=== PATIENT | female | born 1930 | race Caucasian/White ===

== ENCOUNTER 2016-12-05 05:06 | Inpatient (IN) | payer MEDICARE ==
[~2016-12-05] VITALS: Ht 142.2 cm; Wt 56.2 kg
[~2016-12-05 05:06] MED LIST: ALBU2.5V14 IH; ALPR0.254 PO; ALPR0.5T PO; AZIT250T PO; BUDE10.2 IH; CA C1TAB28 PO; CHOL100013 PO; CRAN400T PO; CYAN10005 PO; Cefpodoxime Proxetil PO; DIGO125T PO; DOCU100C5 PO; DOCU100C53 PO; DOXY100T PO; ESCI10TA PO; ESCI20TA10 PO; FEXO1TAB31 PO; FURO-68 PO; GARL10002 PO; HYDR-2666 PO; HYDR-2762 PO; IPRA4AER IH; LEVO250T25 PO; LEVO500T38 PO; LEVO88TA4 PO; LIDO700A4 TP; METH4TAB2 PO; NYST1000 SWSW; OMEP40CA2 PO; ONDA4TAB10 SL; OXYC-250 PO; POLY17PO5 PO; POTA20TA12 PO; PRED-220 PO; PRED20TA PO; SENN8.6T3 PO; TIOT18CA IH; TIZA4CAP PO; TRAZ100T12 PO; vit b12 PO
[2016-12-05] MEDS ORDERED: methylPREDNISolone SOD SUCC PF 125 MG/2 ML VIAL. IV ONE (05:15)
[2016-12-05] MEDS ORDERED: IPRATRPIUM/ALBUTEROL 0.5/2.5MG 3 ML NEBU. NEB ONE (05:15)
--- NOTE | 2016-12-05 05:24 | PHYS DOC ---
Past Medical History Past Medical History: A-Fib, Anxiety, Asthma, Bronchitis, Cancer, COPD, Depression, Hypothyroid, Other Additional Past Medical Histor: chronic back, lung ca; hernia, HEART DISEASE, EMPHESEMA, Osteoporosis Past Surgical History: Appendectomy, Cholecystectomy, , Hysterectomy, Tonsillectomy, Other Additional Past Surgical Histo: back X2, hernia x 3 Alcohol Use: None Drug Use: None Adult General Chief Complaint Chief Complaint: SHORTNESS OF BREATH HPI HPI An 86-year-old female who presents with acute shortness of breath. EMS found her satting in the low 80s on her usual 6 L. She states she developed difficulty breathing apartment [address] ours prior to EMS arrival. She denies any chest pain. She denies any cough or fever. She does have history of atrial fibrillation and COPD. Patient was refusing CPAP therapy and nonrebreather and so she was they placed on 8 liters with improvement of her saturations. Upon arrival, patient is tachypnea but able to speak in complete sentences in mild respiratory distress. Review of Systems Review of Systems Constitutional: Denies fever or chills [] Eyes: Denies change in visual acuity, redness, or eye pain [] HENT: Denies nasal congestion or sore throat [] Respiratory: Denies cough, has shortness of breath [] Cardiovascular: No additional information not addressed in HPI [] GI: Denies abdominal pain, nausea, vomiting, bloody stools or diarrhea [] : Denies dysuria or hematuria [] Musculoskeletal: Denies back pain or joint pain [] Integument: Denies rash or skin lesions [] Neurologic: Denies headache, focal weakness or sensory changes [] Endocrine: Denies polyuria or polydipsia [] Current Medications Current Medications Current Medications Medications (Trade) Dose Ordered Sig/Yaya Start Time Stop Time Status Last Admin Dose Admin Albuterol/ Ipratropium (Duoneb) 3 ml 1X ONCE 12/05/16 05:15 12/05/16 05:20 DC Albuterol/ Ipratropium 3 ml 3 ml RTQID 12/05/16 08:00 12/06/16 07:59 Levofloxacin/ Dextrose (LEVAQUIN 750mg PREMIX) 150 ml @ 100 mls/hr Q48H 12/07/16 05:00 Levofloxacin/ Dextrose (Levaquin Per Pharmacy) 1 each PRN DAILY PRN 3/1/17 06:00 Methylprednisolone Sodium Succinate (Solu-Medrol 125mg Vial) 125 mg 1X ONCE 12/05/16 05:15 12/05/16 05:20 DC 12/05/16 05:52 125 MG Ondansetron HCl (Zofran) 4 mg PRN Q8HRS PRN 12/05/16 06:00 12/06/16 05:59 Piperacillin Sod/ Tazobactam Sod (Zosyn Per Pharmacy) 1 each PRN DAILY PRN 12/05/16 06:00 UNV Piperacillin Sod/ Tazobactam Sod 2.25 gm/Sodium Chloride 50 ml @ 100 mls/hr ONCE ONCE 12/05/16 07:00 12/05/16 07:29 12/05/16 06:23 100 MLS/HR Vancomycin HCl (Vanco Per Pharmacy) 1 each PRN DAILY PRN 12/05/16 06:00 UNV Allergies Allergies Allergies Coded Allergies Type Severity Reaction Last Updated Verified morphine Allergy Intermediate PER DAUGHTER, DOES NOT AGREE WITH PT 03/13/14 Yes adhesive Adverse Reaction Intermediate blisters 01/26/15 Yes aspirin Adverse Reaction Intermediate Nausea and Vomiting, "makes me sick" Yes Physical Exam Physical Exam Constitutional: Well developed, well nourished, no acute distress, non-toxic appearance. [] HENT: Normocephalic, atraumatic, bilateral external ears normal, oropharynx moist, no oral exudates, nose normal. [] Eyes: PERRLA, EOMI, conjunctiva normal, no discharge. [] Neck: Normal range of motion, no tenderness, supple, no stridor. [] Cardiovascular:Heart rate regular rhythm, no murmur [] Lungs & Thorax: Bilateral breath sounds clear to auscultation [] Abdomen: Bowel sounds normal, soft, no tenderness, no masses, no pulsatile masses. [] Skin: Warm, dry, no erythema, no rash. [] Back: No tenderness, no CVA tenderness. [] Extremities: No tenderness, no cyanosis, no clubbing, ROM intact, no edema. [] Neurologic: Alert and oriented X 3, normal motor function, normal sensory function, no focal deficits noted. [] Psychologic: Affect normal, judgement normal, mood normal. [] Current Patient Data Vital Signs Vital Signs Date Time Temp Pulse Resp B/P Pulse Ox O2 Delivery O2 Flow Rate FiO2 12/05/16 05:31 94 Nasal Cannula 8.0 12/05/16 05:25 98.5 92 28 109/73 98.5 Lab Values Laboratory Tests Test 12/05/16 05:10 White Blood Count 6.7x10^3/uL (4.0-11.0) Red Blood Count 3.28x10^6/uL (3.50-5.40) L Hemoglobin 9.1g/dL (12.0-15.5) L Hematocrit 29.1% (36.0-47.0) L Mean Corpuscular Volume 89fL (79-100) Mean Corpuscular Hemoglobin 28pg (25-35) Mean Corpuscular Hemoglobin Concent 31g/dL (31-37) Red Cell Distribution Width 16.8% (11.5-14.5) H Platelet Count 102x10^3/uL (140-400) L Neutrophils (%) (Auto) 66% (31-73) Lymphocytes (%) (Auto) 20% (24-48) L Monocytes (%) (Auto) 12% (0-9) H Eosinophils (%) (Auto) 2% (0-3) Basophils (%) (Auto) 1% (0-3) Neutrophils # (Auto) 4.4x10^3uL (1.8-7.7) Lymphocytes # (Auto) 1.3x10^3/uL (1.0-4.8) Monocytes # (Auto) 0.8x10^3/uL (0.0-1.1) Eosinophils # (Auto) 0.1x10^3/uL (0.0-0.7) Basophils # (Auto) 0.0x10^3/uL (0.0-0.2) Sodium Level 141mmol/L (136-145) Potassium Level 4.0mmol/L (3.5-5.1) Chloride Level 97mmol/L (98-107) L Carbon Dioxide Level 43mmol/L (21-32) H Anion Gap 1 (6-14) L Blood Urea Nitrogen 14mg/dL (7-20) Creatinine 1.1mg/dL (0.6-1.0) H Estimated GFR (Cockcroft-Gault) 47.3 Glucose Level 159mg/dL (70-99) H Lactic Acid Level 1.1mmol/L (0.4-2.0) Calcium Level 9.0mg/dL (8.5-10.1) Troponin I Quantitative < 0.017ng/mL (0.000-0.055) DN-Iaq-B-Type Natriuretic Peptide 1257pg/mL (0-449) H Laboratory Tests 12/05/16 05:10 Laboratory Tests 12/05/16 05:10 EKG EKG EKG as interpreted by me shows an irregular rhythm with a rate of 102 bpm. There is some artifact seen throughout this EKG but there are no obvious ischemic findings. This EKG does not meet any STEMI criteria. The intervals are normal. There is a leftward axis. There are occasional PVCs Radiology/Procedures Radiology/Procedures One view of the chest as interpreted by me shows findings concerning for a possible left-sided pneumonia. Course & Med Decision Making Course & Med Decision Making Pertinent Labs and Imaging studies reviewed. (See chart for details) 86-year-old female who is had significant significant dyspnea and requiring higher oxygen requirement than her usual 6 L will be admitted to the hospital for likely COPD exacerbation and a healthcare acquired pneumonia. I discussed the need to admit the patient with the hospitalist, Dr. Heard, who agreed to begin antibiotic therapy and to consult pulmonology as well. Patient was given a breathing treatment and steroids as well. Antibiotic therapy was ordered and initiated. Cultures and lactate were obtained prior to antibiotic administration. Her laboratory workup was fairly unremarkable other than a slightly elevated proBNP. Dragon Disclaimer Dragon Disclaimer This electronic medical record was generated, in whole or in part, using a voice recognition dictation system. Departure Departure Impression: Primary Impression: COPD (chronic obstructive pulmonary disease) Additional Impression: Healthcare-associated pneumonia Disposition: ADMITTED INPATIENT Admitting Physician: Paul Maldonado Condition: STABLE Referrals: PAUL MALDONADO MD (PCP) Problem Qualifiers VIOLET GREER DO Dec 05, 2016 05:23
[2016-12-05 05:36] LABS: BASO % 1 % (0-3); EOS % 2 % (0-3); HEMATOCRIT 29.1 % (36.0-47.0); HEMOGLOBIN 9.1 g/dL (12.0-15.5); LYMPH # 1.3 x10^3/uL (1.0-4.8); LYMPH % 20 % (24-48); MEAN CORPUSCULAR HEMOGLOBIN 28 pg (25-35); MEAN CORPUSCULAR HGB CONC 31 g/dL (31-37); MEAN CORPUSCULAR VOLUME 89 fL (79-100); MONO % 12 % (0-9); NEUT % 66 % (31-73); PLATELET COUNT 102 x10^3/uL (140-400); RED BLOOD COUNT 3.28 x10^6/uL (3.50-5.40); RED CELL DISTRIBUTION WIDTH 16.8 % (11.5-14.5); WHITE BLOOD COUNT 6.7 x10^3/uL (4.0-11.0)
[2016-12-05 05:40] LABS: CREATININE 1.1 mg/dL (0.6-1.0); GFR 47.3
[2016-12-05] MEDS ORDERED: LEVOFLOXACIN PER PHARMACY MC PRN (06:00)
[2016-12-05] MEDS ORDERED: VANCOMYCIN PER PHARMACY MC PRN ×2 (06:00→07:15)
[2016-12-05] MEDS ORDERED: PIP/TAZO PER PHARMACY MC PRN (06:00)
[2016-12-05] MEDS ORDERED: ONDANSETRON PF 4 MG/2 ML VIAL. IV PRN (06:00)
--- NOTE | 2016-12-05 06:26 | EKG ---
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 VENTRICULAR PREMATURE COMPLEX(ES) LEFTWARD AXIS LOW LIMB LEAD VOLTAGE QRS(T) CONTOUR ABNORMALITY CONSIDER ANTEROSEPTAL INFARCT CONSISTENT WITH INFERIOR INFARCT PROBABLY OLD T ABNORMALITY IN HIGH LATERAL LEADS RI6.01 Unconfirmed report Electronically Signed On 12-10-2016 13:33:34 WATER CONTROL SUPERVISOR by Francois Gallardo
[2016-12-05] MEDS ORDERED: PIPERACILLIN/TAZOBACTAM 2.25 GM in IV NORMAL SALINE 50ML 50 ML IV ONE (07:00)
--- NOTE | 2016-12-05 07:11 | RAD ---
Indication shortness of air. A single view of the chest was obtained. Comparison is made to an examination October 24, 2016. There are suspect background changes of fibrosis. Heart size is unchanged. The pulmonary vasculature is similar. Acute parenchymal infiltrate is not seen. A significant change in the appearance of the chest compared to the previous exam is not seen. Kyphoplasty changes are noted at multiple levels similar to the prior study. Hiatus hernia is noted. IMPRESSION: No acute finding. No significant change
[2016-12-05 07:15] VITALS: BP 113/64
[2016-12-05] MEDS ORDERED: VANCOMYCIN 1.25 GM in IV NORMAL SALINE 250ML 250 ML IV ONE (07:30)
[2016-12-05] MEDS ORDERED: IPRATRPIUM/ALBUTEROL 0.5/2.5MG 3 ML NEBU. NEB SCH (08:00)
[2016-12-05] MEDS ORDERED: IPRA3AMP NEB (08:32)
[2016-12-05] MEDS ORDERED: ONDANSETRON ODT 4 MG TAB.RAPDIS PO PRN (10:00)
--- NOTE | 2016-12-05 10:03 | PDOC ---
Provider Note Provider Note Pt seen.H&P dictated. #[id number] PAUL MALDONADO MD Dec 05, 2016 10:03
--- NOTE | 2016-12-05 10:06 | ACF ---
Admission Forms Criteria COPD Clinical Indications for Admission to Inpatient Care (Place 'X' for any and all applicable criteria): Admission is indicated for ANY ONE of the following (1)(2)(3): [X]I. Acute exacerbation by high-risk comorbidity (e.g., pneumonia, dysrhythmia, heart failure, pleural effusion, pneumothorax) or severe underlying COPD (e.g., steroid dependent) [ ]II. Inpatient admission required rather than observation care (see Chronic Obstructive Pulmonary Disease: Observation Care) because of ANY ONE of the following: [ ]a) New or pre-existing signs or symptoms of COPD (eg, dyspnea or Tachypnea at rest or with minimal activity) that persist despite outpatient and observation care treatment [ ]b) New-onset hypoxemia (room air SaO2 less than 90%, PO2 less than 60 mm Hg (8.0 kPa)) that persists despite outpatient and observation care treatment [ ]c) Worsening of pre-existing hypoxemia (eg, new or increased requirement for supplemental oxygen to maintain oxygenation at baseline level) that persists despite outpatient and observation care treatment, with oxygen treatment needs performable only in acute inpatient setting [ ]d) Hypercarbia (PCO2 greater than 40 mm Hg (5.3 kPa))-induced respiratory acidosis (pH less than 7.35) that persists despite outpatient and observation care treatment [ ]e) Supplemental oxygen or respiratory treatments for over 24 hours that are performable only in acute inpatient setting [ ]f) Chest tube placement with active evacuation (e.g., suction, drainage) (5) [ ]g) Other condition, treatment or monitoring requiring inpatient admission [ ]III. Planned invasive surgical or diagnostic procedures requiring acute- care hospitalization [ ]IV. Acute respiratory failure (e.g., uncompensated hypercarbia, severe hypoxemia) [ ]V. Severe comorbid condition (e.g., severe steroid myopathy, acute vertebral fracture) that has acutely worsened pulmonary function [ ]. Confusion state, lethargy, obtundation, stupor or coma Extended stay beyond goal length of stay may be needed for (31)(32): [ ]a ) Respiratory Failure. [ ]b) Severe or persisting hypoxemia or hypercarbia [ ]c) Severe or persistent dyspnea [ ]d) Comorbidities (e.g. chronic heart failure, atrial fibrillation with rapid response, pneumonia) [ ]e) Malnutrition The original [facility] content created by [facility] has been revised. The portions of the content which have been revised are identified through the use of italic text or in bold, and [facility] has neither reviewed nor approved the modified material. All other unmodified content is copyright [facility]. Please see references footnoted in the original [facility] edition 2016 Admission Criteria Met?: Yes TONYA MCGHEE Dec 05, 2016 10:06
[2016-12-05] MEDS ORDERED: ALBUTEROL SULFATE 2.5 MG/3 ML NEBU. NEB PRN (10:15)
[2016-12-05] MEDS: IV NORMAL SALINE 1000ML BAG 1,000 ML IV SCH (10:28)
[2016-12-05] MEDS: DOCUSATE SODIUM 100 MG CAPSULE PO SCH (10:32)
[2016-12-05] MEDS: ALPRAZOLAM 0.25 MG TABLET PO PRN ×3 (10:33→21:16)
[2016-12-05] MEDS: SENNOSIDES 8.6 MG TABLET PO SCH (10:35)
[2016-12-05] MEDS: ESCITALOPRAM 10 MG TABLET. PO SCH (10:35)
[2016-12-05] MEDS: LEVOTHYROXINE 88 MCG TABLET PO SCH (10:36)
[2016-12-05] MEDS: CYANOCOBALAMIN (VITAMIN B-12) 1,000 MCG TABLET. PO SCH (10:37)
[2016-12-05] MEDS: ENOXAPARIN 40 MG/0.4 ML DISP.SYRIN. SQ SCH (10:38)
[2016-12-05] MEDS: DIGOXIN 125 MCG TABLET PO SCH (10:41)
[2016-12-05 11:15] VITALS: BP 120/61
[2016-12-05] MEDS: IPRATRPIUM/ALBUTEROL 0.5/2.5MG 3 ML NEBU. NEB SCH ×3 (11:17→19:57)
[2016-12-05] MEDS: PIPERACILLIN/TAZOBACTAM 2.25 GM in IV NORMAL SALINE 50ML 50 ML IV SCH ×3 (12:33→23:59)
[2016-12-05] MEDS: methylPREDNISolone SOD SUCC PF 125 MG/2 ML VIAL. IV SCH ×2 (13:01→21:15)
--- NOTE | 2016-12-05 13:02 | HP ---
ADMIT DATE: 12/05/2016 REASON FOR ADMISSION TO THE HOSPITAL: COPD with acute exacerbation, possible pneumonia. HISTORY OF PRESENT ILLNESS: The patient is an 86-year-old female patient known to me who has a history of severe COPD and lung cancer. She was having shortness of breath and cough and came to the Emergency Room. She was admitted to the hospital with COPD exacerbation and possible pneumonitis. PAST MEDICAL HISTORY: COPD and hypothyroidism. She is on 5 liters oxygen, diastolic heart failure, atrial fibrillation, lung cancer, radiation treatment 4 years ago, osteoporosis, and compression of the spine, had multiple vertebroplasties. PAST SURGICAL HISTORY: Appendectomy, gallbladder surgery, , hysterectomy, tonsillectomy, back surgeries x 2, hernia surgery, and vertebroplasties at least 2 or 3. ALLERGIES: MORPHINE, ASPIRIN, AND ADHESIVE TAPE. MEDICATIONS AT HOME: She is on 3 liters, can go up to 5 liters of oxygen daily, B12 1000 mcg daily, DuoNeb 4 times daily, Xanax 0.25 three times daily, Symbicort twice a day 160/4.5, vitamin D 1000 units daily, digoxin 125 mcg daily, Colace 100 mg daily, Lexapro 20 mg daily, Combivent 2 puffs 4 times daily, levothyroxine 88 mcg daily, oxycodone 5 mg q. 6 hours, trazodone 100 mg daily, and Zofran for nausea. PERSONAL HISTORY: She smoked for 30 years, quit 4 to 5 years ago. Denies alcohol or drug abuse. SOCIAL HISTORY: Lives at home. She uses a walker, and she has oxygen at home and a breathing machine at home. FAMILY HISTORY: Positive for hypertension and heart disease. REVIEW OF SYMPTOMS: Denies any coughing or spitting green phlegm at the present time. A couple of days ago, she had shortness of breath and wheezing. No chest pain. Rest of the 14-system was reviewed and negative. PHYSICAL EXAMINATION: VITAL SIGNS: At the time of admission shows a temperature 98, pulse 96, respirations 26, and blood pressure 109/73, 96% on 8 liters. HEENT: Head is atraumatic. Pupils are equal. Oral cavity: Dentures. Slight congestion of posterior pharynx. CHEST: COPD pattern. CARDIOVASCULAR: S1 and S2. LUNGS: Bilateral wheezing. ABDOMEN: Soft, no mass palpable. EXTERNAL GENITALIA: No Freeman. RECTAL: Deferred. EXTREMITIES: No calf tenderness or edema. 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 SKIN: Normal skin turgor. LYMPH NODES: No significant lymphadenopathy. Pulses 1+ dorsal and posterior tibial. LABORATORY DATA: White count 6, hemoglobin 9, and platelets 102. Electrolytes show sodium 141, potassium 4.1, chloride 97, bicarbonate 43, BUN 14, creatinine 1.1, glucose 159, lactic acid 1.9, troponin 0.127, and BNP 1257. Chest x-ray shows no acute findings, some fibrosis and scarring. FINAL IMPRESSION: 1. Chronic obstructive pulmonary disease with acute exacerbation, possibility of underlying pneumonitis. 2. Scarring in the lung, history of lung cancer, had radiation treatment 4 to 5 years ago. 3. Hypothyroidism. 4. Atrial fibrillation. 5. Chronic systolic heart failure. 6. Anxiety and depression. PLAN: At this time, admit to hospital, sputum cultures. Started on Solu-Medrol t.i.d., Zosyn, and vancomycin and see how the patient can improve. Some breathing treatments, hydration, and the patient wishes DNR. PAUL MALDONADO MD DR: EKTA/patience JOB#: [id number] / [id number]
[2016-12-05 15:03] VITALS: BP 145/67
--- NOTE | 2016-12-05 16:02 | PDOC ---
PULMONARY PROGRESS NOTES Vitals Vital Signs Date Time Temp Pulse Resp B/P Pulse Ox O2 Delivery O2 Flow Rate FiO2 12/05/16 15:12 Nasal Cannula 6.0 12/05/16 15:03 98.2 67 16 145/67 96 98.2 General: Alert, Oriented X4, No acute distress HEENT: Other Lungs: Other Cardiovascular: S1, S2 Abdomen: Soft, Non-tender Extremities: No Edema Labs Laboratory Tests Test 12/05/16 05:10 White Blood Count 6.7x10^3/uL (4.0-11.0) Red Blood Count 3.28x10^6/uL (3.50-5.40) Hemoglobin 9.1g/dL (12.0-15.5) Hematocrit 29.1% (36.0-47.0) Mean Corpuscular Volume 89fL (79-100) Mean Corpuscular Hemoglobin 28pg (25-35) Mean Corpuscular Hemoglobin Concent 31g/dL (31-37) Red Cell Distribution Width 16.8% (11.5-14.5) Platelet Count 102x10^3/uL (140-400) Neutrophils (%) (Auto) 66% (31-73) Lymphocytes (%) (Auto) 20% (24-48) Monocytes (%) (Auto) 12% (0-9) Eosinophils (%) (Auto) 2% (0-3) Basophils (%) (Auto) 1% (0-3) Neutrophils # (Auto) 4.4x10^3uL (1.8-7.7) Lymphocytes # (Auto) 1.3x10^3/uL (1.0-4.8) Monocytes # (Auto) 0.8x10^3/uL (0.0-1.1) Eosinophils # (Auto) 0.1x10^3/uL (0.0-0.7) Basophils # (Auto) 0.0x10^3/uL (0.0-0.2) Sodium Level 141mmol/L (136-145) Potassium Level 4.0mmol/L (3.5-5.1) Chloride Level 97mmol/L (98-107) Carbon Dioxide Level 43mmol/L (21-32) Anion Gap 1 (6-14) Blood Urea Nitrogen 14mg/dL (7-20) Creatinine 1.1mg/dL (0.6-1.0) Estimated GFR (Cockcroft-Gault) 47.3 Glucose Level 159mg/dL (70-99) Lactic Acid Level 1.1mmol/L (0.4-2.0) Calcium Level 9.0mg/dL (8.5-10.1) Troponin I Quantitative < 0.017ng/mL (0.000-0.055) SB-Fvm-Z-Type Natriuretic Peptide 1257pg/mL (0-449) Laboratory Tests Test 12/05/16 05:10 White Blood Count 6.7x10^3/uL (4.0-11.0) Red Blood Count 3.28x10^6/uL (3.50-5.40) Hemoglobin 9.1g/dL (12.0-15.5) Hematocrit 29.1% (36.0-47.0) Mean Corpuscular Volume 89fL (79-100) Mean Corpuscular Hemoglobin 28pg (25-35) Mean Corpuscular Hemoglobin Concent 31g/dL (31-37) Red Cell Distribution Width 16.8% (11.5-14.5) Platelet Count 102x10^3/uL (140-400) Neutrophils (%) (Auto) 66% (31-73) Lymphocytes (%) (Auto) 20% (24-48) Monocytes (%) (Auto) 12% (0-9) Eosinophils (%) (Auto) 2% (0-3) Basophils (%) (Auto) 1% (0-3) Neutrophils # (Auto) 4.4x10^3uL (1.8-7.7) Lymphocytes # (Auto) 1.3x10^3/uL (1.0-4.8) Monocytes # (Auto) 0.8x10^3/uL (0.0-1.1) Eosinophils # (Auto) 0.1x10^3/uL (0.0-0.7) Basophils # (Auto) 0.0x10^3/uL (0.0-0.2) Sodium Level 141mmol/L (136-145) Potassium Level 4.0mmol/L (3.5-5.1) Chloride Level 97mmol/L (98-107) Carbon Dioxide Level 43mmol/L (21-32) Anion Gap 1 (6-14) Blood Urea Nitrogen 14mg/dL (7-20) Creatinine 1.1mg/dL (0.6-1.0) Estimated GFR (Cockcroft-Gault) 47.3 Glucose Level 159mg/dL (70-99) Lactic Acid Level 1.1mmol/L (0.4-2.0) Calcium Level 9.0mg/dL (8.5-10.1) Troponin I Quantitative < 0.017ng/mL (0.000-0.055) TH-Cdg-A-Type Natriuretic Peptide 1257pg/mL (0-449) Medications Active Scripts Medications Dose Route/Sig Days Date Category Duoneb 0.5-3(2.5) Mg/3 Ml (Albuterol/Ipratropium) 3 Ml Ampul.neb 3 Ml NEB QID 12/05/16 Reported Vitamin B-12 (Cyanocobalamin (Vitamin B-12)) 1,000 Mcg Tablet 1 Tab PO DAILY 10/25/16 Rx Senna (Sennosides) 8.6 Mg Tablet 8.6 Mg PO DAILY 06/20/16 Rx Docusate Sodium 100 Mg Capsule 1 Cap PO DAILY 06/20/16 Rx Trazodone Hcl 100 Mg Tablet 1 Tab PO QHS 06/07/16 Reported Vitamin D (Cholecalciferol (Vitamin D3)) 1,000 Unit Capsule 1 Cap PO DAILY 06/07/16 Reported Percocet 10-325 Mg Tablet (Oxycodone/Acetaminophen) 1 Each Tablet 1 Tab PO TID PRN 03/14/16 Rx Cranberry (Cranberry Fruit) 400 Mg Tablet 4,200 Mg PO DAILY 03/07/16 Reported Levothyroxine Sodium 88 Mcg Tablet 1 Tab PO DAILY 03/06/16 Reported Alprazolam 0.25 Mg Tablet 1 Tab PO PRN TID PRN 03/06/16 Reported Digoxin 125 Mcg Tablet 1 Tab PO DAILY 03/07/15 Reported Zofran Odt (Ondansetron) 4 Mg Tab.rapdis 1 Tab SL Q8HRS PRN 03/07/15 Reported Escitalopram Oxalate 10 Mg Tablet 20 Mg PO DAILY 03/14/14 Reported Impression . full note dictated a/c resp failure aecopd clinical pneumonia agree with current rx thanks LAZ ANTUNEZ MD Dec 05, 2016 16:02
[2016-12-05 19:00] VITALS: BP 127/55
[2016-12-05] MEDS: OXYCODONE/APAP 10/325 TABLET. PO PRN (21:15)
[2016-12-05] MEDS: traZODone 100 MG TABLET. PO SCH (21:16)
[2016-12-05 23:00] VITALS: BP 111/62
[2016-12-06] MEDS: IV NORMAL SALINE 1000ML BAG 1,000 ML IV SCH (01:09)
[2016-12-06 03:00] VITALS: BP 118/72
[2016-12-06] MEDS: methylPREDNISolone SOD SUCC PF 125 MG/2 ML VIAL. IV SCH ×3 (05:17→20:44)
[2016-12-06] MEDS: LEVOTHYROXINE 88 MCG TABLET PO SCH (05:17)
[2016-12-06] MEDS: PIPERACILLIN/TAZOBACTAM 2.25 GM in IV NORMAL SALINE 50ML 50 ML IV SCH (05:17)
[2016-12-06 07:21] VITALS: BP 133/49
[2016-12-06] MEDS: IPRATRPIUM/ALBUTEROL 0.5/2.5MG 3 ML NEBU. NEB SCH ×4 (07:22→20:11)
[2016-12-06] MEDS: DOCUSATE SODIUM 100 MG CAPSULE PO SCH (08:52)
[2016-12-06] MEDS: CYANOCOBALAMIN (VITAMIN B-12) 1,000 MCG TABLET. PO SCH (08:52)
[2016-12-06] MEDS: SENNOSIDES 8.6 MG TABLET PO SCH (08:53)
[2016-12-06] MEDS: DIGOXIN 125 MCG TABLET PO SCH (08:54)
[2016-12-06] MEDS: ESCITALOPRAM 10 MG TABLET. PO SCH (08:55)
[2016-12-06] MEDS: OXYCODONE/APAP 10/325 TABLET. PO PRN ×2 (08:58→20:48)
--- NOTE | 2016-12-06 09:36 | PDOC ---
PROGRESS NOTES Subjective Subjective pt feels better ,anxious to go home Objective Objective Vital Signs Date Time Temp Pulse Resp B/P Pulse Ox O2 Delivery O2 Flow Rate FiO2 12/06/16 08:54 84 133/49 12/06/16 07:23 96 Nasal Cannula 5.0 12/06/16 07:21 97.5 18 97.5 Intake and Output 12/06/16 07:00 Intake Total 960 ml Output Total 651 ml Balance 309 ml Intake Oral 960 ml Output Urine Total 650 ml Stool Total 1 ml # Voids 4 # Bowel Movements 1 Physical Exam Abdomen: Normal bowel sounds, Soft Heart: Regular rate, Normal S1, Normal S2 Extremities: No clubbing General: Alert HEENT: Atraumatic Lungs: Normal air movement MUSCULOSKELETAL: No swelling Neck: Supple Neuro: Normal speech Psych/Mental Status: Mental status NL Skin: No breakdown Diagnosis Problem List Problems Medical Problems: (1) COPD (chronic obstructive pulmonary disease) Status: Acute (2) Healthcare-associated pneumonia Status: Acute Assessment Assessment Problems Medical Problems: (1) COPD (chronic obstructive pulmonary disease) Status: Acute (2) Healthcare-associated pneumonia Status: Acute FINAL IMPRESSION: 1. Chronic obstructive pulmonary disease with acute exacerbation, possibility of underlying pneumonitis. 2. Scarring in the lung, history of lung cancer, had radiation treatment 4 to 5 years ago. 3. Hypothyroidism. 4. Atrial fibrillation. 5. Chronic systolic heart failure. 6. Anxiety and depression. PLAN: d/c iv antibiotics,change to po. taper steroids home tomorrow. At this time, admit to hospital, sputum cultures. Started on Solu-Medrol t.i.d., Zosyn, and vancomycin and see how the patient can improve. Some breathing treatments, hydration, and the patient wishes DNR. Problems: Plan Plan of Care Problems Medical Problems: (1) COPD (chronic obstructive pulmonary disease) Status: Acute (2) Healthcare-associated pneumonia Status: Acute Comment Review of Relevant I have reviewed the following items carly (where applicable) has been applied. Labs Microbiology 12/05/16 Blood Culture - Preliminary, Resulted NO GROWTH AFTER 1 DAY Medications Current Medications Albuterol Sulfate (Ventolin Neb Soln) 2.5 mg PRN QID PRN NEB WHEEZING; Start at 10:15 Albuterol/ Ipratropium (Duoneb) 3 ml QID NEB Last administered on 12/06/16 07: 22; Start 12/05/16 at 13:00 Alprazolam (Xanax) 0.25 mg PRN TID PRN PO ANXIETY / AGITATION Last administered on 12/05/16 21:16; Start 12/05/16 at 10:00 Cyanocobalamin (Vitamin B-12) 1,000 mcg DAILY PO Last administered on 12/06/16 08:52; Start 12/05/16 at 11:00 Digoxin (Lanoxin) 125 mcg DAILY PO Last administered on 12/06/16 08:54; Start 12/05/16 at 11:00 Docusate Sodium (Colace) 100 mg DAILY PO Last administered on 12/06/16 08:52; Start 12/05/16 at 11:00 Enoxaparin Sodium 40 mg 40 mg Q24H SQ Last administered on 12/05/16 10:38; Start 12/05/16 at 11:00 Escitalopram Oxalate (Lexapro) 20 mg DAILY PO Last administered on 12/06/16 08: 55; Start 12/05/16 at 11:00 Levofloxacin/ Dextrose 150 ml @ 100 mls/hr Q48H IV ; Start 12/07/16 at 05:00 Levothyroxine Sodium (Synthroid) 88 mcg DAILY07 PO Last administered on 05:17; Start 12/05/16 at 11:00 Methylprednisolone Sodium Succinate (Solu-Medrol 125mg Vial) 60 mg Q8HRS IV Last administered on 12/06/16 05:17; Start 12/05/16 at 14:00 Ondansetron HCl (Zofran Odt) 4 mg PRN Q8HRS PRN PO NAUSEA; Start 12/05/16 at 10: 00 Oxycodone/ Acetaminophen (Percocet 10/325) 1 tab PRN TID PRN PO PAIN Last administered on 12/06/16 08:58; Start 12/05/16 at 10:00 Piperacillin Sod/ Tazobactam Sod/ Sodium Chloride (Zosyn/Iv Sodium Chloride 0.9 % 50ml) 50 ml @ 100 mls/hr Q6HRS IV Last administered on 12/06/16 05:17; Start 12/05/16 at 12:00 Sennosides (Senna) 8.6 mg DAILY PO Last administered on 12/06/16 08:53; Start 12/05/16 at 11:00 Sodium Chloride (Iv Sodium Chloride 0.9% 1000ml Bag) 1,000 ml @ 75 mls/hr [id number] IV Last administered on 12/06/16 01:09; Start 12/05/16 at 11:00 Trazodone HCl 100 mg 100 mg QHS PO Last administered on 12/05/16 21:16; Start 12/05/16 at 21:00 Vancomycin HCl 1 each 1X ONCE MC ; Start 12/07/16 at 09:30; Stop 12/07/16 at 09: 31 Vancomycin HCl/ Sodium Chloride (Iv Sodium Chloride 0.9% 250ml) 250 ml @ 250 mls/hr Q24H IV Last administered on 12/06/16 09:03; Start 12/06/16 at 10:00 Vitals/I & O Vital Sign - Last 24 Hours 12/05/16 12/05/16 12/05/16 12/05/16 10:41 11:15 11:18 15:03 Temp 97.9 98.2 97.9 98.2 Pulse 88 80 67 Resp 18 16 B/P 113/64 120/61 145/67 Pulse Ox 96 96 O2 Delivery Nasal Cannula Nasal Cannula Nasal Cannula O2 Flow Rate 8.0 6.0 6.0 12/05/16 12/05/16 12/05/16 12/05/16 15:12 19:00 19:57 20:06 Temp 97.7 97.7 Pulse 81 Resp 18 B/P 127/55 Pulse Ox 97 96 O2 Delivery Nasal Cannula Nasal Cannula Nasal Cannula Nasal Cannula O2 Flow Rate 6.0 6.0 6.0 6.0 12/05/16 12/05/16 12/05/16 12/06/16 21:15 22:15 23:00 03:00 Temp 97.9 97.9 97.9 97.9 Pulse 87 88 Resp 18 18 18 18 B/P 111/62 118/72 Pulse Ox 96 96 98 97 O2 Delivery Nasal Cannula Nasal Cannula Nasal Cannula Room Air O2 Flow Rate 6.0 6.0 6.0 12/06/16 12/06/16 12/06/16 07:21 07:23 08:54 Temp 97.5 97.5 Pulse 84 84 Resp 18 B/P 133/49 133/49 Pulse Ox 96 96 O2 Delivery Nasal Cannula Nasal Cannula O2 Flow Rate 5.0 5.0 Intake and Output 12/05/16 12/05/16 12/06/16 15:00 23:00 07:00 Intake Total 600 ml 360 ml Output Total 200 ml 451 ml Balance 400 ml -91 ml PAUL MALDONADO MD Dec 06, 2016 09:36
[2016-12-06] MEDS ORDERED: VANCOMYCIN 1 GM in IV NORMAL SALINE 250ML 250 ML IV SCH (10:00)
[2016-12-06 10:15] VITALS: BP 122/49
[2016-12-06] MEDS: ENOXAPARIN 40 MG/0.4 ML DISP.SYRIN. SQ SCH (11:19)
[2016-12-06] MEDS: LEVOFLOXACIN 250 MG TABLET. PO SCH (11:19)
--- NOTE | 2016-12-06 13:52 | RAD ---
Chest, 2 views, 12/06/2016: History: COPD Comparison is made to yesterday's study. The heart is enlarged. There is tortuosity and calcific plaquing of the thoracic aorta. The pulmonary vascularity is at the upper limits of normal. There are scattered parenchymal scars. No acute infiltrate is seen. There is no evidence of pleural fluid. There is severe bony demineralization with vertebroplasty changes at multiple levels in the thoracic and lumbar spine. There is a moderate associated thoracolumbar scoliosis. IMPRESSION: 1. Chronic findings as described above. 2. No acute cardiopulmonary abnormality is detected.
[2016-12-06 14:20] VITALS: BP 145/73
--- NOTE | 2016-12-06 15:34 | PDOC ---
PULMONARY PROGRESS NOTES Subjective pt with no increase soa Vitals Vital Signs Date Time Temp Pulse Resp B/P Pulse Ox O2 Delivery O2 Flow Rate FiO2 12/06/16 15:02 96 Nasal Cannula 5.0 12/06/16 14:20 97.5 79 18 145/73 97.5 ROS: No Nausea, No Chest Pain, No Abdominal Pain General: Alert, No acute distress HEENT: Other Lungs: Wheezing Cardiovascular: S1, S2 Abdomen: Soft, Non-tender Neuro Exam: Alert Extremities: No Edema Skin: Warm Labs Laboratory Tests Test 12/05/16 05:10 White Blood Count 6.7x10^3/uL (4.0-11.0) Red Blood Count 3.28x10^6/uL (3.50-5.40) Hemoglobin 9.1g/dL (12.0-15.5) Hematocrit 29.1% (36.0-47.0) Mean Corpuscular Volume 89fL (79-100) Mean Corpuscular Hemoglobin 28pg (25-35) Mean Corpuscular Hemoglobin Concent 31g/dL (31-37) Red Cell Distribution Width 16.8% (11.5-14.5) Platelet Count 102x10^3/uL (140-400) Neutrophils (%) (Auto) 66% (31-73) Lymphocytes (%) (Auto) 20% (24-48) Monocytes (%) (Auto) 12% (0-9) Eosinophils (%) (Auto) 2% (0-3) Basophils (%) (Auto) 1% (0-3) Neutrophils # (Auto) 4.4x10^3uL (1.8-7.7) Lymphocytes # (Auto) 1.3x10^3/uL (1.0-4.8) Monocytes # (Auto) 0.8x10^3/uL (0.0-1.1) Eosinophils # (Auto) 0.1x10^3/uL (0.0-0.7) Basophils # (Auto) 0.0x10^3/uL (0.0-0.2) Sodium Level 141mmol/L (136-145) Potassium Level 4.0mmol/L (3.5-5.1) Chloride Level 97mmol/L (98-107) Carbon Dioxide Level 43mmol/L (21-32) Anion Gap 1 (6-14) Blood Urea Nitrogen 14mg/dL (7-20) Creatinine 1.1mg/dL (0.6-1.0) Estimated GFR (Cockcroft-Gault) 47.3 Glucose Level 159mg/dL (70-99) Lactic Acid Level 1.1mmol/L (0.4-2.0) Calcium Level 9.0mg/dL (8.5-10.1) Troponin I Quantitative < 0.017ng/mL (0.000-0.055) QO-Itx-M-Type Natriuretic Peptide 1257pg/mL (0-449) Medications Active Scripts Medications Dose Route/Sig Days Date Category Duoneb 0.5-3(2.5) Mg/3 Ml (Albuterol/Ipratropium) 3 Ml Ampul.neb 3 Ml NEB QID 12/05/16 Reported Vitamin B-12 (Cyanocobalamin (Vitamin B-12)) 1,000 Mcg Tablet 1 Tab PO DAILY 10/25/16 Rx Senna (Sennosides) 8.6 Mg Tablet 8.6 Mg PO DAILY 06/20/16 Rx Docusate Sodium 100 Mg Capsule 1 Cap PO DAILY 06/20/16 Rx Trazodone Hcl 100 Mg Tablet 1 Tab PO QHS 06/07/16 Reported Vitamin D (Cholecalciferol (Vitamin D3)) 1,000 Unit Capsule 1 Cap PO DAILY 06/07/16 Reported Percocet 10-325 Mg Tablet (Oxycodone/Acetaminophen) 1 Each Tablet 1 Tab PO TID PRN 03/14/16 Rx Cranberry (Cranberry Fruit) 400 Mg Tablet 4,200 Mg PO DAILY 03/07/16 Reported Levothyroxine Sodium 88 Mcg Tablet 1 Tab PO DAILY 03/06/16 Reported Alprazolam 0.25 Mg Tablet 1 Tab PO PRN TID PRN 03/06/16 Reported Digoxin 125 Mcg Tablet 1 Tab PO DAILY 03/07/15 Reported Zofran Odt (Ondansetron) 4 Mg Tab.rapdis 1 Tab SL Q8HRS PRN 03/07/15 Reported Escitalopram Oxalate 10 Mg Tablet 20 Mg PO DAILY 03/14/14 Reported Impression . 1. Acute on chronic respiratory failure secondary to acute exacerbation of chronic obstructive pulmonary disease. 2. Clinical pneumonia. 3. History of lung cancer status post radiation 4-5 years ago. 4. Hypothyroidism. 5. Chronic atrial fibrillation. 6. Chronic systolic failure. Plan . improving continue the same she may be silently aspirating will check video swallow LAZ ANTUNEZ MD Dec 06, 2016 15:34
--- NOTE | 2016-12-06 16:14 | CONS ---
DATE OF CONSULTATION: 12/05/2016 ATTENDING PHYSICIAN: Dr. Amaya. REASON FOR CONSULTATION: The patient is seen in pulmonary consultation at the request of Dr. Amaya for acute on chronic respiratory failure. HISTORY OF PRESENT ILLNESS: The patient is an 86-year-old who presented with increasing shortness of breath to the Emergency Room. She usually wears 6 liters of oxygen supplementation; saturations were in the 80s. She is developing increasing shortness of breath over the last 24 hours. No fever, chills, cough, mostly nonproductive. She improved with increasing oxygen supplementation. Chest x-ray was obtained. I did not appreciate a new infiltrate. PAST MEDICAL HISTORY: Chronic respiratory failure, COPD, AFib, lung cancer treated with radiation 4 years ago, osteoporosis, and compression of the spine. PAST SURGICAL HISTORY: Status post appendectomy, cholecystectomy, , hysterectomy, tonsillectomy, back surgery, hernia surgery, and vertebroplasty. ALLERGIES: MORPHINE, ASPIRIN, AND ADHESIVE TAPE. MEDICATIONS: List from home was reviewed. Please see the MRAD. CURRENT MEDICATION: List was likewise reviewed. SOCIAL HISTORY: She quit tobacco 4-5 years ago. Denies any alcohol intake. REVIEW OF SYSTEMS: As indicated above, otherwise, a 10-point system was reviewed and negative. PHYSICAL EXAMINATION: VITAL SIGNS: Stable. O2 saturation was greater than 92%, currently on 8 liters of oxygen. HEENT: Eyes, the sclerae were nonicteric. NECK: Jugular venous distention was not elevated. No lymphadenopathy. CHEST: Full expansion. LUNGS: Poor airway flow with expiratory wheeze. CARDIOVASCULAR: Regular rate and rhythm with S1, S2, no S3. ABDOMEN: Soft, nontender, nondistended. EXTREMITIES: No clubbing, cyanosis or edema. NEUROLOGIC: The patient was awake, alert, following commands. A detailed neuro exam was not performed. LABORATORY DATA: Reviewed. White count was normal. Hemoglobin and hematocrit were noted. Electrolytes were noted. DIAGNOSTIC DATA: Chest x-ray as indicated above. No acute infiltrates. IMPRESSION: 1. Acute on chronic respiratory failure secondary to acute exacerbation of chronic obstructive pulmonary disease. 2. Clinical pneumonia. 3. History of lung cancer status post radiation 4-5 years ago. 4. Hypothyroidism. 5. Chronic atrial fibrillation. 6. Chronic systolic failure. PLAN: 1. I agree with current medical management, continue oxygen supplementation. 2. Steroids. 3. Broad spectrum antibiotics. 4. Nebulized treatments. I do appreciate the privilege in sharing in the patient's care. LAZ ANTUNEZ MD DR: MARNIE/patience JOB#: [id number] / [id number]
--- NOTE | 2016-12-06 18:21 | EKG ---
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
[2016-12-06 19:00] VITALS: BP 130/44
[2016-12-06] MEDS: ALPRAZOLAM 0.25 MG TABLET PO PRN (20:44)
[2016-12-06] MEDS: traZODone 100 MG TABLET. PO SCH (20:44)
[2016-12-06 23:00] VITALS: BP 112/60
[2016-12-07 03:00] VITALS: BP 114/69
[2016-12-07] MEDS: LEVOFLOXACIN 250 MG TABLET. PO SCH (05:12)
[2016-12-07] MEDS: LEVOTHYROXINE 88 MCG TABLET PO SCH (05:12)
[2016-12-07 07:10] VITALS: BP 123/66
[2016-12-07] MEDS: IPRATRPIUM/ALBUTEROL 0.5/2.5MG 3 ML NEBU. NEB SCH ×2 (07:13→11:51)
[2016-12-07] MEDS: ESCITALOPRAM 10 MG TABLET. PO SCH (08:35)
[2016-12-07] MEDS: SENNOSIDES 8.6 MG TABLET PO SCH (08:36)
[2016-12-07] MEDS: DIGOXIN 125 MCG TABLET PO SCH (08:36)
[2016-12-07] MEDS: CYANOCOBALAMIN (VITAMIN B-12) 1,000 MCG TABLET. PO SCH (08:36)
[2016-12-07] MEDS: methylPREDNISolone SOD SUCC PF 125 MG/2 ML VIAL. IV SCH (08:37)
[2016-12-07] MEDS: DOCUSATE SODIUM 100 MG CAPSULE PO SCH (08:37)
--- NOTE | 2016-12-07 09:42 | PDOC ---
PROGRESS NOTES Subjective Subjective want to go home today ,feels better Objective Objective Vital Signs Date Time Temp Pulse Resp B/P Pulse Ox O2 Delivery O2 Flow Rate FiO2 12/07/16 08:36 77 123/66 12/07/16 08:00 Nasal Cannula 5.0 12/07/16 07:13 96 12/07/16 07:10 97.7 18 97.7 Intake and Output 12/07/16 07:00 Intake Total 840 ml Output Total 900 ml Balance -60 ml Intake Oral 840 ml Output Urine Total 900 ml # Voids 5 Physical Exam Abdomen: Normal bowel sounds, Soft Heart: Regular rate, Normal S1, Normal S2 Extremities: No clubbing General: Alert HEENT: Atraumatic Lungs: Normal air movement MUSCULOSKELETAL: No swelling Neck: Supple Neuro: Normal speech Psych/Mental Status: Mental status NL Skin: No breakdown Diagnosis Problem List Problems Medical Problems: (1) COPD (chronic obstructive pulmonary disease) Status: Acute (2) Healthcare-associated pneumonia Status: Acute Assessment Assessment Problems Medical Problems: (1) COPD (chronic obstructive pulmonary disease) Status: Acute (2) Healthcare-associated pneumonia Status: Acute FINAL IMPRESSION: 1. Chronic obstructive pulmonary disease with acute exacerbation, possibility of underlying pneumonitis. 2. Scarring in the lung, history of lung cancer, had radiation treatment 4 to 5 years ago. 3. Hypothyroidism. 4. Atrial fibrillation. 5. Chronic systolic heart failure. 6. Anxiety and depression. PLAN: antibiotics,change to po. taper steroids ,po prednisone home today. swallow study today At this time, admit to hospital, sputum cultures. Started on Solu-Medrol t.i.d., Zosyn, and vancomycin and see how the patient can improve. Some breathing treatments, hydration, and the patient wishes DNR. Problems: Plan Plan of Care Problems Medical Problems: (1) COPD (chronic obstructive pulmonary disease) Status: Acute (2) Healthcare-associated pneumonia Status: Acute Comment Review of Relevant I have reviewed the following items carly (where applicable) has been applied. Labs Microbiology 12/05/16 Blood Culture - Preliminary, Resulted NO GROWTH AFTER 2 DAYS Medications Current Medications Levofloxacin (Levaquin) 250 mg DAILY06 PO Last administered on 12/07/16t 05:12; Start 12/06/16 at 10:30 Levofloxacin/ Dextrose 150 ml @ 100 mls/hr Q48H IV ; Start 12/07/16 at 05:00; Stop 12/07/16 at 05:00; Status DC Methylprednisolone Sodium Succinate (Solu-Medrol 125mg Vial) 60 mg BID IV Last administered on 12/07/16 08:37; Start 12/06/16 at 10:30 Vancomycin HCl 1 each 1X ONCE MC ; Start 12/07/16 at 09:30; Stop 12/07/16 at 09: 30; Status DC Vancomycin HCl/ Sodium Chloride (Iv Sodium Chloride 0.9% 250ml) 250 ml @ 250 mls/hr Q24H IV Last administered on 12/06/16 09:03; Start 12/06/16 at 10:00; Stop 12/06/16 at 10:00; Status DC Vitals/I & O Vital Sign - Last 24 Hours 12/06/16 12/06/16 12/06/16 12/06/16 10:15 11:03 14:20 15:02 Temp 96.8 97.5 96.8 97.5 Pulse 72 79 Resp 18 18 B/P 122/49 145/73 Pulse Ox 95 96 96 96 O2 Delivery Nasal Cannula Nasal Cannula Nasal Cannula Nasal Cannula O2 Flow Rate 5.0 5.0 5.0 5.0 12/06/16 12/06/16 12/06/16 12/06/16 19:00 20:11 20:13 20:48 Temp 98.1 98.1 Pulse 83 Resp 20 18 B/P 130/44 Pulse Ox 97 96 96 O2 Delivery Nasal Cannula Nasal Cannula Nasal Cannula Nasal Cannula O2 Flow Rate 5.0 5.0 5.0 5.0 12/06/16 12/06/16 12/07/16 12/07/16 21:50 23:00 03:00 07:10 Temp 97.7 96.1 97.7 97.7 96.1 97.7 Pulse 73 76 77 Resp 18 20 20 18 B/P 112/60 114/69 123/66 Pulse Ox 96 93 92 98 O2 Delivery Nasal Cannula Nasal Cannula Nasal Cannula Nasal Cannula O2 Flow Rate 5.0 5.0 5.0 5.0 12/07/16 12/07/16 12/07/16 07:13 08:00 08:36 Pulse 77 B/P 123/66 Pulse Ox 96 O2 Delivery Nasal Cannula Nasal Cannula O2 Flow Rate 5.0 5.0 Intake and Output 12/06/16 12/06/16 12/07/16 15:00 23:00 07:00 Intake Total 540 ml 300 ml Output Total 850 ml 50 ml Balance -310 ml 250 ml PAUL MALDONADO MD Dec 07, 2016 09:41
[2016-12-07] MEDS ORDERED: LEVO250T25 PO (09:45)
[2016-12-07] MEDS ORDERED: PRED50TA PO (09:45)
[2016-12-07] MEDS ORDERED: BARIUM SULFATE 40% 148 GM PWD PO ONE (10:00)
[2016-12-07 10:25] VITALS: BP 133/72
[2016-12-07] MEDS: ENOXAPARIN 40 MG/0.4 ML DISP.SYRIN. SQ SCH (11:09)
--- NOTE | 2016-12-07 11:45 | RAD ---
Exam performed: Video dysphasia exam. Clinical Indication: Difficulty swallowing Date of Exam: 12/07/2016 10:00 AM .Comparison: None available Discussion: The study was performed in conjunction with the speech pathologist. Barium of varying consistencies including thin, pudding and solid consistency barium were administered to the patient and swallowing was recorded on video and reviewed. There is somewhat delayed anteroposterior transfer of the bolus. The barium fills oral pouch probably adjacent to the dentures before swallowing Normal pharyngeal contractions and epiglottic inversion is noted. Several episodes of flash laryngeal penetration seen with thin consistency barium. No aspiration The total fluoroscopy time of 2.3 minutes was utilized. A single fluoroscopic image was saved to the PACS system Impression: 1. Several episodes of laryngeal penetration without aspiration seen with thin consistency barium. For a complete evaluation, please refer to the speech pathologists report
--- NOTE | 2016-12-10 10:12 | PDOC ---
Provider Note Provider Note Discharge summary dictated. #[id number] PAUL MALDONADO MD Dec 10, 2016 10:12
--- NOTE | 2016-12-10 19:45 | DS ---
DATE OF DISCHARGE: 12/07/2016 REASON FOR ADMISSION TO THE HOSPITAL: COPD with exacerbation. CONSULTATION: Pollo Poole MD. PROCEDURE DONE: Video swallow study. HOSPITAL COURSE: The patient is an 86-year-old female with history of COPD, on oxygen. She also has lung cancer, had a radiation treatment. She was having shortness of breath, came to the Emergency Room, x-ray shows infiltrates, was treated with IV antibiotics, IV Solu-Medrol, oxygen and breathing treatments. The patient was seen by Dr. Poole, Pulmonology, and it was felt that she could have a silent aspiration component, had a video swallow study, which shows several episodes of laryngeal penetration without aspiration and she was seen by speech, recommended modified thickened liquids. On the whole, patient's condition improved and she was anxious to go home and she was discharged. She is a DNR. FINAL DIAGNOSES: 1. Chronic obstructive pulmonary disease with acute exacerbation. 2. Possible silent aspiration. 3. History of lung cancer, had radiation treatment, had some scarring. 4. Osteoporosis with compression fracture of the spine, had vertebroplasties. 5. Hypothyroidism. 6. Anxiety. DISPOSITION: Home. MEDICATIONS See MRAD for discharge medications. PAUL MALDONADO MD DR: EKTA/patience JOB#: [id number] / [id number]
== END 2016-12-07 14:29 | disposition home or self-care (01) | DRG 177 ==
LOC: ER 05:06 → 5 NORTH 05:52 → ER 07:14
PROVIDERS: ADMIT Internal Medicine; ATTEND Internal Medicine
DX: J69.0 Pneumonitis due to inhalation of food and vomit (principal); J96.20 Acute and chronic respiratory failure, unspecified whether with hypoxia or hypercapnia; J44.1 Chronic obstructive pulmonary disease with (acute) exacerbation; J44.0 Chronic obstructive pulmonary disease with (acute) lower respiratory infection; I50.42 Chronic combined systolic (congestive) and diastolic (congestive) heart failure; E03.9 Hypothyroidism, unspecified; F32.9 Major depressive disorder, single episode, unspecified; F41.9 Anxiety disorder, unspecified; I48.2 Chronic atrial fibrillation; J45.909 Unspecified asthma, uncomplicated; M81.0 Age-related osteoporosis without current pathological fracture; Z82.49 Family history of ischemic heart disease and other diseases of the circulatory system; Z85.118 Personal history of other malignant neoplasm of bronchus and lung; Z87.891 Personal history of nicotine dependence; Z90.49 Acquired absence of other specified parts of digestive tract; Z92.3 Personal history of irradiation; Z88.6 Allergy status to analgesic agent; Z99.81 Dependence on supplemental oxygen; Z90.710 Acquired absence of both cervix and uterus
CPT/HCPCS: 36415; 71010; 71020; 74230; 80048; 83605; 83880; 84484; 85027; 87040; 93005; 94250; 94640; 94760; 96365; 96375; J1650; J1956; J2543; J2930; J3370; J7030; J7050; J7620; Q0162; 92611; 99285-25

== ENCOUNTER 2016-12-09 13:38 | Emergency (ER) | payer MEDICARE ==
[~2016-12-09] VITALS: Ht 142.2 cm; Wt 54.4 kg
[~2016-12-09 13:38] MED LIST changes: +IPRA3AMP NEB; +PRED50TA PO
[2016-12-09] MEDS ORDERED: IPRATRPIUM/ALBUTEROL 0.5/2.5MG 3 ML NEBU. NEB ONE (14:00)
[2016-12-09 14:11] LABS: BASO % 1 % (0-3); EOS % 0 % (0-3); HEMATOCRIT 30.8 % (36.0-47.0); HEMOGLOBIN 9.6 g/dL (12.0-15.5); LYMPH # 0.6 x10^3/uL (1.0-4.8); LYMPH % 7 % (24-48); MEAN CORPUSCULAR HEMOGLOBIN 28 pg (25-35); MEAN CORPUSCULAR HGB CONC 31 g/dL (31-37); MEAN CORPUSCULAR VOLUME 89 fL (79-100); MONO % 3 % (0-9); NEUT % 90 % (31-73); PLATELET COUNT 102 x10^3/uL (140-400); RED BLOOD COUNT 3.46 x10^6/uL (3.50-5.40); RED CELL DISTRIBUTION WIDTH 17.2 % (11.5-14.5); WHITE BLOOD COUNT 8.7 x10^3/uL (4.0-11.0)
[2016-12-09 14:18] LABS: CALCIUM 9.1 mg/dL (8.5-10.1); CREATININE 1.2 mg/dL (0.6-1.0); GFR 42.8; POTASSIUM 4.4 mmol/L (3.5-5.1)
[2016-12-09 14:33] LABS: ANISOCYTOSIS SLIGHT; PLT ESTIMATE DECREASED (ADEQUATE)
[2016-12-09] MEDS ORDERED: ONDA4TAB10 SL (14:49)
--- NOTE | 2016-12-09 14:50 | PHYS DOC ---
Past Medical History Past Medical History: A-Fib, Anxiety, Asthma, Bronchitis, Cancer, COPD, Depression, Hypothyroid, Pneumonia, Other Additional Past Medical Histor: chronic back, lung ca; hernia, HEART DISEASE, EMPHESEMA, Osteoporosis Past Surgical History: Appendectomy, Cholecystectomy, , Hysterectomy, Tonsillectomy, Other Additional Past Surgical Histo: back X2, hernia x 3 Alcohol Use: None Drug Use: None Adult General Chief Complaint Chief Complaint: NAUSEA/VOMITING/DIARRHA HPI HPI Patient is a 86 year old female with recent hospitalization for COPD exacerbation who presents by EMS for nausea starting this morning associated with few episodes of nonbloody nonbilious emesis that started around 12:00 today. States she also has some difficulty breathing this afternoon associated with recent COPD exacerbation; this is managed by home meds otherwise. She has not used breathing treatment at home since this morning. She denies abdominal pain, fever or chills, diarrhea, dysuria, chest pain, cough, lightheadedness, dizziness. Review of Systems Review of Systems Constitutional: Denies fever or chills [] Eyes: Denies change in visual acuity, redness, or eye pain [] HENT: Denies nasal congestion or sore throat [] Respiratory: Denies cough [] Cardiovascular: No additional information not addressed in HPI [] GI: Denies abdominal pain, bloody stools or diarrhea [] : Denies dysuria or hematuria [] Musculoskeletal: Denies back pain or joint pain [] Integument: Denies rash or skin lesions [] Neurologic: Denies headache, focal weakness or sensory changes [] Endocrine: Denies polyuria or polydipsia [] Current Medications Current Medications Current Medications Medications (Trade) Dose Ordered Sig/Yaya Start Time Stop Time Status Last Admin Dose Admin Albuterol/ Ipratropium (Duoneb) 3 ml 1X ONCE 12/09/16 14:00 12/09/16 14:01 DC 12/09/16 14:09 3 ML Allergies Allergies Allergies Coded Allergies Type Severity Reaction Last Updated Verified morphine Allergy Intermediate PER DAUGHTER, DOES NOT AGREE WITH PT 03/13/14 Yes adhesive Adverse Reaction Intermediate blisters 01/26/15 Yes aspirin Adverse Reaction Intermediate Nausea and Vomiting, "makes me sick" Yes Physical Exam Physical Exam Constitutional: Well developed, well nourished, no acute distress, non-toxic appearance. [] HENT: Normocephalic, atraumatic, bilateral external ears normal, oropharynx moist, no oral exudates, nose normal. [] Eyes: PERRLA, EOMI. [] Neck: Normal range of motion, supple. [] Cardiovascular:Heart rate regular rhythm [] Lungs & Thorax: Bilateral breath sounds clear to auscultation [] Abdomen: Bowel sounds normal, soft, no tenderness. [] Skin: Warm, dry, no erythema, no rash. [] Back: Normal ROM. [] Extremities: No tenderness, ROM intact, no edema. [] Neurologic: Alert and oriented X 3, normal motor function, normal sensory function, no focal deficits noted. [] Psychologic: Affect normal, judgement normal, mood normal. [] Current Patient Data Vital Signs Vital Signs Date Time Temp Pulse Resp B/P Pulse Ox O2 Delivery O2 Flow Rate FiO2 12/09/16 14:30 92 26 108/60 91 Nasal Cannula 5 12/09/16 13:50 98.1 98.1 Lab Values Laboratory Tests Test 12/09/16 13:55 White Blood Count 8.7x10^3/uL (4.0-11.0) Red Blood Count 3.46x10^6/uL (3.50-5.40) L Hemoglobin 9.6g/dL (12.0-15.5) L Hematocrit 30.8% (36.0-47.0) L Mean Corpuscular Volume 89fL (79-100) Mean Corpuscular Hemoglobin 28pg (25-35) Mean Corpuscular Hemoglobin Concent 31g/dL (31-37) Red Cell Distribution Width 17.2% (11.5-14.5) H Platelet Count 102x10^3/uL (140-400) L Neutrophils (%) (Auto) 90% (31-73) H Lymphocytes (%) (Auto) 7% (24-48) L Monocytes (%) (Auto) 3% (0-9) Eosinophils (%) (Auto) 0% (0-3) Basophils (%) (Auto) 1% (0-3) Neutrophils # (Auto) 7.8x10^3uL (1.8-7.7) H Lymphocytes # (Auto) 0.6x10^3/uL (1.0-4.8) L Monocytes # (Auto) 0.2x10^3/uL (0.0-1.1) Eosinophils # (Auto) 0.0x10^3/uL (0.0-0.7) Basophils # (Auto) 0.0x10^3/uL (0.0-0.2) Segmented Neutrophils % 91% (35-66) H Band Neutrophils % 1% (0-9) Lymphocytes % 7% (24-48) L Monocytes % 1% (0-10) Platelet Estimate Decreased (ADEQUATE) Platelet Clumps, EDTA Present Anisocytosis Slight Sodium Level 140mmol/L (136-145) Potassium Level 4.4mmol/L (3.5-5.1) Chloride Level 93mmol/L (98-107) L Carbon Dioxide Level 45mmol/L (21-32) H Anion Gap 2 (6-14) L Blood Urea Nitrogen 22mg/dL (7-20) H Creatinine 1.2mg/dL (0.6-1.0) H Estimated GFR (Cockcroft-Gault) 42.8 Glucose Level 112mg/dL (70-99) H Calcium Level 9.1mg/dL (8.5-10.1) Laboratory Tests 12/09/16 13:55 Laboratory Tests 12/09/16 13:55 EKG EKG EKG as interpreted by me as sinus rhythm, rate 94, no ST-T changes, normal intervals, PACs and PVCs Course & Med Decision Making Course & Med Decision Making Pertinent Labs and Imaging studies reviewed. (See chart for details) Symptoms are improved after medications. Labs are unchanged from prior. She ambulated with a walker at 5L NC and felt well and would like to go home. Return precautions given. She understood and agrees with plan. Dragon Disclaimer Dragon Disclaimer This electronic medical record was generated, in whole or in part, using a voice recognition dictation system. Departure Departure Impression: Primary Impression: Nausea and vomiting Additional Impression: COPD (chronic obstructive pulmonary disease) Disposition: 01 HOME, SELF-CARE Condition: STABLE Referrals: PAUL MALDONADO MD (PCP) Patient Instructions: Nausea and Vomiting, [id number] Additional Instructions: Take Zofran as needed for nausea. Continue your other home medications. Follow- up with your primary care doctor. Return for any concerns. Scripts Ondansetron (Zofran Odt)4 Mg Tab.rapdis1 Tab SL Q8HRS #10 TAB Prov:Alfreda COLMENARES MD 12/09/16 Problem Qualifiers Primary Impression: Nausea and vomiting Vomiting type: unspecified Vomiting Intractability: non-intractable Qualified Code: R11.2 - Nausea with vomiting, unspecified Additional Impression: COPD (chronic obstructive pulmonary disease) COPD type: unspecified COPD Qualified Code: J44.9 - Chronic obstructive pulmonary disease, unspecified Alfreda COLMENARES MD Dec 09, 2016 14:50
[2016-12-09 15:15] VITALS: BP 116/81
--- NOTE | 2016-12-09 15:26 | EKG ---
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
== END 2016-12-09 15:38 | disposition home or self-care (01) ==
LOC: ER 13:38
DX: R11.2 Nausea with vomiting, unspecified (principal); J44.9 Chronic obstructive pulmonary disease, unspecified; I48.91 Unspecified atrial fibrillation; F41.9 Anxiety disorder, unspecified; J45.909 Unspecified asthma, uncomplicated; F32.9 Major depressive disorder, single episode, unspecified; E03.9 Hypothyroidism, unspecified; M81.0 Age-related osteoporosis without current pathological fracture; J43.9 Emphysema, unspecified; G89.29 Other chronic pain; Z87.01 Personal history of pneumonia (recurrent); Z90.49 Acquired absence of other specified parts of digestive tract; Z90.710 Acquired absence of both cervix and uterus; Z88.6 Allergy status to analgesic agent; Z88.5 Allergy status to narcotic agent; Z91.048 Other nonmedicinal substance allergy status
CPT/HCPCS: 36415; 80048; 85007; 85027; 93005; 94640; 99285; J7620

== ENCOUNTER 2016-12-10 08:31 | Inpatient (IN) | payer MEDICARE ==
[~2016-12-10] VITALS: Ht 142.2 cm; Wt 54.4 kg
[2016-12-10] MEDS ORDERED: ONDANSETRON PF 4 MG/2 ML VIAL. IV ONE (09:00)
[2016-12-10 09:13] LABS: BASO % 0 % (0-3); EOS % 1 % (0-3); HEMATOCRIT 28.4 % (36.0-47.0); HEMOGLOBIN 9.2 g/dL (12.0-15.5); LYMPH # 1.7 x10^3/uL (1.0-4.8); LYMPH % 17 % (24-48); MEAN CORPUSCULAR HEMOGLOBIN 28 pg (25-35); MEAN CORPUSCULAR HGB CONC 33 g/dL (31-37); MEAN CORPUSCULAR VOLUME 86 fL (79-100); MONO % 10 % (0-9); NEUT % 72 % (31-73); PLATELET COUNT 108 x10^3/uL (140-400); RED BLOOD COUNT 3.32 x10^6/uL (3.50-5.40); RED CELL DISTRIBUTION WIDTH 16.9 % (11.5-14.5); WHITE BLOOD COUNT 10.1 x10^3/uL (4.0-11.0)
--- NOTE | 2016-12-10 09:21 | PHYS DOC ---
Past Medical History Past Medical History: A-Fib, Anxiety, Asthma, Bronchitis, Cancer, COPD, Depression, Hypothyroid, Pneumonia, Other Additional Past Medical Histor: chronic back, lung ca; hernia, HEART DISEASE, EMPHESEMA, Osteoporosis Past Surgical History: Appendectomy, Cholecystectomy, , Hysterectomy, Tonsillectomy, Other Additional Past Surgical Histo: back X2, hernia x 3 Additional Information: quit smoking 1970 Alcohol Use: None Drug Use: None Adult General Chief Complaint Chief Complaint: OTHER COMPLAINTS HPI HPI Patient is a 86 year old female who presents by EMS for dyspnea and lightheadedness since her oxygen concentrator was malfunctioning. She notes feeling better since being placed on oxygen by EMS and here. She states she continued to have intermittent emesis through the night, but none yesterday afternoon. She currently has mild nausea. She denies chest pain, headache, vision changes, numbness, tingling, weakness. Review of Systems Review of Systems Constitutional: Denies fever or chills [] Eyes: Denies change in visual acuity, redness, or eye pain [] HENT: Denies nasal congestion or sore throat [] Respiratory: Denies cough [] Cardiovascular: No additional information not addressed in HPI [] GI: Denies abdominal pain, bloody stools or diarrhea [] : Denies dysuria or hematuria [] Musculoskeletal: Denies back pain or joint pain [] Integument: Denies rash or skin lesions [] Neurologic: Denies headache, focal weakness or sensory changes [] Endocrine: Denies polyuria or polydipsia [] Current Medications Current Medications Current Medications Medications (Trade) Dose Ordered Sig/[facility] Start Time Stop Time Status Last Admin Dose Admin Ondansetron HCl 4 mg 4 mg 1X ONCE 12/10/16 09:00 12/10/16 09:01 DC 12/10/16 09:26 4 MG Sodium Chloride (Iv Sodium Chloride 0.9% 500ml Bag) 500 ml @ 500 mls/hr 1X ONCE 12/10/16 09:30 12/10/16 10:29 DC 12/10/16 09:25 500 MLS/HR Allergies Allergies Allergies Coded Allergies Type Severity Reaction Last Updated Verified morphine Allergy Intermediate PER DAUGHTER, DOES NOT AGREE WITH PT 03/13/14 Yes adhesive Adverse Reaction Intermediate blisters 01/26/15 Yes aspirin Adverse Reaction Intermediate Nausea and Vomiting, "makes me sick" Yes Physical Exam Physical Exam Constitutional: Well developed, well nourished, no acute distress, non-toxic appearance. [] HENT: Normocephalic, atraumatic, bilateral external ears normal, oropharynx moist, no oral exudates, nose normal. [] Eyes: PERRLA, EOMI. [] Neck: Normal range of motion, supple, no stridor. [] Cardiovascular:Heart rate regular rhythm [] Lungs & Thorax: Bilateral breath sounds clear to auscultation [] Abdomen: Bowel sounds normal, soft, no tenderness. [] Skin: Warm, dry, no erythema, no rash. [] Back: No tenderness, no CVA tenderness. [] Extremities: No tenderness, ROM intact, no edema. [] Neurologic: Alert and oriented X 3, normal motor function, normal sensory function, no focal deficits noted. [] Psychologic: Affect normal, judgement normal, mood normal. [] Current Patient Data Vital Signs Vital Signs Date Time Temp Pulse Resp B/P Pulse Ox O2 Delivery O2 Flow Rate FiO2 12/10/16 10:00 90 16 110/66 99 Nasal Cannula 5 12/10/16 08:36 98.9 98.9 Lab Values Laboratory Tests Test 12/10/16 08:50 White Blood Count 10.1x10^3/uL (4.0-11.0) Red Blood Count 3.32x10^6/uL (3.50-5.40) L Hemoglobin 9.2g/dL (12.0-15.5) L Hematocrit 28.4% (36.0-47.0) L Mean Corpuscular Volume 86fL (79-100) Mean Corpuscular Hemoglobin 28pg (25-35) Mean Corpuscular Hemoglobin Concent 33g/dL (31-37) Red Cell Distribution Width 16.9% (11.5-14.5) H Platelet Count 108x10^3/uL (140-400) L Neutrophils (%) (Auto) 72% (31-73) Lymphocytes (%) (Auto) 17% (24-48) L Monocytes (%) (Auto) 10% (0-9) H Eosinophils (%) (Auto) 1% (0-3) Basophils (%) (Auto) 0% (0-3) Neutrophils # (Auto) 7.3x10^3uL (1.8-7.7) Lymphocytes # (Auto) 1.7x10^3/uL (1.0-4.8) Monocytes # (Auto) 1.0x10^3/uL (0.0-1.1) Eosinophils # (Auto) 0.1x10^3/uL (0.0-0.7) Basophils # (Auto) 0.0x10^3/uL (0.0-0.2) Sodium Level 142mmol/L (136-145) Potassium Level 3.5mmol/L (3.5-5.1) Chloride Level 95mmol/L (98-107) L Carbon Dioxide Level > 45mmol/L (21-32) H Anion Gap (6-14) Blood Urea Nitrogen 25mg/dL (7-20) H Creatinine 1.5mg/dL (0.6-1.0) H Estimated GFR (Cockcroft-Gault) 33.1 Glucose Level 106mg/dL (70-99) H Calcium Level 8.8mg/dL (8.5-10.1) Laboratory Tests 12/10/16 08:50 Laboratory Tests 12/10/16 08:50 Course & Med Decision Making Course & Med Decision Making Pertinent Labs and Imaging studies reviewed. (See chart for details) Laboratory evaluation shows worsening metabolic alkalosis. Given her repeat presentation for dyspnea and emesis and concern for inability to care for self at home, she will be admitted. Her oxygen compressor was not brought with her to be evaluated at this time. Discussed case with Dr. Amaya, who agrees to admit. Dragon Disclaimer Dragon Disclaimer This electronic medical record was generated, in whole or in part, using a voice recognition dictation system. Departure Departure Impression: Primary Impression: Nausea and vomiting Additional Impressions: COPD (chronic obstructive pulmonary disease) Metabolic alkalosis Disposition: ADMITTED INPATIENT Condition: STABLE Referrals: PAUL AMAYA MD (PCP) Problem Qualifiers Primary Impression: Nausea and vomiting Vomiting type: unspecified Vomiting Intractability: non-intractable Qualified Code: R11.2 - Nausea with vomiting, unspecified Additional Impressions: COPD (chronic obstructive pulmonary disease) COPD type: unspecified COPD Qualified Code: J44.9 - Chronic obstructive pulmonary disease, unspecified Alfreda COLMENARES MD Dec 10, 2016 09:21
[2016-12-10 09:25] LABS: BLOOD UREA NITROGEN 25 mg/dL (7-20); CALCIUM 8.8 mg/dL (8.5-10.1); CHLORIDE 95 mmol/L (98-107); CREATININE 1.5 mg/dL (0.6-1.0); GFR 33.1; GLUCOSE 106 mg/dL (70-99); POTASSIUM 3.5 mmol/L (3.5-5.1); SODIUM 142 mmol/L (136-145)
[2016-12-10] MEDS ORDERED: IV NORMAL SALINE 500ML BAG 500 ML IV ONE (09:30)
[2016-12-10 09:31] LABS: CARBON DIOXIDE > 45 mmol/L (21-32)
--- NOTE | 2016-12-10 10:03 | ACF ---
Admit Criteria Forms Admit Criteria Forms Admit Criteria Forms VOMITING Clinical Indications for Admission to Inpatient Care ( Place 'X' for any and all applicable criteria): Admission is indicated for ANY ONE of the following(1)(2)(3): [X]I. Inpatient admission required rather than observation care because of ANY ONE of the following: [ ]i) Hemodynamic instability that is severe or persistent [ ]ii) Vomiting that is severe or persistent [ ]iii) Severe electrolyte abnormalities requiring inpatient care [ ]iv) Severe pain requiring acute inpatient management [ ]v) High fever or infection requiring inpatient admission as indicated by ANY ONE of the following(7)(8): [ ]1) Appropriate outpatient or observation care antimicrobial treatment unavailable, not effective, or not feasible [ ]2) Documented bacteremia [ ]3) Temp >104.9 degrees F (40.5 degrees C) (oral) [ ]4) Temp >103.1 degrees F (39.5 C) (oral) or <96.8 degrees F (36 C) (rectal) that does not respond to all emergency treatment measures [ ]vi) Acute renal failure [ ]vii) IV fluid to replace significant ongoing losses (greater than 3 L/m2 per day) [ ]viii) Parenteral nutrition regimen that must be implemented on inpatient basis [X]ix) Other condition, treatment or monitoring requiring inpatient admission [ ]II. Complete or partial gastrointestinal obstruction [ ]III. Other cause of vomiting requiring hospitalization (eg, poisoning, increased intracranial pressure) [ ]IV. Vomiting due to significant metabolic derangement (eg, severe hypercalcemia, diabetic ketoacidosis) Extended stay beyond goal length of stay may be needed for(1)(4): [ ]a) Severe vomiting [ ]b) Persistent vomiting, vital sign changes, severe electrolyte imbalance , or diagnosed cause of vomiting that requires continued hospitalization (eg, gastrointestinal obstruction , increased intracranial pressure) [ ]c) Surgery to treat identified causes of vomiting (eg, bowel obstruction , intracranial process) [ ]d) Comorbid illness that requires inpatient care (eg, acute heart failure , renal failure) [ ]e) Need for inpatient endoscopy The original [facility] content created by Elisa Erwin has been revised. The portions of the content which have been revised are identified through the use of italic text or in bold, and Elisa Erwin has neither reviewed nor approved the modified material. All other unmodified content is copyright [facility]. Please see references footnoted in the original [facility] edition 2016 TONYA MCGHEE Dec 10, 2016 10:03
[2016-12-10 13:00] VITALS: BP 117/61
[2016-12-10 15:03] VITALS: BP 116/70
[2016-12-10] MEDS: IV NORMAL SALINE 1000ML BAG 1,000 ML IV SCH (18:16)
[2016-12-10] MEDS: DIGOXIN 125 MCG TABLET PO SCH (18:18)
[2016-12-10] MEDS: CYANOCOBALAMIN (VITAMIN B-12) 1,000 MCG TABLET. PO SCH (18:18)
[2016-12-10] MEDS: LEVOFLOXACIN 250 MG TABLET. PO SCH (18:18)
[2016-12-10] MEDS: ESCITALOPRAM 10 MG TABLET. PO SCH (18:18)
[2016-12-10] MEDS: SENNOSIDES 8.6 MG TABLET PO SCH (18:18)
[2016-12-10] MEDS: CHOLECALCIFEROL (VITAMIN D3) 1,000 UNIT TABLET PO SCH (18:18)
[2016-12-10] MEDS: DOCUSATE SODIUM 100 MG CAPSULE PO SCH (18:18)
[2016-12-10] MEDS: PREDNISONE 10 MG TABLET PO SCH (18:18)
[2016-12-10] MEDS: LEVOTHYROXINE 88 MCG TABLET PO SCH (18:18)
[2016-12-10 19:00] VITALS: BP 127/71
[2016-12-10] MEDS: IPRATRPIUM/ALBUTEROL 0.5/2.5MG 3 ML NEBU. NEB SCH (20:29)
[2016-12-10] MEDS: ENOXAPARIN 30 MG/0.3 ML DISP.SYRIN. SQ SCH (20:51)
[2016-12-10] MEDS: traZODone 100 MG TABLET. PO SCH (20:51)
[2016-12-10] MEDS: ONDANSETRON ODT 4 MG TAB.RAPDIS PO SCH (21:00)
[2016-12-10 23:00] VITALS: BP 90/52
[2016-12-11 03:00] VITALS: BP 90/50
[2016-12-11 04:45] LABS: ALBUMIN 2.6 g/dL (3.4-5.0); ALBUMIN/GLOBULIN RATIO 0.7 (1.0-1.7); CALCIUM 8.6 mg/dL (8.5-10.1); CREATININE 1.1 mg/dL (0.6-1.0); GFR 47.3; POTASSIUM 4.7 mmol/L (3.5-5.1); TOTAL BILIRUBIN 0.4 mg/dL (0.2-1.0); TOTAL PROTEIN 6.4 g/dL (6.4-8.2)
[2016-12-11 04:46] LABS: AMYLASE 58 U/L (25-115)
[2016-12-11] MEDS: LEVOFLOXACIN 250 MG TABLET. PO SCH (05:55)
[2016-12-11] MEDS: ONDANSETRON ODT 4 MG TAB.RAPDIS PO SCH ×3 (05:55→20:50)
[2016-12-11] MEDS: LEVOTHYROXINE 88 MCG TABLET PO SCH (05:55)
[2016-12-11 07:15] VITALS: BP 109/58
[2016-12-11] MEDS: IV NORMAL SALINE 1000ML BAG 1,000 ML IV SCH ×2 (07:50→20:54)
[2016-12-11] MEDS: DOCUSATE SODIUM 100 MG CAPSULE PO SCH (07:53)
[2016-12-11] MEDS: DIGOXIN 125 MCG TABLET PO SCH (07:55)
[2016-12-11] MEDS: ESCITALOPRAM 10 MG TABLET. PO SCH (07:56)
[2016-12-11] MEDS: CYANOCOBALAMIN (VITAMIN B-12) 1,000 MCG TABLET. PO SCH (07:56)
[2016-12-11] MEDS: CHOLECALCIFEROL (VITAMIN D3) 1,000 UNIT TABLET PO SCH (07:56)
[2016-12-11] MEDS: SENNOSIDES 8.6 MG TABLET PO SCH (07:57)
[2016-12-11] MEDS: PREDNISONE 10 MG TABLET PO SCH (07:57)
[2016-12-11] MEDS: IPRATRPIUM/ALBUTEROL 0.5/2.5MG 3 ML NEBU. NEB SCH ×4 (08:45→20:43)
[2016-12-11] MEDS ORDERED: CRANBERRY FRUIT 4200 MG PO SCH (09:00)
[2016-12-11] MEDS ORDERED: ONDANSETRON PF 4 MG/2 ML VIAL. IV PRN (10:00)
--- NOTE | 2016-12-11 10:07 | PDOC ---
Provider Note Provider Note Pt seen.H&P dictated. #[id number] PAUL MALDONADO MD Dec 11, 2016 10:07
[2016-12-11] MEDS ORDERED: IOHEXOL 240 MG/ML 50ML VIAL. PO ONE (10:15)
[2016-12-11] MEDS ORDERED: IOHEXOL 300 MG/ML 75 ML VIAL IV ONE (10:15)
[2016-12-11] MEDS ORDERED: CONTRAST GIVEN MC PRN (10:30)
[2016-12-11 10:50] VITALS: BP 119/61
--- NOTE | 2016-12-11 11:01 | HP ---
ADMIT DATE: 12/10/2016 PATIENT LOCATION: [id number] REASON FOR ADMISSION TO THE HOSPITAL: Nausea and vomiting, persistent. HISTORY OF PRESENT ILLNESS: The patient is an 86-year-old female who complains of nausea and vomiting. She says that her oxygen concentration was malfunctioning at home, and she has a history of large hiatal hernia, not able to keep anything down, and she was in the Emergency Room the day prior to that. She was treated and sent home, and this is her second visit to the ER for nausea and vomiting. PAST MEDICAL HISTORY: She has a history of a large hiatal hernia, atrial fibrillation, anxiety; COPD, on home oxygen, and hypothyroidism. She has lung cancer, osteoporosis, and compression fracture of the spine. PAST SURGICAL HISTORY: Appendectomy, gallbladder surgery, x 2, hysterectomy, tonsillectomy, back surgery, and hernia surgery. ALLERGIES: ASPIRIN, MORPHINE, AND ADHESIVE TAPE. MEDICATIONS AT HOME: She is on Xanax 0.25 daily, vitamin D 1000 units daily, B12 1000 mcg, digoxin 125 mcg daily, Colace 100 mg daily, citalopram 10 mg daily, DuoNeb 4 times daily, Levaquin 250 mg daily, levothyroxine 88 mcg daily, Zofran 4 mg p.r.n., oxycodone 5/325 q. 6, she is on tapering dose of prednisone for COPD exacerbation, last week 5 mg daily; senna 1 daily, and trazodone 100 mg daily. PERSONAL HISTORY: Used to smoke in the past, 1 pack for at least 40 years. She quit 5 years ago. She is on home oxygen. She denies alcohol or street drugs. FAMILY HISTORY: Positive for hypertension and heart disease. SOCIAL HISTORY: Lives at home. She has oxygen concentrator and walker, ambulates with a walker. REVIEW OF SYMPTOMS: Denies any chest pain, has some shortness of breath, but mostly nausea, vomiting, not able to keep anything down. PHYSICAL EXAMINATION: VITAL SIGNS: Examination at the time of admission shows a temperature 98, pulse 93, respirations 20, blood pressure 82/52, and 96% on 5 liters. HEENT: Head is atraumatic. Pupils equal. She has dentures. NECK: Supple. Thyroid not enlarged. JVD not elevated. CHEST: COPD pattern. CARDIOVASCULAR: S1 and S2. LUNGS: Diminished breath sounds. ABDOMEN: Scars of multiple abdominal surgeries. Soft, has slight tenderness to epigastric palpation. No rebound. Bowel sounds are present. EXTERNAL GENITALIA: No Freeman. RECTAL: Deferred. EXTREMITIES: No calf tenderness, no edema. Pulses 1+. NEUROLOGIC: Cranial nerves intact. Power 5 out of 5 in the extremities. Kyphosis secondary to osteoporosis and compression fracture of the spine. LABORATORY DATA: Shows a white count of 10, hemoglobin 9.2, and platelets 108. Electrolytes show sodium 142, potassium 3.5, chloride 95, bicarbonate more than 45, BUN 25, creatinine 1.5, glucose 106, amylase 58, and lipase 157. LFTs were normal, and the patient recently had a video swallow which showed some silent aspiration. FINAL IMPRESSION: 1. Persistent nausea and vomiting. 2. History of large hiatal hernia. 3. Mild silent aspiration. 4. Chronic obstructive pulmonary disease, on home oxygen. 5. History of lung cancer, had radiation treatment 5 years ago. 6. 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 7. Multiple abdominal surgeries as mentioned above. PLAN: At this time, admit to hospital and hydrate with IV fluids, Zofran for nausea, Gastroenterology consult. Clear liquid diet and CT scan of the abdomen and pelvis, IV hydration and see how the patient's condition improves. PAUL MALDONADO MD DR: EKTA/patience JOB#: [id number] / [id number]
--- NOTE | 2016-12-11 11:49 | PDOC2 ---
GI CONSULT Reason For Consult: N/v HPI: HPI: 86 y/o female admitted w/ n/v. History is a little difficult, a lot obtained from chart/staff. Three visits to ER this month for SOA, weakness/dizziness, and vomiting. She indicates this is a recurrent issue for her, although she cannot tell me how often or for how long this has been bothering her. She "spits up" everything she eats or drinks. Regarding timing, she says sometimes vomiting occurs immediately after swallowing, but sometimes it occurs awhile after eating. She has occasional heartburn treated w/ an OTC medication PRN ( doesn't know name/type). She has occasional constipation treated the same way. Per aide, just h ad a hard stool. Denies weight loss. Currently has some RLQ pain but isn't sure what makes it better or worse. Recalls having previous EGD and colonoscopy, although not sure where or when. Remote h/o "ulcer," w/ additional h/o hiatal hernia. Denies bleeding. PMH: PMH: per chart - A Fib, COPD/chronic resp failure on home O2, pneumonia, CHF, TIA, GERD, ?PUD, ?pancreatitis, hiatal hernia, SBO/ileus, anemia, hypothyroidism, lung cancer s/p radiation, osteoporosis, compression fracture, appendectomy, cholecystectomy, , hysterectomy, tonsillectomy, back surgery, (?ventral ) hernia repair, cataract extraction, kyphoplasty FH: Family History: No pertinent hx Social History: Smoke: Quit ALCOHOL: none Drugs: None ROS: GEN: Denies fevers, chills, sweats HEENT: Denies blurred vision, sore throat CV: Denies chest pain RESP: +SOA GI: Per HPI : Denies hematuria, dysuria ENDO: Denies weight changes NEURO: Denies confusion, dizziness MSK: +weakness SKIN: Denies jaundice, pruritus VItals: Vitals: Vital Signs Date Time Temp Pulse Resp B/P Pulse Ox O2 Delivery O2 Flow Rate FiO2 12/11/16 10:50 98.1 87 17 119/61 92 Nasal Cannula 5.0 98.1 Labs: Labs: Laboratory Tests Test 12/11/16 03:30 Sodium Level 140mmol/L (136-145) Potassium Level 4.7mmol/L (3.5-5.1) Chloride Level 99mmol/L (98-107) Carbon Dioxide Level 42mmol/L (21-32) Anion Gap -1 (6-14) Blood Urea Nitrogen 20mg/dL (7-20) Creatinine 1.1mg/dL (0.6-1.0) Estimated GFR (Cockcroft-Gault) 47.3 BUN/Creatinine Ratio 18 (6-20) Glucose Level 112mg/dL (70-99) Calcium Level 8.6mg/dL (8.5-10.1) Total Bilirubin 0.4mg/dL (0.2-1.0) Aspartate Amino Transf (AST/SGOT) 29U/L (15-37) Alanine Aminotransferase (ALT/SGPT) 15U/L (14-59) Alkaline Phosphatase 53U/L (46-116) Total Protein 6.4g/dL (6.4-8.2) Albumin 2.6g/dL (3.4-5.0) Albumin/Globulin Ratio 0.7 (1.0-1.7) Amylase Level 58U/L (25-115) Lipase 157U/L (73-393) Allergies: Coded Allergies: morphine (Verified Allergy, Intermediate, PER DAUGHTER, DOES NOT AGREE WITH PT, 03/13/14) adhesive (Verified Adverse Reaction, Intermediate, blisters, 01/26/15) aspirin (Verified Adverse Reaction, Intermediate, Nausea and Vomiting, "makes me sick", 01/26/15) Medications: Current Medications Medications (Trade) Dose Ordered Sig/Yaya Route PRN Reason Start Time Stop Time Status Last Admin Dose Admin Cyanocobalamin (Vitamin B-12) 1,000 mcg DAILY PO 12/10/16 18:00 12/11/16 07:56 Digoxin (Lanoxin) 125 mcg DAILY PO 12/10/16 18:00 12/11/16 07:55 Docusate Sodium (Colace) 100 mg DAILY PO 12/10/16 18:00 12/11/16 07:53 Escitalopram Oxalate (Lexapro) 20 mg DAILY PO 12/10/16 18:00 12/11/16 07:56 Albuterol/ Ipratropium (Duoneb) 3 ml RTQID NEB 12/10/16 20:00 12/11/16 08:45 Levofloxacin (Levaquin) 250 mg DAILY06 PO 12/10/16 18:00 12/11/16 05:55 Levothyroxine Sodium (Synthroid) 88 mcg DAILY07 PO 12/10/16 18:00 12/11/16 05:55 Ondansetron HCl (Zofran Odt) 4 mg Q8HRS PO 12/10/16 22:00 12/11/16 05:55 Sennosides (Senna) 8.6 mg DAILY PO 12/10/16 18:00 12/11/16 07:57 Trazodone HCl (Desyrel) 100 mg QHS PO 12/10/16 21:00 12/10/16 20:51 Vitamin D (Vitamin D3) 1,000 unit DAILY PO 12/10/16 18:00 12/11/16 07:56 Prednisone 50 mg 50 mg DAILY PO 12/10/16 18:00 12/11/16 07:57 Sodium Chloride (Iv Sodium Chloride 0.9% 1000ml Bag) 1,000 ml @ 75 mls/hr [id number] IV 12/10/16 19:00 12/11/16 07:50 Imaging: Imaging: C-spine X-ray PENDING CT A/P w/ contrast [facility] Impression: 1. Several episodes of laryngeal penetration without aspiration seen with thin consistency barium. Chest CT 06/2016 IMPRESSION: 1. Emphysema with bilateral parenchymal scarring. 2. Streaky bibasilar atelectasis/infiltrate evident on 03/02/2015 has largely cleared. 3. Moderate-sized hiatal hernia. 4. Numerous old thoracic vertebral compression fractures with vertebroplasty changes at multiple levels. 5. New L1 vertebral compression fracture with features raising the possibility of a pathologic fracture. PE: GEN: NAD HEENT: Atraumatic, PERRL LUNGS: tachypneic, nasal cannula, decreased anteriorly HEART: S1S2 ABD: NABS, S/ND, RLQ tenderness EXTREMITY: No edema SKIN: No rashes, no jaundice NEURO/PSYCH: A & O 3 A/P: A/P: N/v -multiple ER visits this month for various reasons -seems recurrent, difficult history GERD -occasionally treated w/ OTC meds -remote h/o PUD, also hiatal hernia (noted on chest CT as above) w/ previous EGD RLQ pain Constipation -pt says occasional, staff reports passing hard stool CRC screen -recalls previous colonoscopy Chronic resp failure Anemia -Hgb seems at baseline, on B12 -- Will start PPI and Miralax. Await CT. Will review w/ Dr. Lara. HUANG GARCIA Dec 11, 2016 11:49
[2016-12-11] MEDS: OXYCODONE/APAP 10/325 TABLET. PO PRN ×2 (11:52→20:51)
[2016-12-11] MEDS: POLYETHYLENE GLYCOL 3350 17 GM PACKET. PO SCH (12:43)
[2016-12-11] MEDS: PANTOPRAZOLE 40 MG TABLET. PO SCH (12:43)
--- NOTE | 2016-12-11 14:29 | RAD ---
EXAM: Cervical spine 3 views. HISTORY: Neck pain. Multiple falls. COMPARISON: None. FINDINGS: There is a mild levocurvature at the cervicothoracic junction, possibly positional or compensatory for thoracic dextrocurvature. The normal lordosis is straightened. Osteopenia is moderate to severe. No clear fractures are identified. There is no prevertebral soft tissue swelling. Degenerative disc disease is moderate to severe from C4 through T1. There are atherosclerotic calcifications of the aorta. There are diffuse vertebroplasty changes within the visualized portions of the mid thoracic spine. IMPRESSION: 1. Degenerative disc disease is moderate to severe from C4 through T1. 2. Moderate to severe osteopenia. No fractures are identified. CT is more sensitive if there is persistent concern.
[2016-12-11 15:01] VITALS: BP 121/50
[2016-12-11 19:00] VITALS: BP 115/56
[2016-12-11] MEDS: traZODone 100 MG TABLET. PO SCH (20:50)
[2016-12-11] MEDS: ENOXAPARIN 30 MG/0.3 ML DISP.SYRIN. SQ SCH (20:50)
[2016-12-11] MEDS: ALPRAZOLAM 0.25 MG TABLET PO PRN (20:51)
[2016-12-11 23:00] VITALS: BP 94/42
[2016-12-12 03:00] VITALS: BP 106/55
[2016-12-12] MEDS: LEVOFLOXACIN 250 MG TABLET. PO SCH (05:33)
[2016-12-12] MEDS: LEVOTHYROXINE 88 MCG TABLET PO SCH (05:33)
[2016-12-12] MEDS: ONDANSETRON ODT 4 MG TAB.RAPDIS PO SCH ×3 (05:33→21:16)
[2016-12-12 06:55] VITALS: BP 104/54
[2016-12-12] MEDS: PANTOPRAZOLE 40 MG TABLET. PO SCH (07:59)
[2016-12-12] MEDS: DOCUSATE SODIUM 100 MG CAPSULE PO SCH (07:59)
[2016-12-12] MEDS: SENNOSIDES 8.6 MG TABLET PO SCH (08:00)
[2016-12-12] MEDS: DIGOXIN 125 MCG TABLET PO SCH (08:00)
[2016-12-12] MEDS: ESCITALOPRAM 10 MG TABLET. PO SCH (08:00)
[2016-12-12] MEDS: CYANOCOBALAMIN (VITAMIN B-12) 1,000 MCG TABLET. PO SCH (08:00)
[2016-12-12] MEDS: CHOLECALCIFEROL (VITAMIN D3) 1,000 UNIT TABLET PO SCH (08:00)
[2016-12-12] MEDS: PREDNISONE 10 MG TABLET PO SCH (08:01)
[2016-12-12] MEDS: POLYETHYLENE GLYCOL 3350 17 GM PACKET. PO SCH (08:01)
[2016-12-12] MEDS: IPRATRPIUM/ALBUTEROL 0.5/2.5MG 3 ML NEBU. NEB SCH ×4 (09:08→20:04)
--- NOTE | 2016-12-12 09:33 | PDOC ---
Subjective: Subjective: Ongoing nausea, a little emesis this morning. Abd discomfort. Objective: Vital Signs: Vital Signs Date Time Temp Pulse Resp B/P Pulse Ox O2 Delivery O2 Flow Rate FiO2 12/12/16 09:09 Nasal Cannula 5.0 12/12/16 08:00 84 104/54 12/12/16 06:55 97.9 17 89 97.9 Labs: Laboratory Tests Test 12/12/16 03:40 Digoxin Level 0.8ng/mL Digoxin Last Dose Date [id number] Digoxin Last Dose Time 0800 PE: GEN: NAD LUNGS: breathing treatment HEART: S1S2 ABD:vague tenderness throughout NEURO/PSYCH: A & O 3 A/P: N/v, GERD -now on PPI, also Zofran -remote h/o PUD, also hiatal hernia (noted on chest CT as above) w/ previous EGD Abd pain Constipation -BM 12/11, now on Miralax, recalls previous colonoscopy -- Continue same per GI. HUANG GARCIA Dec 12, 2016 09:32
--- NOTE | 2016-12-12 10:15 | PDOC ---
PROGRESS NOTES Subjective Subjective less nausea Objective Objective Vital Signs Date Time Temp Pulse Resp B/P Pulse Ox O2 Delivery O2 Flow Rate FiO2 12/12/16 09:09 Nasal Cannula 5.0 12/12/16 08:00 84 104/54 12/12/16 06:55 97.9 17 89 97.9 Intake and Output 12/12/16 07:00 Intake Total 1300 ml Output Total 700 ml Balance 600 ml Intake Oral 1300 ml Output Urine Total 700 ml # Voids 2 # Bowel Movements 1 Physical Exam Abdomen: Normal bowel sounds, Soft Heart: Regular rate, Normal S1, Normal S2 Extremities: No clubbing General: Alert HEENT: Atraumatic Lungs: Clear to auscultation MUSCULOSKELETAL: No swelling Neuro: Normal speech Psych/Mental Status: Mental status NL Skin: No breakdown Diagnosis Problem List Problems Medical Problems: (1) COPD (chronic obstructive pulmonary disease) Status: Acute (2) Metabolic alkalosis Status: Acute (3) Nausea and vomiting Status: Acute Assessment Assessment Problems Medical Problems: (1) COPD (chronic obstructive pulmonary disease) Status: Acute (2) Metabolic alkalosis Status: Acute (3) Nausea and vomiting Status: Acute FINAL IMPRESSION: 1. Persistent nausea and vomiting. 2. History of large hiatal hernia. 3. Mild silent aspiration. 4. Chronic obstructive pulmonary disease, on home oxygen. 5. History of lung cancer, had radiation treatment 5 years ago. 6. 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 7. Multiple abdominal surgeries as mentioned above. PLAN: Ct abd and pelvis could not be done due to recent barium swallow study done last week . appreciate GI consult. iv fluids. ct in 1-2 days. labs improving . advance diet. At this time, admit to hospital and hydrate with IV fluids, Zofran for nausea, Gastroenterology consult. Clear liquid diet and CT scan of the abdomen and pelvis, IV hydration and see how the patient's condition improves. Problems: Plan Plan of Care Problems Medical Problems: (1) COPD (chronic obstructive pulmonary disease) Status: Acute (2) Metabolic alkalosis Status: Acute (3) Nausea and vomiting Status: Acute Comment Review of Relevant I have reviewed the following items carly (where applicable) has been applied. Labs Laboratory Tests Test 12/12/16 03:40 Digoxin Level 0.8ng/mL (0.9-2.0) Digoxin Last Dose Date Digoxin Last Dose Time 0800 Medications Current Medications Info (Do NOT chart on this entry -- for MONITORING) 1 each PRN DAILY PRN MC SEE COMMENTS; Start 12/11/16 at 10:30; Stop 12/13/16 at 10:29 Pantoprazole Sodium (Protonix) 40 mg DAILYAC PO Last administered on 12/12/16 07:59; Start 12/11/16 at 12:00 Polyethylene Glycol (miraLAX PACKET) 17 gm DAILY PO Last administered on 08:01; Start 12/11/16 at 12:00 Vitals/I & O Vital Sign - Last 24 Hours 12/11/16 12/11/16 12/11/16 12/11/16 10:50 11:52 15:01 16:54 Temp 98.1 97.5 98.1 97.5 Pulse 87 89 Resp 18 B/P 119/61 121/50 Pulse Ox 92 92 O2 Delivery Nasal Cannula Nasal Cannula Nasal Cannula Nasal Cannula O2 Flow Rate 5.0 5.0 5.0 5.0 12/11/16 12/11/16 12/11/16 12/11/16 19:00 20:21 20:44 20:51 Temp 99.1 99.1 Pulse 93 Resp B/P 115/56 Pulse Ox 94 96 96 O2 Delivery Nasal Cannula Nasal Cannula Nasal Cannula Nasal Cannula O2 Flow Rate 5.0 5.0 5.0 5.0 12/11/16 12/11/16 12/12/16 12/12/16 21:51 23:00 03:00 06:55 Temp 98.9 97.7 97.9 98.9 97.7 97.9 Pulse 78 89 84 Resp B/P 94/42 106/55 104/54 Pulse Ox 96 94 91 89 O2 Delivery Nasal Cannula Nasal Cannula Nasal Cannula Nasal Cannula O2 Flow Rate 5.0 5.0 5.0 5.0 12/12/16 12/12/16 08:00 09:09 Pulse 84 B/P 104/54 O2 Delivery Nasal Cannula O2 Flow Rate 5.0 Intake and Output 12/11/16 12/11/16 12/12/16 15:00 23:00 07:00 Intake Total 200 ml 400 ml 700 ml Output Total 700 ml Balance -500 ml 400 ml 700 ml PAUL MALDONADO MD Dec 12, 2016 10:15
[2016-12-12 10:48] VITALS: BP 108/48
[2016-12-12] MEDS: IV NORMAL SALINE 1000ML BAG 1,000 ML IV SCH (11:00)
--- NOTE | 2016-12-12 11:51 | RAD ---
The patient was scheduled for a CT scan of the abdomen. 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 The patient has a large amount of residual barium throughout the colon related to a recent video swallow study. This residual barium contrast causes significant beam hardening artifact which would significantly compromise the image quality. The examination was canceled and rescheduled for the following day.
[2016-12-12 14:58] VITALS: BP 105/63
[2016-12-12] MEDS ORDERED: MECLIZINE HCL 12.5 MG TABLET. PO PRN (15:00)
[2016-12-12 19:08] VITALS: BP 112/58
[2016-12-12] MEDS: ENOXAPARIN 30 MG/0.3 ML DISP.SYRIN. SQ SCH (21:00)
[2016-12-12] MEDS: traZODone 100 MG TABLET. PO SCH (21:15)
[2016-12-12] MEDS: OXYCODONE/APAP 10/325 TABLET. PO PRN (21:16)
[2016-12-12] MEDS: ALPRAZOLAM 0.25 MG TABLET PO PRN (21:16)
[2016-12-12] MEDS ORDERED: IPRATRPIUM/ALBUTEROL 0.5/2.5MG 3 ML NEBU. NEB ONE (22:55)
[2016-12-12 23:00] VITALS: BP 105/51
[2016-12-13] MEDS: IV NORMAL SALINE 1000ML BAG 1,000 ML IV SCH ×2 (00:20→13:40)
[2016-12-13 02:44] VITALS: BP 104/50
[2016-12-13] MEDS: ONDANSETRON ODT 4 MG TAB.RAPDIS PO SCH ×3 (05:39→21:38)
[2016-12-13] MEDS: LEVOTHYROXINE 88 MCG TABLET PO SCH (05:39)
[2016-12-13 07:53] VITALS: BP 123/65
[2016-12-13] MEDS: IPRATRPIUM/ALBUTEROL 0.5/2.5MG 3 ML NEBU. NEB SCH ×4 (08:30→20:03)
[2016-12-13] MEDS: POLYETHYLENE GLYCOL 3350 17 GM PACKET. PO SCH (09:00)
[2016-12-13] MEDS: SENNOSIDES 8.6 MG TABLET PO SCH (09:19)
[2016-12-13] MEDS: DIGOXIN 125 MCG TABLET PO SCH (09:19)
[2016-12-13] MEDS: DOCUSATE SODIUM 100 MG CAPSULE PO SCH (09:19)
[2016-12-13] MEDS: CHOLECALCIFEROL (VITAMIN D3) 1,000 UNIT TABLET PO SCH (09:19)
[2016-12-13] MEDS: PREDNISONE 10 MG TABLET PO SCH (09:19)
[2016-12-13] MEDS: CYANOCOBALAMIN (VITAMIN B-12) 1,000 MCG TABLET. PO SCH (09:19)
[2016-12-13] MEDS: ESCITALOPRAM 10 MG TABLET. PO SCH (09:19)
[2016-12-13] MEDS: PANTOPRAZOLE 40 MG TABLET. PO SCH (09:20)
[2016-12-13] MEDS ORDERED: IOHEXOL 240 MG/ML 50ML VIAL. IV ONE (11:00)
[2016-12-13 11:12] VITALS: BP 91/45
[2016-12-13] MEDS ORDERED: CONTRAST GIVEN MC PRN ×2 (11:15→11:30)
[2016-12-13] MEDS ORDERED: IOHEXOL 240 MG/ML 50ML VIAL. PO ONE (11:30)
--- NOTE | 2016-12-13 12:25 | PDOC ---
Subjective: Subjective: A little better today. Drinking contrast. Less nausea. No BM. Abd pain about the same. Objective: Objective: Emesis basin w/ small amount clear saliva in one corner. Vital Signs: Vital Signs Date Time Temp Pulse Resp B/P Pulse Ox O2 Delivery O2 Flow Rate FiO2 12/13/16 12:19 Nasal Cannula 6.0 12/13/16 11:12 96.8 84 18 91/45 93 96.8 PE: GEN: NAD LUNGS: nasal cannula HEART: RRR ABD: RUQ tenderness NEURO/PSYCH: A & O 3 A/P: N/v, GERD - improving -on PPI, Zofran -remote h/o PUD, also hiatal hernia (noted on chest CT as above) w/ previous EGD Abd pain -seems having CT today Constipation -BM 12/11, now on Miralax QD - note refused today -recalls previous colonoscopy -- Continue PPI. ?something different for constipation Await CT. HUANG GARCIA Dec 13, 2016 12:25
--- NOTE | 2016-12-13 14:23 | PDOC ---
PROGRESS NOTES Subjective Subjective able to keep breakfast down Objective Objective Vital Signs Date Time Temp Pulse Resp B/P Pulse Ox O2 Delivery O2 Flow Rate FiO2 12/13/16 12:19 Nasal Cannula 6.0 12/13/16 11:12 96.8 84 18 91/45 93 96.8 Intake and Output 12/13/16 07:00 Intake Total 1440 ml Output Total 925 ml Balance 515 ml Intake Oral 1440 ml Output Urine Total 725 ml Emesis 200 ml # Voids 7 Physical Exam Abdomen: Normal bowel sounds, Soft Heart: Regular rate, Normal S1, Normal S2 Extremities: No clubbing General: Alert HEENT: Atraumatic Lungs: Clear to auscultation MUSCULOSKELETAL: No swelling Neuro: Normal speech Psych/Mental Status: Mental status NL Skin: No breakdown Diagnosis Problem List Problems Medical Problems: (1) COPD (chronic obstructive pulmonary disease) Status: Acute (2) Metabolic alkalosis Status: Acute (3) Nausea and vomiting Status: Acute Assessment Assessment Problems Medical Problems: (1) COPD (chronic obstructive pulmonary disease) Status: Acute (2) Metabolic alkalosis Status: Acute (3) Nausea and vomiting Status: Acute FINAL IMPRESSION: 1. Persistent nausea and vomiting. 2. History of large hiatal hernia. 3. Mild silent aspiration. 4. Chronic obstructive pulmonary disease, on home oxygen. 5. History of lung cancer, had radiation treatment 5 years ago. 6. 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 7. Multiple abdominal surgeries as mentioned above. PLAN: Ct scan today Ct abd and pelvis could not be done due to recent barium swallow study done last week . appreciate GI consult. iv fluids. labs improving . advance diet. At this time, admit to hospital and hydrate with IV fluids, Zofran for nausea, Gastroenterology consult. Clear liquid diet and CT scan of the abdomen and pelvis, IV hydration and see how the patient's condition improves. Problems: Plan Plan of Care Problems Medical Problems: (1) COPD (chronic obstructive pulmonary disease) Status: Acute (2) Metabolic alkalosis Status: Acute (3) Nausea and vomiting Status: Acute Comment Review of Relevant I have reviewed the following items carly (where applicable) has been applied. Medications Current Medications Albuterol/ Ipratropium (Duoneb) 3 ml 1X ONCE NEB Last administered on t 22:59; Start 12/12/16 at 22:55; Stop 12/12/16 at 22:56; Status DC Info (Do NOT chart on this entry -- for MONITORING) 1 each PRN DAILY PRN MC SEE COMMENTS; Start 12/13/16 at 11:15; Stop 12/15/16 at 11:14 Info (Do NOT chart on this entry -- for MONITORING) 1 each PRN DAILY PRN MC SEE COMMENTS; Start 12/13/16 at 11:30; Stop 12/15/16 at 11:29 Iohexol (Omnipaque 240 Mg/ml) 30 ml 1X ONCE IV ; Start 12/13/16 at 11:00; Stop 12/13/16 at 11:06; Status DC Iohexol (Omnipaque 240 Mg/ml) 30 ml 1X ONCE PO ; Start 12/13/16 at 11:30; Stop 12/13/16 at 11:31; Status DC Meclizine HCl (Antivert) 12.5 mg TID PRN PRN PO DIZZINESS Last administered on 12/12/16t 15:00; Start 12/12/16 at 15:00 Vitals/I & O Vital Sign - Last 24 Hours 12/12/16 12/12/16 12/12/16 12/12/16 14:58 16:43 19:08 19:56 Temp 97.7 97.9 97.7 97.9 Pulse 93 89 Resp 18 18 B/P 105/63 112/58 Pulse Ox 93 92 O2 Delivery Nasal Cannula Nasal Cannula Nasal Cannula Nasal Cannula O2 Flow Rate 6.0 5.0 6.0 6.0 12/12/16 12/12/16 12/12/16 12/12/16 20:06 21:16 22:16 22:59 Pulse Ox 92 92 97 O2 Delivery Nasal Cannula Nasal Cannula Nasal Cannula NonRebreather Mask O2 Flow Rate 5.0 6.0 6.0 12.0 12/12/16 12/13/16 12/13/16 12/13/16 23:00 01:09 02:44 03:07 Temp 98.1 97.5 98.1 97.5 Pulse 95 79 Resp 18 18 B/P 105/51 104/50 Pulse Ox 95 96 92 90 O2 Delivery NonRebreather Mask Venturi Mask Venturi Mask Venturi Mask O2 Flow Rate 15.0 15.0 15.0 15.0 12/13/16 12/13/16 12/13/16 12/13/16 07:53 08:00 08:32 09:19 Temp 97.9 97.9 Pulse 77 77 Resp 18 B/P 123/65 123/65 Pulse Ox 92 94 O2 Delivery Venturi Mask Nasal Cannula Nasal Cannula O2 Flow Rate 15.0 6.0 6.0 12/13/16 12/13/16 11:12 12:19 Temp 96.8 96.8 Pulse 84 Resp 18 B/P 91/45 Pulse Ox 93 O2 Delivery Venturi Mask Nasal Cannula O2 Flow Rate 15.0 6.0 Intake and Output 12/12/16 12/12/16 12/13/16 15:00 23:00 07:00 Intake Total 240 ml 900 ml 300 ml Output Total 925 ml Balance 240 ml 900 ml -625 ml PAUL MALDONADO MD Dec 13, 2016 14:23
[2016-12-13 15:23] VITALS: BP 107/58
--- NOTE | 2016-12-13 15:30 | RAD ---
EXAM: CT abdomen without contrast. HISTORY: Abdominal pain, nausea and vomiting. TECHNIQUE: CT of the abdomen was performed without intravenous contrast. COMPARISON: None. FINDINGS: Images of the lung bases are well enlargement of the main pulmonary artery at 3.6 cm. The heart is moderately enlarged. There are atherosclerotic calcifications of the coronary arteries. There is a small pericardial effusion. There are small bilateral pleural effusions with associated atelectasis. A component of centrilobular emphysema is suspected. Calcified mediastinal lymph nodes are likely secondary to old granulomatous disease. There is a large hiatal hernia. Bone windows reveal diffuse vertebroplasty changes throughout the lower thoracic spine and at L1. There are additional mild to moderate compression deformities at other levels. None are clearly acute. Changes of bone graft harvesting are noted along the right posterior iliac bone. There are calcified granulomas in the liver and spleen. The gallbladder is surgically absent. The common duct is mildly dilated at 9 mm. There is no clear distal obstructing lesion. There are multiple cysts in the right kidney that measure up to 3.9 cm at the upper pole. Multiple right renal calculi measure up to 4 mm. There is no hydronephrosis. 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 There is no aneurysm. There is diastases of the rectus muscles without a discrete hernia. There is no evidence of obstruction. The pelvis is not included. IMPRESSION: 1. No cause for acute abdominal pain is identified. The pelvis is not included. 2. Mild extrahepatic biliary dilatation status post cholecystectomy. Correlate for cholestasis to assess significance. 3. Right renal calculi measure up to 4 mm. No hydronephrosis. 4. Moderate cardiomegaly. Changes of pulmonary arterial hypertension. 5. Large hiatal hernia. 6. Small pericardial and bilateral pleural effusions. One or more of the following individualized dose reduction techniques were utilized for this examination: 1. Automated exposure control. 2. Adjustment of the mA and/or kV according to patient size. 3. Use of iterative reconstruction technique.
[2016-12-13 19:00] VITALS: BP 111/55
[2016-12-13] MEDS: ALPRAZOLAM 0.25 MG TABLET PO PRN (19:18)
[2016-12-13] MEDS: ENOXAPARIN 30 MG/0.3 ML DISP.SYRIN. SQ SCH (21:38)
[2016-12-13] MEDS: traZODone 100 MG TABLET. PO SCH (21:38)
[2016-12-13 23:00] VITALS: BP 117/61
[2016-12-14] MEDS: IV NORMAL SALINE 1000ML BAG 1,000 ML IV SCH (01:29)
[2016-12-14 02:52] VITALS: BP 100/55
[2016-12-14] MEDS: LEVOTHYROXINE 88 MCG TABLET PO SCH (05:52)
[2016-12-14] MEDS: ONDANSETRON ODT 4 MG TAB.RAPDIS PO SCH ×2 (05:52→14:00)
[2016-12-14 07:00] VITALS: BP 130/58
[2016-12-14] MEDS: IPRATRPIUM/ALBUTEROL 0.5/2.5MG 3 ML NEBU. NEB SCH ×2 (07:00→11:27)
[2016-12-14] MEDS: POLYETHYLENE GLYCOL 3350 17 GM PACKET. PO SCH (08:29)
[2016-12-14] MEDS: PANTOPRAZOLE 40 MG TABLET. PO SCH (08:29)
[2016-12-14] MEDS: PREDNISONE 10 MG TABLET PO SCH (08:29)
[2016-12-14] MEDS: SENNOSIDES 8.6 MG TABLET PO SCH (08:29)
[2016-12-14] MEDS: DIGOXIN 125 MCG TABLET PO SCH (08:30)
[2016-12-14] MEDS: DOCUSATE SODIUM 100 MG CAPSULE PO SCH (08:30)
[2016-12-14] MEDS: OXYCODONE/APAP 10/325 TABLET. PO PRN (08:30)
[2016-12-14] MEDS: CHOLECALCIFEROL (VITAMIN D3) 1,000 UNIT TABLET PO SCH (08:30)
[2016-12-14] MEDS: ESCITALOPRAM 10 MG TABLET. PO SCH (08:30)
[2016-12-14] MEDS: CYANOCOBALAMIN (VITAMIN B-12) 1,000 MCG TABLET. PO SCH (08:30)
--- NOTE | 2016-12-14 10:29 | PDOC ---
PROGRESS NOTES Subjective Subjective feels better ,no n/v, keeping food down Objective Objective Vital Signs Date Time Temp Pulse Resp B/P Pulse Ox O2 Delivery O2 Flow Rate FiO2 12/14/16 10:00 Nasal Cannula 5.0 12/14/16 08:30 74 130/58 12/14/16 07:02 98 12/14/16 07:00 97.5 18 97.5 Intake and Output 12/14/16 07:00 Intake Total 450 ml Output Total 1300 ml Balance -850 ml Intake Oral 450 ml Output Urine Total 1300 ml Physical Exam Abdomen: Normal bowel sounds, Soft Heart: Regular rate, Normal S1, Normal S2 Extremities: No clubbing General: Alert HEENT: Atraumatic Lungs: Clear to auscultation MUSCULOSKELETAL: No swelling Neuro: Normal speech Psych/Mental Status: Mental status NL Skin: No breakdown Diagnosis Problem List Problems Medical Problems: (1) COPD (chronic obstructive pulmonary disease) Status: Acute (2) Metabolic alkalosis Status: Acute (3) Nausea and vomiting Status: Acute Assessment Assessment Problems Medical Problems: (1) COPD (chronic obstructive pulmonary disease) Status: Acute (2) Metabolic alkalosis Status: Acute (3) Nausea and vomiting Status: Acute FINAL IMPRESSION: 1. Persistent nausea and vomiting. 2. History of large hiatal hernia. 3. Mild silent aspiration. 4. Chronic obstructive pulmonary disease, on home oxygen. 5. History of lung cancer, had radiation treatment 5 years ago. 6. Osteoporosis with compression of the spine, had vertebroplasty . 7. Multiple abdominal surgeries as mentioned above. PLAN: Ct scan neg for blockage, large hiatal hernia d/c home today.tolerating diet well. home with home health appreciate GI consult. labs improving . advance diet. Problems: Plan Plan of Care Problems Medical Problems: (1) COPD (chronic obstructive pulmonary disease) Status: Acute (2) Metabolic alkalosis Status: Acute (3) Nausea and vomiting Status: Acute Comment Review of Relevant I have reviewed the following items carly (where applicable) has been applied. Medications Current Medications Info (Do NOT chart on this entry -- for MONITORING) 1 each PRN DAILY PRN MC SEE COMMENTS; Start 12/13/16 at 11:15; Stop 12/15/16 at 11:14 Info (Do NOT chart on this entry -- for MONITORING) 1 each PRN DAILY PRN MC SEE COMMENTS; Start 12/13/16 at 11:30; Stop 12/15/16 at 11:29 Iohexol (Omnipaque 240 Mg/ml) 30 ml 1X ONCE IV ; Start 12/13/16 at 11:00; Stop 12/13/16 at 11:06; Status DC Iohexol (Omnipaque 240 Mg/ml) 30 ml 1X ONCE PO ; Start 12/13/16 at 11:30; Stop 12/13/16 at 11:31; Status DC Vitals/I & O Vital Sign - Last 24 Hours 12/13/16 12/13/16 12/13/16 12/13/16 11:12 12:19 15:23 17:04 Temp 96.8 98.0 96.8 98.0 Pulse 84 88 Resp 18 18 B/P 91/45 107/58 Pulse Ox 93 93 O2 Delivery Venturi Mask Nasal Cannula Nasal Cannula Nasal Cannula O2 Flow Rate 15.0 6.0 6.0 12/13/16 12/13/16 12/13/16 12/13/16 19:00 20:00 20:06 23:00 Temp 97.9 97.9 97.9 97.9 Pulse 86 82 Resp 20 20 B/P 111/55 117/61 Pulse Ox 93 95 97 O2 Delivery Nasal Cannula Nasal Cannula Nasal Cannula Nasal Cannula O2 Flow Rate 6.0 5.0 5.0 6.0 12/14/16 12/14/16 12/14/16 12/14/16 02:52 07:00 07:02 08:00 Temp 97.5 97.5 97.5 97.5 Pulse 78 74 Resp 20 18 B/P 100/55 130/58 Pulse Ox 94 94 98 O2 Delivery Nasal Cannula Venturi Mask Nasal Cannula Nasal Cannula O2 Flow Rate 6.0 6.0 6.0 5.0 12/14/16 12/14/16 12/14/16 08:30 08:30 10:00 Pulse 74 B/P 130/58 O2 Delivery Nasal Cannula Nasal Cannula O2 Flow Rate 5.0 5.0 Intake and Output 12/13/16 12/13/16 12/14/16 15:00 23:00 07:00 Intake Total 450 ml 0 ml Output Total 200 ml 1100 ml Balance 250 ml -1100 ml PAUL MALDONADO MD Dec 14, 2016 10:29
[2016-12-14] MEDS ORDERED: PROM25SU33 RC (10:33)
[2016-12-14 10:46] VITALS: BP 100/48
--- NOTE | 2016-12-14 12:59 | PDOC ---
Subjective: Subjective: Doing better. Eating a little. Less abd pain. Less nausea. Wants to leave. Objective: Objective: Per RN - eating a little better, sometimes coughs/spits phlegm but no vomiting. Vital Signs: Vital Signs Date Time Temp Pulse Resp B/P Pulse Ox O2 Delivery O2 Flow Rate FiO2 12/14/16 11:28 Nasal Cannula 5.0 12/14/16 10:46 97.8 86 16 100/48 90 97.8 Imaging: CT abd IMPRESSION: 1. No cause for acute abdominal pain is identified. The pelvis is not included. 2. Mild extrahepatic biliary dilatation status post cholecystectomy. Correlate for cholestasis to assess significance. 3. Right renal calculi measure up to 4 mm. No hydronephrosis. 4. Moderate cardiomegaly. Changes of pulmonary arterial hypertension. 5. Large hiatal hernia. 6. Small pericardial and bilateral pleural effusions. PE: GEN: NAD LUNGS: nasal cannula HEART: S1S2 ABD:less tender NEURO/PSYCH: A & O 3 A/P: N/v, GERD - improved -on PPI Hiatal hernia Abd pain - better -- Note plans to DC today. Would continue PPI. HUANG GARICA Dec 14, 2016 12:59
--- NOTE | 2016-12-15 14:34 | PDOC ---
Provider Note Provider Note Discharge summary dictated. #[id number] PAUL MALDONADO MD Dec 15, 2016 14:34
--- NOTE | 2016-12-15 18:49 | DS ---
DATE OF DISCHARGE: 12/14/2016 REASON FOR ADMISSION TO THE HOSPITAL: Nausea, vomiting, metabolic alkalosis. CONSULTATION: Dr. Lara. PROCEDURE DONE: CT of the abdomen. COMPLICATIONS NOTED: None. HOSPITAL COURSE: The patient is an 86-year-old female with history of COPD, has a large hiatal hernia, came in with nausea and vomiting, metabolic alkalosis, was given IV fluids and the patient had a barium for swallowing study last week. CT scan could not be done immediately, was done a couple of days later, shows a large hiatal hernia, no obstruction. The patient's condition improved with time, fluids, conservative treatment and advancing the diet and she was feeling better and she was discharged. At home, she was on COPD with home oxygen. Her concentrator was not working, which was replaced by home health agency. FINAL DIAGNOSES: 1. Nausea and vomiting secondary to large hiatal hernia. 2. Large hiatal hernia. 3. Metabolic alkalosis secondary to nausea and vomiting. 4. Chronic COPD, on home oxygen. 5. History of lung cancer, had radiation treatment 5 years ago. DISPOSITION: Home. DISCHARGE MEDICATIONS: See MRAD for discharge medications. PAUL MALDONADO MD DR: EKTA/patience JOB#: [id number] / [id number]
== END 2016-12-14 13:50 | disposition home health service (06) | DRG 683 ==
LOC: ER 08:31 → 5 NORTH 10:00
PROVIDERS: ADMIT Internal Medicine; ATTEND Internal Medicine
DX: N17.9 Acute kidney failure, unspecified (principal); E87.3 Alkalosis; J96.10 Chronic respiratory failure, unspecified whether with hypoxia or hypercapnia; M48.56XA Collapsed vertebra, not elsewhere classified, lumbar region, initial encounter for fracture; J90 Pleural effusion, not elsewhere classified; E44.0 Moderate protein-calorie malnutrition; K44.9 Diaphragmatic hernia without obstruction or gangrene; K21.9 Gastro-esophageal reflux disease without esophagitis; E03.9 Hypothyroidism, unspecified; I27.2 Other secondary pulmonary hypertension; D64.9 Anemia, unspecified; F32.9 Major depressive disorder, single episode, unspecified; K59.00 Constipation, unspecified; N20.0 Calculus of kidney; I48.91 Unspecified atrial fibrillation; J44.9 Chronic obstructive pulmonary disease, unspecified; J45.909 Unspecified asthma, uncomplicated; F41.9 Anxiety disorder, unspecified; M81.0 Age-related osteoporosis without current pathological fracture; Z99.81 Dependence on supplemental oxygen; Z90.49 Acquired absence of other specified parts of digestive tract; Z87.11 Personal history of peptic ulcer disease; Z82.49 Family history of ischemic heart disease and other diseases of the circulatory system; Z85.118 Personal history of other malignant neoplasm of bronchus and lung; Z92.3 Personal history of irradiation; Z87.01 Personal history of pneumonia (recurrent); Z88.6 Allergy status to analgesic agent; Z88.8 Allergy status to other drugs, medicaments and biological substances; Z88.5 Allergy status to narcotic agent; Z90.710 Acquired absence of both cervix and uterus; Z79.899 Other long term (current) drug therapy; Z98.49 Cataract extraction status, unspecified eye; Z87.891 Personal history of nicotine dependence; Z68.26 Body mass index [BMI] 26.0-26.9, adult
CPT/HCPCS: 36415; 72040; 74150; 80048; 80053; 80162; 82150; 83690; 85007; 85027; 87641; 93005; 94250; 94640; 94760; 96374; J1650; J2405; J7030; J7040; J7512; J7620; J8597; Q0162; Q9966; Q9967; 99285-25

== ENCOUNTER → 2017-01-28 | Outpatient (CLI) | payer MEDICARE ==
[~2017-01-28] MED LIST changes: +IOHEXOL 180 MG/ML 10 ML VIAL. ONE; +PROM25SU33 RC; +methylPREDNISolone ACETATE 40 MG/ML VIAL. ONE; +methylPREDNISolone ACETATE 80 MG/ML VIAL. ONE
--- NOTE | 2017-01-29 05:32 | PN ---
DATE: 01/28/2017 PROGRESS NOTE FOR PAIN CLINIC DIAGNOSES: Lumbar radiculopathy with lumbar degenerative disk disease and lumbar post-laminectomy syndrome. HISTORY OF PRESENT ILLNESS: This patient is an 86-year-old female who returns for followup. Last seen 05/04/2016 underwent 2 caudal approach epidural steroid injections at that time with good results. The patient reports about 80% improvement, but the pain is returning now over the past month or two in her low back and to her right lower extremity more than the left. She has had 2-3 falls in the last few months when she has been getting more unstable on her foot and her leg, especially on the right side. She ____ and is causing increased pain in the low back and the right leg with significant radiation into the right hip lower extremity, mostly in the posterior aspect of the gluteus and thigh as well as into the posterior calf on the right side when walking. The patient reports she has been using a wheelchair when she came and she is somewhat debilitated from her pulmonary condition, she is on oxygen 5 liters continuously and she has not very active as it is, but this is limited to her ability to have comfort with activity significantly. The patient reports no new motor or sensory deficits or other complaints. PHYSICAL EXAMINATION: VITAL SIGNS: The patient's blood pressure is 119/67, pulse is 59, respirations are 18, temperature is 97.7 degrees Fahrenheit. Height is 4 feet, weight is 132 pounds. GENERAL: The patient is awake, alert, oriented, appropriate, very pleasant demeanor. HEENT: Shows the patient wears eyeglasses, normocephalic, atraumatic. Extraocular movements are intact and symmetrical. Oral cavity, mucous membranes are moist and pink. Dentition is intact. NECK: Shows anterior throat supple without palpable lymphadenopathy noted. Swallow reflex is symmetrical. CHEST: Shows normal on inspection. Breath sounds are coarse, but clear. No rales, rhonchi or wheezes are auscultated and/or present in all 4 upper and lower lung null, both anterior and posteriorly. HEART: Shows S1 and S2 clear. No murmurs auscultated. ABDOMEN: Soft, nontender, nondistended. No palpable organomegaly . There is no rebound or guarding demonstrated. BACK: Shows spine grossly midline. Slight exaggeration of thoracic kyphosis and mild flattening of lumbar lordotic curvature. Well healed surgical scars noted in the lumbar distribution once again. Lumbar paraspinous musculature shows no asymmetry on inspection with palpation shows moderate tenderness with palpation bilaterally in the lumbar paraspinous muscles without radiation, no tenderness over the sacrum or sacroiliac regions. EXTREMITIES: Lower extremities showed deep tendon reflexes at 1+ in the patellar and tendo calcaneus tendons are equal. Motor exam is approximately 4 on a scale of 5 dorsiflexion, extension, but symmetrical also quadriceps and hamstring flexion about 4/5 on the right and 4/5 on the left. Options were discussed with the patient and the patient's old chart was reviewed and the patient's medications were updated as well as review of systems updated today. The patient would like to proceed with a caudal approach epidural steroid injection. She did very well with these in the past. We discussed the procedure using description as well as anatomical models to describe the procedure. Risks were then discussed including, but not limited to bleeding, infection, possibility of epidural hematoma, subsequent neurologic compromise, dural puncture, headaches, spinal cord and/or nerve damage, side effects of steroid medication and poor results regarding pain control. The patient understands and wishes to proceed. The patient will return to clinic in approximately 2 weeks for followup, was counseled on return appointment, activity level and side effects to be aware of. DIAGNOSIS: Lumbar radiculopathy with lumbar degenerative disk disease and post-lumbar laminectomy syndrome. PROCEDURE: Caudal approach epidural steroid injection using fluoroscopic guidance under sterile prep and drape using local anesthetic. Medications injected is 120 mg Depo-Medrol plus 10 mL of preservative-free normal saline and 2 mL of Isovue for contrast. CONDITION AT DISCHARGE: Stable. The patient tolerated the procedure well, had no complications. CRISTAL PRUETT MD DR: SUSANA/patience JOB#: [id number] / [id number]
== END | disposition home or self-care (01) ==
LOC: PNCL 11:34
PROVIDERS: ATTEND Anesthesiology
DX: M51.16 Intervertebral disc disorders with radiculopathy, lumbar region (principal); M96.1 Postlaminectomy syndrome, not elsewhere classified; J44.9 Chronic obstructive pulmonary disease, unspecified; K21.9 Gastro-esophageal reflux disease without esophagitis; M19.90 Unspecified osteoarthritis, unspecified site; F41.9 Anxiety disorder, unspecified; F32.9 Major depressive disorder, single episode, unspecified; E03.9 Hypothyroidism, unspecified; Z90.710 Acquired absence of both cervix and uterus; Z90.49 Acquired absence of other specified parts of digestive tract
CPT/HCPCS: 62323; J1030; J1040

== ENCOUNTER 2017-02-18 17:23 | Inpatient (IN) | payer MEDICARE ==
[~2017-02-18] VITALS: Ht 142.2 cm; Wt 56.9 kg
[~2017-02-18 17:23] MED LIST changes: -IOHEXOL 180 MG/ML 10 ML VIAL. ONE; -NYST1000 SWSW; +NYST100054 SWSW; +POLY17PO29 PO; -POLY17PO5 PO; -methylPREDNISolone ACETATE 40 MG/ML VIAL. ONE; -methylPREDNISolone ACETATE 80 MG/ML VIAL. ONE
--- NOTE | 2017-02-18 17:55 | PHYS DOC ---
Past Medical History Past Medical History: A-Fib, Anxiety, Asthma, Bronchitis, Cancer, COPD, Depression, Hypothyroid, Pneumonia, Other Additional Past Medical Histor: chronic back, lung ca; hernia, HEART DISEASE, EMPHESEMA, Osteoporosis Past Surgical History: Appendectomy, Cholecystectomy, , Hysterectomy, Tonsillectomy, Other Additional Past Surgical Histo: back X2, hernia x 3 Alcohol Use: None Drug Use: None Adult General Chief Complaint Chief Complaint: SHORTNESS OF BREATH HPI HPI Patient is a 86 year old female who presents with complaint of difficulty breathing. The patient states her symptoms started this morning. Patient has history of COPD and is on 5 L/m of supplemental oxygen at home. Patient states that she tried breathing treatments at home with no relief in symptoms. She follows with Dr. Maldonado for primary care. Patient denies any associated fever or chills. Due to worsening symptoms patient called EMS. The patient's oxygen saturation saturations were noted to be 83% on her normal O2 sat aches. Patient was started on increased supplemental oxygen prior to arrival by EMS. Patient denies any abdominal pain or vomiting. Review of Systems Review of Systems Constitutional: Denies fever or chills [] Eyes: Denies change in visual acuity, redness, or eye pain [] HENT: Denies nasal congestion or sore throat [] Respiratory: Cough, shortness of breath [] Cardiovascular: Denies chest pain or edema [] GI: Denies abdominal pain, nausea, vomiting, bloody stools or diarrhea [] : Denies dysuria or hematuria [] Musculoskeletal: Denies back pain or joint pain [] Integument: Denies rash or skin lesions [] Neurologic: Denies headache, focal weakness or sensory changes [] Current Medications Current Medications Current Medications Medications (Trade) Dose Ordered Sig/Yaya Start Time Stop Time Status Last Admin Dose Admin Albuterol/ Ipratropium (Duoneb) 6 ml 1X ONCE 02/18/17 18:30 02/18/17 18:31 DC 02/18/17 18:08 6 ML Methylprednisolone Sodium Succinate (SOLU-Medrol 125MG VIAL) 125 mg 1X ONCE 02/18/17 18:30 02/18/17 18:31 DC 02/18/17 19:54 125 MG Sodium Chloride 1,000 ml @ 100 mls/hr Q10H 02/18/17 18:30 02/19/17 04:29 02/18/17 20:20 100 MLS/HR Allergies Allergies Allergies Coded Allergies Type Severity Reaction Last Updated Verified morphine Allergy Intermediate PER DAUGHTER, DOES NOT AGREE WITH PT 03/13/14 Yes adhesive Adverse Reaction Intermediate blisters 01/26/15 Yes aspirin Adverse Reaction Intermediate Nausea and Vomiting, "makes me sick" Yes Physical Exam Physical Exam Constitutional: Alert, afebrile, appears in severe respiratory distress. [] HENT: Normocephalic, atraumatic, bilateral external ears normal, oropharynx moist, no oral exudates, nose normal. [] Eyes: PERRLA, EOMI, conjunctiva normal, no discharge. [] Neck: Normal range of motion, no tenderness, supple, no stridor. [] Cardiovascular:Heart rate regular rhythm, no murmur [] Lungs & Thorax: Severe restriction of air movement bilaterally, expiratory wheezes bilaterally, no rales [] Abdomen: Bowel sounds normal, soft, no tenderness, no masses, no pulsatile masses. [] Skin: Warm, dry, no erythema, no rash. [] Back: No tenderness, no CVA tenderness. [] Extremities: No tenderness, no cyanosis, no clubbing, ROM intact, no edema. [] Neurologic: Alert and oriented X 3, normal motor function, normal sensory function, no focal deficits noted. [] Current Patient Data Vital Signs Vital Signs Date Time Temp Pulse Resp B/P (MAP) Pulse Ox O2 Delivery O2 Flow Rate FiO2 02/18/17 19:53 93 BiPAP/CPAP 02/18/17 17:35 99.1 74 30 117/56 (76) 5.0 99.1 Lab Values Laboratory Tests Test 02/18/17 18:30 White Blood Count 6.3 x10^3/uL (4.0-11.0) Red Blood Count 2.94 x10^6/uL (3.50-5.40) L Hemoglobin 8.3 g/dL (12.0-15.5) L Hematocrit 26.1 % (36.0-47.0) L Mean Corpuscular Volume 89 fL (79-100) Mean Corpuscular Hemoglobin 28 pg (25-35) Mean Corpuscular Hemoglobin Concent 32 g/dL (31-37) Red Cell Distribution Width 16.0 % (11.5-14.5) H Platelet Count 73 x10^3/uL (140-400) L Neutrophils (%) (Auto) 66 % (31-73) Lymphocytes (%) (Auto) 18 % (24-48) L Monocytes (%) (Auto) 15 % (0-9) H Eosinophils (%) (Auto) 1 % (0-3) Basophils (%) (Auto) 1 % (0-3) Neutrophils # (Auto) 4.1 x10^3uL (1.8-7.7) Lymphocytes # (Auto) 1.1 x10^3/uL (1.0-4.8) Monocytes # (Auto) 0.9 x10^3/uL (0.0-1.1) Eosinophils # (Auto) 0.1 x10^3/uL (0.0-0.7) Basophils # (Auto) 0.0 x10^3/uL (0.0-0.2) Sodium Level 137 mmol/L (136-145) Potassium Level 4.3 mmol/L (3.5-5.1) Chloride Level 99 mmol/L (98-107) Carbon Dioxide Level 39 mmol/L (21-32) H Anion Gap -1 (6-14) L Blood Urea Nitrogen 17 mg/dL (7-20) Creatinine 1.1 mg/dL (0.6-1.0) H Estimated GFR (Cockcroft-Gault) 47.3 BUN/Creatinine Ratio 15 (6-20) Glucose Level 104 mg/dL (70-99) H Lactic Acid Level 1.2 mmol/L (0.4-2.0) Calcium Level 8.6 mg/dL (8.5-10.1) Total Bilirubin 0.2 mg/dL (0.2-1.0) Aspartate Amino Transferase (AST) 45 U/L (15-37) H Alanine Aminotransferase (ALT) 31 U/L (14-59) Alkaline Phosphatase 69 U/L (46-116) Creatine Kinase 84 U/L (26-192) Creatine Kinase MB (Mass) 1.5 ng/mL (0.0-3.6) Creatine Kinase MB Relative Index 1.8 % (0-4) Troponin I Quantitative < 0.017 ng/mL (0.000-0.055) RB-Zta-[id number]-Type Natriuretic Peptide 1994 pg/mL (0-449) H Total Protein 6.5 g/dL (6.4-8.2) Albumin 2.8 g/dL (3.4-5.0) L Albumin/Globulin Ratio 0.8 (1.0-1.7) L Laboratory Tests 02/18/17 18:30 Laboratory Tests 02/18/17 18:30 EKG EKG Interpreted by me: Heart rate 92, sinus rhythm, multiple PACs, leftward axis, no acute ST/T-wave abnormalities present [] Radiology/Procedures Radiology/Procedures One view AP chest x-ray interpreted by me: No acute infiltrates or effusions, normal cardiac silhouette [] Course & Med Decision Making Course & Med Decision Making Pertinent Labs and Imaging studies reviewed. (See chart for details) The patient was started on IV Therapy in the emergency department with improvement in work of breathing and oxygenation. Patient's workup does not reveal evidence of acute pneumonia. The patient was started on IV Solu-Medrol and given 2 DuoNeb treatments. The patient will be admitted the hospital for further care. I spoke with Dr. Heard who is on-call for Dr. Maldonado and he accepted care patient in hospital. Critical care time excluding procedures: 45 minutes. Dragon Disclaimer Dragon Disclaimer This electronic medical record was generated, in whole or in part, using a voice recognition dictation system. Departure Departure Impression: Primary Impression: Acute on chronic respiratory failure Additional Impressions: Normocytic anemia Severe protein-calorie malnutrition Disposition: ADMITTED INPATIENT Admitting Physician: Marco Antonio Heard Condition: GUARDED Referrals: PAUL MALDONADO MD (PCP) Problem Qualifiers Primary Impression: Acute on chronic respiratory failure Respiratory failure complication: hypoxia Qualified Codes: J96.21 - Acute and chronic respiratory failure with hypoxia CRISTY ROMERO MD February 18, 2017 17:55
[2017-02-18] MEDS ORDERED: methylPREDNISolone SOD SUCC PF 125 MG/2 ML VIAL. IV ONE (18:30)
[2017-02-18] MEDS ORDERED: IPRATRPIUM/ALBUTEROL 0.5/2.5MG 3 ML NEBU. NEB ONE (18:30)
[2017-02-18] MEDS ORDERED: IV NORMAL SALINE 1000ML BAG 1,000 ML IV SCH ×2 (18:30→20:55)
[2017-02-18 18:52] LABS: BASO % 1 % (0-3); EOS % 1 % (0-3); HEMATOCRIT 26.1 % (36.0-47.0); HEMOGLOBIN 8.3 g/dL (12.0-15.5); LYMPH # 1.1 x10^3/uL (1.0-4.8); LYMPH % 18 % (24-48); MEAN CORPUSCULAR HEMOGLOBIN 28 pg (25-35); MEAN CORPUSCULAR HGB CONC 32 g/dL (31-37); MEAN CORPUSCULAR VOLUME 89 fL (79-100); MONO % 15 % (0-9); NEUT % 66 % (31-73); PLATELET COUNT 73 x10^3/uL (140-400); RED BLOOD COUNT 2.94 x10^6/uL (3.50-5.40); WHITE BLOOD COUNT 6.3 x10^3/uL (4.0-11.0)
[2017-02-18 19:03] LABS: CALCIUM 8.6 mg/dL (8.5-10.1); CREATININE 1.1 mg/dL (0.6-1.0); GFR 47.3; POTASSIUM 4.3 mmol/L (3.5-5.1)
[2017-02-18 19:09] LABS: ALBUMIN 2.8 g/dL (3.4-5.0); ALBUMIN/GLOBULIN RATIO 0.8 (1.0-1.7); TOTAL BILIRUBIN 0.2 mg/dL (0.2-1.0); TOTAL PROTEIN 6.5 g/dL (6.4-8.2)
[2017-02-18 19:16] LABS: CKMB MASS 1.5 ng/mL (0.0-3.6)
[2017-02-18 19:49] LABS: HCO3 ABG 41 mmol/L (21-28); PH ABG 7.42 (7.35-7.45); PO2 ABG 79 mmHg (65-108); SAT O2 ABG 96 % (92-99)
[2017-02-18 20:27] LABS: BILIRUBIN,URINE NEGATIVE (NEG); GLUCOSE,URINE NEGATIVE (NEG); NITRITE,URINE NEGATIVE (NEG); PROTEIN,URINE 30 mg/dL (NEG-TRACE)
[2017-02-18 20:56] LABS: BACTERIA,URINE FEW /HPF (0-FEW); RBC,URINE 0 /HPF (0-2); SQUAMOUS EPITHELIAL CELL,UR OCC /LPF; WBC,URINE OCC /HPF (0-4)
[2017-02-18] MEDS ORDERED: ACETAMINOPHEN 325 MG TABLET. PO PRN (21:00)
[2017-02-18] MEDS ORDERED: ONDANSETRON PF 4 MG/2 ML VIAL. IV PRN (21:00)
[2017-02-18 21:45] VITALS: BP 115/69
[2017-02-18 22:00] VITALS: BP 112/65
[2017-02-18 22:15] VITALS: BP 116/61
[2017-02-18 22:30] VITALS: BP 110/60
[2017-02-18 22:33] LABS: PCO2 ABG 64 mmHg (35-46)
[2017-02-18 22:45] VITALS: BP 114/63
[2017-02-18 23:00] VITALS: BP 104/62
[2017-02-19] VITALS (13 sets, daily range): BP systolic 96–150; BP diastolic 54–80
--- NOTE | 2017-02-19 00:36 | ACF ---
Admission Forms Criteria RESPIRATORY FAILURE [facility] Clinical Indications for Admission to Inpatient Care (Place 'X' for any and all applicable criteria): Hospital admission is needed for appropriate care of the patient because of acute respiratory failure or insufficiency as indicated by ANY ONE of the following(1)(2)(3)(4)(5)(6)(7)(8): [X ]I. Mechanical ventilation needed (acute invasive or noninvasive) [ ]II. Severe ventilation deficit as indicated by ANY ONE of the following (9) [ ]a) Respiratory acidosis (pH less than 7.32 and partial pressure of carbon dioxide greater than 40 mm Hg (5.3 kPa)) [ ]b) Partial pressure of carbon dioxide greater than 44 mm Hg (5.9 kPa ) (new) [ ]c) Airflow measurements less than 25% of predicted (eg, peak expiratory flow rate less than 100 L/minute) [ ]d) Forced vital capacity less than 15 mL/kg of ideal body weight, or 50% decrease in vital capacity from baseline [ ]III. Noncardiac pulmonary edema not resolving with rapid emergency treatment (8) [ ]IV. Severe respiratory distress as indicated by ANY ONE of the following: [ ]a) Severe tachypnea (respiratory rate greater than 30, greater than 45 for 6-month-old, greater than 60 for ) [ ]b) Severe hypoxemia (partial pressure of oxygen less than 50 mm Hg ( 6.7 kPa) on greater than 50% oxygen or partial pressure of oxygen to FIO2 ratio less than 200) [ ]c) Mental status deterioration from respiratory disease [ ]V. Airway obstruction or inadequate protection [A](10)(11) The original [employer] content created by [employer] has been revised. The portions of the content which have been revised are identified through the use of italic text or in bold, and [employer] has neither reviewed nor approved the modified material. All other unmodified content is copyright [employer]. Please see references footnoted in the original [employer] edition 2016 Admission Criteria Met?: Yes FIOR SIERRA February 19, 2017 00:36
[2017-02-19] MEDS: methylPREDNISolone SOD SUCC PF 125 MG/2 ML VIAL. IV SCH ×5 (03:30→23:21)
--- NOTE | 2017-02-19 06:46 | EKG ---
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
[2017-02-19] MEDS ORDERED: IPRATRPIUM/ALBUTEROL 0.5/2.5MG 3 ML NEBU. NEB SCH ×2 (08:00→09:00)
[2017-02-19 08:12] LABS: BASO % 0 % (0-3); EOS % 0 % (0-3); HEMATOCRIT 25.7 % (36.0-47.0); HEMOGLOBIN 8.4 g/dL (12.0-15.5); LYMPH # 0.5 x10^3/uL (1.0-4.8); LYMPH % 11 % (24-48); MEAN CORPUSCULAR HEMOGLOBIN 29 pg (25-35); MEAN CORPUSCULAR HGB CONC 33 g/dL (31-37); MEAN CORPUSCULAR VOLUME 88 fL (79-100); MONO % 3 % (0-9); NEUT % 85 % (31-73); RED BLOOD COUNT 2.93 x10^6/uL (3.50-5.40); RED CELL DISTRIBUTION WIDTH 16.3 % (11.5-14.5); WHITE BLOOD COUNT 4.2 x10^3/uL (4.0-11.0)
--- NOTE | 2017-02-19 08:12 | RAD ---
Portable chest, 02/18/2017: History: Shortness of breath Comparison is made to a study from 12/06/2016. The heart is at the upper limits of normal in size. There is calcific plaquing of the aorta. There is mild interstitial prominence in the lower chest with Peewee B lines evident. The findings suggest low-grade interstitial edema, although there is likely a component of basilar scarring. No definite pleural fluid is seen. A hiatal hernia is present. The bony structures are demineralized. Vertebroplasty changes are present at multiple levels in the thoracic and lumbar spine. IMPRESSION: Mild congestive heart failure with mild interstitial pulmonary edema superimposed upon basilar scarring.
[2017-02-19 08:15] LABS: CALCIUM 8.6 mg/dL (8.5-10.1); CREATININE 1.1 mg/dL (0.6-1.0); GFR 47.3; POTASSIUM 4.2 mmol/L (3.5-5.1)
[2017-02-19] MEDS ORDERED: PROMETHAZINE 25 MG SUPP.RECT. RC PRN (08:45)
[2017-02-19] MEDS ORDERED: oxyCODONE/APAP 10/325 1 TAB TABLET PO PRN (08:45)
[2017-02-19] MEDS ORDERED: LEVOTHYROXINE 88 MCG TABLET PO SCH (09:00)
[2017-02-19] MEDS: SENNOSIDES 8.6 MG TABLET PO SCH (09:00)
[2017-02-19] MEDS: DOCUSATE SODIUM 100 MG CAPSULE. PO SCH (09:00)
[2017-02-19] MEDS: ESCITALOPRAM 10 MG TABLET. PO SCH (09:33)
[2017-02-19] MEDS: ALPRAZolam 0.25 MG TABLET PO PRN ×3 (09:33→23:12)
[2017-02-19] MEDS: CYANOCOBALAMIN (VITAMIN B-12) 1,000 MCG TABLET. PO SCH (09:33)
[2017-02-19] MEDS: DIGOXIN 125 MCG TABLET. PO SCH (09:34)
--- NOTE | 2017-02-19 10:01 | PDOC ---
Provider Note Provider Note Pt seen.H&P dictated. #[id number]. PAUL MALDONADO MD February 19, 2017 10:01
--- NOTE | 2017-02-19 10:40 | PDOC ---
Provider Note Provider Note dictated KESHIA CHAO MD February 19, 2017 10:40
--- NOTE | 2017-02-19 11:18 | CONS ---
DATE OF CONSULTATION: ATTENDING PHYSICIAN: Dr. Amaya. REASON FOR CONSULTATION: Dyspnea and respiratory failure. HISTORY OF PRESENT ILLNESS: The patient is an 86-year-old female, who has a history of chronic obstructive airway disease on home oxygen. She also has history of lung cancer ____ in the right lower lobe, status post treatment with remission. She presented to the hospital with 2-day history of shortness of breath. She had no cough, no chest pains. Normally, she is on 5 liters of oxygen at home. The patient had no fever, no chills, no leg edema. The patient was seen in the Emergency Room with saturation of 83% on normal oxygen levels. She had increase in her supplemental oxygen. In the ER, arterial blood gases were performed and showed a pH of 7.42, pCO2 of 64 and pO2 of 79 on 40% FiO2. She was placed on BiPAP to improve her work of breathing. I have reviewed the patient's chest x-ray, which shows slightly prominent interstitial markings. No definite masses were seen. Consultation requested for further evaluation and management. She is currently off the BiPAP. PAST MEDICAL HISTORY: Significant for history of AFib, history of anxiety, history of asthma, history of COPD, chronic respiratory failure, history of lung cancer status post radiation with good remission and osteoporosis. PAST SURGICAL HISTORY: Appendectomy, cholecystectomy, , hysterectomy, tonsillectomy, back surgery and hernia surgery. ALLERGIES: ADHESIVE, ASPIRIN AND MORPHINE. SOCIAL HISTORY: Long history of tobacco use, but no longer smokes cigarettes. MEDICATIONS: All reviewed as listed in the MRAD. REVIEW OF SYSTEMS: Twelve-point system obtained. Pertinent positives discussed in history of present illness, otherwise noncontributory. All systems that were negative were reviewed as well. FAMILY HISTORY: Noncontributory to lungs. PHYSICAL EXAMINATION: VITAL SIGNS: Blood pressure 97/67, afebrile, pulse ox 91% on 5 liters. HEENT: Sclerae nonicteric. NECK: Supple. LUNGS: Diminished breath sounds. CARDIOVASCULAR: Regular rate and rhythm. ABDOMEN: Soft, nontender. EXTREMITIES: With trace pitting edema. LABORATORY DATA: Reviewed. ABGs as discussed in my history of present illness. BUN is 16, creatinine 1.1. IMPRESSION: 1. Dyspnea secondary to acute exacerbation of chronic obstructive pulmonary disease and possible mild diastolic heart failure. 2. History of lung cancer status post radiation to the right lower lobe with the remission. 3. Underlying severe chronic obstructive pulmonary disease with acute on chronic respiratory failure due to AECOPD, requiring BIPAP on admission RECOMMENDATIONS: 1. Discussed with RN. We will monitor off the BiPAP and continue nasal cannula, would use BiPAP p.r.n. 2. Continue IV fluids and use p.r.n. Lasix. 3. Continue nebulizer treatments. 4. Continue IV steroids with taper. 5. Antibiotics can be deescalated soon. 6. Transfer out of the ICU. KESHIA CHAO MD DR: SHEA/patience JOB#: [id number] / [id number] PAUL Sherwood MD MTDD
--- NOTE | 2017-02-19 11:53 | HP ---
ADMIT DATE: 02/18/2017 REASON FOR ADMISSION TO THE HOSPITAL: COPD with acute exacerbation. HISTORY OF PRESENT ILLNESS: The patient is an 86-year-old female with history of chronic COPD, chronic AFib, not a candidate for anticoagulation secondary to falls, osteoporosis, had lung cancer, had radiation treatment, COPD, home oxygen, hypothyroidism and the patient was having shortness of breath, came to the Emergency Room. She has acute CO2 retention and was placed on BiPAP, was admitted to the ICU. The patient was given IV Solu-Medrol, oxygen and breathing treatment. PAST MEDICAL HISTORY: History of lung cancer, had radiation treatment 5 years ago, COPD, hypertension, hyperlipidemia, anxiety, hypothyroidism, compression fractures of the spine and multiple vertebroplasties. PAST SURGICAL HISTORY: Appendectomy, cholecystectomy, , hysterectomy, tonsillectomy, vertebroplasties, back surgeries x 2 and hernia surgeries. PERSONAL HISTORY: The patient stopped smoking, used to smoke in the past at least 30-40 years. Denies alcohol or street drugs. The patient is on home oxygen and nebulizer at home. The patient wishes DNR. ALLERGIES: TAPE, ASPIRIN AND MORPHINE. MEDICATIONS AT HOME: She is on prednisone, was given last week, 50 mg daily, Xanax 0.25 three times a day, vitamin B12 1000 mcg daily, digoxin 125 mcg daily, Colace 100 mg daily, Lexapro 10 mg daily, DuoNeb 4 times daily, levothyroxine 88 mcg daily, Zofran for nausea, oxycodone 10/325 q. 6 p.r.n. for pain, Phenergan, senna and trazodone 100 mg daily. FAMILY HISTORY: Unremarkable. SOCIAL HISTORY: Lives at home. She has a neighbor who helps her. REVIEW OF SYSTEMS: CARDIAC: No chest pain. LUNGS: Short of breath with wheezing, pursed breathing. GASTROINTESTINAL: No nausea or vomiting. The patient has some clear white phlegm. Rest of the 14-system was reviewed and negative. PHYSICAL EXAMINATION: GENERAL: The patient looks chronically sick, COPD, has pursed breathing and flushed face from chronic steroid use. VITAL SIGNS: Temperature 98, pulse 106, respirations 35, blood pressure 136/67, ____ the patient was on BiPAP initially. HEENT: Head is atraumatic. Pupils equal. Oral cavity, dentures, has a bender face. NECK: Supple. Thyroid not enlarged. JVD not elevated. CHEST: Symmetrical, COPD pattern, decreased breath sounds. CARDIOVASCULAR: S1, S2. LUNGS: Diminished breath sounds. ABDOMEN: Soft, bowel sounds present, no mass palpable. EXTERNAL GENITALIA: No Freeman. RECTAL: Deferred. EXTREMITIES: No calf tenderness. The patient has a scar in the back, has some kyphosis from osteoporosis. NEUROLOGIC: Cranial nerves intact. Power 5/5 in all extremities. The patient is on oxygen, has pursed breathing now, able to make conversation slowly. LABORATORY DATA: Shows a white count of 6, hemoglobin 8.3, platelets 73. Electrolytes show sodium 137, potassium 4.3, chloride 99, bicarbonate 40, BUN 17, creatinine 1.1, glucose 104. Lactic acid 1.2. LFTs were normal. BNP 1994. Troponin 0.017. Blood gas shows pH of 7.42, pCO2 of 64, pO2 79, bicarbonate of 41. Chest x-ray, interstitial pulmonary infiltrates, some scarring. EKG done, report is pending. FINAL IMPRESSION: 1. Chronic obstructive pulmonary disease with acute exacerbation. 2. Chronic chronic obstructive pulmonary disease. 3. History of lung cancer, status post radiation treatment 5 years ago. 4. Anxiety. 5. Depression. 6. Hypothyroidism. 7. Osteoporosis, compression fractures of the spine, secondary to half-way steroid use. The patient is on calcium and vitamin D and Boniva, but she does not take Boniva. 8. Thrombocytopenia. 9. Anemia of chronic disease. PLAN: At this time was admit to the hospital, IV Solu-Medrol, oxygen and breathing treatment, BiPAP p.r.n. The patient was consulted by Pulmonology. Hold off on the Lovenox secondary to low platelets. If continues to go low, I will get Hematology and the patient wishes DNR, does not want to be intubated. PAUL MALDONADO MD DR: EKTA/patience JOB#: [id number] / [id number]
[2017-02-19] MEDS: IPRATRPIUM/ALBUTEROL 0.5/2.5MG 3 ML NEBU. NEB SCH ×3 (12:00→20:33)
[2017-02-19 12:38] LABS: PLATELET COUNT 125 x10^3/uL (140-400)
[2017-02-19 12:44] LABS: PLT ESTIMATE DECREASED (ADEQUATE)
[2017-02-19] MEDS ORDERED: ONDANSETRON ODT 4 MG TAB.RAPDIS. PO PRN (14:00)
[2017-02-19] MEDS: LEVOTHYROXINE 88 MCG TABLET PO SCH (16:57)
[2017-02-19] MEDS: traZODone 100 MG TABLET. PO SCH (20:34)
[2017-02-20 03:00] VITALS: BP 129/77
[2017-02-20 05:57] LABS: BASO % 0 % (0-3); BLOOD UREA NITROGEN 19 mg/dL (7-20); CALCIUM 8.8 mg/dL (8.5-10.1); CARBON DIOXIDE 38 mmol/L (21-32); CHLORIDE 100 mmol/L (98-107); EOS % 0 % (0-3); GFR 52.8; GLUCOSE 117 mg/dL (70-99); HEMATOCRIT 25.1 % (36.0-47.0); HEMOGLOBIN 8.1 g/dL (12.0-15.5); LYMPH # 0.5 x10^3/uL (1.0-4.8); LYMPH % 5 % (24-48); MEAN CORPUSCULAR HEMOGLOBIN 28 pg (25-35); MEAN CORPUSCULAR HGB CONC 32 g/dL (31-37); MEAN CORPUSCULAR VOLUME 88 fL (79-100); MONO % 3 % (0-9); NEUT % 91 % (31-73); RED BLOOD COUNT 2.87 x10^6/uL (3.50-5.40); SODIUM 137 mmol/L (136-145); WHITE BLOOD COUNT 8.7 x10^3/uL (4.0-11.0)
[2017-02-20 06:03] LABS: PLATELET COUNT 122 x10^3/uL (140-400)
[2017-02-20] MEDS: LEVOTHYROXINE 88 MCG TABLET PO SCH (06:12)
[2017-02-20] MEDS: methylPREDNISolone SOD SUCC PF 125 MG/2 ML VIAL. IV SCH ×4 (06:12→23:15)
[2017-02-20 07:00] VITALS: BP 143/77
[2017-02-20] MEDS: IPRATRPIUM/ALBUTEROL 0.5/2.5MG 3 ML NEBU. NEB SCH ×4 (07:29→19:51)
[2017-02-20] MEDS: ESCITALOPRAM 10 MG TABLET. PO SCH (08:24)
[2017-02-20] MEDS: DIGOXIN 125 MCG TABLET. PO SCH (08:24)
[2017-02-20] MEDS: CYANOCOBALAMIN (VITAMIN B-12) 1,000 MCG TABLET. PO SCH (08:25)
[2017-02-20] MEDS: SENNOSIDES 8.6 MG TABLET PO SCH (08:26)
[2017-02-20] MEDS: DOCUSATE SODIUM 100 MG CAPSULE. PO SCH (08:26)
--- NOTE | 2017-02-20 10:22 | PDOC ---
PROGRESS NOTES Subjective Subjective moved out of ICU, feeling better Objective Objective Vital Signs Date Time Temp Pulse Resp B/P (MAP) Pulse Ox O2 Delivery O2 Flow Rate FiO2 02/20/17 08:24 92 143/77 02/20/17 08:00 Nasal Cannula 5.0 02/20/17 07:31 94 02/20/17 07:00 98.0 24 98.0 Intake and Output 02/20/17 07:00 Intake Total 1495 ml Output Total 225 ml Balance 1270 ml Intake Oral 1370 ml IV Total 125 ml Output Urine Total 225 ml # Voids 9 # Bowel Movements 1 Physical Exam Abdomen: Normal bowel sounds, Soft Heart: Regular rate, Normal S1 Extremities: No cyanosis General: Alert HEENT: Atraumatic Lungs: Other (dec breath sounds) MUSCULOSKELETAL: No swelling Neck: Supple Neuro: Normal speech Psych/Mental Status: Mood NL Skin: No breakdown Diagnosis Problem List Problems Medical Problems: (1) Acute on chronic respiratory failure Status: Acute (2) Normocytic anemia Status: Acute (3) Severe protein-calorie malnutrition Status: Acute Assessment Assessment Problems Medical Problems: (1) Acute on chronic respiratory failure Status: Acute (2) Normocytic anemia Status: Acute (3) Severe protein-calorie malnutrition Status: Acute FINAL IMPRESSION: 1. Chronic obstructive pulmonary disease with acute exacerbation. 2. Chronic chronic obstructive pulmonary disease. 3. History of lung cancer, status post radiation treatment 5 years ago. 4. Anxiety. 5. Depression. 6. Hypothyroidism. 7. Osteoporosis, compression fractures of the spine, secondary to half-way steroid use. The patient is on calcium and vitamin D and Boniva, but she does not take Boniva. 8. Thrombocytopenia. 9. Anemia of chronic disease. PLAN: Moved out of icu. on oxygen , standby BIPAP. platelets improving to 125,000. iv solumedrol. pt/ot. At this time was admit to the hospital, IV Solu-Medrol, oxygen and breathing treatment, BiPAP p.r.n. The patient was consulted by Pulmonology. Hold off on the Lovenox secondary to low platelets. If continues to go low, I will get Hematology and the patient wishes DNR, does not want to be intubated. Problems: Plan Plan of Care Problems Medical Problems: (1) Acute on chronic respiratory failure Status: Acute (2) Normocytic anemia Status: Acute (3) Severe protein-calorie malnutrition Status: Acute Comment Review of Relevant I have reviewed the following items carly (where applicable) has been applied. Labs Laboratory Tests Test 02/20/17 05:15 White Blood Count 8.7 x10^3/uL (4.0-11.0) Red Blood Count 2.87 x10^6/uL (3.50-5.40) Hemoglobin 8.1 g/dL (12.0-15.5) Hematocrit 25.1 % (36.0-47.0) Mean Corpuscular Volume 88 fL (79-100) Mean Corpuscular Hemoglobin 28 pg (25-35) Mean Corpuscular Hemoglobin Concent 32 g/dL (31-37) Red Cell Distribution Width 16.0 % (11.5-14.5) Platelet Count 122 x10^3/uL (140-400) Neutrophils (%) (Auto) 91 % (31-73) Lymphocytes (%) (Auto) 5 % (24-48) Monocytes (%) (Auto) 3 % (0-9) Eosinophils (%) (Auto) 0 % (0-3) Basophils (%) (Auto) 0 % (0-3) Neutrophils # (Auto) 7.9 x10^3uL (1.8-7.7) Lymphocytes # (Auto) 0.5 x10^3/uL (1.0-4.8) Monocytes # (Auto) 0.3 x10^3/uL (0.0-1.1) Eosinophils # (Auto) 0.0 x10^3/uL (0.0-0.7) Basophils # (Auto) 0.0 x10^3/uL (0.0-0.2) Sodium Level 137 mmol/L (136-145) Potassium Level 5.0 mmol/L (3.5-5.1) Chloride Level 100 mmol/L (98-107) Carbon Dioxide Level 38 mmol/L (21-32) Anion Gap (6-14) Blood Urea Nitrogen 19 mg/dL (7-20) Creatinine 1.0 mg/dL (0.6-1.0) Estimated GFR (Cockcroft-Gault) 52.8 Glucose Level 117 mg/dL (70-99) Calcium Level 8.8 mg/dL (8.5-10.1) Microbiology 02/18/17 Blood Culture - Preliminary, Resulted NO GROWTH AFTER 1 DAY 02/18/17 Urine Culture - Preliminary, Resulted 02/18/17 Urine Culture Result 1 (MARIBELL) - Preliminary, Resulted Medications Current Medications Albuterol/ Ipratropium (Duoneb) 3 ml RTQID NEB Last administered on 02/20/17 07:29; Start 02/19/17 at 12:00 Levothyroxine Sodium (Synthroid) 88 mcg DAILY06 PO Last administered on 06:12; Start 02/19/17 at 15:15 Ondansetron HCl (Zofran Odt) 4 mg PRN Q8HRS PRN PO N/V 1ST CHOICE; Start at 14:00 Trazodone HCl (Desyrel) 100 mg QHS PO Last administered on 02/19/17 20:34; Start 02/19/17 at 21:00 Vitals/I & O Vital Sign - Last 24 Hours 02/19/17 02/19/17 02/19/17 02/19/17 11:51 15:00 15:15 16:57 Temp 97.4 97.4 Pulse 80 Resp 30 B/P (MAP) 141/73 (95) Pulse Ox 94 94 97 97 O2 Delivery Nasal Cannula BiPAP/CPAP BiPAP/CPAP BiPAP/CPAP O2 Flow Rate 5.0 02/19/17 02/19/17 02/19/17 02/19/17 20:00 20:00 20:35 23:32 Temp 97.9 97.9 Pulse 97 Resp 18 B/P (MAP) 140/71 (94) Pulse Ox 97 96 O2 Delivery Bi-pap Nasal Cannula BiPAP/CPAP BiPAP/CPAP O2 Flow Rate 5.0 02/19/17 02/20/17 02/20/17 02/20/17 23:36 03:00 07:00 07:31 Temp 98.0 98.3 98.0 98.0 98.3 98.0 Pulse 99 91 92 Resp 20 18 24 B/P (MAP) 150/80 (103) 129/77 (94) 143/77 (99) Pulse Ox 98 91 92 94 O2 Delivery Nasal Cannula Nasal Cannula Nasal Cannula Nasal Cannula O2 Flow Rate 5.0 5.0 5.0 5.0 02/20/17 02/20/17 08:00 08:24 Pulse 92 B/P (MAP) 143/77 O2 Delivery Nasal Cannula O2 Flow Rate 5.0 Intake and Output 02/19/17 02/19/17 02/20/17 15:00 23:00 07:00 Intake Total 550 ml 495 ml 450 ml Output Total 225 ml Balance 325 ml 495 ml 450 ml PAUL MALDONADO MD February 20, 2017 10:22
[2017-02-20 11:00] VITALS: BP 133/70
--- NOTE | 2017-02-20 12:09 | PDOC ---
PULMONARY PROGRESS NOTES Subjective feels better Vitals Vital Signs Date Time Temp Pulse Resp B/P (MAP) Pulse Ox O2 Delivery O2 Flow Rate FiO2 02/20/17 11:37 Nasal Cannula 5.0 02/20/17 11:00 98.1 81 24 133/70 (91) 92 98.1 General: Alert, No acute distress HEENT: Other Lungs: Other (decrease bs) Cardiovascular: S1, S2 Abdomen: Soft, Non-tender Extremities: No Edema Labs Laboratory Tests Test 02/18/17 18:30 02/18/17 19:38 02/18/17 20:20 02/18/17 21:50 White Blood Count 6.3 x10^3/uL (4.0-11.0) Red Blood Count 2.94 x10^6/uL (3.50-5.40) Hemoglobin 8.3 g/dL (12.0-15.5) Hematocrit 26.1 % (36.0-47.0) Mean Corpuscular Volume 89 fL (79-100) Mean Corpuscular Hemoglobin 28 pg (25-35) Mean Corpuscular Hemoglobin Concent 32 g/dL (31-37) Red Cell Distribution Width 16.0 % (11.5-14.5) Platelet Count 73 x10^3/uL (140-400) Neutrophils (%) (Auto) 66 % (31-73) Lymphocytes (%) (Auto) 18 % (24-48) Monocytes (%) (Auto) 15 % (0-9) Eosinophils (%) (Auto) 1 % (0-3) Basophils (%) (Auto) 1 % (0-3) Neutrophils # (Auto) 4.1 x10^3uL (1.8-7.7) Lymphocytes # (Auto) 1.1 x10^3/uL (1.0-4.8) Monocytes # (Auto) 0.9 x10^3/uL (0.0-1.1) Eosinophils # (Auto) 0.1 x10^3/uL (0.0-0.7) Basophils # (Auto) 0.0 x10^3/uL (0.0-0.2) Sodium Level 137 mmol/L (136-145) Potassium Level 4.3 mmol/L (3.5-5.1) Chloride Level 99 mmol/L (98-107) Carbon Dioxide Level 39 mmol/L (21-32) Anion Gap -1 (6-14) Blood Urea Nitrogen 17 mg/dL (7-20) Creatinine 1.1 mg/dL (0.6-1.0) Estimated GFR (Cockcroft-Gault) 47.3 BUN/Creatinine Ratio 15 (6-20) Glucose Level 104 mg/dL (70-99) Lactic Acid Level 1.2 mmol/L (0.4-2.0) Calcium Level 8.6 mg/dL (8.5-10.1) Total Bilirubin 0.2 mg/dL (0.2-1.0) Aspartate Amino Transf (AST/SGOT) 45 U/L (15-37) Alanine Aminotransferase (ALT/SGPT) 31 U/L (14-59) Alkaline Phosphatase 69 U/L (46-116) Creatine Kinase 84 U/L (26-192) Creatine Kinase MB (Mass) 1.5 ng/mL (0.0-3.6) Creatine Kinase MB Relative Index 1.8 % (0-4) Troponin I Quantitative < 0.017 ng/mL (0.000-0.055) FH-Zaz-S-Type Natriuretic Peptide 1994 pg/mL (0-449) Total Protein 6.5 g/dL (6.4-8.2) Albumin 2.8 g/dL (3.4-5.0) Albumin/Globulin Ratio 0.8 (1.0-1.7) O2 Saturation 96 % (92-99) Arterial Blood pH 7.42 (7.35-7.45) Arterial Blood pCO2 at Patient Temp 64 mmHg (35-46) Arterial Blood pO2 at Patient Temp 79 mmHg (65-108) Arterial Blood HCO3 41 mmol/L (21-28) Arterial Blood Base Excess 14 mmol/L (-3-3) FiO2 40.0 Urine Color Yellow Urine Clarity Clear Urine pH 6.0 Urine Specific [place] 1.020 Urine Protein 30 mg/dL (NEG-TRACE) Urine Glucose (UA) Negative mg/dL (NEG) Urine Ketones (Stick) Negative mg/dL (NEG) Urine Blood Negative (NEG) Urine Nitrite Negative (NEG) Urine Bilirubin Negative (NEG) Urine Urobilinogen Dipstick 1.0 mg/dL (0.2 mg/dL) Urine Leukocyte Esterase Trace (NEG) Urine RBC 0 /HPF (0-2) Urine WBC Occ /HPF (0-4) Urine Squamous Epithelial Cells Occ /LPF Urine Amorphous Sediment Present /HPF Urine Bacteria Few /HPF (0-FEW) Urine Hyaline Casts Occasional /HPF Urine Mucus Mod /LPF Nasal Screen MRSA (PCR) Negative (Negative) Test 02/19/17 07:15 02/20/17 05:15 White Blood Count 4.2 x10^3/uL (4.0-11.0) 8.7 x10^3/uL (4.0-11.0) Red Blood Count 2.93 x10^6/uL (3.50-5.40) 2.87 x10^6/uL (3.50-5.40) Hemoglobin 8.4 g/dL (12.0-15.5) 8.1 g/dL (12.0-15.5) Hematocrit 25.7 % (36.0-47.0) 25.1 % (36.0-47.0) Mean Corpuscular Volume 88 fL (79-100) 88 fL (79-100) Mean Corpuscular Hemoglobin 29 pg (25-35) 28 pg (25-35) Mean Corpuscular Hemoglobin Concent 33 g/dL (31-37) 32 g/dL (31-37) Red Cell Distribution Width 16.3 % (11.5-14.5) 16.0 % (11.5-14.5) Platelet Count 125 x10^3/uL (140-400) 122 x10^3/uL (140-400) Neutrophils (%) (Auto) 85 % (31-73) 91 % (31-73) Lymphocytes (%) (Auto) 11 % (24-48) 5 % (24-48) Monocytes (%) (Auto) 3 % (0-9) 3 % (0-9) Eosinophils (%) (Auto) 0 % (0-3) 0 % (0-3) Basophils (%) (Auto) 0 % (0-3) 0 % (0-3) Neutrophils # (Auto) 3.6 x10^3uL (1.8-7.7) 7.9 x10^3uL (1.8-7.7) Lymphocytes # (Auto) 0.5 x10^3/uL (1.0-4.8) 0.5 x10^3/uL (1.0-4.8) Monocytes # (Auto) 0.1 x10^3/uL (0.0-1.1) 0.3 x10^3/uL (0.0-1.1) Eosinophils # (Auto) 0.0 x10^3/uL (0.0-0.7) 0.0 x10^3/uL (0.0-0.7) Basophils # (Auto) 0.0 x10^3/uL (0.0-0.2) 0.0 x10^3/uL (0.0-0.2) Segmented Neutrophils % 88 % (35-66) Band Neutrophils % 4 % (0-9) Lymphocytes % 7 % (24-48) Monocytes % 1 % (0-10) Platelet Estimate Decreased (ADEQUATE) Sodium Level 137 mmol/L (136-145) 137 mmol/L (136-145) Potassium Level 4.2 mmol/L (3.5-5.1) 5.0 mmol/L (3.5-5.1) Chloride Level 99 mmol/L (98-107) 100 mmol/L (98-107) Carbon Dioxide Level 32 mmol/L (21-32) 38 mmol/L (21-32) Anion Gap 6 (6-14) (6-14) Blood Urea Nitrogen 16 mg/dL (7-20) 19 mg/dL (7-20) Creatinine 1.1 mg/dL (0.6-1.0) 1.0 mg/dL (0.6-1.0) Estimated GFR (Cockcroft-Gault) 47.3 52.8 Glucose Level 185 mg/dL (70-99) 117 mg/dL (70-99) Calcium Level 8.6 mg/dL (8.5-10.1) 8.8 mg/dL (8.5-10.1) Laboratory Tests Test 02/20/17 05:15 White Blood Count 8.7 x10^3/uL (4.0-11.0) Red Blood Count 2.87 x10^6/uL (3.50-5.40) Hemoglobin 8.1 g/dL (12.0-15.5) Hematocrit 25.1 % (36.0-47.0) Mean Corpuscular Volume 88 fL (79-100) Mean Corpuscular Hemoglobin 28 pg (25-35) Mean Corpuscular Hemoglobin Concent 32 g/dL (31-37) Red Cell Distribution Width 16.0 % (11.5-14.5) Platelet Count 122 x10^3/uL (140-400) Neutrophils (%) (Auto) 91 % (31-73) Lymphocytes (%) (Auto) 5 % (24-48) Monocytes (%) (Auto) 3 % (0-9) Eosinophils (%) (Auto) 0 % (0-3) Basophils (%) (Auto) 0 % (0-3) Neutrophils # (Auto) 7.9 x10^3uL (1.8-7.7) Lymphocytes # (Auto) 0.5 x10^3/uL (1.0-4.8) Monocytes # (Auto) 0.3 x10^3/uL (0.0-1.1) Eosinophils # (Auto) 0.0 x10^3/uL (0.0-0.7) Basophils # (Auto) 0.0 x10^3/uL (0.0-0.2) Sodium Level 137 mmol/L (136-145) Potassium Level 5.0 mmol/L (3.5-5.1) Chloride Level 100 mmol/L (98-107) Carbon Dioxide Level 38 mmol/L (21-32) Anion Gap (6-14) Blood Urea Nitrogen 19 mg/dL (7-20) Creatinine 1.0 mg/dL (0.6-1.0) Estimated GFR (Cockcroft-Gault) 52.8 Glucose Level 117 mg/dL (70-99) Calcium Level 8.8 mg/dL (8.5-10.1) Medications Active Scripts Medications Dose Route/Sig Max Daily Dose Days Date Category Promethazine Hcl 25 Mg Supp.rect 25 Mg RC Q6H PRN 12/14/16 Rx Zofran Odt (Ondansetron) 4 Mg Tab.rapdis 1 Tab SL Q8HRS 12/09/16 Rx Prednisone 50 Mg Tablet 50 Mg PO DAILY 12/07/16 Rx Duoneb 0.5-3(2.5) Mg/3 Ml (Albuterol/Ipratropium) 3 Ml Ampul.neb 3 Ml NEB QID 12/05/16 Reported Vitamin B-12 (Cyanocobalamin (Vitamin B-12)) 1,000 Mcg Tablet 1 Tab PO DAILY 10/25/16 Rx Senna (Sennosides) 8.6 Mg Tablet 8.6 Mg PO DAILY 06/20/16 Rx Docusate Sodium 100 Mg Capsule 1 Cap PO DAILY 06/20/16 Rx Trazodone Hcl 100 Mg Tablet 1 Tab PO QHS 06/07/16 Reported Vitamin D (Cholecalciferol (Vitamin D3)) 1,000 Unit Capsule 1 Cap PO DAILY 06/07/16 Reported Percocet 10-325 Mg Tablet (Oxycodone/Acetaminophen) 1 Each Tablet 1 Tab PO TID PRN 03/14/16 Rx Cranberry (Cranberry Fruit) 400 Mg Tablet 4,200 Mg PO DAILY 03/07/16 Reported Levothyroxine Sodium 88 Mcg Tablet 1 Tab PO DAILY 03/06/16 Reported Alprazolam 0.25 Mg Tablet 1 Tab PO PRN TID PRN 03/06/16 Reported Digoxin 125 Mcg Tablet 1 Tab PO DAILY 03/07/15 Reported Zofran Odt (Ondansetron) 4 Mg Tab.rapdis 1 Tab SL Q8HRS PRN 03/07/15 Reported Escitalopram Oxalate 10 Mg Tablet 20 Mg PO DAILY 03/14/14 Reported Impression . 1. Dyspnea secondary to acute exacerbation of chronic obstructive pulmonary disease and possible mild diastolic heart failure. 2. History of lung cancer status post radiation to the right lower lobe with the remission. 3. Underlying severe chronic obstructive pulmonary disease with acute on chronic respiratory failure due to AECOPD, requiring BIPAP on admission Plan . 1. continue nasal cannula, would use BiPAP p.r.n. 2. use p.r.n. Lasix. 3. Continue nebulizer treatments. 4. Continue IV steroids with taper. 5. Antibiotics can be deescalated soon. 6. home in 2 4hr KESHIA CHAO MD February 20, 2017 12:09
[2017-02-20] MEDS: ALPRAZolam 0.25 MG TABLET PO PRN (12:55)
[2017-02-20 15:25] VITALS: BP 110/65
[2017-02-20 19:58] VITALS: BP 126/66
[2017-02-20] MEDS: traZODone 100 MG TABLET. PO SCH (21:55)
[2017-02-20] MEDS ORDERED: CALCIUM CARBONATE 500 MG TAB.CHEW PO PRN (23:00)
[2017-02-21 04:36] VITALS: BP 136/66
[2017-02-21] MEDS: methylPREDNISolone SOD SUCC PF 125 MG/2 ML VIAL. IV SCH ×3 (05:43→21:50)
[2017-02-21] MEDS: LEVOTHYROXINE 88 MCG TABLET PO SCH (05:43)
[2017-02-21] MEDS: IPRATRPIUM/ALBUTEROL 0.5/2.5MG 3 ML NEBU. NEB SCH ×4 (06:59→20:03)
[2017-02-21 07:53] VITALS: BP 154/78
[2017-02-21] MEDS: CYANOCOBALAMIN (VITAMIN B-12) 1,000 MCG TABLET. PO SCH (08:11)
[2017-02-21] MEDS: ESCITALOPRAM 10 MG TABLET. PO SCH (08:11)
[2017-02-21] MEDS: SENNOSIDES 8.6 MG TABLET PO SCH (08:11)
[2017-02-21] MEDS: DOCUSATE SODIUM 100 MG CAPSULE. PO SCH (08:12)
[2017-02-21] MEDS: DIGOXIN 125 MCG TABLET. PO SCH (08:12)
--- NOTE | 2017-02-21 10:04 | PDOC ---
PULMONARY PROGRESS NOTES Subjective feels better Vitals Vital Signs Date Time Temp Pulse Resp B/P (MAP) Pulse Ox O2 Delivery O2 Flow Rate FiO2 02/21/17 08:12 82 154/78 02/21/17 08:00 Nasal Cannula 5.0 02/21/17 07:53 97.9 24 90 97.9 General: Alert, No acute distress HEENT: Other Lungs: Other (decrease bs) Cardiovascular: S1, S2 Abdomen: Soft, Non-tender Extremities: No Edema Labs Laboratory Tests Test 02/20/17 05:15 White Blood Count 8.7 x10^3/uL (4.0-11.0) Red Blood Count 2.87 x10^6/uL (3.50-5.40) Hemoglobin 8.1 g/dL (12.0-15.5) Hematocrit 25.1 % (36.0-47.0) Mean Corpuscular Volume 88 fL (79-100) Mean Corpuscular Hemoglobin 28 pg (25-35) Mean Corpuscular Hemoglobin Concent 32 g/dL (31-37) Red Cell Distribution Width 16.0 % (11.5-14.5) Platelet Count 122 x10^3/uL (140-400) Neutrophils (%) (Auto) 91 % (31-73) Lymphocytes (%) (Auto) 5 % (24-48) Monocytes (%) (Auto) 3 % (0-9) Eosinophils (%) (Auto) 0 % (0-3) Basophils (%) (Auto) 0 % (0-3) Neutrophils # (Auto) 7.9 x10^3uL (1.8-7.7) Lymphocytes # (Auto) 0.5 x10^3/uL (1.0-4.8) Monocytes # (Auto) 0.3 x10^3/uL (0.0-1.1) Eosinophils # (Auto) 0.0 x10^3/uL (0.0-0.7) Basophils # (Auto) 0.0 x10^3/uL (0.0-0.2) Sodium Level 137 mmol/L (136-145) Potassium Level 5.0 mmol/L (3.5-5.1) Chloride Level 100 mmol/L (98-107) Carbon Dioxide Level 38 mmol/L (21-32) Anion Gap (6-14) Blood Urea Nitrogen 19 mg/dL (7-20) Creatinine 1.0 mg/dL (0.6-1.0) Estimated GFR (Cockcroft-Gault) 52.8 Glucose Level 117 mg/dL (70-99) Calcium Level 8.8 mg/dL (8.5-10.1) Medications Active Scripts Medications Dose Route/Sig Max Daily Dose Days Date Category Promethazine Hcl 25 Mg Supp.rect 25 Mg RC Q6H PRN 12/14/16 Rx Zofran Odt (Ondansetron) 4 Mg Tab.rapdis 1 Tab SL Q8HRS 12/09/16 Rx Prednisone 50 Mg Tablet 50 Mg PO DAILY 12/07/16 Rx Duoneb 0.5-3(2.5) Mg/3 Ml (Albuterol/Ipratropium) 3 Ml Ampul.neb 3 Ml NEB QID 12/05/16 Reported Vitamin B-12 (Cyanocobalamin (Vitamin B-12)) 1,000 Mcg Tablet 1 Tab PO DAILY 10/25/16 Rx Senna (Sennosides) 8.6 Mg Tablet 8.6 Mg PO DAILY 06/20/16 Rx Docusate Sodium 100 Mg Capsule 1 Cap PO DAILY 06/20/16 Rx Trazodone Hcl 100 Mg Tablet 1 Tab PO QHS 06/07/16 Reported Vitamin D (Cholecalciferol (Vitamin D3)) 1,000 Unit Capsule 1 Cap PO DAILY 06/07/16 Reported Percocet 10-325 Mg Tablet (Oxycodone/Acetaminophen) 1 Each Tablet 1 Tab PO TID PRN 03/14/16 Rx Cranberry (Cranberry Fruit) 400 Mg Tablet 4,200 Mg PO DAILY 03/07/16 Reported Levothyroxine Sodium 88 Mcg Tablet 1 Tab PO DAILY 03/06/16 Reported Alprazolam 0.25 Mg Tablet 1 Tab PO PRN TID PRN 03/06/16 Reported Digoxin 125 Mcg Tablet 1 Tab PO DAILY 03/07/15 Reported Zofran Odt (Ondansetron) 4 Mg Tab.rapdis 1 Tab SL Q8HRS PRN 03/07/15 Reported Escitalopram Oxalate 10 Mg Tablet 20 Mg PO DAILY 03/14/14 Reported Impression . 1. Dyspnea secondary to acute exacerbation of chronic obstructive pulmonary disease and possible mild diastolic heart failure. 2. History of lung cancer status post radiation to the right lower lobe with the remission. 3. Underlying severe chronic obstructive pulmonary disease with acute on chronic respiratory failure due to AECOPD, requiring BIPAP on admission Plan . 1. continue nasal cannula, would use BiPAP p.r.n. 2. use p.r.n. Lasix. 3. Continue nebulizer treatments. 4. Continue IV steroids with taper. 5. Antibiotics can be deescalated soon. 6. home in 24hr KESHIA CHAO MD February 21, 2017 10:04
--- NOTE | 2017-02-21 10:25 | PDOC ---
PROGRESS NOTES Subjective Subjective feeling sob, on BIPAP now Objective Objective Vital Signs Date Time Temp Pulse Resp B/P (MAP) Pulse Ox O2 Delivery O2 Flow Rate FiO2 02/21/17 08:12 82 154/78 02/21/17 08:00 Nasal Cannula 5.0 02/21/17 07:53 97.9 24 90 97.9 Intake and Output 02/21/17 07:00 Intake Total 460 ml Balance 460 ml Intake Oral 460 ml # Voids 2 Physical Exam Abdomen: Normal bowel sounds, Soft Heart: Regular rate, Normal S1 Extremities: No cyanosis General: Alert HEENT: Atraumatic Lungs: Other (dec breath sounds) MUSCULOSKELETAL: No swelling Neck: Supple Neuro: Normal speech Psych/Mental Status: Mood NL Skin: No breakdown Diagnosis Problem List Problems Medical Problems: (1) Acute on chronic respiratory failure Status: Acute (2) Normocytic anemia Status: Acute (3) Severe protein-calorie malnutrition Status: Acute Assessment Assessment Problems Medical Problems: (1) Acute on chronic respiratory failure Status: Acute (2) Normocytic anemia Status: Acute (3) Severe protein-calorie malnutrition Status: Acute FINAL IMPRESSION: 1. Chronic obstructive pulmonary disease with acute exacerbation. 2. Chronic chronic obstructive pulmonary disease. 3. History of lung cancer, status post radiation treatment 5 years ago. 4. Anxiety. 5. Depression. 6. Hypothyroidism. 7. 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 The patient is on calcium and vitamin D and Boniva, but she does not take Boniva. 8. Thrombocytopenia. 9. Anemia of chronic disease. PLAN: BIPAP today. cxr today. want to go home tomorrow,(graduation in family ) Moved out of icu.2 days ago on oxygen , standby BIPAP. platelets improving to 125,000. iv solumedrol change to po. pt/ot. At this time was admit to the hospital, IV Solu-Medrol, oxygen and breathing treatment, BiPAP p.r.n. The patient was consulted by Pulmonology. Hold off on the Lovenox secondary to low platelets. If continues to go low, I will get Hematology and the patient wishes DNR, does not want to be intubated. Problems: Plan Plan of Care Problems Medical Problems: (1) Acute on chronic respiratory failure Status: Acute (2) Normocytic anemia Status: Acute (3) Severe protein-calorie malnutrition Status: Acute Comment Review of Relevant I have reviewed the following items carly (where applicable) has been applied. Labs Microbiology 02/18/17 Blood Culture - Preliminary, Resulted NO GROWTH AFTER 2 DAYS 02/18/17 Urine Culture - Final, Complete 02/18/17 Urine Culture Result 1 (MARIBELL) - Final, Complete Medications Current Medications Calcium Carbonate/ Glycine (Tums) 500 mg PRN AFTMEALHC PRN PO INDIGESTION Last administered on 02/20/17t 23:16; Start 02/20/17 at 23:00 Vitals/I & O Vital Sign - Last 24 Hours 02/20/17 02/20/17 02/20/17 02/20/17 11:00 11:37 15:25 16:05 Temp 98.1 98.4 98.1 98.4 Pulse 81 84 Resp 24 20 B/P (MAP) 133/70 (91) 110/65 (80) Pulse Ox 92 O2 Delivery Nasal Cannula Nasal Cannula Nasal Cannula Nasal Cannula O2 Flow Rate 5.0 5.0 5.0 5.0 02/20/17 02/20/17 02/20/17 02/20/17 19:40 19:58 20:00 23:21 Temp 97.9 97.9 Pulse 96 Resp 30 24 B/P (MAP) 126/66 (86) Pulse Ox 93 90 92 O2 Delivery Nasal Cannula Nasal Cannula Nasal Cannula Nasal Cannula O2 Flow Rate 5.0 5.0 5.0 5.0 02/21/17 02/21/17 02/21/17 02/21/17 04:36 06:59 07:53 08:00 Temp 98.1 97.9 98.1 97.9 Pulse 92 82 Resp 24 24 B/P (MAP) 136/66 (89) 154/78 (103) Pulse Ox 90 96 90 O2 Delivery Nasal Cannula Nasal Cannula Nasal Cannula Nasal Cannula O2 Flow Rate 5.0 5.0 5.0 5.0 02/21/17 08:12 Pulse 82 B/P (MAP) 154/78 Intake and Output 02/20/17 02/20/17 02/21/17 15:00 23:00 07:00 Intake Total 120 ml 340 ml Balance 120 ml 340 ml PAUL MALDONADO MD February 21, 2017 10:25
[2017-02-21 10:52] VITALS: BP 135/70
[2017-02-21] MEDS: CEFPODOXIME PROXETIL 100 MG TABLET. PO SCH ×2 (12:30→21:49)
[2017-02-21] MEDS: ALPRAZolam 0.25 MG TABLET PO PRN (13:07)
[2017-02-21 15:36] VITALS: BP 147/75
[2017-02-21 19:15] VITALS: BP 140/66
[2017-02-21] MEDS ORDERED: CEFP100T PO (21:34)
[2017-02-21] MEDS ORDERED: PRED20TA PO (21:35)
[2017-02-21] MEDS: traZODone 100 MG TABLET. PO SCH (21:50)
[2017-02-21 23:15] VITALS: BP 125/67
[2017-02-22 03:20] VITALS: BP 132/71
[2017-02-22] MEDS: LEVOTHYROXINE 88 MCG TABLET PO SCH (06:32)
[2017-02-22 07:00] VITALS: BP 126/72
[2017-02-22] MEDS: IPRATRPIUM/ALBUTEROL 0.5/2.5MG 3 ML NEBU. NEB SCH ×2 (08:52→12:06)
[2017-02-22] MEDS ORDERED: predniSONE 20 MG TABLET PO SCH (09:00)
--- NOTE | 2017-02-22 09:49 | PDOC ---
PROGRESS NOTES Subjective Subjective feels better ,want to go home, not using BIPAP Objective Objective Vital Signs Date Time Temp Pulse Resp B/P (MAP) Pulse Ox O2 Delivery O2 Flow Rate FiO2 02/22/17 08:54 90 Nasal Cannula 6.0 02/22/17 07:00 97.7 71 20 126/72 (90) 97.7 Intake and Output 02/22/17 07:00 Intake Total 930 ml Output Total 500 ml Balance 430 ml Intake Oral 880 ml IV Total 50 ml Output Urine Total 500 ml # Voids 4 Physical Exam Abdomen: Normal bowel sounds, Soft Heart: Regular rate, Normal S1 Extremities: No cyanosis General: Alert HEENT: Atraumatic Lungs: Other (dec breath sounds) MUSCULOSKELETAL: No swelling Neck: Supple Neuro: Normal speech Psych/Mental Status: Mood NL Skin: No breakdown Diagnosis Problem List Problems Medical Problems: (1) Acute on chronic respiratory failure Status: Acute (2) Normocytic anemia Status: Acute (3) Severe protein-calorie malnutrition Status: Acute Assessment Assessment Problems Medical Problems: (1) Acute on chronic respiratory failure Status: Acute (2) Normocytic anemia Status: Acute (3) Severe protein-calorie malnutrition Status: Acute FINAL IMPRESSION: 1. Chronic obstructive pulmonary disease with acute exacerbation. 2. Chronic chronic obstructive pulmonary disease. 3. History of lung cancer, status post radiation treatment 5 years ago. 4. Anxiety. 5. Depression. 6. Hypothyroidism. 7. 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 The patient is on calcium and vitamin D and Boniva, but she does not take Boniva. 8. Thrombocytopenia. 9. Anemia of chronic disease. PLAN: d/c home today. po prednisone 50 mg+vantin. off BIPAP. cxr today. want to go home today,(graduation in family tomorrow) Moved out of icu.3 days ago on oxygen , standby BIPAP. platelets improving to 125,000. iv solumedrol change to po. pt/ot. At this time was admit to the hospital, IV Solu-Medrol, oxygen and breathing treatment, BiPAP p.r.n. The patient was consulted by Pulmonology. Hold off on the Lovenox secondary to low platelets. If continues to go low, I will get Hematology and the patient wishes DNR, does not want to be intubated. Problems: Plan Plan of Care Problems Medical Problems: (1) Acute on chronic respiratory failure Status: Acute (2) Normocytic anemia Status: Acute (3) Severe protein-calorie malnutrition Status: Acute Comment Review of Relevant I have reviewed the following items carly (where applicable) has been applied. Labs Microbiology 02/18/17 Blood Culture - Preliminary, Resulted NO GROWTH AFTER 3 DAYS 02/18/17 Urine Culture - Final, Complete 02/18/17 Urine Culture Result 1 (MARIBELL) - Final, Complete Medications Current Medications Cefpodoxime Proxetil (Vantin) 100 mg BID PO Last administered on 02/21/17 21: 49; Start 02/21/17 at 10:30 Methylprednisolone Sodium Succinate (SOLU-Medrol 125MG VIAL) 60 mg Q8HRS IV Last administered on 02/21/17 21:50; Start 02/21/17 at 14:00; Stop 02/21/17 at 22:01; Status DC Prednisone (Prednisone) 50 mg DAILY PO ; Start 02/22/17 at 09:00 Vitals/I & O Vital Sign - Last 24 Hours 02/21/17 02/21/17 02/21/17 02/21/17 10:52 11:22 14:55 15:36 Temp 98.1 97.1 98.1 97.1 Pulse 69 86 Resp 24 24 B/P (MAP) 135/70 (91) 147/75 (99) Pulse Ox 90 95 O2 Delivery Nasal Cannula Nasal Cannula Nasal Cannula Nasal Cannula O2 Flow Rate 5.0 5.0 5.0 5.0 02/21/17 02/21/17 02/21/17 02/21/17 19:15 20:00 20:05 23:15 Temp 97.9 97.9 97.9 97.9 Pulse 88 89 Resp 20 20 B/P (MAP) 140/66 (90) 125/67 (86) Pulse Ox 94 96 97 O2 Delivery Nasal Cannula Nasal Cannula Nasal Cannula Nasal Cannula O2 Flow Rate 5.0 5.0 5.0 5.0 02/22/17 02/22/17 02/22/17 03:20 07:00 08:54 Temp 97.5 97.7 97.5 97.7 Pulse 82 71 Resp 20 20 B/P (MAP) 132/71 (91) 126/72 (90) Pulse Ox 97 95 90 O2 Delivery Nasal Cannula Nasal Cannula Nasal Cannula O2 Flow Rate 5.0 5.0 6.0 Intake and Output 02/21/17 02/21/17 02/22/17 15:00 23:00 07:00 Intake Total 190 ml 440 ml 300 ml Output Total 500 ml Balance 190 ml 440 ml -200 ml PAUL MALDONADO MD February 22, 2017 09:49
--- NOTE | 2017-02-22 10:00 | PDOC ---
PULMONARY PROGRESS NOTES Subjective feels better Vitals Vital Signs Date Time Temp Pulse Resp B/P (MAP) Pulse Ox O2 Delivery O2 Flow Rate FiO2 02/22/17 08:54 90 Nasal Cannula 6.0 02/22/17 07:00 97.7 71 20 126/72 (90) 97.7 General: Alert, No acute distress HEENT: Other Lungs: Other (decrease bs) Cardiovascular: S1, S2 Abdomen: Soft, Non-tender Extremities: No Edema Medications Active Scripts Medications Dose Route/Sig Max Daily Dose Days Date Category Promethazine Hcl 25 Mg Supp.rect 25 Mg RC Q6H PRN 12/14/16 Rx Zofran Odt (Ondansetron) 4 Mg Tab.rapdis 1 Tab SL Q8HRS 12/09/16 Rx Prednisone 50 Mg Tablet 50 Mg PO DAILY 12/07/16 Rx Duoneb 0.5-3(2.5) Mg/3 Ml (Albuterol/Ipratropium) 3 Ml Ampul.neb 3 Ml NEB QID 12/05/16 Reported Vitamin B-12 (Cyanocobalamin (Vitamin B-12)) 1,000 Mcg Tablet 1 Tab PO DAILY 10/25/16 Rx Senna (Sennosides) 8.6 Mg Tablet 8.6 Mg PO DAILY 06/20/16 Rx Docusate Sodium 100 Mg Capsule 1 Cap PO DAILY 06/20/16 Rx Trazodone Hcl 100 Mg Tablet 1 Tab PO QHS 06/07/16 Reported Vitamin D (Cholecalciferol (Vitamin D3)) 1,000 Unit Capsule 1 Cap PO DAILY 06/07/16 Reported Percocet 10-325 Mg Tablet (Oxycodone/Acetaminophen) 1 Each Tablet 1 Tab PO TID PRN 03/14/16 Rx Cranberry (Cranberry Fruit) 400 Mg Tablet 4,200 Mg PO DAILY 03/07/16 Reported Levothyroxine Sodium 88 Mcg Tablet 1 Tab PO DAILY 03/06/16 Reported Alprazolam 0.25 Mg Tablet 1 Tab PO PRN TID PRN 03/06/16 Reported Digoxin 125 Mcg Tablet 1 Tab PO DAILY 03/07/15 Reported Zofran Odt (Ondansetron) 4 Mg Tab.rapdis 1 Tab SL Q8HRS PRN 03/07/15 Reported Escitalopram Oxalate 10 Mg Tablet 20 Mg PO DAILY 03/14/14 Reported Impression . 1. Dyspnea secondary to acute exacerbation of chronic obstructive pulmonary disease and possible mild diastolic heart failure. 2. History of lung cancer status post radiation to the right lower lobe with the remission. 3. Underlying severe chronic obstructive pulmonary disease with acute on chronic respiratory failure due to AECOPD, requiring BIPAP on admission Plan . 1. continue nasal cannula, would use BiPAP p.r.n. 2. use p.r.n. Lasix. 3. Continue nebulizer treatments. 4. Continue IV steroids with taper. 5. Antibiotics , change to PO 6. home today KESHIA CHAO MD February 22, 2017 10:00
[2017-02-22] MEDS: CYANOCOBALAMIN (VITAMIN B-12) 1,000 MCG TABLET. PO SCH (10:21)
[2017-02-22] MEDS: SENNOSIDES 8.6 MG TABLET PO SCH (10:22)
[2017-02-22] MEDS: DOCUSATE SODIUM 100 MG CAPSULE. PO SCH (10:22)
[2017-02-22] MEDS: ESCITALOPRAM 10 MG TABLET. PO SCH (10:22)
[2017-02-22] MEDS: CEFPODOXIME PROXETIL 100 MG TABLET. PO SCH (10:22)
[2017-02-22] MEDS: DIGOXIN 125 MCG TABLET. PO SCH (10:22)
[2017-02-22 11:00] VITALS: BP 127/60
--- NOTE | 2017-02-22 15:37 | PDOC ---
Provider Note Provider Note Discharge summary Dictated. #[id number] PAUL MALDONADO MD February 22, 2017 15:37
--- NOTE | 2017-02-22 22:10 | DS ---
DATE OF DISCHARGE: 02/22/2017 REASON FOR ADMISSION TO THE HOSPITAL: COPD with acute exacerbation, acute respiratory failure, respiratory alkalosis. HOSPITAL COURSE: This is an 86-year-old female. The patient has a history of chronic COPD and hypertension, lung cancer. She was having shortness of breath. She was on prednisone outpatient without much improvement. She was admitted to the ICU, was placed on BiPAP and seen by Pulmonology. The patient was given IV Solu-Medrol, IV antibiotics, BiPAP and also breathing treatments. She did improve next day, was moved out of the ICU and she was tapered off the prednisone, antibiotics. She was discharged. FINAL DIAGNOSES: 1. Acute on chronic, chronic obstructive pulmonary disease exacerbation. 2. Respiratory alkalosis. 3. History of lung cancer, radiation treatment 5 years ago. 4. Hypothyroidism. 5. Chronic hypoxia, on home oxygen. DISPOSITION: Home. She wishes DNR. Also, the hospital DNR was signed, was discharged home. Follow as outpatient. PAUL MALDONADO MD DR: EKTA/patience JOB#: [id number] / [id number]
== END 2017-02-22 13:52 | disposition home or self-care (01) | DRG 189 ==
LOC: ER 17:23 → 1 WEST ICU 19:03 → 6 SOUTH 02-19 13:37
PROVIDERS: ADMIT Internal Medicine; ATTEND Internal Medicine
PROC: 5A09357 Assistance with Respiratory Ventilation, Less than 24 Consecutive Hours, Continuous Positive Airway Pressure (ICD-10-PCS; principal; 2017-02-18)
DX: J96.21 Acute and chronic respiratory failure with hypoxia (principal); E43 Unspecified severe protein-calorie malnutrition; J44.1 Chronic obstructive pulmonary disease with (acute) exacerbation; E87.4 Mixed disorder of acid-base balance; M48.50XA Collapsed vertebra, not elsewhere classified, site unspecified, initial encounter for fracture; I27.81 Cor pulmonale (chronic); D63.8 Anemia in other chronic diseases classified elsewhere; D69.6 Thrombocytopenia, unspecified; E03.9 Hypothyroidism, unspecified; E78.5 Hyperlipidemia, unspecified; F32.9 Major depressive disorder, single episode, unspecified; F41.9 Anxiety disorder, unspecified; I10 Essential (primary) hypertension; I48.2 Chronic atrial fibrillation; M81.0 Age-related osteoporosis without current pathological fracture; Z66 Do not resuscitate; Z79.52 Long term (current) use of systemic steroids; Z85.118 Personal history of other malignant neoplasm of bronchus and lung; Z87.891 Personal history of nicotine dependence; Z90.49 Acquired absence of other specified parts of digestive tract; Z92.3 Personal history of irradiation; Z99.81 Dependence on supplemental oxygen; Z68.28 Body mass index [BMI] 28.0-28.9, adult; Z88.6 Allergy status to analgesic agent; Z88.5 Allergy status to narcotic agent; Z91.048 Other nonmedicinal substance allergy status
CPT/HCPCS: 36415; 36600; 71010; 80048; 80053; 81001; 82553; 82805; 83605; 83880; 84484; 85007; 85027; 87040; 87086; 87641; 93005; 94640; 94660; 94760; 96374; J0696; J2930; J7030; J7512; J7620; 97116; 97530; 99291-25

== ENCOUNTER 2017-03-18 07:31 | Inpatient (IN) | payer MEDICARE ==
[~2017-03-18] VITALS: Ht 147.3 cm; Wt 61.9 kg
[~2017-03-18 07:31] MED LIST changes: +CEFP100T PO; -CRAN400T PO; +CRAN400T5 PO; +DOCU100C28 PO; -DOCU100C5 PO; -ESCI10TA PO; -ESCI20TA10 PO; +ESCITALOPRAM OX10 MG PO; -HYDR-2666 PO; +HYDR-2758 PO; -LEVO500T38 PO; +LEVO500T59 PO; +LEXAPRO20 MG PO; -OXYC-250 PO; +OXYC-328 PO; +SENN-79 PO; -SENN8.6T3 PO
--- NOTE | 2017-03-18 07:58 | PHYS DOC ---
Past Medical History Past Medical History: A-Fib, Anxiety, Asthma, Bronchitis, Cancer, COPD, Depression, Hypothyroid, Pneumonia, Other Additional Past Medical Histor: chronic back, lung ca; hernia, heart dis, emphysema, Osteopor, home o2=5L Past Surgical History: Appendectomy, Cholecystectomy, , Hysterectomy, Tonsillectomy, Other Additional Past Surgical Histo: back X2, hernia x 3 Alcohol Use: None Drug Use: None Adult General Chief Complaint Chief Complaint: MECHANICAL FALL HPI HPI Patient is a 86 year old female who presents to the emergency department via EMS. According to EMS family had found patient on the floor that appears to have fallen out of bed. Unknown time of fall as patient lives alone. Patient is alert, able to answer yes and no questions. Unable to provide name or . Patient is able to follow simple commands as squeeze hands but unable to hold arms up. Patient was noted to have small bruise on the right cheek, and bruise size of grapefruit to the distal left humerus. According PMH patient has a hx of A-fib, COPD and cancer. Review of Systems Review of Systems Constitutional: Denies fever or chills [] Eyes: Denies change in visual acuity, redness, or eye pain [] HENT: Denies nasal congestion or sore throat [] Respiratory: Denies cough or shortness of breath [] Cardiovascular: No additional information not addressed in HPI [] GI: Denies abdominal pain, nausea, vomiting, bloody stools or diarrhea [] : Denies dysuria or hematuria [] Musculoskeletal: Denies back pain or joint pain [] Integument: Denies rash or skin lesions [] Neurologic: Denies headache, focal weakness or sensory changes Endocrine: Denies polyuria or polydipsia [] Current Medications Current Medications Current Medications Medications (Trade) Dose Ordered Sig/Yaya Start Time Stop Time Status Last Admin Dose Admin Ceftriaxone Sodium 50 ml @ 100 mls/hr 1X ONCE 03/18/17 08:30 03/18/17 08:59 DC Sodium Chloride 1,000 ml @ 75 mls/hr [id number] 03/18/17 09:10 03/19/17 09:09 Allergies Allergies Allergies Coded Allergies Type Severity Reaction Last Updated Verified morphine Allergy Intermediate PER DAUGHTER, DOES NOT AGREE WITH PT 03/13/14 Yes adhesive Adverse Reaction Intermediate blisters 01/26/15 Yes aspirin Adverse Reaction Intermediate Nausea and Vomiting, "makes me sick" Yes Physical Exam Physical Exam Constitutional: Well developed, well nourished, no acute distress, non-toxic appearance. [] HENT: Normocephalic, atraumatic, bilateral external ears normal, oropharynx moist, no oral exudates, nose normal. Bilateral TM normal Eyes: PERRLA, EOMI, conjunctiva normal, no discharge. [] Neck: Normal range of motion, no tenderness, supple, no stridor. [] Cardiovascular:Heart rate regular rhythm, no murmur [] Lungs & Thorax: Bilateral breath sounds clear to auscultation. Patient on O2, 5L for HX lung CA Abdomen: Bowel sounds hypoactive, soft, no tenderness, no masses, no pulsatile masses. [] Skin: Warm, dry, no erythema, no rash. Small dime size bruise noted to the right cheek, grapefruits size bruise noted to the left distal humerus Back: No cervical spine, thoracic spine, lumbar spine tenderness, no crepitus, no deformity, no step-offs noted Extremities: No tenderness, no cyanosis, no clubbing, ROM intact, no edema. [] Neurologic: Alert, patient unable to answer open ended questions she is able to answer yes and no questions, patient with equal nurse discharge noted bilaterally, unable to hold bilateral arms up. Patient was able to assist in turning to the right side. Psychologic: Affect normal, judgement normal, mood normal. [] Current Patient Data Vital Signs Vital Signs Date Time Temp Pulse Resp B/P (MAP) Pulse Ox O2 Delivery O2 Flow Rate FiO2 03/18/17 07:34 98.6 67 16 122/62 (82) 100 Nasal Cannula 5.0 98.6 Lab Values Laboratory Tests Test 03/18/17 07:45 03/18/17 08:10 03/18/17 08:59 Urine Collection Type U cath Urine Color Straw Urine Clarity Cloudy Urine pH 7.0 Urine Specific [place] 1.015 Urine Protein Negative mg/dL (NEG-TRACE) Urine Glucose (UA) Negative mg/dL (NEG) Urine Ketones (Stick) Negative mg/dL (NEG) Urine Blood Small (NEG) Urine Nitrite Negative (NEG) Urine Bilirubin Negative (NEG) Urine Urobilinogen Dipstick 0.2 mg/dL (0.2 mg/dL) Urine Leukocyte Esterase Large (NEG) Urine RBC 1-2 /HPF (0-2) Urine WBC >40 /HPF (0-4) Urine Squamous Epithelial Cells Occ /LPF Urine Bacteria Few /HPF (0-FEW) White Blood Count 5.3 x10^3/uL (4.0-11.0) Red Blood Count 3.03 x10^6/uL (3.50-5.40) L Hemoglobin 8.5 g/dL (12.0-15.5) L Hematocrit 27.8 % (36.0-47.0) L Mean Corpuscular Volume 92 fL (79-100) Mean Corpuscular Hemoglobin 28 pg (25-35) Mean Corpuscular Hemoglobin Concent 31 g/dL (31-37) Red Cell Distribution Width 16.9 % (11.5-14.5) H Platelet Count 176 x10^3/uL (140-400) Neutrophils (%) (Auto) 52 % (31-73) Lymphocytes (%) (Auto) 31 % (24-48) Monocytes (%) (Auto) 15 % (0-9) H Eosinophils (%) (Auto) 2 % (0-3) Basophils (%) (Auto) 0 % (0-3) Neutrophils # (Auto) 2.8 x10^3uL (1.8-7.7) Lymphocytes # (Auto) 1.6 x10^3/uL (1.0-4.8) Monocytes # (Auto) 0.8 x10^3/uL (0.0-1.1) Eosinophils # (Auto) 0.1 x10^3/uL (0.0-0.7) Basophils # (Auto) 0.0 x10^3/uL (0.0-0.2) Prothrombin Time 11.7 SEC (11.7-14.0) Prothrombin Time INR 0.9 (0.8-1.1) Sodium Level 143 mmol/L (136-145) Potassium Level 4.1 mmol/L (3.5-5.1) Chloride Level 100 mmol/L (98-107) Carbon Dioxide Level > 45 mmol/L (21-32) H Anion Gap (6-14) Blood Urea Nitrogen 17 mg/dL (7-20) Creatinine 1.0 mg/dL (0.6-1.0) Estimated GFR (Cockcroft-Gault) 52.8 BUN/Creatinine Ratio 17 (6-20) Glucose Level 90 mg/dL (70-99) Calcium Level 8.3 mg/dL (8.5-10.1) L Total Bilirubin 0.6 mg/dL (0.2-1.0) Aspartate Amino Transferase (AST) 15 U/L (15-37) Alanine Aminotransferase (ALT) 13 U/L (14-59) L Alkaline Phosphatase 50 U/L (46-116) Creatine Kinase 16 U/L (26-192) L Troponin I Quantitative 0.018 ng/mL (0.000-0.055) Total Protein 5.6 g/dL (6.4-8.2) L Albumin 2.6 g/dL (3.4-5.0) L Albumin/Globulin Ratio 0.9 (1.0-1.7) L Thyroid Stimulating Hormone (TSH) 0.256 uIU/mL (0.358-3.74) L Digoxin Level 0.8 ng/mL (0.9-2.0) L Digoxin Last Dose Date Unknown Digoxin Last Dose Time Unknown O2 Saturation 98 % (92-99) Arterial Blood pH 7.33 (7.35-7.45) L Arterial Blood pCO2 at Patient Temp 74 mmHg (35-46) *H Arterial Blood pO2 at Patient Temp 123 mmHg (65-108) H Arterial Blood HCO3 38 mmol/L (21-28) H Arterial Blood Base Excess 10 mmol/L (-3-3) H Oxyhemoglobin 97.2 % Methemoglobin 0.4 % (0.0-1.9) Carbon Monoxide, Quantitative 0.1 % (0.0-1.9) FiO2 38 Laboratory Tests 03/18/17 08:10 Laboratory Tests 03/18/17 08:10 EKG EKG EKG completed at 0814 with HR 75 SR with PVC noted no STEMI per Dr Norton[] Radiology/Procedures Radiology/Procedures [facility] [address] [place] [address] IMAGING REPORT Signed PATIENT: RICHY REDMOND ACCOUNT: [id number] : 1930 LOCATION: ER AGE: 86 SEX: F EXAM STATUS: REG ER ORD. PHYSICIAN: FAVIO DELEON APRN REASON: fall, unable to answer some questions and follow commands PROCEDURE: CT HEAD AND CERVICAL SPINE WO CT scan of the head without contrast 03/18/2017 Clinical History: Fall. Inability to answer questions and follow commands. Technique: Unenhanced, contiguous, 5 mm axial sections were obtained through the head. One or more of the following individualized dose reduction techniques were utilized for this study: 1. Automated exposure control. 2. Adjustment of the mA and/or kV according to patient size. 3. Use of iterative reconstruction technique. Findings: Comparison is made to a MRI of the brain dated 06/22/2011. There is generalized parenchymal atrophy. Small scattered areas of decreased attenuation are seen within the periventricular and subcortical white matter of both cerebral hemispheres consistent with areas of small vessel ischemic disease. Areas of encephalomalacia are seen involving the posterior temporal/parietal lobes, left greater than right, the right frontal lobe and the right cerebellar hemisphere. No acute parenchymal abnormality is seen. No extra-axial fluid collection is noted. No skull fracture is seen. Impression: No acute intracranial abnormality is seen. CT scan of the cervical spine without contrast 03/18/2017 Clinical history: Neck pain post fall. Technique: Unenhanced, contiguous, 0.625 mm axial sections were obtained through the cervical spine. 3 mm reconstructed sagittal, axial, and and coronal images were obtained. One or more of the following individualized dose reduction techniques were utilized for this study: 1. Automated exposure control. 2. Adjustment of the mA and/or kV according to patient size. 3. Use of iterative reconstruction technique. Findings: Sagittal and coronal reconstructed images demonstrate diffuse osteopenia of the visualized bony structures. Mild lateral curvature of the cervical spine is seen convex to the left. Degenerative changes consisting of disc space narrowing, vertebral endplate sclerosis and mild to moderate anterior vertebral body osteophyte formation are seen involving the C4-5, C5-6 and C6-7 disc spaces. No fracture or subluxation cervical vertebrae is seen. Degenerative changes are seen along the uncovertebral and facet joints throughout the cervical disc spaces. Atherosclerotic calcification is seen in the region of the carotid bifurcations. Impression: No fracture or subluxation of the cervical vertebrae is seen. DICTATED and SIGNED BY: ARLIN MATAMOROS MD DATE: 03/18/17 0856 CC: FAVIO DELEON APRN; VASU MALDONADO MD ~ [] [facility] [address] [place] [address] IMAGING REPORT Signed PATIENT: RICHY REDMOND ACCOUNT: [id number] : 1930 LOCATION: ER AGE: 86 SEX: F EXAM STATUS: REG ER ORD. PHYSICIAN: FAVIO DELEON APRN REASON: fall from bed, altered mental status PROCEDURE: PORTABLE CHEST 1V AP portable chest radiograph 03/18/2017 Clinical History: Fall with chest pain. An AP portable erect digital radiograph of the chest was obtained. Comparison study is dated 02/18/2017.. The patient is status post multilevel thoracic and lumbar kyphoplasty procedures, unchanged. The cardiac silhouette is mildly enlarged. Atherosclerotic calcification of the thoracic aorta is seen. Areas of scarring and/or subsegmental atelectasis are seen involving both lower lobes. No pneumothorax or large pleural effusion is seen. Prominence of the interstitial markings in both lungs is seen which could reflect mild CHF. There is diffuse osteopenia the visualized bony structures. Degenerative changes are seen involving the thoracic spine and both shoulders. Impression: Question mild CHF. DICTATED and SIGNED BY: ARLIN MATAMOROS MD DATE: 03/18/17 0908 CC: FAVIO DELEON APRN; VASU MALDONADO MD ~ Course & Med Decision Making Course & Med Decision Making Pertinent Labs and Imaging studies reviewed. (See chart for details) 0805 According to the daughter patient was last known to be normal last night. She states that the patient lives with another daughter. The daughter at bedside states she is not normal at this times as the patient does not speak to the patient. Nursing staff states after my assessment patient was able to hold her left up, right arm had some drift noted. Patient was able to provider her first name but had difficulty with her last name, She was however able to provider her . 0823 Urine positive for UTI. Rocephin [address] Maldonado in regards to admission for this patient. Dr Maldonado is aware ABG' s and results of CT, CXR and humerus are still pending. Dr Maldonado agrees with admission, patient is DNR. Orders completed. 920 Patient re-evaluated with patient able to provide her name, , and the year as well as to where she is. 924 Dr Norton spoke with RT in regards to placing patient being placed on Bipap and repeat ABG's [address] Goncalves in regards to the patient being admitted with altered mental status. [] Dragon Disclaimer Dragon Disclaimer This electronic medical record was generated, in whole or in part, using a voice recognition dictation system. Departure Departure Impression: Primary Impression: Altered mental status Additional Impressions: UTI (urinary tract infection) Fall Disposition: 09 ADMITTED INPATIENT Admitting Physician: Vasu Maldonado Referrals: VASU MALDONADO MD (PCP) Problem Qualifiers FAVIO DELEON APRN Mar 18, 2017 07:58
[2017-03-18 08:14] LABS: BILIRUBIN,URINE NEGATIVE (NEG); GLUCOSE,URINE NEGATIVE (NEG); NITRITE,URINE NEGATIVE (NEG); PROTEIN,URINE NEGATIVE (NEG-TRACE); UROBILINOGEN,URINE 0.2 mg/dL (0.2 mg/dL)
[2017-03-18 08:15] LABS: BACTERIA,URINE FEW /HPF (0-FEW); SQUAMOUS EPITHELIAL CELL,UR OCC /LPF; WBC,URINE >40 /HPF (0-4)
[2017-03-18 08:22] LABS: BASO % 0 % (0-3); EOS % 2 % (0-3); HEMATOCRIT 27.8 % (36.0-47.0); HEMOGLOBIN 8.5 g/dL (12.0-15.5); LYMPH # 1.6 x10^3/uL (1.0-4.8); LYMPH % 31 % (24-48); MEAN CORPUSCULAR HEMOGLOBIN 28 pg (25-35); MEAN CORPUSCULAR HGB CONC 31 g/dL (31-37); MEAN CORPUSCULAR VOLUME 92 fL (79-100); MONO % 15 % (0-9); NEUT % 52 % (31-73); PLATELET COUNT 176 x10^3/uL (140-400); RED BLOOD COUNT 3.03 x10^6/uL (3.50-5.40); RED CELL DISTRIBUTION WIDTH 16.9 % (11.5-14.5); WHITE BLOOD COUNT 5.3 x10^3/uL (4.0-11.0)
[2017-03-18 08:31] LABS: BLOOD UREA NITROGEN 17 mg/dL (7-20); BUN/CREATININE RATIO 17 (6-20); CALCIUM 8.3 mg/dL (8.5-10.1); CHLORIDE 100 mmol/L (98-107); GFR 52.8; GLUCOSE 90 mg/dL (70-99); POTASSIUM 4.1 mmol/L (3.5-5.1); SODIUM 143 mmol/L (136-145)
[2017-03-18 08:32] LABS: CARBON DIOXIDE > 45 mmol/L (21-32); INR 0.9 (0.8-1.1); PROTHROMBIN TIME PATIENT 11.7 SEC (11.7-14.0)
[2017-03-18 08:37] LABS: ALBUMIN 2.6 g/dL (3.4-5.0); ALBUMIN/GLOBULIN RATIO 0.9 (1.0-1.7); ALK PHOS 50 U/L (46-116); ALT (SGPT) 13 U/L (14-59); AST (SGOT) 15 U/L (15-37); CREATINE KINASE 16 U/L (26-192); TOTAL BILIRUBIN 0.6 mg/dL (0.2-1.0); TOTAL PROTEIN 5.6 g/dL (6.4-8.2)
[2017-03-18] MEDS: IV NORMAL SALINE 1000ML BAG 1,000 ML IV SCH ×2 (09:10→22:30)
--- NOTE | 2017-03-18 09:10 | RAD ---
CT scan of the head without contrast 03/18/2017 Clinical History: Fall. Inability to answer questions and follow commands. Technique: Unenhanced, contiguous, 5 mm axial sections were obtained through the head. One or more of the following individualized dose reduction techniques were utilized for this study: 1. Automated exposure control. 2. Adjustment of the mA and/or kV according to patient size. 3. Use of iterative reconstruction technique. Findings: Comparison is made to a MRI of the brain dated 06/22/2011. There is generalized parenchymal atrophy. Small scattered areas of decreased attenuation are seen within the periventricular and subcortical white matter of both cerebral hemispheres consistent with areas of small vessel ischemic disease. Areas of encephalomalacia are seen involving the posterior temporal/parietal lobes, left greater than right, the right frontal lobe and the right cerebellar hemisphere. No acute parenchymal abnormality is seen. No extra-axial fluid collection is noted. No skull fracture is seen. Impression: No acute intracranial abnormality is seen. CT scan of the cervical spine without contrast 03/18/2017 Clinical history: Neck pain post fall. Technique: Unenhanced, contiguous, 0.625 mm axial sections were obtained through the cervical spine. 3 mm reconstructed sagittal, axial, and and coronal images were obtained. One or more of the following individualized dose reduction techniques were utilized for this study: 1. Automated exposure control. 2. Adjustment of the mA and/or kV according to patient size. 3. Use of iterative reconstruction technique. Findings: Sagittal and coronal reconstructed images demonstrate diffuse osteopenia of the visualized bony structures. Mild lateral curvature of the cervical spine is seen convex to the left. Degenerative changes consisting of disc space narrowing, vertebral endplate sclerosis and mild to moderate anterior vertebral body osteophyte formation are seen involving the C4-5, C5-6 and C6-7 disc spaces. No fracture or subluxation cervical vertebrae is seen. Degenerative changes are seen along the uncovertebral and facet joints throughout the cervical disc spaces. Atherosclerotic calcification is seen in the region of the carotid bifurcations. Impression: No fracture or subluxation of the cervical vertebrae is seen.
--- NOTE | 2017-03-18 09:21 | RAD ---
AP portable chest radiograph 03/18/2017 Clinical History: Fall with chest pain. An AP portable erect digital radiograph of the chest was obtained. Comparison study is dated 02/18/2017.. The patient is status post multilevel thoracic and lumbar kyphoplasty procedures, unchanged. The cardiac silhouette is mildly enlarged. Atherosclerotic calcification of the thoracic aorta is seen. Areas of scarring and/or subsegmental atelectasis are seen involving both lower lobes. No pneumothorax or large pleural effusion is seen. Prominence of the interstitial markings in both lungs is seen which could reflect mild CHF. There is diffuse osteopenia the visualized bony structures. Degenerative changes are seen involving the thoracic spine and both shoulders. Impression: Question mild CHF.
[2017-03-18 09:23] LABS: BASE EXCESS COOX 10 mmol/L (-3-3); CARBON MONOXIDE 0.1 % (0.0-1.9); HCO3 COOX 38 mmol/L (21-28); METHEMOGLOBIN 0.4 % (0.0-1.9); OXYHEMOGLOBIN 97.2 %; PH COOX 7.33 (7.35-7.45); PO2 COOX 123 mmHg (65-108); SAT O2 COOX 98 % (92-99); TOTAL HEMOGLOBIN 9.3 g/dL
--- NOTE | 2017-03-18 09:24 | RAD ---
AP and lateral left humerus radiographs 03/18/2017 Clinical history: Fall earlier today with bruising to the distal left arm. AP and lateral digital radiographs of the left humerus were obtained. There is diffuse osteopenia of the visualized bony structures. No fracture or dislocation of the left humerus is seen. Moderate degenerative changes are seen involving the left glenohumeral joint and left AC joint. Mild to moderate degenerative changes are seen involving the left elbow. Impression: No fracture or dislocation of the left humerus is seen.
[2017-03-18 09:25] LABS: PCO2 COOX 74 mmHg (35-46)
[2017-03-18 09:26] LABS: FIO2 COOX 38
[2017-03-18] MEDS: IV DEXTROSE 5% - 0.9 % NACL 1,000 ML IV SCH (10:45)
--- NOTE | 2017-03-18 10:50 | PDOC ---
Provider Note Provider Note Pt seen in ER.H&P dictated. #[id number] PAUL MALDONADO MD Mar 18, 2017 10:50
[2017-03-18 11:00] VITALS: BP 121/61
--- NOTE | 2017-03-18 11:20 | ACF ---
Admit Criteria Forms Admit Criteria Forms Admit Criteria Forms MENTAL STATUS CHANGE Clinical Indications for Inpatient Care (Place 'X' for any and all applicable criteria): Ongoing inpatient care may be needed for 1 or more of the following(1)(2)(3)(5)( 6): [X]I. Suspected serious etiology (eg, medical disorder, STATION SUPERINTENDENT event) of altered mental status [ ]II. Danger to self or others not manageable at lower level of care [ ]III. Grave disability (eg, inability to perform self care necessary at lower level of care) [ ]IV. Agitation or inappropriate behavior interfering with care for primary condition (eg, attempting to discontinue lines or drains prematurely, unable to cooperate with respiratory care) [ ]V. Delirium [A] [D][E] as described by 1 or more of the following(26): [ ]a) Delirium due to alcohol or sedative [F] withdrawal [ ]b) Delirium of uncertain etiology that has not responded to appropriate empiric treatment [ ]c) Delirium that prevents performance of a life-sustaining function (eg, feeding or hydrating oneself) [ ]. General contraindications and/or Inappropriate clinical situations for Observational Care in patients with Mental Status Change, when ANY ONE of the following is required: [ ]a) Prediction of prolongation of LOS based on ANY ONE of the following may be considered as a contraindication for observational care 2, 3, 4, 5, 6, 7, 8, 9, 10, 11 [ ]i) Age > 65 yrs. [ ]ii) Patient arriving by ambulance [ ]iii) Patient with high acuity [ ]iv) Patient requiring vital sign monitoring [ ]v) Patient on IV medication [ ]b) Systolic blood pressures greater than or equal to 180mmHg 3, 12 [ ]c) Patient with altered mental status including delirium and other alteration of consciousness, (3) [ ]d) Patient whose discharge disposition will be to a [facility] home or rehabilitation home should not be managed in Emergency Department Observation Unit. CMS rule requires 3 days hospital stay before such placement.3,13 [ ]e) Patient with failure to thrive due to broad array of etiologies 3,16,17 [ ]f) Inability to ambulate 3,14 Extended stay beyond goal length of stay for the primary condition may be needed until ALL of the following are present(3)(5): [ ]a) Underlying medical etiology of mental status change is absent, or has been established and adequately treated [ ]b) Danger to self or others is absent or manageable at lower level of care. [ ]c) Behavior crisis management, including physical or chemical restraints, is not required or available at lower level of car [ ]d) Substance or alcohol withdrawal is absent or manageable at lower level of care. [ ]e) Behavioral symptoms (eg, agitation, somnolence, inappropriate behavior) are absent, or are manageable at lower level of care. The original [facility] [employer] content created by [facility] has been revised. The portions of the content which have been revised are identified through the use of italic text or in bold, and [facility] has neither reviewed nor approved the modified material. All other unmodified content is copyright [facility] [employer] [facility]. Please see references footnoted in the original [facility] edition 2016 KATHRINE GREGORY Mar 18, 2017 11:20
[2017-03-18 11:56] LABS: FREE T4 1.43 ng/dL (0.76-1.46)
[2017-03-18 12:28] LABS: BASE EXCESS COOX 15 mmol/L (-3-3); CARBON MONOXIDE 0.2 % (0.0-1.9); HCO3 COOX 41 mmol/L (21-28); METHEMOGLOBIN 0.4 % (0.0-1.9); OXYHEMOGLOBIN 93.4 %; PH COOX 7.44 (7.35-7.45); PO2 COOX 72 mmHg (65-108); SAT O2 COOX 94 % (92-99); TOTAL HEMOGLOBIN 9.6 g/dL
[2017-03-18 12:30] LABS: PCO2 COOX 62 mmHg (35-46)
[2017-03-18 12:31] LABS: FIO2 COOX 30
--- NOTE | 2017-03-18 13:53 | HP ---
ADMIT DATE: 03/18/2017 REASON FOR ADMISSION TO THE HOSPITAL: Change in mental status, right-sided weakness, and possible CVA. HISTORY OF PRESENT ILLNESS: The patient is an 86-year-old female patient known to me. She has a history of paroxysmal atrial fibrillation, has COPD, lung cancer, hypothyroidism, and emphysema. The patient actually was at home, and she was noticed to be on the floor out of the bed, not known what time. The last time she was seen was last night. She stays with her daughter, and the patient was weak on the right side, was admitted for possible CVA. CT head was negative for bleed. CT of the neck was negative for any fracture. The patient has history of multiple falls, osteoporosis, not a good candidate for anticoagulation for atrial fibrillation. PAST SURGICAL HISTORY: She has history of lung cancer, had radiation treatment, appendectomy, gallbladder surgery, , hysterectomy, tonsillectomy with tympanoplasty, multiple compression fractures, back surgery x2, and hernia repair x3. ALLERGIES: ADHESIVES, ASPIRIN, AND MORPHINE. MEDICATIONS: She is on home oxygen 5 liters. She is on Xanax 0.25 three times daily. Vantin 100 mg twice a day, B12 1000 mcg daily, digoxin 125 mcg daily, Colace 100 mg daily, Lexapro 20 mg daily, DuoNeb 4 times daily, levothyroxine 88 mcg daily, Questran p.r.n., oxycodone 10/325 q. 6h., prednisone 10 mg daily, senna one daily, and trazodone 100 mg daily. PERSONAL HISTORY: She smoked for many years. She quit recently, one pack at least. Denies alcohol or street drugs. The patient is on oxygen. She has a daughter who is her caregiver. She also has a neighbor who is a nurse, who helps her. REVIEW OF SYSTEMS: The patient is on BiPAP now able to say a few words. PHYSICAL EXAMINATION: VITAL SIGNS: At the time of admission, temperature 98, pulse 67, respirations 16, blood pressure 132/62, and 100% on 5 liters. HEENT: Head is atraumatic. Pupils equal. Oral cavity: Dentures. NECK: Supple. Thyroid not enlarged, JVD not elevated. CHEST: COPD pattern. CARDIOVASCULAR: S1, S2. LUNGS: Diminished breath sounds in the lungs. Occasional wheezing. ABDOMEN: Soft, no mass palpable. EXTERNAL GENITALIA: No [place]. RECTAL: Deferred. EXTREMITIES: No calf tenderness, no edema. NEUROLOGIC: The patient is able to make a few conversation, few words, recognizes my name. The patient is weak on the right upper extremity 4/5; 5/5 on the left side. The right side is weaker. The patient is able to lift the left leg off the bed, but the right leg she is not able to move and significant weakness. LABORATORY DATA: Shows a white count of 5, hemoglobin 8.5, and platelets 176. Electrolytes show sodium 143, potassium 4.1, chloride 100, bicarbonate 45, BUN 17, creatinine 1.0, and glucose 90. LFTs are normal. TSH is 0.2. INR is 0.9. Urine shows large leukocyte esterase, more than 40 wbc. Digoxin level was 0.8. She had a chest x-ray: COPD. CT head was negative for acute bleed. CT cervical spine, no fracture. X-ray of the humerus negative for fracture. FINAL IMPRESSION: 1. Possible cerebrovascular accident, right-sided weakness. 2. Fall at home from bed. 3. Chronic obstructive pulmonary disease, end-stage, on 5 liters oxygen. 4. Paroxysmal atrial fibrillation. 5. Osteoporosis. 6. Anemia. 7. History of lung cancer, had a radiation treatment 5 years ago. 8. Urinary tract infection. We will send UA and culture. Start on Rocephin. PLAN: At this time, admit to hospital. CT head was done. Neurology was consulted. Speech, PT, OT, and Rehab. The patient is a DNR. PAUL MALDONADO MD DR: EKTA/patience JOB#: [id number] / [id number] JENN
[2017-03-18 15:00] VITALS: BP 129/70
--- NOTE | 2017-03-18 17:41 | PDOC2 ---
NEUROLOGY CONSULT Date of Admission Date of Admission DATE: 03/18/17 TIME: 17:29 Reason for Consult Reason for Consult: IMPRESSION: Metabolic encephalopathy. Fall UTI AFib COPD Hypothyroidism Lung cancer. SOB RECOMMENDATIONS/PLAN: Treat medical diseases. Lab: see orders. HCT no acute findings. HISTORY OF THE PRESENT ILLNESS: 86-y-old female patient had a fall likely due to found on the floor from bed. She had mental status changes and was unable to recall the events. She was brought to the ER of [facility] for furtehr evaluation. She did not have focalized sensory or motor deficits noted. PAST SURGICAL HISTORY: Lung cancer received radiation therapy. PAST SURGERY HISTORY: Appendectomy, gallbladder surgery, , hysterectomy, tonsillectomy with tympanoplasty, multiple compression fractures, back surgery x2, and hernia repair x3. ALLERGIES: ADHESIVES, ASPIRIN, AND MORPHINE. PERSONAL HISTORY: She smoked for many years and quit recently, one pack at least. Denies alcohol or street drugs. MEDICATIONS: Refer to [facility] FAMILY HISTORY: Non contributory. REVIEW OF SYSTEMS: Constitutional: No malnutrition, weight loss, cachexia. Head: No traumatic brain or head injury. Skin: No edema, or rash. Ear: No infection. Eyes: No vision loss or color blindness. Nose: No bleeding or purulent discharges. Hearing: Hearing decrease. Neck: No injury. Breast: No history of cancer, masses,or discharges. Cardiac: No SC, arrhythmia. Pulmonary: COPD, lung cancer. GI: No GI ulcer, GI bleeding. Urinary/genital: UTI. Endocrinologic: No cousin face, craniofacial dysmorphism, polydactyly. Skeletomuscular: No muscular atrophy, deformity. Neurological: see HP. Psychiatric: Denies drug use/abuse. Otherwise, not [id number] review of systems. PHYSICAL EXAMINATION: General appearance is in no acute distress. HEENT: Normocephalic and nontraumatic. Eyes, nose, ears, and throat are unremarkable. Neck is supple. No lymphadenopathy. No crepitus. Cardiovascular: S1, S2, regular rate and rhythm. Pulmonary: Breathing sounds decreased to auscultation bilaterally. Abdomen: Bowel sounds are positive. Extremities: No rash, lesions, or edema. No restriction of range of motion NEUROLOGICAL EXAMINATION: Awake. Oriented to place and person. PERRL. EOMI. CN: no focal findings. Muscle tone: within normal. Muscle strength: 4 DTR: 2- Plantar reflex: Neutral response bilaterally Gait: not examined in bed. Sensory exam: no abnormal findings. No acute cerebellar signs elicited. F-T-N test fine. Current Medications Current Medications Current Medications Ceftriaxone Sodium 50 ml @ 100 mls/hr 1X ONCE IV Last administered on 08:30; Start 03/18/17 at 08:30; Stop 03/18/17 at 08:59; Status DC Sodium Chloride 1,000 ml @ 75 mls/hr [id number] IV Last administered on 09:10; Start 03/18/17 at 09:10; Stop 03/19/17 at 09:09 Ceftriaxone Sodium 1 gm/ Sodium Chloride 50 ml @ 100 mls/hr Q24H IV ; Start at 11:00 Dextrose/Sodium Chloride 1,000 ml @ 75 mls/hr [id number] IV Last administered on 03/18/17 10:45; Start 03/18/17 at 10:45 Active Scripts Active Cefpodoxime Proxetil 100 Mg Tablet 100 Mg PO BID 3 Days Promethazine Hcl 25 Mg Supp.rect 25 Mg RC Q6H PRN Zofran Odt (Ondansetron) 4 Mg Tab.rapdis 1 Tab SL Q8HRS Vitamin B-12 (Cyanocobalamin (Vitamin B-12)) 1,000 Mcg Tablet 1 Tab PO DAILY Senna (Sennosides) 8.6 Mg Tablet 8.6 Mg PO DAILY Docusate Sodium 100 Mg Capsule 1 Cap PO DAILY Percocet 10-325 Mg Tablet (Oxycodone/Acetaminophen) 1 Each Tablet 1 Tab PO TID PRN Reported Duoneb 0.5-3(2.5) Mg/3 Ml (Albuterol/Ipratropium) 3 Ml Ampul.neb 3 Ml NEB QID Trazodone Hcl 100 Mg Tablet 1 Tab PO QHS Vitamin D (Cholecalciferol (Vitamin D3)) 1,000 Unit Capsule 1 Cap PO DAILY Cranberry (Cranberry Fruit) 400 Mg Tablet 4,200 Mg PO DAILY Levothyroxine Sodium 88 Mcg Tablet 1 Tab PO DAILY Alprazolam 0.25 Mg Tablet 1 Tab PO PRN TID PRN Digoxin 125 Mcg Tablet 1 Tab PO DAILY Zofran Odt (Ondansetron) 4 Mg Tab.rapdis 1 Tab SL Q8HRS PRN Escitalopram Oxalate 10 Mg Tablet 20 Mg PO DAILY Allergies Allergies: Coded Allergies: morphine (Verified Allergy, Intermediate, PER DAUGHTER, DOES NOT AGREE WITH PT, 03/13/14) adhesive (Verified Adverse Reaction, Intermediate, blisters, 01/26/15) aspirin (Verified Adverse Reaction, Intermediate, Nausea and Vomiting, "makes me sick", 01/26/15) Vitals VITALS Vital Signs Date Time Temp Pulse Resp B/P (MAP) Pulse Ox O2 Delivery O2 Flow Rate FiO2 03/18/17 15:52 92 Nasal Cannula 2.0 03/18/17 15:00 98.2 53 22 129/70 (89) 98.2 Labs Labs Laboratory Tests Test 03/18/17 07:45 03/18/17 08:10 03/18/17 08:59 03/18/17 09:34 Urine Collection Type U cath Urine Color Straw Urine Clarity Cloudy Urine pH 7.0 Urine Specific [place] 1.015 Urine Protein Negative mg/dL (NEG-TRACE) Urine Glucose (UA) Negative mg/dL (NEG) Urine Ketones (Stick) Negative mg/dL (NEG) Urine Blood Small (NEG) Urine Nitrite Negative (NEG) Urine Bilirubin Negative (NEG) Urine Urobilinogen Dipstick 0.2 mg/dL (0.2 mg/dL) Urine Leukocyte Esterase Large (NEG) Urine RBC 1-2 /HPF (0-2) Urine WBC >40 /HPF (0-4) Urine Squamous Epithelial Cells Occ /LPF Urine Bacteria Few /HPF (0-FEW) White Blood Count 5.3 x10^3/uL (4.0-11.0) Red Blood Count 3.03 x10^6/uL (3.50-5.40) Hemoglobin 8.5 g/dL (12.0-15.5) Hematocrit 27.8 % (36.0-47.0) Mean Corpuscular Volume 92 fL (79-100) Mean Corpuscular Hemoglobin 28 pg (25-35) Mean Corpuscular Hemoglobin Concent 31 g/dL (31-37) Red Cell Distribution Width 16.9 % (11.5-14.5) Platelet Count 176 x10^3/uL (140-400) Neutrophils (%) (Auto) 52 % (31-73) Lymphocytes (%) (Auto) 31 % (24-48) Monocytes (%) (Auto) 15 % (0-9) Eosinophils (%) (Auto) 2 % (0-3) Basophils (%) (Auto) 0 % (0-3) Neutrophils # (Auto) 2.8 x10^3uL (1.8-7.7) Lymphocytes # (Auto) 1.6 x10^3/uL (1.0-4.8) Monocytes # (Auto) 0.8 x10^3/uL (0.0-1.1) Eosinophils # (Auto) 0.1 x10^3/uL (0.0-0.7) Basophils # (Auto) 0.0 x10^3/uL (0.0-0.2) Prothrombin Time 11.7 SEC (11.7-14.0) Prothromb Time International Ratio 0.9 (0.8-1.1) Sodium Level 143 mmol/L (136-145) Potassium Level 4.1 mmol/L (3.5-5.1) Chloride Level 100 mmol/L (98-107) Carbon Dioxide Level > 45 mmol/L (21-32) Anion Gap (6-14) Blood Urea Nitrogen 17 mg/dL (7-20) Creatinine 1.0 mg/dL (0.6-1.0) Estimated GFR (Cockcroft-Gault) 52.8 BUN/Creatinine Ratio 17 (6-20) Glucose Level 90 mg/dL (70-99) Calcium Level 8.3 mg/dL (8.5-10.1) Total Bilirubin 0.6 mg/dL (0.2-1.0) Aspartate Amino Transf (AST/SGOT) 15 U/L (15-37) Alanine Aminotransferase (ALT/SGPT) 13 U/L (14-59) Alkaline Phosphatase 50 U/L (46-116) Creatine Kinase 16 U/L (26-192) Troponin I Quantitative 0.018 ng/mL (0.000-0.055) IM-Tie-C-Type Natriuretic Peptide 1090 pg/mL (0-449) Total Protein 5.6 g/dL (6.4-8.2) Albumin 2.6 g/dL (3.4-5.0) Albumin/Globulin Ratio 0.9 (1.0-1.7) Vitamin B12 Level 778 pg/mL (247-911) Thyroid Stimulating Hormone (TSH) 0.256 uIU/mL (0.358-3.74) Free Thyroxine 1.43 ng/dL (0.76-1.46) Free Triiodothyronine (T3) pg/mL 1.95 pg/mL (2.18-3.98) Digoxin Level 0.8 ng/mL (0.9-2.0) Digoxin Last Dose Date Unknown Digoxin Last Dose Time Unknown O2 Saturation 98 % (92-99) 94 % (92-99) Arterial Blood pH 7.33 (7.35-7.45) 7.44 (7.35-7.45) Arterial Blood pCO2 at Patient Temp 74 mmHg (35-46) 62 mmHg (35-46) Arterial Blood pO2 at Patient Temp 123 mmHg (65-108) 72 mmHg (65-108) Arterial Blood HCO3 38 mmol/L (21-28) 41 mmol/L (21-28) Arterial Blood Base Excess 10 mmol/L (-3-3) 15 mmol/L (-3-3) Oxyhemoglobin 97.2 % 93.4 % Methemoglobin 0.4 % (0.0-1.9) 0.4 % (0.0-1.9) Carbon Monoxide, Quantitative 0.1 % (0.0-1.9) 0.2 % (0.0-1.9) FiO2 38 30 Laboratory Tests Test 03/18/17 07:45 03/18/17 08:10 03/18/17 08:59 03/18/17 09:34 Urine Collection Type U cath Urine Color Straw Urine Clarity Cloudy Urine pH 7.0 Urine Specific [place] 1.015 Urine Protein Negative mg/dL (NEG-TRACE) Urine Glucose (UA) Negative mg/dL (NEG) Urine Ketones (Stick) Negative mg/dL (NEG) Urine Blood Small (NEG) Urine Nitrite Negative (NEG) Urine Bilirubin Negative (NEG) Urine Urobilinogen Dipstick 0.2 mg/dL (0.2 mg/dL) Urine Leukocyte Esterase Large (NEG) Urine RBC 1-2 /HPF (0-2) Urine WBC >40 /HPF (0-4) Urine Squamous Epithelial Cells Occ /LPF Urine Bacteria Few /HPF (0-FEW) White Blood Count 5.3 x10^3/uL (4.0-11.0) Red Blood Count 3.03 x10^6/uL (3.50-5.40) Hemoglobin 8.5 g/dL (12.0-15.5) Hematocrit 27.8 % (36.0-47.0) Mean Corpuscular Volume 92 fL (79-100) Mean Corpuscular Hemoglobin 28 pg (25-35) Mean Corpuscular Hemoglobin Concent 31 g/dL (31-37) Red Cell Distribution Width 16.9 % (11.5-14.5) Platelet Count 176 x10^3/uL (140-400) Neutrophils (%) (Auto) 52 % (31-73) Lymphocytes (%) (Auto) 31 % (24-48) Monocytes (%) (Auto) 15 % (0-9) Eosinophils (%) (Auto) 2 % (0-3) Basophils (%) (Auto) 0 % (0-3) Neutrophils # (Auto) 2.8 x10^3uL (1.8-7.7) Lymphocytes # (Auto) 1.6 x10^3/uL (1.0-4.8) Monocytes # (Auto) 0.8 x10^3/uL (0.0-1.1) Eosinophils # (Auto) 0.1 x10^3/uL (0.0-0.7) Basophils # (Auto) 0.0 x10^3/uL (0.0-0.2) Prothrombin Time 11.7 SEC (11.7-14.0) Prothromb Time International Ratio 0.9 (0.8-1.1) Sodium Level 143 mmol/L (136-145) Potassium Level 4.1 mmol/L (3.5-5.1) Chloride Level 100 mmol/L (98-107) Carbon Dioxide Level > 45 mmol/L (21-32) Anion Gap (6-14) Blood Urea Nitrogen 17 mg/dL (7-20) Creatinine 1.0 mg/dL (0.6-1.0) Estimated GFR (Cockcroft-Gault) 52.8 BUN/Creatinine Ratio 17 (6-20) Glucose Level 90 mg/dL (70-99) Calcium Level 8.3 mg/dL (8.5-10.1) Total Bilirubin 0.6 mg/dL (0.2-1.0) Aspartate Amino Transf (AST/SGOT) 15 U/L (15-37) Alanine Aminotransferase (ALT/SGPT) 13 U/L (14-59) Alkaline Phosphatase 50 U/L (46-116) Creatine Kinase 16 U/L (26-192) Troponin I Quantitative 0.018 ng/mL (0.000-0.055) CY-Ryr-U-Type Natriuretic Peptide 1090 pg/mL (0-449) Total Protein 5.6 g/dL (6.4-8.2) Albumin 2.6 g/dL (3.4-5.0) Albumin/Globulin Ratio 0.9 (1.0-1.7) Vitamin B12 Level 778 pg/mL (247-911) Thyroid Stimulating Hormone (TSH) 0.256 uIU/mL (0.358-3.74) Free Thyroxine 1.43 ng/dL (0.76-1.46) Free Triiodothyronine (T3) pg/mL 1.95 pg/mL (2.18-3.98) Digoxin Level 0.8 ng/mL (0.9-2.0) Digoxin Last Dose Date Unknown Digoxin Last Dose Time Unknown O2 Saturation 98 % (92-99) 94 % (92-99) Arterial Blood pH 7.33 (7.35-7.45) 7.44 (7.35-7.45) Arterial Blood pCO2 at Patient Temp 74 mmHg (35-46) 62 mmHg (35-46) Arterial Blood pO2 at Patient Temp 123 mmHg (65-108) 72 mmHg (65-108) Arterial Blood HCO3 38 mmol/L (21-28) 41 mmol/L (21-28) Arterial Blood Base Excess 10 mmol/L (-3-3) 15 mmol/L (-3-3) Oxyhemoglobin 97.2 % 93.4 % Methemoglobin 0.4 % (0.0-1.9) 0.4 % (0.0-1.9) Carbon Monoxide, Quantitative 0.1 % (0.0-1.9) 0.2 % (0.0-1.9) FiO2 38 30 AUSTIN ROSA MD Mar 18, 2017 17:40
--- NOTE | 2017-03-18 17:43 | PDOC ---
PULMONARY PROGRESS NOTES Vitals Vital Signs Date Time Temp Pulse Resp B/P (MAP) Pulse Ox O2 Delivery O2 Flow Rate FiO2 03/18/17 15:52 92 Nasal Cannula 2.0 03/18/17 15:00 98.2 53 22 129/70 (89) 98.2 General: Alert, No acute distress HEENT: Other Lungs: Other Cardiovascular: S1, S2 Abdomen: Soft, Non-tender Extremities: No Edema Labs Laboratory Tests Test 03/18/17 07:45 03/18/17 08:10 03/18/17 08:59 03/18/17 09:34 Urine Collection Type U cath Urine Color Straw Urine Clarity Cloudy Urine pH 7.0 Urine Specific [place] 1.015 Urine Protein Negative mg/dL (NEG-TRACE) Urine Glucose (UA) Negative mg/dL (NEG) Urine Ketones (Stick) Negative mg/dL (NEG) Urine Blood Small (NEG) Urine Nitrite Negative (NEG) Urine Bilirubin Negative (NEG) Urine Urobilinogen Dipstick 0.2 mg/dL (0.2 mg/dL) Urine Leukocyte Esterase Large (NEG) Urine RBC 1-2 /HPF (0-2) Urine WBC >40 /HPF (0-4) Urine Squamous Epithelial Cells Occ /LPF Urine Bacteria Few /HPF (0-FEW) White Blood Count 5.3 x10^3/uL (4.0-11.0) Red Blood Count 3.03 x10^6/uL (3.50-5.40) Hemoglobin 8.5 g/dL (12.0-15.5) Hematocrit 27.8 % (36.0-47.0) Mean Corpuscular Volume 92 fL (79-100) Mean Corpuscular Hemoglobin 28 pg (25-35) Mean Corpuscular Hemoglobin Concent 31 g/dL (31-37) Red Cell Distribution Width 16.9 % (11.5-14.5) Platelet Count 176 x10^3/uL (140-400) Neutrophils (%) (Auto) 52 % (31-73) Lymphocytes (%) (Auto) 31 % (24-48) Monocytes (%) (Auto) 15 % (0-9) Eosinophils (%) (Auto) 2 % (0-3) Basophils (%) (Auto) 0 % (0-3) Neutrophils # (Auto) 2.8 x10^3uL (1.8-7.7) Lymphocytes # (Auto) 1.6 x10^3/uL (1.0-4.8) Monocytes # (Auto) 0.8 x10^3/uL (0.0-1.1) Eosinophils # (Auto) 0.1 x10^3/uL (0.0-0.7) Basophils # (Auto) 0.0 x10^3/uL (0.0-0.2) Prothrombin Time 11.7 SEC (11.7-14.0) Prothromb Time International Ratio 0.9 (0.8-1.1) Sodium Level 143 mmol/L (136-145) Potassium Level 4.1 mmol/L (3.5-5.1) Chloride Level 100 mmol/L (98-107) Carbon Dioxide Level > 45 mmol/L (21-32) Anion Gap (6-14) Blood Urea Nitrogen 17 mg/dL (7-20) Creatinine 1.0 mg/dL (0.6-1.0) Estimated GFR (Cockcroft-Gault) 52.8 BUN/Creatinine Ratio 17 (6-20) Glucose Level 90 mg/dL (70-99) Calcium Level 8.3 mg/dL (8.5-10.1) Total Bilirubin 0.6 mg/dL (0.2-1.0) Aspartate Amino Transf (AST/SGOT) 15 U/L (15-37) Alanine Aminotransferase (ALT/SGPT) 13 U/L (14-59) Alkaline Phosphatase 50 U/L (46-116) Creatine Kinase 16 U/L (26-192) Troponin I Quantitative 0.018 ng/mL (0.000-0.055) EH-Nee-U-Type Natriuretic Peptide 1090 pg/mL (0-449) Total Protein 5.6 g/dL (6.4-8.2) Albumin 2.6 g/dL (3.4-5.0) Albumin/Globulin Ratio 0.9 (1.0-1.7) Vitamin B12 Level 778 pg/mL (247-911) Thyroid Stimulating Hormone (TSH) 0.256 uIU/mL (0.358-3.74) Free Thyroxine 1.43 ng/dL (0.76-1.46) Free Triiodothyronine (T3) pg/mL 1.95 pg/mL (2.18-3.98) Digoxin Level 0.8 ng/mL (0.9-2.0) Digoxin Last Dose Date Unknown Digoxin Last Dose Time Unknown O2 Saturation 98 % (92-99) 94 % (92-99) Arterial Blood pH 7.33 (7.35-7.45) 7.44 (7.35-7.45) Arterial Blood pCO2 at Patient Temp 74 mmHg (35-46) 62 mmHg (35-46) Arterial Blood pO2 at Patient Temp 123 mmHg (65-108) 72 mmHg (65-108) Arterial Blood HCO3 38 mmol/L (21-28) 41 mmol/L (21-28) Arterial Blood Base Excess 10 mmol/L (-3-3) 15 mmol/L (-3-3) Oxyhemoglobin 97.2 % 93.4 % Methemoglobin 0.4 % (0.0-1.9) 0.4 % (0.0-1.9) Carbon Monoxide, Quantitative 0.1 % (0.0-1.9) 0.2 % (0.0-1.9) FiO2 38 30 Laboratory Tests Test 03/18/17 07:45 03/18/17 08:10 03/18/17 08:59 03/18/17 09:34 Urine Collection Type U cath Urine Color Straw Urine Clarity Cloudy Urine pH 7.0 Urine Specific [place] 1.015 Urine Protein Negative mg/dL (NEG-TRACE) Urine Glucose (UA) Negative mg/dL (NEG) Urine Ketones (Stick) Negative mg/dL (NEG) Urine Blood Small (NEG) Urine Nitrite Negative (NEG) Urine Bilirubin Negative (NEG) Urine Urobilinogen Dipstick 0.2 mg/dL (0.2 mg/dL) Urine Leukocyte Esterase Large (NEG) Urine RBC 1-2 /HPF (0-2) Urine WBC >40 /HPF (0-4) Urine Squamous Epithelial Cells Occ /LPF Urine Bacteria Few /HPF (0-FEW) White Blood Count 5.3 x10^3/uL (4.0-11.0) Red Blood Count 3.03 x10^6/uL (3.50-5.40) Hemoglobin 8.5 g/dL (12.0-15.5) Hematocrit 27.8 % (36.0-47.0) Mean Corpuscular Volume 92 fL (79-100) Mean Corpuscular Hemoglobin 28 pg (25-35) Mean Corpuscular Hemoglobin Concent 31 g/dL (31-37) Red Cell Distribution Width 16.9 % (11.5-14.5) Platelet Count 176 x10^3/uL (140-400) Neutrophils (%) (Auto) 52 % (31-73) Lymphocytes (%) (Auto) 31 % (24-48) Monocytes (%) (Auto) 15 % (0-9) Eosinophils (%) (Auto) 2 % (0-3) Basophils (%) (Auto) 0 % (0-3) Neutrophils # (Auto) 2.8 x10^3uL (1.8-7.7) Lymphocytes # (Auto) 1.6 x10^3/uL (1.0-4.8) Monocytes # (Auto) 0.8 x10^3/uL (0.0-1.1) Eosinophils # (Auto) 0.1 x10^3/uL (0.0-0.7) Basophils # (Auto) 0.0 x10^3/uL (0.0-0.2) Prothrombin Time 11.7 SEC (11.7-14.0) Prothromb Time International Ratio 0.9 (0.8-1.1) Sodium Level 143 mmol/L (136-145) Potassium Level 4.1 mmol/L (3.5-5.1) Chloride Level 100 mmol/L (98-107) Carbon Dioxide Level > 45 mmol/L (21-32) Anion Gap (6-14) Blood Urea Nitrogen 17 mg/dL (7-20) Creatinine 1.0 mg/dL (0.6-1.0) Estimated GFR (Cockcroft-Gault) 52.8 BUN/Creatinine Ratio 17 (6-20) Glucose Level 90 mg/dL (70-99) Calcium Level 8.3 mg/dL (8.5-10.1) Total Bilirubin 0.6 mg/dL (0.2-1.0) Aspartate Amino Transf (AST/SGOT) 15 U/L (15-37) Alanine Aminotransferase (ALT/SGPT) 13 U/L (14-59) Alkaline Phosphatase 50 U/L (46-116) Creatine Kinase 16 U/L (26-192) Troponin I Quantitative 0.018 ng/mL (0.000-0.055) MM-Gyb-N-Type Natriuretic Peptide 1090 pg/mL (0-449) Total Protein 5.6 g/dL (6.4-8.2) Albumin 2.6 g/dL (3.4-5.0) Albumin/Globulin Ratio 0.9 (1.0-1.7) Vitamin B12 Level 778 pg/mL (247-911) Thyroid Stimulating Hormone (TSH) 0.256 uIU/mL (0.358-3.74) Free Thyroxine 1.43 ng/dL (0.76-1.46) Free Triiodothyronine (T3) pg/mL 1.95 pg/mL (2.18-3.98) Digoxin Level 0.8 ng/mL (0.9-2.0) Digoxin Last Dose Date Unknown Digoxin Last Dose Time Unknown O2 Saturation 98 % (92-99) 94 % (92-99) Arterial Blood pH 7.33 (7.35-7.45) 7.44 (7.35-7.45) Arterial Blood pCO2 at Patient Temp 74 mmHg (35-46) 62 mmHg (35-46) Arterial Blood pO2 at Patient Temp 123 mmHg (65-108) 72 mmHg (65-108) Arterial Blood HCO3 38 mmol/L (21-28) 41 mmol/L (21-28) Arterial Blood Base Excess 10 mmol/L (-3-3) 15 mmol/L (-3-3) Oxyhemoglobin 97.2 % 93.4 % Methemoglobin 0.4 % (0.0-1.9) 0.4 % (0.0-1.9) Carbon Monoxide, Quantitative 0.1 % (0.0-1.9) 0.2 % (0.0-1.9) FiO2 38 30 Medications Active Scripts Medications Dose Route/Sig Max Daily Dose Days Date Category Cefpodoxime Proxetil 100 Mg Tablet 100 Mg PO BID 3 02/21/17 Rx Promethazine Hcl 25 Mg Supp.rect 25 Mg RC Q6H PRN 12/14/16 Rx Zofran Odt (Ondansetron) 4 Mg Tab.rapdis 1 Tab SL Q8HRS 12/09/16 Rx Duoneb 0.5-3(2.5) Mg/3 Ml (Albuterol/Ipratropium) 3 Ml Ampul.neb 3 Ml NEB QID 12/05/16 Reported Vitamin B-12 (Cyanocobalamin (Vitamin B-12)) 1,000 Mcg Tablet 1 Tab PO DAILY 10/25/16 Rx Senna (Sennosides) 8.6 Mg Tablet 8.6 Mg PO DAILY 06/20/16 Rx Docusate Sodium 100 Mg Capsule 1 Cap PO DAILY 06/20/16 Rx Trazodone Hcl 100 Mg Tablet 1 Tab PO QHS 06/07/16 Reported Vitamin D (Cholecalciferol (Vitamin D3)) 1,000 Unit Capsule 1 Cap PO DAILY 06/07/16 Reported Percocet 10-325 Mg Tablet (Oxycodone/Acetaminophen) 1 Each Tablet 1 Tab PO TID PRN 03/14/16 Rx Cranberry (Cranberry Fruit) 400 Mg Tablet 4,200 Mg PO DAILY 03/07/16 Reported Levothyroxine Sodium 88 Mcg Tablet 1 Tab PO DAILY 03/06/16 Reported Alprazolam 0.25 Mg Tablet 1 Tab PO PRN TID PRN 03/06/16 Reported Digoxin 125 Mcg Tablet 1 Tab PO DAILY 03/07/15 Reported Zofran Odt (Ondansetron) 4 Mg Tab.rapdis 1 Tab SL Q8HRS PRN 03/07/15 Reported Escitalopram Oxalate 10 Mg Tablet 20 Mg PO DAILY 03/14/14 Reported Impression . FULL NOTE DICTATED A/C HYPERCAPNIA IMPROVED WITH BIPAP DO NOT INCREASE 02 GREATER THAN 2 LITERS PRN BIPAP LAZ ANTUNEZ MD Mar 18, 2017 17:43
[2017-03-18] MEDS ORDERED: ALBUTEROL SULFATE 2.5 MG/3 ML NEBU. NEB PRN (17:45)
[2017-03-18] MEDS ORDERED: ALPRAZolam 0.25 MG TABLET PO PRN (18:45)
[2017-03-18] MEDS: oxyCODONE/APAP 10/325 1 TAB TABLET PO PRN (18:58)
[2017-03-18 19:53] VITALS: BP 131/67
[2017-03-18] MEDS ORDERED: IPRATRPIUM/ALBUTEROL 0.5/2.5MG 3 ML NEBU. NEB PRN (21:00)
[2017-03-18] MEDS ORDERED: IPRATRPIUM/ALBUTEROL 0.5/2.5MG 3 ML NEBU. NEB SCH (21:00)
[2017-03-18] MEDS: IPRATRPIUM/ALBUTEROL 0.5/2.5MG 3 ML NEBU. NEB SCH ×2 (21:25→23:33)
[2017-03-18] MEDS: ONDANSETRON ODT 4 MG TAB.RAPDIS. PO SCH (22:10)
[2017-03-18] MEDS: traZODone 100 MG TABLET. PO SCH (22:10)
[2017-03-18 23:35] VITALS: BP 114/53
[2017-03-19] MEDS: IV DEXTROSE 5% - 0.9 % NACL 1,000 ML IV SCH ×2 (00:29→13:25)
[2017-03-19] MEDS: IPRATRPIUM/ALBUTEROL 0.5/2.5MG 3 ML NEBU. NEB SCH ×6 (04:00→23:48)
[2017-03-19 04:48] LABS: BASO % 0 % (0-3); EOS % 2 % (0-3); HEMOGLOBIN 8.6 g/dL (12.0-15.5); LYMPH # 1.8 x10^3/uL (1.0-4.8); LYMPH % 31 % (24-48); MEAN CORPUSCULAR HEMOGLOBIN 28 pg (25-35); MEAN CORPUSCULAR HGB CONC 31 g/dL (31-37); MEAN CORPUSCULAR VOLUME 91 fL (79-100); MONO % 15 % (0-9); NEUT % 53 % (31-73); PLATELET COUNT 121 x10^3/uL (140-400); RED BLOOD COUNT 3.07 x10^6/uL (3.50-5.40); RED CELL DISTRIBUTION WIDTH 17.1 % (11.5-14.5); WHITE BLOOD COUNT 5.8 x10^3/uL (4.0-11.0)
[2017-03-19 05:25] LABS: BLOOD UREA NITROGEN 16 mg/dL (7-20); CALCIUM 8.5 mg/dL (8.5-10.1); CARBON DIOXIDE 43 mmol/L (21-32); CHLORIDE 101 mmol/L (98-107); CHOLESTEROL 207 mg/dL (0-200); CREATININE 0.9 mg/dL (0.6-1.0); GFR 59.7; GLUCOSE 89 mg/dL (70-99); HDLC 89 mg/dL (40-60); NON-HDL CHOLESTEROL 118 mg/dL (0-129); POTASSIUM 4.4 mmol/L (3.5-5.1); SODIUM 143 mmol/L (136-145); TRIGLYCERIDES 92 mg/dL (0-150)
[2017-03-19 05:27] LABS: CHOLESTEROL/HDL RATIO 2.3
--- NOTE | 2017-03-19 05:37 | CONS ---
DATE OF CONSULTATION: 03/18/2017 ATTENDING PHYSICIAN: Dr. Amaya. REASON FOR CONSULTATION: The patient seen in pulmonary consultation at the request of Dr. Amaya for acute on chronic hypercapnic hypoxemic respiratory failure. HISTORY OF PRESENT ILLNESS: The patient is an 86-year-old that apparently fell at home. She was evaluated and found to have elevated pCO2 at 74. She was placed on BiPAP. She is now off of BiPAP. She is doing well. She normally wears 5 liters of oxygen at home, she is currently on 2 and is doing well. She denies any increasing shortness of breath. She does not know why she fell. PAST MEDICAL HISTORY: Remarkable for chronic respiratory failure on 5 liters of oxygen supplementation, COPD with an asthma component, depression, hypothyroidism, previous pneumonia. She also had history of lung cancer, status post radiation, she is currently in remission. Osteoporosis. PAST SURGICAL HISTORY: Status post appendectomy, cholecystectomy, , hysterectomy, tonsillectomy, back surgery. ALLERGIES: ASPIRIN AND MORPHINE. SOCIAL HISTORY: She is no longer smoking. REVIEW OF SYSTEMS: As indicated above, otherwise, a 10-point system was reviewed and negative. FAMILY HISTORY: Noncontributory. CURRENT MEDICATION: List was reviewed. Please see the MRAD. PHYSICAL EXAMINATION: GENERAL: The patient was in no respiratory distress, currently on 2 liters of oxygen supplementation. HEENT: Eyes, the sclerae were nonicteric. NECK: Jugular venous distention was not elevated. No lymphadenopathy. CHEST: Full expansion. LUNGS: Adequate airway flow with no wheezes. CARDIOVASCULAR: Regular rate and rhythm with S1, S2, no S3. ABDOMEN: Soft, nontender, nondistended. EXTREMITIES: No clubbing, cyanosis or edema. NEUROLOGIC: The patient was awake, alert, following commands. A detailed neuro exam was not performed. LABORATORY DATA: Reviewed. White count was 5.3, hemoglobin and hematocrit were noted. Electrolytes were noted. Carbon dioxide level was greater than 45. Toxicology screen was noted. UA was noted. IMPRESSION: 1. 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 2. Encephalopathy, suspect secondary to CO2 narcosis. 3. Fall, possibly related to CO2 narcosis. 4. Possible cerebrovascular accident. 5. Chronic obstructive pulmonary disease, on chronic oxygen supplementation at 5 liters. 6. History of lung cancer status post radiation treatment 5 years ago. PLAN: 1. Recommend not increasing FiO2 greater than 2 liters. The arterial blood gas revealed a pH of 7.44, PaCO2 of 62, PaO2 of 72. 2. P.r.n. BiPAP. 3. Consult Neurology, already performed. 4. Continue current bronchodilators. Dr. Amaya, I do appreciate the privilege in sharing in the patient's care. LAZ ANTUNEZ MD DR: MARNIE/patience JOB#: [id number] / [id number]
[2017-03-19] MEDS: LEVOTHYROXINE 88 MCG TABLET PO SCH (06:03)
[2017-03-19] MEDS: ONDANSETRON ODT 4 MG TAB.RAPDIS. PO SCH (06:04)
[2017-03-19 07:00] VITALS: BP 125/60
--- NOTE | 2017-03-19 08:13 | PDOC ---
PULMONARY PROGRESS NOTES Subjective feels better this am Vitals Vital Signs Date Time Temp Pulse Resp B/P (MAP) Pulse Ox O2 Delivery O2 Flow Rate FiO2 03/19/17 07:23 90 Nasal Cannula 2.0 03/19/17 07:00 98.5 79 20 125/60 (81) 98.5 General: Alert, No acute distress HEENT: Other Lungs: Other (decrease bs) Cardiovascular: S1, S2 Abdomen: Soft, Non-tender Neuro Exam: Alert Extremities: No Edema Skin: Warm Labs Laboratory Tests Test 03/18/17 07:45 03/18/17 08:10 03/18/17 08:59 03/18/17 09:34 Urine Collection Type U cath Urine Color Straw Urine Clarity Cloudy Urine pH 7.0 Urine Specific [place] 1.015 Urine Protein Negative mg/dL (NEG-TRACE) Urine Glucose (UA) Negative mg/dL (NEG) Urine Ketones (Stick) Negative mg/dL (NEG) Urine Blood Small (NEG) Urine Nitrite Negative (NEG) Urine Bilirubin Negative (NEG) Urine Urobilinogen Dipstick 0.2 mg/dL (0.2 mg/dL) Urine Leukocyte Esterase Large (NEG) Urine RBC 1-2 /HPF (0-2) Urine WBC >40 /HPF (0-4) Urine Squamous Epithelial Cells Occ /LPF Urine Bacteria Few /HPF (0-FEW) White Blood Count 5.3 x10^3/uL (4.0-11.0) Red Blood Count 3.03 x10^6/uL (3.50-5.40) Hemoglobin 8.5 g/dL (12.0-15.5) Hematocrit 27.8 % (36.0-47.0) Mean Corpuscular Volume 92 fL (79-100) Mean Corpuscular Hemoglobin 28 pg (25-35) Mean Corpuscular Hemoglobin Concent 31 g/dL (31-37) Red Cell Distribution Width 16.9 % (11.5-14.5) Platelet Count 176 x10^3/uL (140-400) Neutrophils (%) (Auto) 52 % (31-73) Lymphocytes (%) (Auto) 31 % (24-48) Monocytes (%) (Auto) 15 % (0-9) Eosinophils (%) (Auto) 2 % (0-3) Basophils (%) (Auto) 0 % (0-3) Neutrophils # (Auto) 2.8 x10^3uL (1.8-7.7) Lymphocytes # (Auto) 1.6 x10^3/uL (1.0-4.8) Monocytes # (Auto) 0.8 x10^3/uL (0.0-1.1) Eosinophils # (Auto) 0.1 x10^3/uL (0.0-0.7) Basophils # (Auto) 0.0 x10^3/uL (0.0-0.2) Prothrombin Time 11.7 SEC (11.7-14.0) Prothromb Time International Ratio 0.9 (0.8-1.1) Sodium Level 143 mmol/L (136-145) Potassium Level 4.1 mmol/L (3.5-5.1) Chloride Level 100 mmol/L (98-107) Carbon Dioxide Level > 45 mmol/L (21-32) Anion Gap (6-14) Blood Urea Nitrogen 17 mg/dL (7-20) Creatinine 1.0 mg/dL (0.6-1.0) Estimated GFR (Cockcroft-Gault) 52.8 BUN/Creatinine Ratio 17 (6-20) Glucose Level 90 mg/dL (70-99) Calcium Level 8.3 mg/dL (8.5-10.1) Total Bilirubin 0.6 mg/dL (0.2-1.0) Aspartate Amino Transf (AST/SGOT) 15 U/L (15-37) Alanine Aminotransferase (ALT/SGPT) 13 U/L (14-59) Alkaline Phosphatase 50 U/L (46-116) Creatine Kinase 16 U/L (26-192) Troponin I Quantitative 0.018 ng/mL (0.000-0.055) IG-Gex-K-Type Natriuretic Peptide 1090 pg/mL (0-449) Total Protein 5.6 g/dL (6.4-8.2) Albumin 2.6 g/dL (3.4-5.0) Albumin/Globulin Ratio 0.9 (1.0-1.7) Vitamin B12 Level 778 pg/mL (247-911) Thyroid Stimulating Hormone (TSH) 0.256 uIU/mL (0.358-3.74) Free Thyroxine 1.43 ng/dL (0.76-1.46) Free Triiodothyronine (T3) pg/mL 1.95 pg/mL (2.18-3.98) Digoxin Level 0.8 ng/mL (0.9-2.0) Digoxin Last Dose Date Unknown Digoxin Last Dose Time Unknown O2 Saturation 98 % (92-99) 94 % (92-99) Arterial Blood pH 7.33 (7.35-7.45) 7.44 (7.35-7.45) Arterial Blood pCO2 at Patient Temp 74 mmHg (35-46) 62 mmHg (35-46) Arterial Blood pO2 at Patient Temp 123 mmHg (65-108) 72 mmHg (65-108) Arterial Blood HCO3 38 mmol/L (21-28) 41 mmol/L (21-28) Arterial Blood Base Excess 10 mmol/L (-3-3) 15 mmol/L (-3-3) Oxyhemoglobin 97.2 % 93.4 % Methemoglobin 0.4 % (0.0-1.9) 0.4 % (0.0-1.9) Carbon Monoxide, Quantitative 0.1 % (0.0-1.9) 0.2 % (0.0-1.9) FiO2 38 30 Test 03/19/17 03:25 White Blood Count 5.8 x10^3/uL (4.0-11.0) Red Blood Count 3.07 x10^6/uL (3.50-5.40) Hemoglobin 8.6 g/dL (12.0-15.5) Hematocrit 28.0 % (36.0-47.0) Mean Corpuscular Volume 91 fL (79-100) Mean Corpuscular Hemoglobin 28 pg (25-35) Mean Corpuscular Hemoglobin Concent 31 g/dL (31-37) Red Cell Distribution Width 17.1 % (11.5-14.5) Platelet Count 121 x10^3/uL (140-400) Neutrophils (%) (Auto) 53 % (31-73) Lymphocytes (%) (Auto) 31 % (24-48) Monocytes (%) (Auto) 15 % (0-9) Eosinophils (%) (Auto) 2 % (0-3) Basophils (%) (Auto) 0 % (0-3) Neutrophils # (Auto) 3.0 x10^3uL (1.8-7.7) Lymphocytes # (Auto) 1.8 x10^3/uL (1.0-4.8) Monocytes # (Auto) 0.9 x10^3/uL (0.0-1.1) Eosinophils # (Auto) 0.1 x10^3/uL (0.0-0.7) Basophils # (Auto) 0.0 x10^3/uL (0.0-0.2) Sodium Level 143 mmol/L (136-145) Potassium Level 4.4 mmol/L (3.5-5.1) Chloride Level 101 mmol/L (98-107) Carbon Dioxide Level 43 mmol/L (21-32) Anion Gap (6-14) Blood Urea Nitrogen 16 mg/dL (7-20) Creatinine 0.9 mg/dL (0.6-1.0) Estimated GFR (Cockcroft-Gault) 59.7 Glucose Level 89 mg/dL (70-99) Calcium Level 8.5 mg/dL (8.5-10.1) Triglycerides Level 92 mg/dL (0-150) Cholesterol Level 207 mg/dL (0-200) LDL Cholesterol, Calculated 100 mg/dL (0-100) VLDL Cholesterol, Calculated 18 mg/dL (0-40) Non-HDL Cholesterol Calculated 118 mg/dL (0-129) HDL Cholesterol 89 mg/dL (40-60) Cholesterol/HDL Ratio 2.3 Laboratory Tests Test 03/18/17 08:59 03/18/17 09:34 03/19/17 03:25 O2 Saturation 98 % (92-99) 94 % (92-99) Arterial Blood pH 7.33 (7.35-7.45) 7.44 (7.35-7.45) Arterial Blood pCO2 at Patient Temp 74 mmHg (35-46) 62 mmHg (35-46) Arterial Blood pO2 at Patient Temp 123 mmHg (65-108) 72 mmHg (65-108) Arterial Blood HCO3 38 mmol/L (21-28) 41 mmol/L (21-28) Arterial Blood Base Excess 10 mmol/L (-3-3) 15 mmol/L (-3-3) Oxyhemoglobin 97.2 % 93.4 % Methemoglobin 0.4 % (0.0-1.9) 0.4 % (0.0-1.9) Carbon Monoxide, Quantitative 0.1 % (0.0-1.9) 0.2 % (0.0-1.9) FiO2 38 30 White Blood Count 5.8 x10^3/uL (4.0-11.0) Red Blood Count 3.07 x10^6/uL (3.50-5.40) Hemoglobin 8.6 g/dL (12.0-15.5) Hematocrit 28.0 % (36.0-47.0) Mean Corpuscular Volume 91 fL (79-100) Mean Corpuscular Hemoglobin 28 pg (25-35) Mean Corpuscular Hemoglobin Concent 31 g/dL (31-37) Red Cell Distribution Width 17.1 % (11.5-14.5) Platelet Count 121 x10^3/uL (140-400) Neutrophils (%) (Auto) 53 % (31-73) Lymphocytes (%) (Auto) 31 % (24-48) Monocytes (%) (Auto) 15 % (0-9) Eosinophils (%) (Auto) 2 % (0-3) Basophils (%) (Auto) 0 % (0-3) Neutrophils # (Auto) 3.0 x10^3uL (1.8-7.7) Lymphocytes # (Auto) 1.8 x10^3/uL (1.0-4.8) Monocytes # (Auto) 0.9 x10^3/uL (0.0-1.1) Eosinophils # (Auto) 0.1 x10^3/uL (0.0-0.7) Basophils # (Auto) 0.0 x10^3/uL (0.0-0.2) Sodium Level 143 mmol/L (136-145) Potassium Level 4.4 mmol/L (3.5-5.1) Chloride Level 101 mmol/L (98-107) Carbon Dioxide Level 43 mmol/L (21-32) Anion Gap (6-14) Blood Urea Nitrogen 16 mg/dL (7-20) Creatinine 0.9 mg/dL (0.6-1.0) Estimated GFR (Cockcroft-Gault) 59.7 Glucose Level 89 mg/dL (70-99) Calcium Level 8.5 mg/dL (8.5-10.1) Triglycerides Level 92 mg/dL (0-150) Cholesterol Level 207 mg/dL (0-200) LDL Cholesterol, Calculated 100 mg/dL (0-100) VLDL Cholesterol, Calculated 18 mg/dL (0-40) Non-HDL Cholesterol Calculated 118 mg/dL (0-129) HDL Cholesterol 89 mg/dL (40-60) Cholesterol/HDL Ratio 2.3 Medications Active Scripts Medications Dose Route/Sig Max Daily Dose Days Date Category Cefpodoxime Proxetil 100 Mg Tablet 100 Mg PO BID 3 02/21/17 Rx Promethazine Hcl 25 Mg Supp.rect 25 Mg RC Q6H PRN 12/14/16 Rx Zofran Odt (Ondansetron) 4 Mg Tab.rapdis 1 Tab SL Q8HRS 12/09/16 Rx Duoneb 0.5-3(2.5) Mg/3 Ml (Albuterol/Ipratropium) 3 Ml Ampul.neb 3 Ml NEB QID 12/05/16 Reported Vitamin B-12 (Cyanocobalamin (Vitamin B-12)) 1,000 Mcg Tablet 1 Tab PO DAILY 10/25/16 Rx Senna (Sennosides) 8.6 Mg Tablet 8.6 Mg PO DAILY 06/20/16 Rx Docusate Sodium 100 Mg Capsule 1 Cap PO DAILY 06/20/16 Rx Trazodone Hcl 100 Mg Tablet 1 Tab PO QHS 06/07/16 Reported Vitamin D (Cholecalciferol (Vitamin D3)) 1,000 Unit Capsule 1 Cap PO DAILY 06/07/16 Reported Percocet 10-325 Mg Tablet (Oxycodone/Acetaminophen) 1 Each Tablet 1 Tab PO TID PRN 03/14/16 Rx Cranberry (Cranberry Fruit) 400 Mg Tablet 4,200 Mg PO DAILY 03/07/16 Reported Levothyroxine Sodium 88 Mcg Tablet 1 Tab PO DAILY 03/06/16 Reported Alprazolam 0.25 Mg Tablet 1 Tab PO PRN TID PRN 03/06/16 Reported Digoxin 125 Mcg Tablet 1 Tab PO DAILY 03/07/15 Reported Zofran Odt (Ondansetron) 4 Mg Tab.rapdis 1 Tab SL Q8HRS PRN 03/07/15 Reported Escitalopram Oxalate 10 Mg Tablet 20 Mg PO DAILY 03/14/14 Reported Impression . 1. 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 2. Encephalopathy, suspect secondary to CO2 narcosis. improved. 3. Fall, possibly related to CO2 narcosis. 4. Possible cerebrovascular accident. 5. Chronic obstructive pulmonary disease, on chronic oxygen supplementation at 5 liters. 6. History of lung cancer status post radiation treatment 5 years ago. Plan . 1. Recommend not increasing FiO2 greater than 2 liters at rest. The arterial blood gas revealed a pH of 7.44, PaCO2 of 62, PaO2 of 72. 2. P.r.n. BiPAP. 3. Consult Neurology, already performed. 4. Continue current bronchodilators. 5. increase ambulation KESHIA CHAO MD Mar 19, 2017 08:13
[2017-03-19] MEDS ORDERED: CRANBERRY FRUIT 4200 MG PO SCH (09:00)
--- NOTE | 2017-03-19 09:37 | EKG ---
[facility] [address] [place] [address] Test Date: 2017-03-18 Test Time: 08:14:20 Pat Name: RICHY REDMOND Department: Room: Gender: F Procedures Rn: : [id number] Requested By: FAVIO DELEON Order Number: [id number] Reading MD: Jaguar Beard Measurements Intervals Starr Rate: 75 P: DE: QRS: -17 QRSD: 74 T: 10 QT: 340 QTc: 382 Interpretive Statements SINUS RHYTHM VENTRICULAR PREMATURE COMPLEX(ES) Electronically Signed On 03-19-2017 9:36:49 CDT by Jaguar Beadr
[2017-03-19] MEDS: SENNOSIDES 8.6 MG TABLET PO SCH (10:09)
[2017-03-19] MEDS: oxyCODONE/APAP 10/325 1 TAB TABLET PO PRN ×2 (10:09→21:24)
[2017-03-19] MEDS: CYANOCOBALAMIN (VITAMIN B-12) 1,000 MCG TABLET. PO SCH (10:09)
[2017-03-19] MEDS: DIGOXIN 125 MCG TABLET. PO SCH (10:09)
[2017-03-19] MEDS: DOCUSATE SODIUM 100 MG CAPSULE. PO SCH (10:10)
[2017-03-19] MEDS: ESCITALOPRAM 10 MG TABLET. PO SCH (10:10)
[2017-03-19] MEDS: CHOLECALCIFEROL (VITAMIN D3) 1,000 UNIT TABLET PO SCH (10:10)
--- NOTE | 2017-03-19 10:13 | PDOC ---
PROGRESS NOTES Subjective Subjective weak rt side Objective Objective Vital Signs Date Time Temp Pulse Resp B/P (MAP) Pulse Ox O2 Delivery O2 Flow Rate FiO2 03/19/17 07:23 90 Nasal Cannula 2.0 03/19/17 07:00 98.5 79 20 125/60 (81) 98.5 Intake and Output 03/19/17 06:59 Intake Total 520 ml Output Total 200 ml Balance 320 ml Intake Oral 420 ml IV Total 100 ml Output Urine Total 200 ml # Voids 3 Physical Exam Abdomen: Normal bowel sounds, Soft Heart: Regular rate, Normal S1, Normal S2 General: Alert HEENT: Atraumatic Lungs: Clear to auscultation MUSCULOSKELETAL: No swelling Neck: Supple Neuro: Normal speech Psych/Mental Status: Mental status NL Skin: No breakdown COMMENT rt side weakness Diagnosis Problem List Problems Medical Problems: (1) Altered mental status Status: Acute (2) Fall Status: Acute (3) UTI (urinary tract infection) Status: Acute Assessment Assessment Problems Medical Problems: (1) Altered mental status Status: Acute (2) Fall Status: Acute (3) UTI (urinary tract infection) Status: Acute FINAL IMPRESSION: 1. Possible cerebrovascular accident, right-sided weakness. 2. Fall at home from bed. 3. Chronic obstructive pulmonary disease, end-stage, on 5 liters oxygen. 4. Paroxysmal atrial fibrillation. 5. Osteoporosis. 6. Anemia. 7. History of lung cancer, had a radiation treatment 5 years ago. 8. Urinary tract infection. We will send UA and culture. Start on Rocephin. PLAN: MRI brain today. rehab consult echo carotid dopller. cannot take asa ,will start on plavix. lipitor for chol. snu soon spoke with family , rocephin for uti At this time, admit to hospital. CT head was done. Neurology was consulted. Speech, PT, OT, and Rehab. Problems: Plan Plan of Care Problems Medical Problems: (1) Altered mental status Status: Acute (2) Fall Status: Acute (3) UTI (urinary tract infection) Status: Acute Comment Review of Relevant I have reviewed the following items carly (where applicable) has been applied. Labs Laboratory Tests Test 03/19/17 03:25 White Blood Count 5.8 x10^3/uL (4.0-11.0) Red Blood Count 3.07 x10^6/uL (3.50-5.40) Hemoglobin 8.6 g/dL (12.0-15.5) Hematocrit 28.0 % (36.0-47.0) Mean Corpuscular Volume 91 fL (79-100) Mean Corpuscular Hemoglobin 28 pg (25-35) Mean Corpuscular Hemoglobin Concent 31 g/dL (31-37) Red Cell Distribution Width 17.1 % (11.5-14.5) Platelet Count 121 x10^3/uL (140-400) Neutrophils (%) (Auto) 53 % (31-73) Lymphocytes (%) (Auto) 31 % (24-48) Monocytes (%) (Auto) 15 % (0-9) Eosinophils (%) (Auto) 2 % (0-3) Basophils (%) (Auto) 0 % (0-3) Neutrophils # (Auto) 3.0 x10^3uL (1.8-7.7) Lymphocytes # (Auto) 1.8 x10^3/uL (1.0-4.8) Monocytes # (Auto) 0.9 x10^3/uL (0.0-1.1) Eosinophils # (Auto) 0.1 x10^3/uL (0.0-0.7) Basophils # (Auto) 0.0 x10^3/uL (0.0-0.2) Sodium Level 143 mmol/L (136-145) Potassium Level 4.4 mmol/L (3.5-5.1) Chloride Level 101 mmol/L (98-107) Carbon Dioxide Level 43 mmol/L (21-32) Anion Gap (6-14) Blood Urea Nitrogen 16 mg/dL (7-20) Creatinine 0.9 mg/dL (0.6-1.0) Estimated GFR (Cockcroft-Gault) 59.7 Glucose Level 89 mg/dL (70-99) Calcium Level 8.5 mg/dL (8.5-10.1) Triglycerides Level 92 mg/dL (0-150) Cholesterol Level 207 mg/dL (0-200) LDL Cholesterol, Calculated 100 mg/dL (0-100) VLDL Cholesterol, Calculated 18 mg/dL (0-40) Non-HDL Cholesterol Calculated 118 mg/dL (0-129) HDL Cholesterol 89 mg/dL (40-60) Cholesterol/HDL Ratio 2.3 Medications Current Medications Albuterol Sulfate (Ventolin Neb Soln) 2.5 mg PRN Q2HR PRN NEB DYSPNEA; Start at 17:45 Albuterol/ Ipratropium (Duoneb) 3 ml PRN Q4HRS PRN NEB SHORTNESS OF BREATH; Start 03/18/17 at 21:00; Status UNV Albuterol/ Ipratropium (Duoneb) 3 ml Q4HRS NEB Last administered on 03/19/17 07:21; Start 03/18/17 at 20:00 Albuterol/ Ipratropium (Duoneb) 3 ml QID NEB ; Start 03/18/17 at 21:00; Status UNV Alprazolam (Xanax) 0.25 mg PRN TID PRN PO ANXIETY / AGITATION; Start 03/18/17 at 18:45 Ceftriaxone Sodium 1 gm/ Sodium Chloride 50 ml @ 100 mls/hr Q24H IV ; Start at 11:00 Cyanocobalamin (Vitamin B-12) 1,000 mcg DAILY PO ; Start 03/19/17 at 09:00 Dextrose/Sodium Chloride 1,000 ml @ 75 mls/hr [id number] IV Last administered on 03/19/17 00:29; Start 03/18/17 at 10:45 Digoxin (Lanoxin) 125 mcg DAILY PO ; Start 03/19/17 at 09:00 Docusate Sodium (Colace) 100 mg DAILY PO ; Start 03/19/17 at 09:00 Escitalopram Oxalate (Lexapro) 20 mg DAILY PO ; Start 03/19/17 at 09:00 Levothyroxine Sodium (Synthroid) 88 mcg DAILY07 PO Last administered on 06:03; Start 03/19/17 at 07:00 Non-Formulary Medication 4,200 mg DAILY PO ; Start 03/19/17 at 09:00; Status UNV Ondansetron HCl (Zofran Odt) 4 mg PRN Q8HRS PRN PO NAUSEA; Start 03/20/17 at 06 :00 Ondansetron HCl (Zofran Odt) 4 mg Q8HRS PO Last administered on 03/19/17 06:04 ; Start 03/18/17 at 22:00; Stop 03/19/17 at 07:20; Status DC Oxycodone/ Acetaminophen (Percocet 10/325) 1 tab PRN TID PRN PO PAIN Last administered on 03/18/17 18:58; Start 03/18/17 at 18:45 Sennosides (Senna) 8.6 mg DAILY PO ; Start 03/19/17 at 09:00 Trazodone HCl (Desyrel) 100 mg QHS PO Last administered on 03/18/17 22:10; Start 03/18/17 at 21:00 Vitamin D (Vitamin D3) 1,000 unit DAILY PO ; Start 03/19/17 at 09:00 Vitals/I & O Vital Sign - Last 24 Hours 03/18/17 03/18/17 03/18/17 03/18/17 10:32 11:00 11:00 11:15 Temp 98.3 98.3 98.3 98.3 Pulse 88 64 64 Resp 27 20 20 B/P (MAP) 123/65 (84) 121/61 (81) 121/61 (81) Pulse Ox 93 98 98 O2 Delivery BiPAP/CPAP Nasal Cannula Nasal Cannula Nasal Cannula O2 Flow Rate 3.0 3.0 3.0 03/18/17 03/18/17 03/18/17 03/18/17 12:14 15:00 15:52 18:58 Temp 98.2 98.2 Pulse 53 Resp 22 B/P (MAP) 129/70 (89) Pulse Ox 95 92 92 92 O2 Delivery BiPAP/CPAP Nasal Cannula Nasal Cannula Nasal Cannula O2 Flow Rate 2.0 2.0 2.0 03/18/17 03/18/17 03/18/17 03/18/17 19:53 19:58 20:00 21:25 Temp 98.9 98.9 Pulse 98 Resp 28 22 B/P (MAP) 131/67 (88) Pulse Ox 83 94 94 O2 Delivery Nasal Cannula Nasal Cannula Nasal Cannula Nasal Cannula O2 Flow Rate 2.0 2.0 2.0 2.0 03/18/17 03/19/17 03/19/17 03/19/17 23:35 03:06 07:00 07:23 Temp 98.5 98.5 Pulse 83 79 Resp 20 20 B/P (MAP) 114/53 (73) 125/60 (81) Pulse Ox 89 90 90 O2 Delivery Nasal Cannula Nasal Cannula Nasal Cannula Nasal Cannula O2 Flow Rate 2.0 2.0 2.0 2.0 Intake and Output 03/18/17 03/18/17 03/19/17 14:59 22:59 06:59 Intake Total 100 ml 360 ml 60 ml Output Total 200 ml Balance 100 ml 160 ml 60 ml PAUL MALDONADO MD Mar 19, 2017 10:13
[2017-03-19] MEDS ORDERED: CLOPIDOGREL BISULFATE 75 MG TABLET PO ONE (10:15)
[2017-03-19] MEDS ORDERED: GADOBUTROL 7.5 MMOL/7.5 ML VIAL IV ONE (15:30)
--- NOTE | 2017-03-19 16:00 | RAD ---
EXAM: Carotid Doppler sonogram. HISTORY: Cerebrovascular accident. TECHNIQUE: Grayscale and color Doppler sonographic evaluation of the neck with spectral waveform analysis was performed and static images are submitted for review. FINDINGS: RIGHT: The peak systolic velocity within the common carotid artery is 74 cm/sec. The peak systolic velocity within the internal carotid artery is 85 cm/sec and the end diastolic velocity within the internal carotid artery is 26 cm/sec. The ICA/CCA ratio is 1.15. Grayscale images demonstrate calcified plaquing at the carotid bulb. LEFT: The peak systolic velocity within the common carotid artery is 68 cm/sec. The peak systolic velocity within the internal carotid artery is 100 cm/sec and the end diastolic velocity within the internal carotid artery is 29 cm/sec. The ICA/CCA ratio is 1.47. Grayscale images demonstrate calcified plaquing at the carotid bulb. There is antegrade flow within both vertebral arteries. IMPRESSION: 1. No evidence of hemodynamically significant stenosis. PQRS Compliance Statement - Stenosis calculations for CT, MR and conventional angiography are based upon measurement of the distal ICA diameter in accordance with the NASCET methodology. Stenosis calculations for carotid ultrasound studies are derived from validated velocity criteria which are known to correlate with the NASCET methodology.
--- NOTE | 2017-03-19 16:14 | RAD ---
MRI Brain with and without contrast History:RECENT FALLS, WEAKNESS, CONFUSION Technique: Axial diffusion, axial gradient echo T2, axial T2, axial FLAIR, sagittal and axial T1, and postcontrast axial, sagittal, and coronal T1-weighted images were acquired of the brain. Contrast: 6 cc Gadavist Comparison: None Findings: There is some motion degradation. There are several scattered small foci of restricted diffusion of the left parasagittal parietal cortex, some mild corresponding FLAIR hyperintense signal of the largest focus. There is also some amorphous mild restricted diffusion involving the left cingulate gyrus and adjacent white matter. There is no restricted diffusion of the right hemisphere or the posterior fossa. There is no midline shift or extra-axial fluid collection. There is no nodular parenchymal or leptomeningeal enhancement. There are multiple old lacunar infarcts of the bilateral cerebellum greater on the right, the right thalamus, and of the right frontal deep white matter. There are also foci of encephalomalacia extending to the cortical surfaces of the temporal lobes bilaterally with associated gliosis signified by T2 and FLAIR hyperintense signal abnormality. There is other scattered [id number] T2 and FLAIR signal abnormality of the supratentorial white matter. Ventricular size is proportionate to the sulcal spaces, mild generalized supratentorial atrophy. There has been lens surgery bilaterally. There is gross preservation of the major arterial flow voids at the skull base. The mastoid air cells are aerated. There is patchy minimal ethmoid air cell mucosal thickening. Cerebellar tonsils are normal in location. There is preservation of marrow signal of the clivus. There is no significant abnormality of the pineal gland or pituitary gland. Impression: 1. There are several scattered foci of restricted diffusion of the left parietal lobe, also focus of the left cingulate gyrus. Findings are most compatible with foci of recent acute/early subacute infarcts. 2. 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 Other scattered T2 and FLAIR hyperintense abnormality is likely due to chronic microvascular ischemic disease. 3. There is generalized supratentorial atrophy. FOR INTERNAL CODING PURPOSES Critical result: Findings discussed with patient's nurse Rosalba Nicholson at 03/19/2017 4:10 PM. RESULT CODE: (C) Electronically signed by: Oliver Balderas MD (03/19/2017 4:10 PM)
--- NOTE | 2017-03-19 18:59 | PDOC ---
PROGRESS NOTES Assessment Assessment Metabolic encephalopathy. Fall UTI AFib COPD Hypothyroidism Lung cancer. SOB RECOMMENDATIONS/PLAN: Treat medical diseases. OT/PT HCT no acute findings. HISTORY OF THE PRESENT ILLNESS: 86-y-old female patient had a fall likely due to found on the floor from bed. She had mental status changes and was unable to recall the events. She was brought to the ER of [facility] for furtehr evaluation. She did not have focalized sensory or motor deficits noted. PAST SURGICAL HISTORY: Lung cancer received radiation therapy. PAST SURGERY HISTORY: Appendectomy, gallbladder surgery, , hysterectomy, tonsillectomy with tympanoplasty, multiple compression fractures, back surgery x2, and hernia repair x3. ALLERGIES: ADHESIVES, ASPIRIN, AND MORPHINE. PERSONAL HISTORY: She smoked for many years and quit recently, one pack at least. Denies alcohol or street drugs. MEDICATIONS: Refer to [facility] HISTORY: Non contributory. REVIEW OF SYSTEMS: Constitutional: No malnutrition, weight loss, cachexia. Head: No traumatic brain or head injury. Skin: No edema, or rash. Ear: No infection. Eyes: No vision loss or color blindness. Nose: No bleeding or purulent discharges. Hearing: Hearing decrease. Neck: No injury. Breast: No history of cancer, masses,or discharges. Cardiac: No WV, arrhythmia. Pulmonary: COPD, lung cancer. GI: No GI ulcer, GI bleeding. Urinary/genital: UTI. Endocrinologic: No cousin face, craniofacial dysmorphism, polydactyly. Skeletomuscular: No muscular atrophy, deformity. Neurological: see HP. Psychiatric: Denies drug use/abuse. Otherwise, not [id number] review of systems. PHYSICAL EXAMINATION: General appearance is in no acute distress. HEENT: Normocephalic and nontraumatic. Eyes, nose, ears, and throat are unremarkable. Neck is supple. No lymphadenopathy. No crepitus. Cardiovascular: S1, S2, irregular rate and rhythm. Pulmonary: Breathing sounds decreased to auscultation bilaterally. Abdomen: Bowel sounds are positive. Extremities: No rash, lesions, or edema. No restriction of range of motion NEUROLOGICAL EXAMINATION: Awake. Oriented to place and person. PERRL. EOMI. CN: no focal findings. Muscle tone: within normal. Muscle strength: 4+ DTR: 2- Plantar reflex: Neutral response bilaterally Gait: not examined in bed. Sensory exam: no abnormal findings. No acute cerebellar signs elicited. F-T-N test fine. Objective Objective Vital Signs Date Time Temp Pulse Resp B/P (MAP) Pulse Ox O2 Delivery O2 Flow Rate FiO2 03/19/17 16:26 Nasal Cannula 2.0 03/19/17 12:12 90 03/19/17 10:09 79 125/60 03/19/17 07:00 98.5 20 98.5 Intake and Output 03/19/17 07:00 Intake Total 520 ml Output Total 200 ml Balance 320 ml Intake Oral 420 ml IV Total 100 ml Output Urine Total 200 ml # Voids 3 Vitals Signs Vitals VS - Last 72 Hours, by Label Date Time Temp Pulse Resp B/P (MAP) Pulse Ox O2 Delivery O2 Flow Rate FiO2 03/19/17 16:26 Nasal Cannula 2.0 03/19/17 12:12 90 Nasal Cannula 2.0 03/19/17 11:49 Nasal Cannula 2.0 03/19/17 10:09 90 Nasal Cannula 2.0 03/19/17 10:09 79 125/60 03/19/17 08:00 Nasal Cannula 2.0 03/19/17 07:23 90 Nasal Cannula 2.0 03/19/17 07:00 98.5 79 20 125/60 (81) 90 Nasal Cannula 2.0 98.5 03/19/17 03:06 Nasal Cannula 2.0 03/18/17 23:35 83 20 114/53 (73) 89 Nasal Cannula 2.0 03/18/17 21:25 94 Nasal Cannula 2.0 03/18/17 20:00 Nasal Cannula 2.0 03/18/17 19:58 22 03/18/17 19:53 98.9 98 28 131/67 (88) 83 Nasal Cannula 2.0 98.9 03/18/17 18:58 92 Nasal Cannula 2.0 03/18/17 15:52 92 Nasal Cannula 2.0 03/18/17 15:00 98.2 53 22 129/70 (89) 92 Nasal Cannula 2.0 98.2 03/18/17 12:14 95 BiPAP/CPAP 03/18/17 11:15 Nasal Cannula 3.0 03/18/17 11:00 98.3 64 20 121/61 (81) 98 Nasal Cannula 3.0 98.3 03/18/17 11:00 98.3 64 20 121/61 (81) 98 Nasal Cannula 3.0 98.3 03/18/17 10:32 88 27 123/65 (84) 93 BiPAP/CPAP 03/18/17 10:02 95 20 129/58 (81) 93 BiPAP/CPAP 03/18/17 09:40 95 BiPAP/CPAP 03/18/17 09:32 68 20 124/64 (84) 100 BiPAP/CPAP 03/18/17 09:23 98 Nasal Cannula 4.5 03/18/17 09:02 67 22 134/58 (83) 99 Nasal Cannula 3.0 03/18/17 08:57 65 131/60 (83) 03/18/17 08:06 61 24 130/60 (83) 99 Nasal Cannula 3.0 03/18/17 07:34 98.6 67 16 122/62 (82) 100 Nasal Cannula 5.0 98.6 Laboratory Laboratory Laboratory Tests Test 03/19/17 03:25 White Blood Count 5.8 x10^3/uL (4.0-11.0) Red Blood Count 3.07 x10^6/uL (3.50-5.40) Hemoglobin 8.6 g/dL (12.0-15.5) Hematocrit 28.0 % (36.0-47.0) Mean Corpuscular Volume 91 fL (79-100) Mean Corpuscular Hemoglobin 28 pg (25-35) Mean Corpuscular Hemoglobin Concent 31 g/dL (31-37) Red Cell Distribution Width 17.1 % (11.5-14.5) Platelet Count 121 x10^3/uL (140-400) Neutrophils (%) (Auto) 53 % (31-73) Lymphocytes (%) (Auto) 31 % (24-48) Monocytes (%) (Auto) 15 % (0-9) Eosinophils (%) (Auto) 2 % (0-3) Basophils (%) (Auto) 0 % (0-3) Neutrophils # (Auto) 3.0 x10^3uL (1.8-7.7) Lymphocytes # (Auto) 1.8 x10^3/uL (1.0-4.8) Monocytes # (Auto) 0.9 x10^3/uL (0.0-1.1) Eosinophils # (Auto) 0.1 x10^3/uL (0.0-0.7) Basophils # (Auto) 0.0 x10^3/uL (0.0-0.2) Sodium Level 143 mmol/L (136-145) Potassium Level 4.4 mmol/L (3.5-5.1) Chloride Level 101 mmol/L (98-107) Carbon Dioxide Level 43 mmol/L (21-32) Anion Gap (6-14) Blood Urea Nitrogen 16 mg/dL (7-20) Creatinine 0.9 mg/dL (0.6-1.0) Estimated GFR (Cockcroft-Gault) 59.7 Glucose Level 89 mg/dL (70-99) Calcium Level 8.5 mg/dL (8.5-10.1) Triglycerides Level 92 mg/dL (0-150) Cholesterol Level 207 mg/dL (0-200) LDL Cholesterol, Calculated 100 mg/dL (0-100) VLDL Cholesterol, Calculated 18 mg/dL (0-40) Non-HDL Cholesterol Calculated 118 mg/dL (0-129) HDL Cholesterol 89 mg/dL (40-60) Cholesterol/HDL Ratio 2.3 Microbiology 03/18/17 Urine Culture - Preliminary, Resulted 03/18/17 Urine Culture Result 1 (MARIBELL) - Preliminary, Resulted Medication Medications Current Medications Albuterol/ Ipratropium (Duoneb) 3 ml PRN Q4HRS PRN NEB SHORTNESS OF BREATH; Start 03/18/17 at 21:00; Status UNV Albuterol/ Ipratropium (Duoneb) 3 ml Q4HRS NEB Last administered on 03/19/17 16:25; Start 03/18/17 at 20:00 Albuterol/ Ipratropium (Duoneb) 3 ml QID NEB ; Start 03/18/17 at 21:00; Status UNV Atorvastatin Calcium (Lipitor) 10 mg QHS PO ; Start 03/19/17 at 21:00 Ceftriaxone Sodium 1 gm/ Sodium Chloride 50 ml @ 100 mls/hr Q24H IV Last administered on 03/19/17 10:14; Start 03/19/17 at 11:00 Clopidogrel Bisulfate (Plavix) 75 mg 1X ONCE PO Last administered on 10:31; Start 03/19/17 at 10:15; Stop 03/19/17 at 10:16; Status DC Clopidogrel Bisulfate (Plavix) 75 mg DAILYWBKFT PO ; Start 03/20/17 at 08:00 Cyanocobalamin (Vitamin B-12) 1,000 mcg DAILY PO Last administered on 10:09; Start 03/19/17 at 09:00 Digoxin (Lanoxin) 125 mcg DAILY PO Last administered on 03/19/17 10:09; Start 03/19/17 at 09:00 Docusate Sodium (Colace) 100 mg DAILY PO Last administered on 03/19/17 10:10; Start 03/19/17 at 09:00 Escitalopram Oxalate (Lexapro) 20 mg DAILY PO Last administered on 03/19/17 10 :10; Start 03/19/17 at 09:00 Gadobutrol (Gadavist) 6 mmol 1X ONCE IV Last administered on 03/19/17 15:34; Start 03/19/17 at 15:30; Stop 03/19/17 at 15:31; Status DC Levothyroxine Sodium (Synthroid) 88 mcg DAILY07 PO Last administered on 06:03; Start 03/19/17 at 07:00 Non-Formulary Medication 4,200 mg DAILY PO ; Start 03/19/17 at 09:00; Status UNV Ondansetron HCl (Zofran Odt) 4 mg PRN Q8HRS PRN PO NAUSEA; Start 03/20/17 at 06 :00 Ondansetron HCl (Zofran Odt) 4 mg Q8HRS PO Last administered on 03/19/17 06:04 ; Start 03/18/17 at 22:00; Stop 03/19/17 at 07:20; Status DC Sennosides (Senna) 8.6 mg DAILY PO Last administered on 03/19/17 10:09; Start 03/19/17 at 09:00 Trazodone HCl (Desyrel) 100 mg QHS PO Last administered on 03/18/17 22:10; Start 03/18/17 at 21:00 Vitamin D (Vitamin D3) 1,000 unit DAILY PO Last administered on 03/19/17 10:10 ; Start 03/19/17 at 09:00 Comment Review of Relevant I have reviewed the following items carly (where applicable) has been applied. AUSTIN ROSA MD Mar 19, 2017 18:59
[2017-03-19 19:50] VITALS: BP 115/56
[2017-03-19] MEDS: traZODone 100 MG TABLET. PO SCH (21:23)
[2017-03-19] MEDS: ATORVASTATIN CALCIUM 10 MG TABLET. PO SCH (21:24)
[2017-03-19 23:37] VITALS: BP 118/67
[2017-03-20] MEDS: IV DEXTROSE 5% - 0.9 % NACL 1,000 ML IV SCH (01:24)
[2017-03-20] MEDS: IPRATRPIUM/ALBUTEROL 0.5/2.5MG 3 ML NEBU. NEB SCH ×5 (03:33→19:14)
--- NOTE | 2017-03-20 03:52 | CONS ---
DATE OF CONSULTATION: 03/19/2017 ATTENDING PHYSICIAN: Vasu Amaya M.D. REASON FOR CONSULTATION: The patient was seen at the request of Dr. Amaya and for rehab evaluation. LOCATION: She is in room 654. HISTORY OF PRESENT ILLNESS: This is an 86-year-old female with paroxysmal atrial fibrillation, chronic obstructive pulmonary disease, carcinoma of lung, hypothyroidism, emphysema. She was found on the floor out of her bed, not known what time. Last time she was seen was on the night before this happened on 03/18/2017 in the morning. She stays with her daughter. Daughter works during the daytime. She usually walks using a roller walker. She was noted with weakness on the right side of her body. CT scan of the brain was negative for bleed. CT scan of the neck revealed degenerative changes. She apparently had multiple falls, osteoporosis, not a good candidate for anticoagulation for her atrial fibrillation. She had radiation therapy for carcinoma of lung, also appendectomy, cholecystectomy, , hysterectomy, tonsillectomy, tympanoplasty, multiple compression fractures, back surgery done twice, hernia repair 3 times. ALLERGIES: SHE IS KNOWN ALLERGIC TO MORPHINE, ASPIRIN AND ADHESIVE. She uses oxygen at home about 5 liters, on Xanax 3 times a day at 0.25 mg. The patient quit smoking recently after smoking for many years. The patient had her daughter as her caregiver and also had a neighbor who is a nurse who helps them. The patient since admission also had MRI scan of the brain done this afternoon, which revealed several scattered foci of restricted diffusion of the left parietal lobe and also focus of the left cingulate gyrus, findings compatible with foci of recent acute or early subacute infarct, also old infarcts of bilateral temporal lobes with cortical involvement and gliosis and multiple old lacunar infarcts, most likely from chronic microvascular ischemic disease and also generalized supratentorial atrophy. The patient had carotid Doppler studies done, which failed to reveal any significant stenotic disease. PHYSICAL EXAMINATION: The patient on physical examination today revealed an elderly female. She is alert and oriented to place and person, follows commands appropriately, moves all 4 extremities voluntarily. No active right foot dorsiflexion was noted. The patient had relative weakness of right hip abductors and right knee extensors. She had 5/5 grade muscle strength in her upper extremities and left lower extremity. Deep tendon reflexes are slightly exaggerated at right knee, absent at both ankles. She had equal perception of touch and pinprick sensation bilaterally. She had negative Tinel's sign over peroneal nerve at fibular neck area. No obvious visual field cut or facial asymmetry noted. No difficulty with her speech or swallowing observed. She had some tenderness to palpation over sacroiliac joint area bilaterally. Straight leg raising test is negative bilaterally. She had crepitus on range of motion on both knee joints without any obvious knee joint effusion and she had pain-free range of motion of both hip joints and her skin is intact at this time. She is using oxygen by nasal cannula. I have not tested her transfers or ambulation skills, but she needs some help with rolling from side to side and Physical Therapy tried to get her up this morning, she required maximal help of 2 persons. ASSESSMENT: Cerebrovascular accident with mild right lower extremity weakness in a patient with known paroxysmal atrial fibrillation, carcinoma of lung, status post radiation treatment, osteoporosis with multiple vertebral body compression fractures and back surgery done twice in the past with continued lower back pain and also with known chronic obstructive pulmonary disease, hypothyroidism, emphysema, clinical evidence of degenerative joint disease of both knees, peripheral neuropathy and degenerative disk disease of lumbar vertebrae without any clinical evidence of ongoing lumbar radiculopathy and CT scan evidence of degenerative changes in the cervical vertebrae. RECOMMENDATIONS: Agree with the plan for physical therapy and occupational therapy to get her right ankle foot brace and to get her up as tolerated, and when medically stable, to consider transfer to inpatient rehab unit or senior living care unit of choice to her family. Dr. Amaya, I appreciate asking me to participate in the care of this interesting patient. I will be glad to follow her with you as needed for her rehabilitation. LINDA CALLAWAY MD DR: MILAGROS/patience JOB#: [id number] / [id number]
[2017-03-20] MEDS ORDERED: ONDANSETRON ODT 4 MG TAB.RAPDIS. PO PRN (06:00)
[2017-03-20] MEDS: LEVOTHYROXINE 88 MCG TABLET PO SCH (06:24)
[2017-03-20 07:59] VITALS: BP 109/45
[2017-03-20] MEDS: SENNOSIDES 8.6 MG TABLET PO SCH (08:47)
[2017-03-20] MEDS: ESCITALOPRAM 10 MG TABLET. PO SCH (08:47)
[2017-03-20] MEDS: CYANOCOBALAMIN (VITAMIN B-12) 1,000 MCG TABLET. PO SCH (08:48)
[2017-03-20] MEDS: CLOPIDOGREL BISULFATE 75 MG TABLET PO SCH (08:48)
[2017-03-20] MEDS: CHOLECALCIFEROL (VITAMIN D3) 1,000 UNIT TABLET PO SCH (08:48)
[2017-03-20] MEDS: DIGOXIN 125 MCG TABLET. PO SCH (08:49)
[2017-03-20] MEDS: DOCUSATE SODIUM 100 MG CAPSULE. PO SCH (08:51)
--- NOTE | 2017-03-20 10:17 | PDOC ---
PROGRESS NOTES Subjective Subjective weak rt leg Objective Objective Vital Signs Date Time Temp Pulse Resp B/P (MAP) Pulse Ox O2 Delivery O2 Flow Rate FiO2 03/20/17 08:49 87 109/45 03/20/17 08:00 Nasal Cannula 2.0 03/20/17 07:59 98.4 16 85 98.4 Intake and Output 03/20/17 07:00 Intake Total 650 ml Balance 650 ml Intake Oral 600 ml IV Total 50 ml # Voids 4 Physical Exam Abdomen: Normal bowel sounds, Soft Heart: Regular rate, Normal S1, Normal S2 General: Alert HEENT: Atraumatic Lungs: Clear to auscultation MUSCULOSKELETAL: No swelling Neck: Supple Neuro: Normal speech Psych/Mental Status: Mental status NL Skin: No breakdown COMMENT rt side weakness Diagnosis Problem List Problems Medical Problems: (1) Altered mental status Status: Acute (2) Fall Status: Acute (3) UTI (urinary tract infection) Status: Acute Assessment Assessment Problems Medical Problems: (1) Altered mental status Status: Acute (2) Fall Status: Acute (3) UTI (urinary tract infection) Status: Acute FINAL IMPRESSION: 1. Cerebrovascular accident, right-sided weakness. 2. Fall at home from bed. 3. Chronic obstructive pulmonary disease, end-stage, on 5 liters oxygen. 4. Paroxysmal atrial fibrillation. 5. Osteoporosis. 6. Anemia. 7. History of lung cancer, had a radiation treatment 5 years ago. 8. Urinary tract infection. We will send UA and culture. Start on Rocephin. PLAN: cardiology consult for a fib MRI brain showed cva acute. rehab consult appreciated echo done today carotid Doppler -ve. cannot take asa ,will start on plavix. lipitor for chol. snu soon spoke with family , rocephin for uti At this time, admit to hospital. CT head was done. Neurology was consulted. Speech, PT, OT, and Rehab. Problems: Plan Plan of Care Problems Medical Problems: (1) Altered mental status Status: Acute (2) Fall Status: Acute (3) UTI (urinary tract infection) Status: Acute Comment Review of Relevant I have reviewed the following items carly (where applicable) has been applied. Labs Microbiology 03/18/17 Urine Culture - Preliminary, Resulted 03/18/17 Urine Culture Result 1 (MARIBELL) - Preliminary, Resulted Medications Current Medications Atorvastatin Calcium (Lipitor) 10 mg QHS PO Last administered on 03/19/17 21: 24; Start 03/19/17 at 21:00 Ceftriaxone Sodium 1 gm/ Sodium Chloride 50 ml @ 100 mls/hr Q24H IV Last administered on 03/19/17 10:14; Start 03/19/17 at 11:00 Clopidogrel Bisulfate (Plavix) 75 mg DAILYWBKFT PO Last administered on 08:48; Start 03/20/17 at 08:00 Gadobutrol (Gadavist) 6 mmol 1X ONCE IV Last administered on 03/19/17 15:34; Start 03/19/17 at 15:30; Stop 03/19/17 at 15:31; Status DC Ondansetron HCl (Zofran Odt) 4 mg PRN Q8HRS PRN PO NAUSEA; Start 03/20/17 at 06 :00 Vitals/I & O Vital Sign - Last 24 Hours 03/19/17 03/19/17 03/19/17 03/19/17 11:49 12:12 16:26 19:50 Temp 98.1 98.1 Pulse 91 Resp 16 B/P (MAP) 115/56 (75) Pulse Ox 90 O2 Delivery Nasal Cannula Nasal Cannula Nasal Cannula O2 Flow Rate 2.0 2.0 2.0 03/19/17 03/19/17 03/19/17 03/19/17 20:00 21:24 22:24 23:12 Resp 17 20 Pulse Ox 93 O2 Delivery Nasal Cannula Nasal Cannula Nasal Cannula BiPAP/CPAP O2 Flow Rate 2.0 2.0 2.0 03/19/17 03/19/17 03/20/17 03/20/17 23:37 23:50 02:15 03:05 Temp 98.1 98.1 Pulse 76 Resp 16 22 B/P (MAP) 118/67 (84) Pulse Ox 94 95 97 96 O2 Delivery Nasal Cannula BiPAP/CPAP BiPAP/CPAP BiPAP/CPAP O2 Flow Rate 2.0 03/20/17 03/20/17 03/20/17 03/20/17 03:33 05:29 07:59 08:00 Temp 98.4 98.4 Pulse 87 Resp 16 B/P (MAP) 109/45 (66) Pulse Ox 95 95 85 O2 Delivery BiPAP/CPAP BiPAP/CPAP Nasal Cannula Nasal Cannula O2 Flow Rate 2.0 2.0 03/20/17 08:49 Pulse 87 B/P (MAP) 109/45 Intake and Output 03/19/17 03/19/17 03/20/17 15:00 23:00 07:00 Intake Total 50 ml 600 ml Balance 50 ml 600 ml PAUL MALDONADO MD Mar 20, 2017 10:17
[2017-03-20] MEDS: oxyCODONE/APAP 10/325 1 TAB TABLET PO PRN (10:40)
--- NOTE | 2017-03-20 11:09 | PDOC ---
PROGRESS NOTES Subjective Subjective No new complaints. Objective Objective Vital Signs Date Time Temp Pulse Resp B/P (MAP) Pulse Ox O2 Delivery O2 Flow Rate FiO2 03/20/17 11:02 Nasal Cannula 2.0 03/20/17 10:40 85 03/20/17 08:49 87 109/45 03/20/17 07:59 98.4 16 98.4 Intake and Output 03/20/17 07:00 Intake Total 650 ml Balance 650 ml Intake Oral 600 ml IV Total 50 ml # Voids 4 Physical Exam Physical Exam She is awake,supine in bed and she had voluntary movement of right ankle today. Assessment Assessment Problems Medical Problems: (1) Altered mental status Status: Acute (2) Fall Status: Acute (3) UTI (urinary tract infection) Status: Acute Plan Plan of Care I spoke to and agree with plans for transfer to SNF when medically stable.To cancel right AFO. Comment Review of Relevant I have reviewed the following items carly (where applicable) has been applied. Labs Laboratory Tests Test 03/19/17 03:25 White Blood Count 5.8 x10^3/uL (4.0-11.0) Red Blood Count 3.07 x10^6/uL (3.50-5.40) Hemoglobin 8.6 g/dL (12.0-15.5) Hematocrit 28.0 % (36.0-47.0) Mean Corpuscular Volume 91 fL (79-100) Mean Corpuscular Hemoglobin 28 pg (25-35) Mean Corpuscular Hemoglobin Concent 31 g/dL (31-37) Red Cell Distribution Width 17.1 % (11.5-14.5) Platelet Count 121 x10^3/uL (140-400) Neutrophils (%) (Auto) 53 % (31-73) Lymphocytes (%) (Auto) 31 % (24-48) Monocytes (%) (Auto) 15 % (0-9) Eosinophils (%) (Auto) 2 % (0-3) Basophils (%) (Auto) 0 % (0-3) Neutrophils # (Auto) 3.0 x10^3uL (1.8-7.7) Lymphocytes # (Auto) 1.8 x10^3/uL (1.0-4.8) Monocytes # (Auto) 0.9 x10^3/uL (0.0-1.1) Eosinophils # (Auto) 0.1 x10^3/uL (0.0-0.7) Basophils # (Auto) 0.0 x10^3/uL (0.0-0.2) Sodium Level 143 mmol/L (136-145) Potassium Level 4.4 mmol/L (3.5-5.1) Chloride Level 101 mmol/L (98-107) Carbon Dioxide Level 43 mmol/L (21-32) Anion Gap (6-14) Blood Urea Nitrogen 16 mg/dL (7-20) Creatinine 0.9 mg/dL (0.6-1.0) Estimated GFR (Cockcroft-Gault) 59.7 Glucose Level 89 mg/dL (70-99) Calcium Level 8.5 mg/dL (8.5-10.1) Triglycerides Level 92 mg/dL (0-150) Cholesterol Level 207 mg/dL (0-200) LDL Cholesterol, Calculated 100 mg/dL (0-100) VLDL Cholesterol, Calculated 18 mg/dL (0-40) Non-HDL Cholesterol Calculated 118 mg/dL (0-129) HDL Cholesterol 89 mg/dL (40-60) Cholesterol/HDL Ratio 2.3 Microbiology 03/18/17 Urine Culture - Preliminary, Resulted 03/18/17 Urine Culture Result 1 (MARIBELL) - Preliminary, Resulted Medications Current Medications Ceftriaxone Sodium 50 ml @ 100 mls/hr 1X ONCE IV Last administered on 08:30; Start 03/18/17 at 08:30; Stop 03/18/17 at 08:59; Status DC Sodium Chloride 1,000 ml @ 75 mls/hr [id number] IV Last administered on 09:10; Start 03/18/17 at 09:10; Stop 03/18/17 at 23:01; Status DC Ceftriaxone Sodium 1 gm/ Sodium Chloride 50 ml @ 100 mls/hr Q24H IV Last administered on 03/19/17 10:14; Start 03/19/17 at 11:00; Stop 03/20/17 at 10:19 ; Status DC Dextrose/Sodium Chloride 1,000 ml @ 75 mls/hr [id number] IV Last administered on 03/20/17 01:24; Start 03/18/17 at 10:45; Stop 03/20/17 at 10:19; Status DC Albuterol Sulfate (Ventolin Neb Soln) 2.5 mg PRN Q2HR PRN NEB [id number]; Start at 17:45 Albuterol/ Ipratropium (Duoneb) 3 ml Q4HRS NEB Last administered on 03/20/17 11:01; Start 03/18/17 at 20:00 Alprazolam (Xanax) 0.25 mg PRN TID PRN PO ANXIETY / AGITATION; Start 03/18/17 at 18:45 Cyanocobalamin (Vitamin B-12) 1,000 mcg DAILY PO Last administered on 08:48; Start 03/19/17 at 09:00 Digoxin (Lanoxin) 125 mcg DAILY PO Last administered on 03/20/17 08:49; Start 03/19/17 at 09:00 Docusate Sodium (Colace) 100 mg DAILY PO Last administered on 03/20/17 08:51; Start 03/19/17 at 09:00 Escitalopram Oxalate (Lexapro) 20 mg DAILY PO Last administered on 03/20/17 08 :47; Start 03/19/17 at 09:00 Albuterol/ Ipratropium (Duoneb) 3 ml QID NEB ; Start 03/18/17 at 21:00; Status UNV Levothyroxine Sodium (Synthroid) 88 mcg DAILY07 PO Last administered on 06:24; Start 03/19/17 at 07:00 Ondansetron HCl (Zofran Odt) 4 mg Q8HRS PO Last administered on 03/19/17 06:04 ; Start 03/18/17 at 22:00; Stop 03/19/17 at 07:20; Status DC Oxycodone/ Acetaminophen (Percocet 10/325) 1 tab PRN TID PRN PO PAIN Last administered on 03/20/17 10:40; Start 03/18/17 at 18:45 Sennosides (Senna) 8.6 mg DAILY PO Last administered on 03/20/17 08:47; Start 03/19/17 at 09:00 Trazodone HCl (Desyrel) 100 mg QHS PO Last administered on 03/19/17 21:23; Start 03/18/17 at 21:00 Vitamin D (Vitamin D3) 1,000 unit DAILY PO Last administered on 03/20/17 08:48 ; Start 03/19/17 at 09:00 Non-Formulary Medication 4,200 mg DAILY PO ; Start 03/19/17 at 09:00; Status UNV Albuterol/ Ipratropium (Duoneb) 3 ml PRN Q4HRS PRN NEB SHORTNESS OF BREATH; Start 03/18/17 at 21:00; Status UNV Ondansetron HCl (Zofran Odt) 4 mg PRN Q8HRS PRN PO NAUSEA; Start 03/20/17 at 06 :00 Clopidogrel Bisulfate (Plavix) 75 mg DAILYWBKFT PO Last administered on 08:48; Start 03/20/17 at 08:00 Clopidogrel Bisulfate (Plavix) 75 mg 1X ONCE PO Last administered on 10:31; Start 03/19/17 at 10:15; Stop 03/19/17 at 10:16; Status DC Atorvastatin Calcium (Lipitor) 10 mg QHS PO Last administered on 03/19/17 21: 24; Start 03/19/17 at 21:00 Gadobutrol (Gadavist) 6 mmol 1X ONCE IV Last administered on 03/19/17 15:34; Start 03/19/17 at 15:30; Stop 03/19/17 at 15:31; Status DC Active Scripts Active Zofran Odt (Ondansetron) 4 Mg Tab.rapdis 1 Tab SL Q8HRS Vitamin B-12 (Cyanocobalamin (Vitamin B-12)) 1,000 Mcg Tablet 1 Tab PO DAILY Senna (Sennosides) 8.6 Mg Tablet 8.6 Mg PO DAILY Docusate Sodium 100 Mg Capsule 1 Cap PO DAILY Percocet 10-325 Mg Tablet (Oxycodone/Acetaminophen) 1 Each Tablet 1 Tab PO TID PRN Reported Duoneb 0.5-3(2.5) Mg/3 Ml (Albuterol/Ipratropium) 3 Ml Ampul.neb 3 Ml NEB QID Trazodone Hcl 100 Mg Tablet 1 Tab PO QHS Vitamin D (Cholecalciferol (Vitamin D3)) 1,000 Unit Capsule 1 Cap PO DAILY Cranberry (Cranberry Fruit) 400 Mg Tablet 4,200 Mg PO DAILY Levothyroxine Sodium 88 Mcg Tablet 1 Tab PO DAILY Alprazolam 0.25 Mg Tablet 1 Tab PO PRN TID PRN Digoxin 125 Mcg Tablet 1 Tab PO DAILY Escitalopram Oxalate 10 Mg Tablet 20 Mg PO DAILY Vitals/I & O Vital Sign - Last 24 Hours 03/19/17 03/19/17 03/19/17 03/19/17 11:49 12:12 16:26 19:50 Temp 98.1 98.1 Pulse 91 Resp 16 B/P (MAP) 115/56 (75) Pulse Ox 90 O2 Delivery Nasal Cannula Nasal Cannula Nasal Cannula O2 Flow Rate 2.0 2.0 2.0 03/19/17 03/19/17 03/19/17 03/19/17 20:00 21:24 22:24 23:12 Resp 17 20 Pulse Ox 93 O2 Delivery Nasal Cannula Nasal Cannula Nasal Cannula BiPAP/CPAP O2 Flow Rate 2.0 2.0 2.0 03/19/17 03/19/17 03/20/17 03/20/17 23:37 23:50 02:15 03:05 Temp 98.1 98.1 Pulse 76 Resp 16 22 B/P (MAP) 118/67 (84) Pulse Ox 94 95 97 96 O2 Delivery Nasal Cannula BiPAP/CPAP BiPAP/CPAP BiPAP/CPAP O2 Flow Rate 2.0 03/20/17 03/20/17 03/20/17 03/20/17 03:33 05:29 07:59 08:00 Temp 98.4 98.4 Pulse 87 Resp 16 B/P (MAP) 109/45 (66) Pulse Ox 95 95 85 O2 Delivery BiPAP/CPAP BiPAP/CPAP Nasal Cannula Nasal Cannula O2 Flow Rate 2.0 2.0 03/20/17 03/20/17 03/20/17 08:49 10:40 11:02 Pulse 87 B/P (MAP) 109/45 Pulse Ox 85 O2 Delivery Nasal Cannula Nasal Cannula O2 Flow Rate 2.0 2.0 Intake and Output 03/19/17 03/19/17 03/20/17 15:00 23:00 07:00 Intake Total 50 ml 600 ml Balance 50 ml 600 ml LINDA CALLAWAY MD Mar 20, 2017 11:09
[2017-03-20 11:15] VITALS: BP 113/44
[2017-03-20] MEDS ORDERED: oxyCODONE/APAP 5/325 1 TAB TABLET PO PRN (11:30)
--- NOTE | 2017-03-20 12:11 | PDOC ---
PULMONARY PROGRESS NOTES Subjective back on BIPAP for low oxygen Vitals Vital Signs Date Time Temp Pulse Resp B/P (MAP) Pulse Ox O2 Delivery O2 Flow Rate FiO2 03/20/17 11:15 100.2 60 24 113/44 (67) 80 BiPAP/CPAP 100.2 03/20/17 11:02 2.0 General: No acute distress, Lethargic HEENT: Other Lungs: Other (decrease bs) Cardiovascular: S1, S2 Abdomen: Soft, Non-tender Extremities: No Edema Skin: Warm Labs Laboratory Tests Test 03/19/17 03:25 White Blood Count 5.8 x10^3/uL (4.0-11.0) Red Blood Count 3.07 x10^6/uL (3.50-5.40) Hemoglobin 8.6 g/dL (12.0-15.5) Hematocrit 28.0 % (36.0-47.0) Mean Corpuscular Volume 91 fL (79-100) Mean Corpuscular Hemoglobin 28 pg (25-35) Mean Corpuscular Hemoglobin Concent 31 g/dL (31-37) Red Cell Distribution Width 17.1 % (11.5-14.5) Platelet Count 121 x10^3/uL (140-400) Neutrophils (%) (Auto) 53 % (31-73) Lymphocytes (%) (Auto) 31 % (24-48) Monocytes (%) (Auto) 15 % (0-9) Eosinophils (%) (Auto) 2 % (0-3) Basophils (%) (Auto) 0 % (0-3) Neutrophils # (Auto) 3.0 x10^3uL (1.8-7.7) Lymphocytes # (Auto) 1.8 x10^3/uL (1.0-4.8) Monocytes # (Auto) 0.9 x10^3/uL (0.0-1.1) Eosinophils # (Auto) 0.1 x10^3/uL (0.0-0.7) Basophils # (Auto) 0.0 x10^3/uL (0.0-0.2) Sodium Level 143 mmol/L (136-145) Potassium Level 4.4 mmol/L (3.5-5.1) Chloride Level 101 mmol/L (98-107) Carbon Dioxide Level 43 mmol/L (21-32) Anion Gap (6-14) Blood Urea Nitrogen 16 mg/dL (7-20) Creatinine 0.9 mg/dL (0.6-1.0) Estimated GFR (Cockcroft-Gault) 59.7 Glucose Level 89 mg/dL (70-99) Calcium Level 8.5 mg/dL (8.5-10.1) Triglycerides Level 92 mg/dL (0-150) Cholesterol Level 207 mg/dL (0-200) LDL Cholesterol, Calculated 100 mg/dL (0-100) VLDL Cholesterol, Calculated 18 mg/dL (0-40) Non-HDL Cholesterol Calculated 118 mg/dL (0-129) HDL Cholesterol 89 mg/dL (40-60) Cholesterol/HDL Ratio 2.3 Medications Active Scripts Medications Dose Route/Sig Max Daily Dose Days Date Category Cefpodoxime Proxetil 100 Mg Tablet 100 Mg PO BID 3 02/21/17 Rx Promethazine Hcl 25 Mg Supp.rect 25 Mg RC Q6H PRN 12/14/16 Rx Zofran Odt (Ondansetron) 4 Mg Tab.rapdis 1 Tab SL Q8HRS 12/09/16 Rx Duoneb 0.5-3(2.5) Mg/3 Ml (Albuterol/Ipratropium) 3 Ml Ampul.neb 3 Ml NEB QID 12/05/16 Reported Vitamin B-12 (Cyanocobalamin (Vitamin B-12)) 1,000 Mcg Tablet 1 Tab PO DAILY 10/25/16 Rx Senna (Sennosides) 8.6 Mg Tablet 8.6 Mg PO DAILY 06/20/16 Rx Docusate Sodium 100 Mg Capsule 1 Cap PO DAILY 06/20/16 Rx Trazodone Hcl 100 Mg Tablet 1 Tab PO QHS 06/07/16 Reported Vitamin D (Cholecalciferol (Vitamin D3)) 1,000 Unit Capsule 1 Cap PO DAILY 06/07/16 Reported Percocet 10-325 Mg Tablet (Oxycodone/Acetaminophen) 1 Each Tablet 1 Tab PO TID PRN 03/14/16 Rx Cranberry (Cranberry Fruit) 400 Mg Tablet 4,200 Mg PO DAILY 03/07/16 Reported Levothyroxine Sodium 88 Mcg Tablet 1 Tab PO DAILY 03/06/16 Reported Alprazolam 0.25 Mg Tablet 1 Tab PO PRN TID PRN 03/06/16 Reported Digoxin 125 Mcg Tablet 1 Tab PO DAILY 03/07/15 Reported Zofran Odt (Ondansetron) 4 Mg Tab.rapdis 1 Tab SL Q8HRS PRN 03/07/15 Reported Escitalopram Oxalate 10 Mg Tablet 20 Mg PO DAILY 03/14/14 Reported Impression . 1. 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 2. Encephalopathy, suspect secondary to CO2 narcosis. improved. 3. Fall, possibly related to CO2 narcosis. 4. Possible cerebrovascular accident. 5. Chronic obstructive pulmonary disease, on chronic oxygen supplementation at 5 liters. 6. History of lung cancer status post radiation treatment 5 years ago. Plan . 1. d/w RN. ok to titrate FIO2 to keep sats around 90% 2. P.r.n. BiPAP. 3. ABG later today 4. Continue current bronchodilators. KESHIA CHAO MD Mar 20, 2017 12:11
[2017-03-20] MEDS: predniSONE 10 MG TABLET PO SCH (12:44)
[2017-03-20] MEDS: ACETAMINOPHEN 500 MG TABLET PO PRN (12:45)
--- NOTE | 2017-03-20 12:55 | CARD ---
APPROVED REPORT EXAM: Two-dimensional and M-mode echocardiogram with Doppler and color Doppler. Other Information Quality : Average INDICATION CVA/TIA 2D DIMENSIONS RVDd2.9 (2.9-3.5cm)Left Atrium(2D)3.0 (1.6-4.0cm) IVSd1.4 (0.7-1.1cm)Aortic Root(2D)3.0 (2.0-3.7cm) LVDd4.8 (3.9-5.9cm)LVOT Diameter1.8 (1.8-2.4cm) PWd1.2 (0.7-1.1cm)LVDs3.0 (2.5-4.0cm) FS (%) 37.6 %SV71.5 ml LVEF(%)67.6 (>50%) Aortic Valve AoV Peak Matthew.178.4cm/sAoV VTI27.7cm AO Peak GR.12.7mmHgLVOT Peak Matthew.134.3cm/s LVOT VTI 22.44cmAO Mean GR.7mmHg TRISH (VMAX)1.07av1EZP (VTI)1.86cm2 AI P 1/2 Ycmn105xk Mitral Valve MV E Kkselynx541.1cm/sMV DECEL QFIJ441nb MV A Vteoxpgg666.8cm/sMV E Mean Gr.2mmHg MV CGV24moF/A Ratio0.9 MV A Wpnuxjkm83wjYKX (PHT)3.42cm2 TDI E/Lateral E'11.2E/Medial E'7.4 Pulmonary Valve PV Peak Ghafzoxo697.3cm/sPV Peak Grad.9mmHg RVOT VTI10.4cm Tricuspid Valve TR P. Psggvscf255sg/sTR Peak Gr.48mmHg Pulmonary Vein S1 Gwxoltjf43.7cm/sD2 Itixxmmj24.3cm/s LEFT VENTRICLE The left ventricle is normal size. There is mild concentric left ventricular hypertrophy. The left ve ntricular systolic function is normal. The ejection fraction is 60-65%. There is normal LV segmental wall motion. Transmitral Doppler flow pattern is Grade I-abnormal relaxation pattern. There is no geri tricular septal defect visualized. RIGHT VENTRICLE The right ventricle is normal size. There is normal right ventricular wall thickness. The right ventr icular systolic function is normal. ATRIA The left atrium size is normal. The right atrium size is normal. The interatrial septum is intact wit h no evidence for an atrial septal defect or patent foramen ovale as noted on 2-D or Doppler imaging. AORTIC VALVE The aortic valve is mildly sclerotic. Doppler and Color Flow revealed mild aortic regurgitation. Ther e is no significant aortic valvular stenosis. There is no aortic valvular vegetation. MITRAL VALVE The mitral valve is normal in structure and function. There is no mitral valve stenosis. Doppler and Color Flow revealed no mitral valve regurgitation noted. TRICUSPID VALVE The tricuspid valve is normal in structure and function. Doppler and Color Flow revealed mild tricusp id regurgitation. The PA pressure was estimated at 51 mmHg. PULMONIC VALVE The pulmonary valve is normal in structure and function. Doppler and Color Flow revealed trace pulmon ic valvular regurgitation. GREAT VESSELS The aortic root is normal in size. Normal pulmonary venous flow (Doppler). The IVC is normal in size and collapses >50% with inspiration. PERICARDIAL EFFUSION There is no pleural effusion. There is no evidence of significant pericardial effusion. Critical Notification Critical Value: No <Conclusion> The left ventricular systolic function is normal. The ejection fraction is 60-65%. There is normal LV segmental wall motion. Mild aortic regurgitation. Mild tricuspid regurgitation. The PA pressure was estimated at 51 mmHg. There is no evidence of significant pericardial effusion.
[2017-03-20 14:00] VITALS: BP 83/54
[2017-03-20 14:08] LABS: PH ABG 7.33 (7.35-7.45)
[2017-03-20 14:09] LABS: HCO3 ABG 35 mmol/L (21-28); PCO2 ABG 68 mmHg (35-46); PO2 ABG 49 mmHg (65-108); SAT O2 ABG 79 % (92-99)
--- NOTE | 2017-03-20 17:19 | PDOC ---
PROGRESS NOTES Assessment Assessment Metabolic encephalopathy. Fall UTI AFib COPD Hypothyroidism Lung cancer. SOB RECOMMENDATIONS/PLAN: Treat medical diseases. OT/PT HCT no acute findings. HISTORY OF THE PRESENT ILLNESS: 86-y-old female patient had a fall likely due to found on the floor from bed. She had mental status changes and was unable to recall the events. She was brought to the ER of [facility] for furtehr evaluation. She did not have focalized sensory or motor deficits noted. PAST SURGICAL HISTORY: Lung cancer received radiation therapy. PAST SURGERY HISTORY: Appendectomy, gallbladder surgery, , hysterectomy, tonsillectomy with tympanoplasty, multiple compression fractures, back surgery x2, and hernia repair x3. ALLERGIES: ADHESIVES, ASPIRIN, AND MORPHINE. PERSONAL HISTORY: She smoked for many years and quit recently, one pack at least. Denies alcohol or street drugs. MEDICATIONS: Refer to [facility] HISTORY: Non contributory. REVIEW OF SYSTEMS: Constitutional: No malnutrition, weight loss, cachexia. Head: No traumatic brain or head injury. Skin: No edema, or rash. Ear: No infection. Eyes: No vision loss or color blindness. Nose: No bleeding or purulent discharges. Hearing: Hearing decrease. Neck: No injury. Breast: No history of cancer, masses,or discharges. Cardiac: No AK, arrhythmia. Pulmonary: COPD, lung cancer. GI: No GI ulcer, GI bleeding. Urinary/genital: UTI. Endocrinologic: No cousin face, craniofacial dysmorphism, polydactyly. Skeletomuscular: No muscular atrophy, deformity. Neurological: see HP. Psychiatric: Denies drug use/abuse. Otherwise, not [id number] review of systems. PHYSICAL EXAMINATION: General appearance is in no acute distress. HEENT: Normocephalic and nontraumatic. Eyes, nose, ears, and throat are unremarkable. Neck is supple. No lymphadenopathy. No crepitus. Cardiovascular: S1, S2, irregular rate and rhythm. SM heart murmur 4/6. Pulmonary: Breathing sounds decreased to auscultation bilaterally. Abdomen: Bowel sounds are positive. Extremities: No rash, lesions, or edema. No restriction of range of motion NEUROLOGICAL EXAMINATION: Awake. Oriented to place and person but not to time. PERRL. EOMI. CN: no focal findings. Muscle tone: within normal. Muscle strength: 4+ DTR: 2- Plantar reflex: Neutral response bilaterally Gait: not examined in bed. Sensory exam: no abnormal findings. No acute cerebellar signs elicited. F-T-N test fine. Objective Objective Vital Signs Date Time Temp Pulse Resp B/P (MAP) Pulse Ox O2 Delivery O2 Flow Rate FiO2 03/20/17 16:32 93 BiPAP/CPAP 03/20/17 14:00 99.1 91 20 83/54 (64) 99.1 03/20/17 12:57 2.0 Intake and Output 03/20/17 07:00 Intake Total 650 ml Balance 650 ml Intake Oral 600 ml IV Total 50 ml # Voids 4 Vitals Signs Vitals VS - Last 72 Hours, by Label Date Time Temp Pulse Resp B/P (MAP) Pulse Ox O2 Delivery O2 Flow Rate FiO2 03/20/17 16:32 93 BiPAP/CPAP 03/20/17 14:00 99.1 91 20 83/54 (64) 90 BiPAP/CPAP 99.1 03/20/17 12:57 95 Nasal Cannula 2.0 03/20/17 12:13 95 BiPAP/CPAP 03/20/17 11:15 100.2 60 24 113/44 (67) 80 BiPAP/CPAP 100.2 03/20/17 11:02 Nasal Cannula 2.0 03/20/17 10:40 85 Nasal Cannula 2.0 03/20/17 08:49 87 109/45 03/20/17 08:00 Nasal Cannula 2.0 03/20/17 07:59 98.4 87 16 109/45 (66) 85 Nasal Cannula 2.0 98.4 03/20/17 05:29 95 BiPAP/CPAP 03/20/17 03:33 95 BiPAP/CPAP 03/20/17 03:05 22 96 BiPAP/CPAP 03/20/17 02:15 97 BiPAP/CPAP 03/19/17 23:50 95 BiPAP/CPAP 03/19/17 23:37 98.1 76 16 118/67 (84) 94 Nasal Cannula 2.0 98.1 03/19/17 23:12 93 BiPAP/CPAP 03/19/17 22:24 20 03/19/17 21:24 17 Nasal Cannula 2.0 03/19/17 20:00 Nasal Cannula 2.0 03/19/17 19:50 98.1 91 16 115/56 (75) Nasal Cannula 2.0 98.1 03/19/17 16:26 Nasal Cannula 2.0 03/19/17 11:49 Nasal Cannula 2.0 03/19/17 10:09 90 Nasal Cannula 2.0 03/19/17 10:09 79 125/60 03/19/17 08:00 Nasal Cannula 2.0 03/19/17 07:23 90 Nasal Cannula 2.0 03/19/17 07:00 98.5 79 20 125/60 (81) 90 Nasal Cannula 2.0 98.5 Laboratory Laboratory Laboratory Tests Test 03/20/17 12:23 O2 Saturation 79 % (92-99) Arterial Blood pH 7.33 (7.35-7.45) Arterial Blood pCO2 at Patient Temp 68 mmHg (35-46) Arterial Blood pO2 at Patient Temp 49 mmHg (65-108) Arterial Blood HCO3 35 mmol/L (21-28) Arterial Blood Base Excess 7 mmol/L (-3-3) Microbiology 03/18/17 Urine Culture - Final, Complete 03/18/17 Urine Culture Result 1 (MARIBELL) - Final, Complete Medication Medications Current Medications Acetaminophen (Tylenol) 500 mg PRN Q6HRS PRN PO MILD PAIN / TEMP Last administered on 03/20/17 12:45; Start 03/20/17 at 11:30 Atorvastatin Calcium (Lipitor) 10 mg QHS PO Last administered on 03/19/17 21: 24; Start 03/19/17 at 21:00 Clopidogrel Bisulfate (Plavix) 75 mg DAILYWBKFT PO Last administered on 08:48; Start 03/20/17 at 08:00 Ondansetron HCl (Zofran Odt) 4 mg PRN Q8HRS PRN PO NAUSEA; Start 03/20/17 at 06 :00 Oxycodone/ Acetaminophen (Percocet 5/325) 1 tab PRN TID PRN PO MODERATE PAIN; Start 03/20/17 at 11:30 Prednisone (Prednisone) 10 mg DAILY PO Last administered on 03/20/17 12:44; Start 03/20/17 at 12:00 Comment Review of Relevant I have reviewed the following items carly (where applicable) has been applied. AUSTIN ROSA MD Mar 20, 2017 17:19
[2017-03-20 19:12] VITALS: BP 103/61
--- NOTE | 2017-03-20 21:11 | PDOC2 ---
CONSULT Date of Consult Date of Consult DATE: 03/20/17 TIME: 20:46 Reason for Consult Reason for Consult: Atrial fibrillation Referring Physician Referring Physician: Dr. Amaya Identification/Chief Complaint Chief Complaint Fall and CVA History of Present Illness Reason for Visit: Patient is laying in bed on O2 by nasal cannula, attempting to eat, she is being fed by her daughter. She appears to be somewhat confused but answers questions although the answer is invariably no. Not a good historian at this point. The patient denies having any previous cardiac problems but by the chart we see that the patient has a known history of paroxysmal atrial fibrillation as well as a lung cancer and radiation, hypertension and severe COPD with pulmonary hypertension. The patient was found on the floor and confused on able to move much of the right side. It is not known how long she was down but she came in with an encephalopathy, weakness, in atrial fibrillation, and the CT of the head showed no acute bleed but a possible CVA. The patient is being followed by the neurologist, the directory clerk, and the physical therapist. I was asked to see the patient about the atrial fibrillation. The rate has been controlled since admission. Past Medical History Cardiovascular: AFIB, HTN Pulmonary: COPD, Pneumonia Heme/Onc: Cancer Psych: Anxiety, Depression Musculoskeletal: low back pain, Osteoarthritis Past Surgical History Past Surgical History: Appendectomy, Cholecystectomy, Hernia Repair, Tonsillectomy, Hysterectomy, Other Family History Family History: Diabetes, Heart Disease, Hypertension, Stroke Social History ALCOHOL: none Drugs: None Lives: with Family Current Problem List Problem List Problems Medical Problems: (1) Altered mental status Status: Acute (2) Fall Status: Acute (3) UTI (urinary tract infection) Status: Acute Current Medications Current Medications Current Medications Ceftriaxone Sodium 50 ml @ 100 mls/hr 1X ONCE IV Last administered on 08:30; Start 03/18/17 at 08:30; Stop 03/18/17 at 08:59; Status DC Sodium Chloride 1,000 ml @ 75 mls/hr [id number] IV Last administered on 09:10; Start 03/18/17 at 09:10; Stop 03/18/17 at 23:01; Status DC Ceftriaxone Sodium 1 gm/ Sodium Chloride 50 ml @ 100 mls/hr Q24H IV Last administered on 03/19/17 10:14; Start 03/19/17 at 11:00; Stop 03/20/17 at 10:19 ; Status DC Dextrose/Sodium Chloride 1,000 ml @ 75 mls/hr [id number] IV Last administered on 03/20/17 01:24; Start 03/18/17 at 10:45; Stop 03/20/17 at 10:19; Status DC Albuterol Sulfate (Ventolin Neb Soln) 2.5 mg PRN Q2HR PRN NEB [id number]; Start at 17:45 Albuterol/ Ipratropium (Duoneb) 3 ml Q4HRS NEB Last administered on 03/20/17 19:14; Start 03/18/17 at 20:00 Alprazolam (Xanax) 0.25 mg PRN TID PRN PO ANXIETY / AGITATION; Start 03/18/17 at 18:45 Cyanocobalamin (Vitamin B-12) 1,000 mcg DAILY PO Last administered on 08:48; Start 03/19/17 at 09:00 Digoxin (Lanoxin) 125 mcg DAILY PO Last administered on 03/20/17 08:49; Start 03/19/17 at 09:00 Docusate Sodium (Colace) 100 mg DAILY PO Last administered on 03/20/17 08:51; Start 03/19/17 at 09:00 Escitalopram Oxalate (Lexapro) 20 mg DAILY PO Last administered on 03/20/17 08 :47; Start 03/19/17 at 09:00 Albuterol/ Ipratropium (Duoneb) 3 ml QID NEB ; Start 03/18/17 at 21:00; Status UNV Levothyroxine Sodium (Synthroid) 88 mcg DAILY07 PO Last administered on 06:24; Start 03/19/17 at 07:00 Ondansetron HCl (Zofran Odt) 4 mg Q8HRS PO Last administered on 03/19/17 06:04 ; Start 03/18/17 at 22:00; Stop 03/19/17 at 07:20; Status DC Oxycodone/ Acetaminophen (Percocet 10/325) 1 tab PRN TID PRN PO SEVERE PAIN Last administered on 03/20/17 10:40; Start 03/18/17 at 18:45 Sennosides (Senna) 8.6 mg DAILY PO Last administered on 03/20/17 08:47; Start 03/19/17 at 09:00 Trazodone HCl (Desyrel) 100 mg QHS PO Last administered on 03/19/17 21:23; Start 03/18/17 at 21:00 Vitamin D (Vitamin D3) 1,000 unit DAILY PO Last administered on 03/20/17 08:48 ; Start 03/19/17 at 09:00 Non-Formulary Medication 4,200 mg DAILY PO ; Start 03/19/17 at 09:00; Status UNV Albuterol/ Ipratropium (Duoneb) 3 ml PRN Q4HRS PRN NEB SHORTNESS OF BREATH; Start 03/18/17 at 21:00; Status UNV Ondansetron HCl (Zofran Odt) 4 mg PRN Q8HRS PRN PO NAUSEA; Start 03/20/17 at 06 :00 Clopidogrel Bisulfate (Plavix) 75 mg DAILYWBKFT PO Last administered on 08:48; Start 03/20/17 at 08:00 Clopidogrel Bisulfate (Plavix) 75 mg 1X ONCE PO Last administered on 10:31; Start 03/19/17 at 10:15; Stop 03/19/17 at 10:16; Status DC Atorvastatin Calcium (Lipitor) 10 mg QHS PO Last administered on 03/19/17 21: 24; Start 03/19/17 at 21:00 Gadobutrol (Gadavist) 6 mmol 1X ONCE IV Last administered on 03/19/17 15:34; Start 03/19/17 at 15:30; Stop 03/19/17 at 15:31; Status DC Prednisone (Prednisone) 10 mg DAILY PO Last administered on 03/20/17 12:44; Start 03/20/17 at 12:00 Acetaminophen (Tylenol) 500 mg PRN Q6HRS PRN PO MILD PAIN / TEMP Last administered on 03/20/17 12:45; Start 03/20/17 at 11:30 Oxycodone/ Acetaminophen (Percocet 5/325) 1 tab PRN TID PRN PO MODERATE PAIN; Start 03/20/17 at 11:30 Active Scripts Active Zofran Odt (Ondansetron) 4 Mg Tab.rapdis 1 Tab SL Q8HRS Vitamin B-12 (Cyanocobalamin (Vitamin B-12)) 1,000 Mcg Tablet 1 Tab PO DAILY Senna (Sennosides) 8.6 Mg Tablet 8.6 Mg PO DAILY Docusate Sodium 100 Mg Capsule 1 Cap PO DAILY Percocet 10-325 Mg Tablet (Oxycodone/Acetaminophen) 1 Each Tablet 1 Tab PO TID PRN Reported Duoneb 0.5-3(2.5) Mg/3 Ml (Albuterol/Ipratropium) 3 Ml Ampul.neb 3 Ml NEB QID Trazodone Hcl 100 Mg Tablet 1 Tab PO QHS Vitamin D (Cholecalciferol (Vitamin D3)) 1,000 Unit Capsule 1 Cap PO DAILY Cranberry (Cranberry Fruit) 400 Mg Tablet 4,200 Mg PO DAILY Levothyroxine Sodium 88 Mcg Tablet 1 Tab PO DAILY Alprazolam 0.25 Mg Tablet 1 Tab PO PRN TID PRN Digoxin 125 Mcg Tablet 1 Tab PO DAILY Escitalopram Oxalate 10 Mg Tablet 20 Mg PO DAILY Allergies Allergies: Coded Allergies: morphine (Verified Allergy, Intermediate, PER DAUGHTER, DOES NOT AGREE WITH PT, 03/13/14) adhesive (Verified Adverse Reaction, Intermediate, blisters, 01/26/15) aspirin (Verified Adverse Reaction, Intermediate, Nausea and Vomiting, "makes me sick", 01/26/15) Physical Exam Physical Exam The patient is alert, responsive, it is hard to tell how confused she is, the only answers that I got from her was: no H EENT pupils are reactive. Oral mucosa hydrated. Neck is supple no JVD. Lungs breath sounds are decreased but no Rales no wheezing at this time. Heart irregularly irregular. S1-S2. Muffled sounds. Abdomen is soft bowel sounds are present. Extremities 1+ edema Vitals VITALS Vital Signs Date Time Temp Pulse Resp B/P (MAP) Pulse Ox O2 Delivery O2 Flow Rate FiO2 03/20/17 19:14 91 Nasal Cannula 3.0 03/20/17 19:12 99.1 120 16 103/61 (75) 99.1 Labs Labs Laboratory Tests Test 03/19/17 03:25 03/20/17 12:23 White Blood Count 5.8 x10^3/uL (4.0-11.0) Red Blood Count 3.07 x10^6/uL (3.50-5.40) Hemoglobin 8.6 g/dL (12.0-15.5) Hematocrit 28.0 % (36.0-47.0) Mean Corpuscular Volume 91 fL (79-100) Mean Corpuscular Hemoglobin 28 pg (25-35) Mean Corpuscular Hemoglobin Concent 31 g/dL (31-37) Red Cell Distribution Width 17.1 % (11.5-14.5) Platelet Count 121 x10^3/uL (140-400) Neutrophils (%) (Auto) 53 % (31-73) Lymphocytes (%) (Auto) 31 % (24-48) Monocytes (%) (Auto) 15 % (0-9) Eosinophils (%) (Auto) 2 % (0-3) Basophils (%) (Auto) 0 % (0-3) Neutrophils # (Auto) 3.0 x10^3uL (1.8-7.7) Lymphocytes # (Auto) 1.8 x10^3/uL (1.0-4.8) Monocytes # (Auto) 0.9 x10^3/uL (0.0-1.1) Eosinophils # (Auto) 0.1 x10^3/uL (0.0-0.7) Basophils # (Auto) 0.0 x10^3/uL (0.0-0.2) Sodium Level 143 mmol/L (136-145) Potassium Level 4.4 mmol/L (3.5-5.1) Chloride Level 101 mmol/L (98-107) Carbon Dioxide Level 43 mmol/L (21-32) Anion Gap (6-14) Blood Urea Nitrogen 16 mg/dL (7-20) Creatinine 0.9 mg/dL (0.6-1.0) Estimated GFR (Cockcroft-Gault) 59.7 Glucose Level 89 mg/dL (70-99) Calcium Level 8.5 mg/dL (8.5-10.1) Triglycerides Level 92 mg/dL (0-150) Cholesterol Level 207 mg/dL (0-200) LDL Cholesterol, Calculated 100 mg/dL (0-100) VLDL Cholesterol, Calculated 18 mg/dL (0-40) Non-HDL Cholesterol Calculated 118 mg/dL (0-129) HDL Cholesterol 89 mg/dL (40-60) Cholesterol/HDL Ratio 2.3 O2 Saturation 79 % (92-99) Arterial Blood pH 7.33 (7.35-7.45) Arterial Blood pCO2 at Patient Temp 68 mmHg (35-46) Arterial Blood pO2 at Patient Temp 49 mmHg (65-108) Arterial Blood HCO3 35 mmol/L (21-28) Arterial Blood Base Excess 7 mmol/L (-3-3) Laboratory Tests Test 03/20/17 12:23 O2 Saturation 79 % (92-99) Arterial Blood pH 7.33 (7.35-7.45) Arterial Blood pCO2 at Patient Temp 68 mmHg (35-46) Arterial Blood pO2 at Patient Temp 49 mmHg (65-108) Arterial Blood HCO3 35 mmol/L (21-28) Arterial Blood Base Excess 7 mmol/L (-3-3) Assessment/Plan Assessment/Plan Patient with a fall for an unknown amount of time that was found on the floor with an encephalopathy and a possible CVA is in atrial fibrillation. She has a known history of atrial fibrillation. I do not think that she would be a good candidate for any anticoagulation beyond and aspirin. The atrial fibrillation has been paroxysmal in the past and at this time the rate is controlled. We will review the echocardiogram and then we will make further recommendations with regards to the medications. Thank you very much for asking me to participate in the care of this patient CHELSEY WONG MD Mar 20, 2017 21:11
[2017-03-20] MEDS: ATORVASTATIN CALCIUM 10 MG TABLET. PO SCH (21:57)
[2017-03-20] MEDS: traZODone 100 MG TABLET. PO SCH (21:57)
[2017-03-20 23:09] VITALS: BP 108/56
[2017-03-21] MEDS: IPRATRPIUM/ALBUTEROL 0.5/2.5MG 3 ML NEBU. NEB SCH ×6 (00:16→19:02)
[2017-03-21 02:52] VITALS: BP 156/84
[2017-03-21] MEDS: LEVOTHYROXINE 88 MCG TABLET PO SCH (06:30)
[2017-03-21 07:57] VITALS: BP 111/57
[2017-03-21] MEDS: SENNOSIDES 8.6 MG TABLET PO SCH (08:23)
[2017-03-21] MEDS: CLOPIDOGREL BISULFATE 75 MG TABLET PO SCH (08:23)
[2017-03-21] MEDS: ESCITALOPRAM 10 MG TABLET. PO SCH (08:24)
[2017-03-21] MEDS: DOCUSATE SODIUM 100 MG CAPSULE. PO SCH (08:24)
[2017-03-21] MEDS: CHOLECALCIFEROL (VITAMIN D3) 1,000 UNIT TABLET PO SCH (08:24)
[2017-03-21] MEDS: predniSONE 10 MG TABLET PO SCH (08:24)
[2017-03-21] MEDS: CYANOCOBALAMIN (VITAMIN B-12) 1,000 MCG TABLET. PO SCH (08:24)
[2017-03-21] MEDS: DIGOXIN 125 MCG TABLET. PO SCH (08:24)
--- NOTE | 2017-03-21 09:03 | PDOC ---
PULMONARY PROGRESS NOTES Subjective more awake, off BIPAP Vitals Vital Signs Date Time Temp Pulse Resp B/P (MAP) Pulse Ox O2 Delivery O2 Flow Rate FiO2 03/21/17 08:24 60 111/57 03/21/17 08:01 92 Nasal Cannula 3.0 03/21/17 07:57 98.1 16 98.1 General: Alert, No acute distress HEENT: Other Lungs: Other (decrease bs) Cardiovascular: S1, S2 Abdomen: Soft, Non-tender Extremities: No Edema Skin: Warm Labs Laboratory Tests Test 03/20/17 12:23 O2 Saturation 79 % (92-99) Arterial Blood pH 7.33 (7.35-7.45) Arterial Blood pCO2 at Patient Temp 68 mmHg (35-46) Arterial Blood pO2 at Patient Temp 49 mmHg (65-108) Arterial Blood HCO3 35 mmol/L (21-28) Arterial Blood Base Excess 7 mmol/L (-3-3) Laboratory Tests Test 03/20/17 12:23 O2 Saturation 79 % (92-99) Arterial Blood pH 7.33 (7.35-7.45) Arterial Blood pCO2 at Patient Temp 68 mmHg (35-46) Arterial Blood pO2 at Patient Temp 49 mmHg (65-108) Arterial Blood HCO3 35 mmol/L (21-28) Arterial Blood Base Excess 7 mmol/L (-3-3) Medications Active Scripts Medications Dose Route/Sig Max Daily Dose Days Date Category Cefpodoxime Proxetil 100 Mg Tablet 100 Mg PO BID 3 02/21/17 Rx Promethazine Hcl 25 Mg Supp.rect 25 Mg RC Q6H PRN 12/14/16 Rx Zofran Odt (Ondansetron) 4 Mg Tab.rapdis 1 Tab SL Q8HRS 12/09/16 Rx Duoneb 0.5-3(2.5) Mg/3 Ml (Albuterol/Ipratropium) 3 Ml Ampul.neb 3 Ml NEB QID 12/05/16 Reported Vitamin B-12 (Cyanocobalamin (Vitamin B-12)) 1,000 Mcg Tablet 1 Tab PO DAILY 10/25/16 Rx Senna (Sennosides) 8.6 Mg Tablet 8.6 Mg PO DAILY 06/20/16 Rx Docusate Sodium 100 Mg Capsule 1 Cap PO DAILY 06/20/16 Rx Trazodone Hcl 100 Mg Tablet 1 Tab PO QHS 06/07/16 Reported Vitamin D (Cholecalciferol (Vitamin D3)) 1,000 Unit Capsule 1 Cap PO DAILY 06/07/16 Reported Percocet 10-325 Mg Tablet (Oxycodone/Acetaminophen) 1 Each Tablet 1 Tab PO TID PRN 03/14/16 Rx Cranberry (Cranberry Fruit) 400 Mg Tablet 4,200 Mg PO DAILY 03/07/16 Reported Levothyroxine Sodium 88 Mcg Tablet 1 Tab PO DAILY 03/06/16 Reported Alprazolam 0.25 Mg Tablet 1 Tab PO PRN TID PRN 03/06/16 Reported Digoxin 125 Mcg Tablet 1 Tab PO DAILY 03/07/15 Reported Zofran Odt (Ondansetron) 4 Mg Tab.rapdis 1 Tab SL Q8HRS PRN 03/07/15 Reported Escitalopram Oxalate 10 Mg Tablet 20 Mg PO DAILY 03/14/14 Reported Impression . 1. 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 2. Encephalopathy, suspect secondary to CO2 narcosis. improved. 3. Fall, possibly related to CO2 narcosis. 4. Possible cerebrovascular accident. 5. Chronic obstructive pulmonary disease, on chronic oxygen supplementation at 5 liters. 6. History of lung cancer status post radiation treatment 5 years ago. Plan . 1. d/w RN. ok to titrate FIO2 to keep sats around 90%/ avoid narcotics 2. P.r.n. BiPAP. 3. ABG prn 4. Continue current bronchodilators. 5. clinically better KESHIA CHAO MD Mar 21, 2017 09:03
--- NOTE | 2017-03-21 10:03 | PDOC ---
PROGRESS NOTES Subjective Subjective No new complaints. Objective Objective Vital Signs Date Time Temp Pulse Resp B/P (MAP) Pulse Ox O2 Delivery O2 Flow Rate FiO2 03/21/17 08:24 60 111/57 03/21/17 08:01 92 Nasal Cannula 3.0 03/21/17 07:57 98.1 16 98.1 Intake and Output 03/21/17 06:59 Intake Total 340 ml Balance 340 ml Intake Oral 340 ml # Voids 2 Physical Exam Physical Exam She had return of motor function in her right lower extremity she developed from CVA and she got up and walked at bedside with roller walker under supervision.She gets SOB with any exertion and her oxygen saturation remains around 87% on 3 liters of oxygen by nasal canula. Assessment Assessment Problems Medical Problems: (1) Altered mental status Status: Acute (2) Fall Status: Acute (3) UTI (urinary tract infection) Status: Acute Plan Plan of Care To SNF when medically stable. Comment Review of Relevant I have reviewed the following items carly (where applicable) has been applied. Labs Laboratory Tests Test 03/20/17 12:23 O2 Saturation 79 % (92-99) Arterial Blood pH 7.33 (7.35-7.45) Arterial Blood pCO2 at Patient Temp 68 mmHg (35-46) Arterial Blood pO2 at Patient Temp 49 mmHg (65-108) Arterial Blood HCO3 35 mmol/L (21-28) Arterial Blood Base Excess 7 mmol/L (-3-3) Laboratory Tests Test 03/20/17 12:23 O2 Saturation 79 % (92-99) Arterial Blood pH 7.33 (7.35-7.45) Arterial Blood pCO2 at Patient Temp 68 mmHg (35-46) Arterial Blood pO2 at Patient Temp 49 mmHg (65-108) Arterial Blood HCO3 35 mmol/L (21-28) Arterial Blood Base Excess 7 mmol/L (-3-3) Microbiology 03/18/17 Urine Culture - Final, Complete 03/18/17 Urine Culture Result 1 (MARIBELL) - Final, Complete Medications Current Medications Ceftriaxone Sodium 50 ml @ 100 mls/hr 1X ONCE IV Last administered on 08:30; Start 03/18/17 at 08:30; Stop 03/18/17 at 08:59; Status DC Sodium Chloride 1,000 ml @ 75 mls/hr [id number] IV Last administered on 09:10; Start 03/18/17 at 09:10; Stop 03/18/17 at 23:01; Status DC Ceftriaxone Sodium 1 gm/ Sodium Chloride 50 ml @ 100 mls/hr Q24H IV Last administered on 03/19/17 10:14; Start 03/19/17 at 11:00; Stop 03/20/17 at 10:19 ; Status DC Dextrose/Sodium Chloride 1,000 ml @ 75 mls/hr [id number] IV Last administered on 03/20/17 01:24; Start 03/18/17 at 10:45; Stop 03/20/17 at 10:19; Status DC Albuterol Sulfate (Ventolin Neb Soln) 2.5 mg PRN Q2HR PRN NEB [id number]; Start at 17:45 Albuterol/ Ipratropium (Duoneb) 3 ml Q4HRS NEB Last administered on 03/21/17 07:59; Start 03/18/17 at 20:00 Alprazolam (Xanax) 0.25 mg PRN TID PRN PO ANXIETY / AGITATION; Start 03/18/17 at 18:45 Cyanocobalamin (Vitamin B-12) 1,000 mcg DAILY PO Last administered on 08:24; Start 03/19/17 at 09:00 Digoxin (Lanoxin) 125 mcg DAILY PO Last administered on 03/21/17 08:24; Start 03/19/17 at 09:00 Docusate Sodium (Colace) 100 mg DAILY PO Last administered on 03/21/17 08:24; Start 03/19/17 at 09:00 Escitalopram Oxalate (Lexapro) 20 mg DAILY PO Last administered on 03/21/17 08 :24; Start 03/19/17 at 09:00 Albuterol/ Ipratropium (Duoneb) 3 ml QID NEB ; Start 03/18/17 at 21:00; Status UNV Levothyroxine Sodium (Synthroid) 88 mcg DAILY07 PO Last administered on 06:30; Start 03/19/17 at 07:00 Ondansetron HCl (Zofran Odt) 4 mg Q8HRS PO Last administered on 03/19/17 06:04 ; Start 03/18/17 at 22:00; Stop 03/19/17 at 07:20; Status DC Oxycodone/ Acetaminophen (Percocet 10/325) 1 tab PRN TID PRN PO SEVERE PAIN Last administered on 03/20/17 10:40; Start 03/18/17 at 18:45 Sennosides (Senna) 8.6 mg DAILY PO Last administered on 03/21/17 08:23; Start 03/19/17 at 09:00 Trazodone HCl (Desyrel) 100 mg QHS PO Last administered on 03/20/17 21:57; Start 03/18/17 at 21:00 Vitamin D (Vitamin D3) 1,000 unit DAILY PO Last administered on 03/21/17 08:24 ; Start 03/19/17 at 09:00 Non-Formulary Medication 4,200 mg DAILY PO ; Start 03/19/17 at 09:00; Status UNV Albuterol/ Ipratropium (Duoneb) 3 ml PRN Q4HRS PRN NEB SHORTNESS OF BREATH; Start 03/18/17 at 21:00; Status UNV Ondansetron HCl (Zofran Odt) 4 mg PRN Q8HRS PRN PO NAUSEA; Start 03/20/17 at 06 :00 Clopidogrel Bisulfate (Plavix) 75 mg DAILYWBKFT PO Last administered on 08:23; Start 03/20/17 at 08:00 Clopidogrel Bisulfate (Plavix) 75 mg 1X ONCE PO Last administered on 10:31; Start 03/19/17 at 10:15; Stop 03/19/17 at 10:16; Status DC Atorvastatin Calcium (Lipitor) 10 mg QHS PO Last administered on 03/20/17 21: 57; Start 03/19/17 at 21:00 Gadobutrol (Gadavist) 6 mmol 1X ONCE IV Last administered on 03/19/17 15:34; Start 03/19/17 at 15:30; Stop 03/19/17 at 15:31; Status DC Prednisone (Prednisone) 10 mg DAILY PO Last administered on 03/21/17 08:24; Start 03/20/17 at 12:00 Acetaminophen (Tylenol) 500 mg PRN Q6HRS PRN PO MILD PAIN / TEMP Last administered on 03/20/17t 12:45; Start 03/20/17 at 11:30 Oxycodone/ Acetaminophen (Percocet 5/325) 1 tab PRN TID PRN PO MODERATE PAIN; Start 03/20/17 at 11:30 Active Scripts Active Zofran Odt (Ondansetron) 4 Mg Tab.rapdis 1 Tab SL Q8HRS Vitamin B-12 (Cyanocobalamin (Vitamin B-12)) 1,000 Mcg Tablet 1 Tab PO DAILY Senna (Sennosides) 8.6 Mg Tablet 8.6 Mg PO DAILY Docusate Sodium 100 Mg Capsule 1 Cap PO DAILY Percocet 10-325 Mg Tablet (Oxycodone/Acetaminophen) 1 Each Tablet 1 Tab PO TID PRN Reported Duoneb 0.5-3(2.5) Mg/3 Ml (Albuterol/Ipratropium) 3 Ml Ampul.neb 3 Ml NEB QID Trazodone Hcl 100 Mg Tablet 1 Tab PO QHS Vitamin D (Cholecalciferol (Vitamin D3)) 1,000 Unit Capsule 1 Cap PO DAILY Cranberry (Cranberry Fruit) 400 Mg Tablet 4,200 Mg PO DAILY Levothyroxine Sodium 88 Mcg Tablet 1 Tab PO DAILY Alprazolam 0.25 Mg Tablet 1 Tab PO PRN TID PRN Digoxin 125 Mcg Tablet 1 Tab PO DAILY Escitalopram Oxalate 10 Mg Tablet 20 Mg PO DAILY Vitals/I & O Vital Sign - Last 24 Hours 03/20/17 03/20/17 03/20/17 03/20/17 10:40 11:02 11:15 12:13 Temp 100.2 100.2 Pulse 60 Resp 24 B/P (MAP) 113/44 (67) Pulse Ox 85 80 95 O2 Delivery Nasal Cannula Nasal Cannula BiPAP/CPAP BiPAP/CPAP O2 Flow Rate 2.0 2.0 03/20/17 03/20/17 03/20/17 03/20/17 12:57 14:00 16:32 19:12 Temp 99.1 99.1 99.1 99.1 Pulse 91 120 Resp 20 16 B/P (MAP) 83/54 (64) 103/61 (75) Pulse Ox 95 90 93 93 O2 Delivery Nasal Cannula BiPAP/CPAP BiPAP/CPAP Nasal Cannula O2 Flow Rate 2.0 2.0 03/20/17 03/20/17 03/20/17 03/21/17 19:14 20:00 23:09 00:16 Temp 98.1 98.1 Pulse 79 Resp 16 B/P (MAP) 108/56 (73) Pulse Ox 91 94 92 O2 Delivery Nasal Cannula Nasal Cannula Nasal Cannula Nasal Cannula O2 Flow Rate 3.0 3.0 3.0 3.0 03/21/17 03/21/17 03/21/17 03/21/17 02:52 03:59 07:57 08:01 Temp 98.1 98.1 98.1 98.1 Pulse 73 60 Resp 16 16 B/P (MAP) 156/84 (108) 111/57 (75) Pulse Ox 96 91 96 92 O2 Delivery Nasal Cannula Nasal Cannula Nasal Cannula Nasal Cannula O2 Flow Rate 3.0 3.0 3.0 3.0 03/21/17 08:24 Pulse 60 B/P (MAP) 111/57 Intake and Output 03/20/17 03/20/17 03/21/17 14:59 22:59 06:59 Intake Total 340 ml Balance 340 ml LINDA CALLAWAY MD Mar 21, 2017 10:03
--- NOTE | 2017-03-21 10:38 | PDOC ---
PROGRESS NOTES Subjective Subjective feeling much better Objective Objective Vital Signs Date Time Temp Pulse Resp B/P (MAP) Pulse Ox O2 Delivery O2 Flow Rate FiO2 03/21/17 08:24 60 111/57 03/21/17 08:01 92 Nasal Cannula 3.0 03/21/17 07:57 98.1 16 98.1 Intake and Output 03/21/17 07:00 Intake Total 340 ml Balance 340 ml Intake Oral 340 ml # Voids 2 Physical Exam Abdomen: Normal bowel sounds, Soft Heart: Regular rate, Normal S1, Normal S2 General: Alert HEENT: Atraumatic Lungs: Clear to auscultation MUSCULOSKELETAL: No swelling Neck: Supple Neuro: Normal speech Psych/Mental Status: Mental status NL Skin: No breakdown COMMENT rt side weakness improving Diagnosis Problem List Problems Medical Problems: (1) Altered mental status Status: Acute (2) Fall Status: Acute (3) UTI (urinary tract infection) Status: Acute Assessment Assessment Problems Medical Problems: (1) Altered mental status Status: Acute (2) Fall Status: Acute (3) UTI (urinary tract infection) Status: Acute FINAL IMPRESSION: 1. Cerebrovascular accident, right-sided weakness. 2. Fall at home from bed. 3. Chronic obstructive pulmonary disease, end-stage, on 5 liters oxygen. 4. Paroxysmal atrial fibrillation. 5. Osteoporosis. 6. Anemia. 7. History of lung cancer, had a radiation treatment 5 years ago. 8. Urinary tract infection. We will send UA and culture. Start on Rocephin. PLAN: cardiology consult for a fib appreciated, not a candidate for anticoagulation. MRI brain showed + cva acute. rehab consult appreciated echo done today good LVF, no thrombus carotid Doppler -ve. cannot take asa ,will start on plavix. lipitor for chol. snu soon ,?tomorrow. needs BIPAP prn d/c Rocephin- urine c/s neg At this time, admit to hospital. CT head was done. Neurology was consulted. Speech, PT, OT, and Rehab. Problems: Plan Plan of Care Problems Medical Problems: (1) Altered mental status Status: Acute (2) Fall Status: Acute (3) UTI (urinary tract infection) Status: Acute Comment Review of Relevant I have reviewed the following items carly (where applicable) has been applied. Labs Laboratory Tests Test 03/20/17 12:23 O2 Saturation 79 % (92-99) Arterial Blood pH 7.33 (7.35-7.45) Arterial Blood pCO2 at Patient Temp 68 mmHg (35-46) Arterial Blood pO2 at Patient Temp 49 mmHg (65-108) Arterial Blood HCO3 35 mmol/L (21-28) Arterial Blood Base Excess 7 mmol/L (-3-3) Microbiology 03/18/17 Urine Culture - Final, Complete 03/18/17 Urine Culture Result 1 (MARIBELL) - Final, Complete Medications Current Medications Acetaminophen (Tylenol) 500 mg PRN Q6HRS PRN PO MILD PAIN / TEMP Last administered on 03/20/17 12:45; Start 03/20/17 at 11:30 Oxycodone/ Acetaminophen (Percocet 5/325) 1 tab PRN TID PRN PO MODERATE PAIN; Start 03/20/17 at 11:30 Prednisone (Prednisone) 10 mg DAILY PO Last administered on 03/21/17 08:24; Start 03/20/17 at 12:00 Vitals/I & O Vital Sign - Last 24 Hours 03/20/17 03/20/17 03/20/17 03/20/17 10:40 11:02 11:15 12:13 Temp 100.2 100.2 Pulse 60 Resp 24 B/P (MAP) 113/44 (67) Pulse Ox 85 80 95 O2 Delivery Nasal Cannula Nasal Cannula BiPAP/CPAP BiPAP/CPAP O2 Flow Rate 2.0 2.0 03/20/17 03/20/17 03/20/17 03/20/17 12:57 14:00 16:32 19:12 Temp 99.1 99.1 99.1 99.1 Pulse 91 120 Resp 20 16 B/P (MAP) 83/54 (64) 103/61 (75) Pulse Ox 95 90 93 93 O2 Delivery Nasal Cannula BiPAP/CPAP BiPAP/CPAP Nasal Cannula O2 Flow Rate 2.0 2.0 03/20/17 03/20/17 03/20/17 03/21/17 19:14 20:00 23:09 00:16 Temp 98.1 98.1 Pulse 79 Resp 16 B/P (MAP) 108/56 (73) Pulse Ox 91 94 92 O2 Delivery Nasal Cannula Nasal Cannula Nasal Cannula Nasal Cannula O2 Flow Rate 3.0 3.0 3.0 3.0 603/21/17 03/21/17 03/21/17 02:52 03:59 07:57 08:00 Temp 98.1 98.1 98.1 98.1 Pulse 73 60 Resp 16 16 B/P (MAP) 156/84 (108) 111/57 (75) Pulse Ox 96 91 96 O2 Delivery Nasal Cannula Nasal Cannula Nasal Cannula Nasal Cannula O2 Flow Rate 3.0 3.0 3.0 3.0 03/21/17 03/21/17 08:01 08:24 Pulse 60 B/P (MAP) 111/57 Pulse Ox 92 O2 Delivery Nasal Cannula O2 Flow Rate 3.0 Intake and Output 03/20/17 03/20/17 03/21/17 15:00 23:00 07:00 Intake Total 340 ml Balance 340 ml PAUL MALDONADO MD Mar 21, 2017 10:38
[2017-03-21 10:50] VITALS: BP 110/59
--- NOTE | 2017-03-21 13:38 | PDOC ---
PROGRESS NOTES Assessment Assessment Metabolic encephalopathy. Fall UTI AFib COPD Hypothyroidism Lung cancer. SOB RECOMMENDATIONS/PLAN: Treat medical diseases. OT/PT HCT no acute findings. HISTORY OF THE PRESENT ILLNESS: 86-y-old female patient had a fall likely due to found on the floor from bed. She had mental status changes and was unable to recall the events. She was brought to the ER of [facility] for furtehr evaluation. She did not have focalized sensory or motor deficits noted. PAST SURGICAL HISTORY: Lung cancer received radiation therapy. PAST SURGERY HISTORY: Appendectomy, gallbladder surgery, , hysterectomy, tonsillectomy with tympanoplasty, multiple compression fractures, back surgery x2, and hernia repair x3. ALLERGIES: ADHESIVES, ASPIRIN, AND MORPHINE. PERSONAL HISTORY: She smoked for many years and quit recently, one pack at least. Denies alcohol or street drugs. MEDICATIONS: Refer to [facility] HISTORY: Non contributory. REVIEW OF SYSTEMS: Constitutional: No malnutrition, weight loss, cachexia. Head: No traumatic brain or head injury. Skin: No edema, or rash. Ear: No infection. Eyes: No vision loss or color blindness. Nose: No bleeding or purulent discharges. Hearing: Hearing decrease. Neck: No injury. Breast: No history of cancer, masses,or discharges. Cardiac: No UT, arrhythmia. Pulmonary: COPD, lung cancer. GI: No GI ulcer, GI bleeding. Urinary/genital: UTI. Endocrinologic: No cousin face, craniofacial dysmorphism, polydactyly. Skeletomuscular: No muscular atrophy, deformity. Neurological: see HP. Psychiatric: Denies drug use/abuse. Otherwise, not -kftip review of systems. PHYSICAL EXAMINATION: General appearance is in no acute distress. HEENT: Normocephalic and nontraumatic. Eyes, nose, ears, and throat are unremarkable. Neck is supple. No lymphadenopathy. No crepitus. Cardiovascular: S1, S2, irregular rate and rhythm. SM heart murmur 4/6. Pulmonary: Breathing sounds decreased to auscultation bilaterally. Abdomen: Bowel sounds are positive. Extremities: No rash, lesions, or edema. No restriction of range of motion NEUROLOGICAL EXAMINATION: Awake. Able to understand and follow some commands. Oriented to place and person but not to time. PERRL. EOMI. CN: no focal findings. Muscle tone: within normal. Muscle strength: 4+ DTR: 2- Plantar reflex: Neutral response bilaterally Gait: not examined in bed. Sensory exam: no abnormal findings. No acute cerebellar signs elicited. F-T-N test fine. Objective Objective Vital Signs Date Time Temp Pulse Resp B/P (MAP) Pulse Ox O2 Delivery O2 Flow Rate FiO2 03/21/17 11:52 Nasal Cannula 3.0 03/21/17 10:50 98.8 77 18 110/59 (76) 97 98.8 Intake and Output 03/21/17 06:59 Intake Total 340 ml Balance 340 ml Intake Oral 340 ml # Voids 2 Vitals Signs Vitals VS - Last 72 Hours, by Label Date Time Temp Pulse Resp B/P (MAP) Pulse Ox O2 Delivery O2 Flow Rate FiO2 03/21/17 11:52 Nasal Cannula 3.0 03/21/17 10:50 98.8 77 18 110/59 (76) 97 Nasal Cannula 3.0 98.8 03/21/17 08:24 60 111/57 03/21/17 08:01 92 Nasal Cannula 3.0 03/21/17 08:00 Nasal Cannula 3.0 03/21/17 07:57 98.1 60 16 111/57 (75) 96 Nasal Cannula 3.0 98.1 03/21/17 03:59 91 Nasal Cannula 3.0 03/21/17 02:52 98.1 73 16 156/84 (108) 96 Nasal Cannula 3.0 98.1 03/21/17 00:16 92 Nasal Cannula 3.0 03/20/17 23:09 98.1 79 16 108/56 (73) 94 Nasal Cannula 3.0 98.1 03/20/17 20:00 Nasal Cannula 3.0 03/20/17 19:14 91 Nasal Cannula 3.0 03/20/17 19:12 99.1 120 16 103/61 (75) 93 Nasal Cannula 2.0 99.1 03/20/17 16:32 93 BiPAP/CPAP 03/20/17 14:00 99.1 91 20 83/54 (64) 90 BiPAP/CPAP 99.1 03/20/17 12:57 95 Nasal Cannula 2.0 03/20/17 12:13 95 BiPAP/CPAP 03/20/17 11:15 100.2 60 24 113/44 (67) 80 BiPAP/CPAP 100.2 03/20/17 11:02 Nasal Cannula 2.0 03/20/17 10:40 85 Nasal Cannula 2.0 03/20/17 08:49 87 109/45 03/20/17 08:00 Nasal Cannula 2.0 03/20/17 07:59 98.4 87 16 109/45 (66) 85 Nasal Cannula 2.0 98.4 Laboratory Laboratory Microbiology 03/18/17 Urine Culture - Final, Complete 03/18/17 Urine Culture Result 1 (MARIBELL) - Final, Complete Comment Review of Relevant I have reviewed the following items carly (where applicable) has been applied. AUSTIN ROSA MD Mar 21, 2017 13:38
[2017-03-21 14:21] VITALS: BP 125/47
--- NOTE | 2017-03-21 16:14 | PDOC ---
PROGRESS NOTES Subjective Subjective Patient more alert today and more talkative. The echocardiogram shows a normal systolic left ventricular function. Objective Objective Vital Signs Date Time Temp Pulse Resp B/P (MAP) Pulse Ox O2 Delivery O2 Flow Rate FiO2 03/21/17 16:01 Nasal Cannula 3.0 03/21/17 14:21 98.1 90 18 125/47 (73) 97 98.1 Intake and Output 03/21/17 07:00 Intake Total 340 ml Balance 340 ml Intake Oral 340 ml # Voids 2 Physical Exam Physical Exam No significant changes in cardiac exam Assessment Assessment From a cardiac standpoint to me this patient's atrial fibrillation is a chronic problem and it is paroxysmal, it has a controlled ventricular response and therefore I do not think that any changes in medications are required at this point. If the patient is not able to take aspirin then I agree with using Plavix. This patient is a DNR. I agree with the present plan. We will sign off unless further cardiac problems develop. Thank you very much for asking me to participate in the care of this patient. Comment Review of Relevant I have reviewed the following items carly (where applicable) has been applied. Labs Laboratory Tests Test 03/20/17 12:23 O2 Saturation 79 % (92-99) Arterial Blood pH 7.33 (7.35-7.45) Arterial Blood pCO2 at Patient Temp 68 mmHg (35-46) Arterial Blood pO2 at Patient Temp 49 mmHg (65-108) Arterial Blood HCO3 35 mmol/L (21-28) Arterial Blood Base Excess 7 mmol/L (-3-3) Microbiology 03/18/17 Urine Culture - Final, Complete 03/18/17 Urine Culture Result 1 (MARIBELL) - Final, Complete Medications Current Medications Ceftriaxone Sodium 50 ml @ 100 mls/hr 1X ONCE IV Last administered on 08:30; Start 03/18/17 at 08:30; Stop 03/18/17 at 08:59; Status DC Sodium Chloride 1,000 ml @ 75 mls/hr [id number] IV Last administered on 09:10; Start 03/18/17 at 09:10; Stop 03/18/17 at 23:01; Status DC Ceftriaxone Sodium 1 gm/ Sodium Chloride 50 ml @ 100 mls/hr Q24H IV Last administered on 03/19/17 10:14; Start 03/19/17 at 11:00; Stop 03/20/17 at 10:19 ; Status DC Dextrose/Sodium Chloride 1,000 ml @ 75 mls/hr [id number] IV Last administered on 03/20/17 01:24; Start 03/18/17 at 10:45; Stop 03/20/17 at 10:19; Status DC Albuterol Sulfate (Ventolin Neb Soln) 2.5 mg PRN Q2HR PRN NEB [id number]; Start at 17:45 Albuterol/ Ipratropium (Duoneb) 3 ml Q4HRS NEB Last administered on 03/21/17 15:59; Start 03/18/17 at 20:00 Alprazolam (Xanax) 0.25 mg PRN TID PRN PO ANXIETY / AGITATION; Start 03/18/17 at 18:45 Cyanocobalamin (Vitamin B-12) 1,000 mcg DAILY PO Last administered on 08:24; Start 03/19/17 at 09:00 Digoxin (Lanoxin) 125 mcg DAILY PO Last administered on 03/21/17 08:24; Start 03/19/17 at 09:00 Docusate Sodium (Colace) 100 mg DAILY PO Last administered on 03/21/17 08:24; Start 03/19/17 at 09:00 Escitalopram Oxalate (Lexapro) 20 mg DAILY PO Last administered on 03/21/17 08 :24; Start 03/19/17 at 09:00 Albuterol/ Ipratropium (Duoneb) 3 ml QID NEB ; Start 03/18/17 at 21:00; Status UNV Levothyroxine Sodium (Synthroid) 88 mcg DAILY07 PO Last administered on 06:30; Start 03/19/17 at 07:00 Ondansetron HCl (Zofran Odt) 4 mg Q8HRS PO Last administered on 03/19/17 06:04 ; Start 03/18/17 at 22:00; Stop 03/19/17 at 07:20; Status DC Oxycodone/ Acetaminophen (Percocet 10/325) 1 tab PRN TID PRN PO SEVERE PAIN Last administered on 03/20/17 10:40; Start 03/18/17 at 18:45 Sennosides (Senna) 8.6 mg DAILY PO Last administered on 03/21/17 08:23; Start 03/19/17 at 09:00 Trazodone HCl (Desyrel) 100 mg QHS PO Last administered on 03/20/17 21:57; Start 03/18/17 at 21:00 Vitamin D (Vitamin D3) 1,000 unit DAILY PO Last administered on 03/21/17 08:24 ; Start 03/19/17 at 09:00 Non-Formulary Medication 4,200 mg DAILY PO ; Start 03/19/17 at 09:00; Status UNV Albuterol/ Ipratropium (Duoneb) 3 ml PRN Q4HRS PRN NEB SHORTNESS OF BREATH; Start 03/18/17 at 21:00; Status UNV Ondansetron HCl (Zofran Odt) 4 mg PRN Q8HRS PRN PO NAUSEA; Start 03/20/17 at 06 :00 Clopidogrel Bisulfate (Plavix) 75 mg DAILYWBKFT PO Last administered on 08:23; Start 03/20/17 at 08:00 Clopidogrel Bisulfate (Plavix) 75 mg 1X ONCE PO Last administered on 10:31; Start 03/19/17 at 10:15; Stop 03/19/17 at 10:16; Status DC Atorvastatin Calcium (Lipitor) 10 mg QHS PO Last administered on 03/20/17 21: 57; Start 03/19/17 at 21:00 Gadobutrol (Gadavist) 6 mmol 1X ONCE IV Last administered on 03/19/17 15:34; Start 03/19/17 at 15:30; Stop 03/19/17 at 15:31; Status DC Prednisone (Prednisone) 10 mg DAILY PO Last administered on 03/21/17 08:24; Start 03/20/17 at 12:00 Acetaminophen (Tylenol) 500 mg PRN Q6HRS PRN PO MILD PAIN / TEMP Last administered on 03/20/17 12:45; Start 03/20/17 at 11:30 Oxycodone/ Acetaminophen (Percocet 5/325) 1 tab PRN TID PRN PO MODERATE PAIN; Start 03/20/17 at 11:30 Active Scripts Active Zofran Odt (Ondansetron) 4 Mg Tab.rapdis 1 Tab SL Q8HRS Vitamin B-12 (Cyanocobalamin (Vitamin B-12)) 1,000 Mcg Tablet 1 Tab PO DAILY Senna (Sennosides) 8.6 Mg Tablet 8.6 Mg PO DAILY Docusate Sodium 100 Mg Capsule 1 Cap PO DAILY Percocet 10-325 Mg Tablet (Oxycodone/Acetaminophen) 1 Each Tablet 1 Tab PO TID PRN Reported Duoneb 0.5-3(2.5) Mg/3 Ml (Albuterol/Ipratropium) 3 Ml Ampul.neb 3 Ml NEB QID Trazodone Hcl 100 Mg Tablet 1 Tab PO QHS Vitamin D (Cholecalciferol (Vitamin D3)) 1,000 Unit Capsule 1 Cap PO DAILY Cranberry (Cranberry Fruit) 400 Mg Tablet 4,200 Mg PO DAILY Levothyroxine Sodium 88 Mcg Tablet 1 Tab PO DAILY Alprazolam 0.25 Mg Tablet 1 Tab PO PRN TID PRN Digoxin 125 Mcg Tablet 1 Tab PO DAILY Escitalopram Oxalate 10 Mg Tablet 20 Mg PO DAILY Vitals/I & O Vital Sign - Last 24 Hours 03/20/17 03/20/17 03/20/17 03/20/17 16:32 19:12 19:14 20:00 Temp 99.1 99.1 Pulse 120 Resp 16 B/P (MAP) 103/61 (75) Pulse Ox 93 93 91 O2 Delivery BiPAP/CPAP Nasal Cannula Nasal Cannula Nasal Cannula O2 Flow Rate 2.0 3.0 3.0 03/20/17 03/21/17 03/21/17 03/21/17 23:09 00:16 02:52 03:59 Temp 98.1 98.1 98.1 98.1 Pulse 79 73 Resp 16 16 B/P (MAP) 108/56 (73) 156/84 (108) Pulse Ox 94 92 96 91 O2 Delivery Nasal Cannula Nasal Cannula Nasal Cannula Nasal Cannula O2 Flow Rate 3.0 3.0 3.0 3.0 03/21/17 03/21/17 03/21/17 03/21/17 07:57 08:00 08:01 08:24 Temp 98.1 98.1 Pulse 60 60 Resp 16 B/P (MAP) 111/57 (75) 111/57 Pulse Ox 96 92 O2 Delivery Nasal Cannula Nasal Cannula Nasal Cannula O2 Flow Rate 3.0 3.0 3.0 03/21/17 03/21/17 03/21/17 03/21/17 10:50 11:52 14:21 16:01 Temp 98.8 98.1 98.8 98.1 Pulse 77 90 Resp 18 18 B/P (MAP) 110/59 (76) 125/47 (73) Pulse Ox 97 97 O2 Delivery Nasal Cannula Nasal Cannula Nasal Cannula Nasal Cannula O2 Flow Rate 3.0 3.0 3.0 3.0 Intake and Output 03/20/17 03/20/17 03/21/17 15:00 23:00 07:00 Intake Total 340 ml Balance 340 ml CHELSEY WONG MD Mar 21, 2017 16:14
[2017-03-21] MEDS ORDERED: MAGNESIUM SULFATE 1GM 100 ML IV ONE (18:00)
[2017-03-21 19:10] VITALS: BP 126/74
[2017-03-21] MEDS: ATORVASTATIN CALCIUM 10 MG TABLET. PO SCH (20:49)
[2017-03-21] MEDS: ACETAMINOPHEN 500 MG TABLET PO PRN (20:49)
[2017-03-21] MEDS: traZODone 100 MG TABLET. PO SCH (20:49)
[2017-03-21 23:30] VITALS: BP 147/63
[2017-03-22] MEDS: IPRATRPIUM/ALBUTEROL 0.5/2.5MG 3 ML NEBU. NEB SCH ×4 (00:07→11:33)
[2017-03-22 03:34] VITALS: BP 132/70
[2017-03-22 04:52] LABS: MAGNESIUM 2.4 mg/dL (1.8-2.4); POTASSIUM 4.7 mmol/L (3.5-5.1)
[2017-03-22] MEDS: LEVOTHYROXINE 88 MCG TABLET PO SCH (06:00)
[2017-03-22 07:00] VITALS: BP 140/58
[2017-03-22 07:56] VITALS: BP 140/55
[2017-03-22] MEDS: predniSONE 10 MG TABLET PO SCH (07:56)
[2017-03-22] MEDS: CHOLECALCIFEROL (VITAMIN D3) 1,000 UNIT TABLET PO SCH (07:56)
[2017-03-22] MEDS: ESCITALOPRAM 10 MG TABLET. PO SCH (07:56)
[2017-03-22] MEDS: CYANOCOBALAMIN (VITAMIN B-12) 1,000 MCG TABLET. PO SCH (07:56)
[2017-03-22] MEDS: SENNOSIDES 8.6 MG TABLET PO SCH (07:56)
[2017-03-22] MEDS: CLOPIDOGREL BISULFATE 75 MG TABLET PO SCH (07:56)
[2017-03-22] MEDS: DIGOXIN 125 MCG TABLET. PO SCH (07:56)
[2017-03-22] MEDS: DOCUSATE SODIUM 100 MG CAPSULE. PO SCH (07:56)
--- NOTE | 2017-03-22 09:34 | PDOC ---
PROGRESS NOTES Subjective Subjective She feels better. Objective Objective Vital Signs Date Time Temp Pulse Resp B/P (MAP) Pulse Ox O2 Delivery O2 Flow Rate FiO2 03/22/17 08:00 Nasal Cannula 4.0 03/22/17 07:56 70 140/55 03/22/17 07:00 97.6 18 91 97.6 Intake and Output 03/22/17 07:00 Intake Total 450 ml Output Total 2450 ml Balance -2000 ml Intake Oral 450 ml Output Urine Total 2450 ml Physical Exam Physical Exam She continues with good muscle strength in all 4 extremities.She is supine in bed and receiving oxygen by nasal canula and she continues with SOB on exertion and that is limiting her activity. Assessment Assessment Problems Medical Problems: (1) Altered mental status Status: Acute (2) Fall Status: Acute (3) UTI (urinary tract infection) Status: Acute Plan Plan of Care To SNF when her pulmonary status improves. Comment Review of Relevant I have reviewed the following items carly (where applicable) has been applied. Labs Laboratory Tests Test 03/20/17 12:23 03/22/17 03:19 O2 Saturation 79 % (92-99) Arterial Blood pH 7.33 (7.35-7.45) Arterial Blood pCO2 at Patient Temp 68 mmHg (35-46) Arterial Blood pO2 at Patient Temp 49 mmHg (65-108) Arterial Blood HCO3 35 mmol/L (21-28) Arterial Blood Base Excess 7 mmol/L (-3-3) Potassium Level 4.7 mmol/L (3.5-5.1) Magnesium Level 2.4 mg/dL (1.8-2.4) Laboratory Tests Test 03/22/17 03:19 Potassium Level 4.7 mmol/L (3.5-5.1) Magnesium Level 2.4 mg/dL (1.8-2.4) Microbiology 03/18/17 Urine Culture - Final, Complete 03/18/17 Urine Culture Result 1 (MARIBELL) - Final, Complete Medications Current Medications Ceftriaxone Sodium 50 ml @ 100 mls/hr 1X ONCE IV Last administered on 08:30; Start 03/18/17 at 08:30; Stop 03/18/17 at 08:59; Status DC Sodium Chloride 1,000 ml @ 75 mls/hr [id number] IV Last administered on 09:10; Start 03/18/17 at 09:10; Stop 03/18/17 at 23:01; Status DC Ceftriaxone Sodium 1 gm/ Sodium Chloride 50 ml @ 100 mls/hr Q24H IV Last administered on 03/19/17 10:14; Start 03/19/17 at 11:00; Stop 03/20/17 at 10:19 ; Status DC Dextrose/Sodium Chloride 1,000 ml @ 75 mls/hr [id number] IV Last administered on 03/20/17 01:24; Start 03/18/17 at 10:45; Stop 03/20/17 at 10:19; Status DC Albuterol Sulfate (Ventolin Neb Soln) 2.5 mg PRN Q2HR PRN NEB [id number]; Start at 17:45 Albuterol/ Ipratropium (Duoneb) 3 ml Q4HRS NEB Last administered on 03/22/17 07:38; Start 03/18/17 at 20:00 Alprazolam (Xanax) 0.25 mg PRN TID PRN PO ANXIETY / AGITATION; Start 03/18/17 at 18:45 Cyanocobalamin (Vitamin B-12) 1,000 mcg DAILY PO Last administered on 07:56; Start 03/19/17 at 09:00 Digoxin (Lanoxin) 125 mcg DAILY PO Last administered on 03/22/17 07:56; Start 03/19/17 at 09:00 Docusate Sodium (Colace) 100 mg DAILY PO Last administered on 03/22/17 07:56; Start 03/19/17 at 09:00 Escitalopram Oxalate (Lexapro) 20 mg DAILY PO Last administered on 03/22/17 07 :56; Start 03/19/17 at 09:00 Albuterol/ Ipratropium (Duoneb) 3 ml QID NEB ; Start 03/18/17 at 21:00; Status UNV Levothyroxine Sodium (Synthroid) 88 mcg DAILY07 PO Last administered on 06:00; Start 03/19/17 at 07:00 Ondansetron HCl (Zofran Odt) 4 mg Q8HRS PO Last administered on 03/19/17 06:04 ; Start 03/18/17 at 22:00; Stop 03/19/17 at 07:20; Status DC Oxycodone/ Acetaminophen (Percocet 10/325) 1 tab PRN TID PRN PO SEVERE PAIN Last administered on 03/20/17 10:40; Start 03/18/17 at 18:45 Sennosides (Senna) 8.6 mg DAILY PO Last administered on 03/22/17 07:56; Start 03/19/17 at 09:00 Trazodone HCl (Desyrel) 100 mg QHS PO Last administered on 03/21/17 20:49; Start 03/18/17 at 21:00 Vitamin D (Vitamin D3) 1,000 unit DAILY PO Last administered on 03/22/17 07:56 ; Start 03/19/17 at 09:00 Non-Formulary Medication 4,200 mg DAILY PO ; Start 03/19/17 at 09:00; Status UNV Albuterol/ Ipratropium (Duoneb) 3 ml PRN Q4HRS PRN NEB SHORTNESS OF BREATH; Start 03/18/17 at 21:00; Status UNV Ondansetron HCl (Zofran Odt) 4 mg PRN Q8HRS PRN PO NAUSEA; Start 03/20/17 at 06 :00 Clopidogrel Bisulfate (Plavix) 75 mg DAILYWBKFT PO Last administered on 07:56; Start 03/20/17 at 08:00 Clopidogrel Bisulfate (Plavix) 75 mg 1X ONCE PO Last administered on 10:31; Start 03/19/17 at 10:15; Stop 03/19/17 at 10:16; Status DC Atorvastatin Calcium (Lipitor) 10 mg QHS PO Last administered on 03/21/17 20: 49; Start 03/19/17 at 21:00 Gadobutrol (Gadavist) 6 mmol 1X ONCE IV Last administered on 03/19/17 15:34; Start 03/19/17 at 15:30; Stop 03/19/17 at 15:31; Status DC Prednisone (Prednisone) 10 mg DAILY PO Last administered on 03/22/17 07:56; Start 03/20/17 at 12:00 Acetaminophen (Tylenol) 500 mg PRN Q6HRS PRN PO MILD PAIN / TEMP Last administered on 03/21/17 20:49; Start 03/20/17 at 11:30 Oxycodone/ Acetaminophen (Percocet 5/325) 1 tab PRN TID PRN PO MODERATE PAIN; Start 03/20/17 at 11:30 Magnesium Sulfate/ Dextrose 100 ml @ 100 mls/hr 1X ONCE IV Last administered on 03/21/17 18:04; Start 03/21/17 at 18:00; Stop 03/21/17 at 18:59; Status DC Active Scripts Active Zofran Odt (Ondansetron) 4 Mg Tab.rapdis 1 Tab SL Q8HRS Vitamin B-12 (Cyanocobalamin (Vitamin B-12)) 1,000 Mcg Tablet 1 Tab PO DAILY Senna (Sennosides) 8.6 Mg Tablet 8.6 Mg PO DAILY Docusate Sodium 100 Mg Capsule 1 Cap PO DAILY Percocet 10-325 Mg Tablet (Oxycodone/Acetaminophen) 1 Each Tablet 1 Tab PO TID PRN Reported Duoneb 0.5-3(2.5) Mg/3 Ml (Albuterol/Ipratropium) 3 Ml Ampul.neb 3 Ml NEB QID Trazodone Hcl 100 Mg Tablet 1 Tab PO QHS Vitamin D (Cholecalciferol (Vitamin D3)) 1,000 Unit Capsule 1 Cap PO DAILY Cranberry (Cranberry Fruit) 400 Mg Tablet 4,200 Mg PO DAILY Levothyroxine Sodium 88 Mcg Tablet 1 Tab PO DAILY Alprazolam 0.25 Mg Tablet 1 Tab PO PRN TID PRN Digoxin 125 Mcg Tablet 1 Tab PO DAILY Escitalopram Oxalate 10 Mg Tablet 20 Mg PO DAILY Vitals/I & O Vital Sign - Last 24 Hours 03/21/17 03/21/17 03/21/17 03/21/17 10:50 11:52 14:21 16:01 Temp 98.8 98.1 98.8 98.1 Pulse 77 90 Resp 18 18 B/P (MAP) 110/59 (76) 125/47 (73) Pulse Ox 97 97 O2 Delivery Nasal Cannula Nasal Cannula Nasal Cannula Nasal Cannula O2 Flow Rate 3.0 3.0 3.0 3.0 03/21/17 03/21/17 03/21/17 03/21/17 19:04 19:10 19:29 20:00 Temp 98.4 98.4 Pulse 121 Resp 22 B/P (MAP) 126/74 (91) Pulse Ox 94 93 93 O2 Delivery Nasal Cannula Nasal Cannula BiPAP/CPAP Nasal Cannula O2 Flow Rate 4.5 3.0 4.5 03/21/17 03/22/17 03/22/17 03/22/17 23:30 00:07 03:34 04:13 Temp 98.4 97.9 98.4 97.9 Pulse 82 74 Resp 18 18 B/P (MAP) 147/63 (91) 132/70 (90) Pulse Ox 95 93 98 O2 Delivery Nasal Cannula BiPAP/CPAP Nasal Cannula Nasal Cannula O2 Flow Rate 3.0 3.0 4.5 03/22/17 03/22/17 03/22/17 03/22/17 07:00 07:38 07:56 08:00 Temp 97.6 97.6 Pulse 70 70 Resp 18 B/P (MAP) 140/58 (85) 140/55 Pulse Ox 91 O2 Delivery Nasal Cannula Nasal Cannula Nasal Cannula O2 Flow Rate 3.0 3.0 4.0 Intake and Output 03/21/17 03/21/17 03/22/17 15:00 23:00 07:00 Intake Total 450 ml Output Total 700 ml 650 ml 1100 ml Balance -700 ml -200 ml -1100 ml LINDA CALLAWAY MD Mar 22, 2017 09:34
--- NOTE | 2017-03-22 10:20 | PDOC ---
PROGRESS NOTES Subjective Subjective feels stronger today Objective Objective Vital Signs Date Time Temp Pulse Resp B/P (MAP) Pulse Ox O2 Delivery O2 Flow Rate FiO2 03/22/17 08:00 Nasal Cannula 4.0 03/22/17 07:56 70 140/55 03/22/17 07:00 97.6 18 91 97.6 Intake and Output 03/22/17 07:00 Intake Total 450 ml Output Total 2450 ml Balance -2000 ml Intake Oral 450 ml Output Urine Total 2450 ml Physical Exam Abdomen: Normal bowel sounds, Soft Heart: Regular rate, Normal S1, Normal S2 General: Alert HEENT: Atraumatic Lungs: Clear to auscultation MUSCULOSKELETAL: No swelling Neck: Supple Neuro: Normal speech Psych/Mental Status: Mental status NL Skin: No breakdown COMMENT rt side weakness improving Diagnosis Problem List Problems Medical Problems: (1) Altered mental status Status: Acute (2) Fall Status: Acute (3) UTI (urinary tract infection) Status: Acute Assessment Assessment Problems Medical Problems: (1) Altered mental status Status: Acute (2) Fall Status: Acute (3) UTI (urinary tract infection) Status: Acute FINAL IMPRESSION: 1. Cerebrovascular accident, right-sided weakness. 2. Fall at home from bed. 3. Chronic obstructive pulmonary disease, end-stage, on 5 liters oxygen. 4. Paroxysmal atrial fibrillation. 5. Osteoporosis. 6. Anemia. 7. History of lung cancer, had a radiation treatment 5 years ago. 8. Urinary tract infection. We will send UA and culture. Start on Rocephin. PLAN: snu today. Needs BIPAP at [place] [facility] consult for a fib appreciated, not a candidate for anticoagulation. MRI brain showed + cva acute. rehab consult appreciated echo done today good LVF, no thrombus carotid Doppler -ve. cannot take asa ,will start on plavix. lipitor for chol. Problems: Plan Plan of Care Problems Medical Problems: (1) Altered mental status Status: Acute (2) Fall Status: Acute (3) UTI (urinary tract infection) Status: Acute Comment Review of Relevant I have reviewed the following items carly (where applicable) has been applied. Labs Laboratory Tests Test 03/22/17 03:19 Potassium Level 4.7 mmol/L (3.5-5.1) Magnesium Level 2.4 mg/dL (1.8-2.4) Microbiology 03/18/17 Urine Culture - Final, Complete 03/18/17 Urine Culture Result 1 (MARIBELL) - Final, Complete Medications Current Medications Magnesium Sulfate/ Dextrose 100 ml @ 100 mls/hr 1X ONCE IV Last administered on 03/21/17t 18:04; Start 03/21/17 at 18:00; Stop 03/21/17 at 18:59; Status DC Vitals/I & O Vital Sign - Last 24 Hours 03/21/17 03/21/17 03/21/17 03/21/17 10:50 11:52 14:21 16:01 Temp 98.8 98.1 98.8 98.1 Pulse 77 90 Resp 18 18 B/P (MAP) 110/59 (76) 125/47 (73) Pulse Ox 97 97 O2 Delivery Nasal Cannula Nasal Cannula Nasal Cannula Nasal Cannula O2 Flow Rate 3.0 3.0 3.0 3.0 03/21/17 03/21/17 03/21/17 03/21/17 19:04 19:10 19:29 20:00 Temp 98.4 98.4 Pulse 121 Resp 22 B/P (MAP) 126/74 (91) Pulse Ox 94 93 93 O2 Delivery Nasal Cannula Nasal Cannula BiPAP/CPAP Nasal Cannula O2 Flow Rate 4.5 3.0 4.5 03/21/17 03/22/17 03/22/17 03/22/17 23:30 00:07 03:34 04:13 Temp 98.4 97.9 98.4 97.9 Pulse 82 74 Resp 18 18 B/P (MAP) 147/63 (91) 132/70 (90) Pulse Ox 95 93 98 O2 Delivery Nasal Cannula BiPAP/CPAP Nasal Cannula Nasal Cannula O2 Flow Rate 3.0 3.0 4.5 03/22/17 03/22/17 03/22/17 03/22/17 07:00 07:38 07:56 08:00 Temp 97.6 97.6 Pulse 70 70 Resp 18 B/P (MAP) 140/58 (85) 140/55 Pulse Ox 91 O2 Delivery Nasal Cannula Nasal Cannula Nasal Cannula O2 Flow Rate 3.0 3.0 4.0 Intake and Output 03/21/17 03/21/17 03/22/17 15:00 23:00 07:00 Intake Total 450 ml Output Total 700 ml 650 ml 1100 ml Balance -700 ml -200 ml -1100 ml KODURI,VINAYA K MD Mar 22, 2017 10:20
--- NOTE | 2017-03-25 10:09 | PDOC ---
Provider Note Provider Note Discharge summary dictated. #[id number] PAUL MALDONADO MD Mar 25, 2017 10:09
--- NOTE | 2017-03-25 21:45 | DS ---
DATE OF DISCHARGE: 03/22/2017 REASON FOR ADMISSION TO THE HOSPITAL: Right-sided weakness and acute cerebrovascular accident. CONSULTATIONS: 1. Dr. Goncalves. 2. Dr. Templeton. 3. Dr. Patiño. 4. Dr. Poole. PROCEDURES DONE: CT head, MRI of the brain, echocardiogram, and carotid Doppler. HOSPITAL COURSE: The patient is an 86-year-old female with a history of end-stage COPD, on home oxygen, also history of lung cancer, radiation treatment 5 years ago and she was found on the floor at home, was brought to the hospital, last seen on the previous night. CT head, no bleed. The patient has weakness on the right side and CT of cervical spine was negative for fracture. The patient was seen by Neurology and MRI of the brain shows consistent with acute CVA. The patient has also had window for 6 hours. No TPA was given. Her carotid Doppler was negative. Echo normal LVF. The patient has a history of paroxysmal atrial fibrillation, was seen by Cardiology, Dr. Jung. Echocardiogram no thrombus and it was felt because of her poor functional status and falls, not a candidate for anticoagulation. THE PATIENT IS ALLERGIC TO ASPIRIN. She was placed on Plavix. Her condition was improving. Seen by Dr. Patiño. Her weakness in the right arm improved, right leg still weak, was given a walker. Recommended to go to [facility] for rehab. The patient is also on chronic COPD. She is on BiPAP intermittently and she is a DNR. FINAL DIAGNOSES: 1. Acute cerebrovascular accident with right hemiparesis. 2. End-stage chronic obstructive pulmonary disease, requiring BiPAP. 2. Chronic hypoxia, on home oxygen 4-5 liters. 3. History of lung cancer 5 years ago. 4. Hypothyroidism. 5. Osteoporosis. 6. Recurrent falls. 7. Code status, DNR. 8. Intermittent atrial fibrillation, not a candidate for anticoagulation. DISCHARGE MEDICATIONS: See MRAD for discharge medications. PAUL MALDONADO MD DR: EKTA/patience JOB#: [id number] / [id number] JENN
== END 2017-03-22 11:55 | DRG 64 ==
LOC: ER 07:31 → 6 SOUTH 09:15
PROVIDERS: ADMIT Internal Medicine; ATTEND Internal Medicine
PROC: 5A09357 Assistance with Respiratory Ventilation, Less than 24 Consecutive Hours, Continuous Positive Airway Pressure (ICD-10-PCS; principal; 2017-03-18)
DX: I63.9 Cerebral infarction, unspecified (principal); G93.41 Metabolic encephalopathy; J96.21 Acute and chronic respiratory failure with hypoxia; J96.22 Acute and chronic respiratory failure with hypercapnia; C34.90 Malignant neoplasm of unspecified part of unspecified bronchus or lung; E03.9 Hypothyroidism, unspecified; I10 Essential (primary) hypertension; I27.2 Other secondary pulmonary hypertension; I48.0 Paroxysmal atrial fibrillation; J44.9 Chronic obstructive pulmonary disease, unspecified; I70.0 Atherosclerosis of aorta; M17.0 Bilateral primary osteoarthritis of knee; M81.0 Age-related osteoporosis without current pathological fracture; Z66 Do not resuscitate; D64.9 Anemia, unspecified; W06.XXXA Fall from bed, initial encounter; F32.9 Major depressive disorder, single episode, unspecified; F41.9 Anxiety disorder, unspecified; G62.9 Polyneuropathy, unspecified; M51.36 Other intervertebral disc degeneration, lumbar region; Z90.710 Acquired absence of both cervix and uterus; Z82.3 Family history of stroke; Z83.3 Family history of diabetes mellitus; Z82.49 Family history of ischemic heart disease and other diseases of the circulatory system; Z85.118 Personal history of other malignant neoplasm of bronchus and lung; Z87.01 Personal history of pneumonia (recurrent); Z90.49 Acquired absence of other specified parts of digestive tract; Z91.81 History of falling; Z92.3 Personal history of irradiation; Z99.81 Dependence on supplemental oxygen; Y93.89 Activity, other specified; Y99.8 Other external cause status; Y92.009 Unspecified place in unspecified non-institutional (private) residence as the place of occurrence of the external cause; Z88.6 Allergy status to analgesic agent; Z88.5 Allergy status to narcotic agent; Z88.8 Allergy status to other drugs, medicaments and biological substances; Z79.899 Other long term (current) drug therapy
CPT/HCPCS: 36415; 36600; 70450; 70553; 71010; 72125; 73060; 80048; 80053; 80061; 80162; 81001; 82550; 82607; 82805; 83735; 83880; 84132; 84439; 84443; 84481; 84484; 85027; 85610; 87086; 93005; 93306; 93880; 94640; 94660; 94760; 96365; 96366; J0690; J0696; J3475; J7030; J7042; J7512; J7620; Q0162; 92526; 92610; 97116; 97530; 97535; 99285-25; A9585

== ENCOUNTER 2017-07-02 12:09 | Emergency (ER) | payer MEDICARE ==
[~2017-07-02] VITALS: Ht 142.2 cm; Wt 55.4 kg
[2017-07-02] MEDS ORDERED: IPRATRPIUM/ALBUTEROL 0.5/2.5MG 3 ML NEBU. NEB ONE (12:15)
--- NOTE | 2017-07-02 12:25 | PHYS DOC ---
Past Medical History Past Medical History: A-Fib, Anxiety, Asthma, Bronchitis, Cancer, COPD, Depression, Hypothyroid, Pneumonia, Other Additional Past Medical Histor: chronic back, lung ca; hernia, heart dis, emphysema, Osteopor, home o2=5L Past Surgical History: Appendectomy, Cholecystectomy, , Hysterectomy, Tonsillectomy, Other Additional Past Surgical Histo: back X2, hernia x 3 Alcohol Use: None Drug Use: None Adult General Chief Complaint Chief Complaint: MECHANICAL FALL HPI HPI Patient is a 87 year old female who presents with right hip pain after a mechanical fall. She was standing up to go somewhere when she fell onto her right side. She has skin tears of her right upper extremity and pain in her right hip. She does not believe she hit her head, she denies that she takes any blood thinners. Patient normally wears 4 L nasal cannula oxygen for chronic respiratory failure. She denies increased work of breathing or new cough. Denies any fevers. She is unsure of last tetanus immunization. she lives with family members. Review of Systems Review of Systems Constitutional: Denies fever or chills [] Eyes: Denies change in visual acuity, redness, or eye pain [] HENT: Denies nasal congestion or sore throat [] Respiratory: Denies increased shortness of breath [] Cardiovascular: Denies chest pain GI: Denies abdominal pain, nausea, vomiting, bloody stools or diarrhea [] : Denies dysuria or hematuria [] Musculoskeletal: Reports chronic unchanged back pain, Skin: skin tears RUE Neurologic: Denies headache, focal weakness or sensory changes [] Current Medications Current Medications Current Medications Medications (Trade) Dose Ordered Sig/Yaya Start Time Stop Time Status Last Admin Dose Admin Albuterol/ Ipratropium (Duoneb) 3 ml 1X ONCE 07/02/17 12:15 07/02/17 12:19 DC 07/02/17 12:54 3 ML Diphtheria/ Tetanus/Acell Pertussis (Boostrix) 0.5 ml ONCE ONCE 07/02/17 12:30 07/02/17 12:31 DC 07/02/17 13:35 0.5 ML Allergies Allergies Allergies Coded Allergies Type Severity Reaction Last Updated Verified morphine Allergy Intermediate PER DAUGHTER, DOES NOT AGREE WITH PT 03/13/14 Yes adhesive Adverse Reaction Intermediate blisters 01/26/15 Yes aspirin Adverse Reaction Intermediate Nausea and Vomiting, "makes me sick" Yes Physical Exam Physical Exam Constitutional: Well developed, well nourished, no acute distress, non-toxic appearance. [] HENT: Normocephalic, atraumatic, bilateral external ears normal, oropharynx moist, no oral exudates, nose normal. [] Eyes: PERRLA, EOMI, conjunctiva normal, no discharge. [] Neck: Normal range of motion, no tenderness, supple, no stridor. [] Cardiovascular:Heart rate regular with regular rhythm, no murmur [] Lungs & Thorax: Bilateral breath sounds , moderate air movement, faint exp wheeze Abdomen: Bowel sounds normal, soft, no tenderness, no masses, no pulsatile masses. [] Skin: Warm, dry, two quarter-bender shaped skin tears RUE lateral Back: kyphosis present without focal stepoffs or appreciable stepoffs. no CVA tenderness. [] Extremities: no shortening or rotation of RLE, mild ttp along lateral hip, dp pulses intact, LLE appears normal. Neurologic: Alert and oriented X 3, normal motor function, normal sensory function, no focal deficits noted. [] Current Patient Data Vital Signs Vital Signs Date Time Temp Pulse Resp B/P (MAP) Pulse Ox O2 Delivery O2 Flow Rate FiO2 07/02/17 14:08 78 15 124/53 (76) 92 Nasal Cannula 4.0 07/02/17 12:09 98.6 98.6 EKG EKG [] Radiology/Procedures Radiology/Procedures CT head: Impression: 1. No acute intracranial process. Pelvis/left hip: Impression: 1. No obvious acute fracture identified. Examination limited due to osseous demineralization. 2. Moderate degenerative changes bilateral hip joints. Course & Med Decision Making Course & Med Decision Making Pertinent Labs and Imaging studies reviewed. (See chart for details) tdap updated, wound dressed, pt declined any pain meds. Received duoneb breathing treatment. Pt able to walk/bear weight. DC'd with return reprecautions, wound instructions. Dragon Disclaimer Dragon Disclaimer This electronic medical record was generated, in whole or in part, using a voice recognition dictation system. Departure Departure Impression: Primary Impression: Fall Additional Impression: Skin tear Disposition: HOME, SELF-CARE Condition: STABLE Referrals: PAUL MALDONADO MD (PCP) Problem Qualifiers VON SUGEY,MONICA J MD Jul 02, 2017 12:25
[2017-07-02] MEDS ORDERED: DIPHTH,PERTUSS(ACELL),TET TOX 0.5 ML DISP.SYRIN. VAX IM ONE (12:30)
--- NOTE | 2017-07-02 13:00 | RAD ---
CT head without contrast History: Fall with pain. Comparison: 03/18/2017. Procedure: Axial images are obtained of the head from the skull base through the vertex without IV contrast. Findings: Moderate bilateral periventricular white matter hypodensities likely chronic small vessel ischemic disease. Areas of encephalomalacia involving the posterior temporoparietal lobes bilaterally and in the right frontal and right cerebellar hemisphere grossly similar to prior exam. The ventricles and sulci are normal for the patient's age. No mass-effect, intracranial mass, midline shift, hemorrhage or obvious acute infarction is identified. Basilar cisterns are patent. Bone windows demonstrate no significant calvarial abnormality. The visualized paranasal sinuses appear clear. Impression: 1. No acute intracranial process. PQRS Compliance Statement: One or more of the following individualized dose reduction techniques were utilized for this examination: 1. Automated exposure control 2. Adjustment of the mA and/or kV according to patient size 3. Use of iterative reconstruction technique
--- NOTE | 2017-07-02 13:05 | RAD ---
Examination: 2 views of the right hip with frontal view of the pelvis History: History of right hip pain, fall Comparison: None available Findings: Osseous demineralization limits evaluation. The femoral heads are within the acetabula. Moderate joint space loss identified in the bilateral hip joints. No obvious acute fracture visualized. Impression: 1. No obvious acute fracture identified. Examination limited due to osseous demineralization. 2. Moderate degenerative changes bilateral hip joints.
[2017-07-02 14:08] VITALS: BP 124/53
== END 2017-07-02 14:32 | disposition home or self-care (01) ==
LOC: ER 12:09
DX: S71.011A Laceration without foreign body, right hip, initial encounter (principal); E03.9 Hypothyroidism, unspecified; I48.91 Unspecified atrial fibrillation; J44.9 Chronic obstructive pulmonary disease, unspecified; Z85.118 Personal history of other malignant neoplasm of bronchus and lung; Z88.8 Allergy status to other drugs, medicaments and biological substances; Z88.5 Allergy status to narcotic agent; Z88.6 Allergy status to analgesic agent; W18.30XA Fall on same level, unspecified, initial encounter; Y93.89 Activity, other specified; Y99.8 Other external cause status; Y92.89 Other specified places as the place of occurrence of the external cause
CPT/HCPCS: 70450; 73502; 90471; 90715; 94250; 94640; 94760; 99285; J7620

== ENCOUNTER 2017-08-21 13:51 | Emergency (ER) | payer MEDICARE ==
[~2017-08-21] VITALS: Ht 147.3 cm; Wt 53.1 kg
[2017-08-21] MEDS ORDERED: oxyCODONE/APAP 5/325 1 TAB TABLET PO ONE (14:15)
--- NOTE | 2017-08-21 14:24 | EKG ---
[facility] [address] [place] [address] Test Date: 2017-08-21 Test Time: 14:21:40 Pat Name: RICHY REDMOND Department: Room: Gender: F [employer] Operator: : [id number] Requested By: CRISTY MCDERMOTT Order Number: [id number] Reading MD: Francois Gallardo Measurements Intervals [place] Rate: 86 P: [place]: QRS: -21 QRSD: 74 T: 8 QT: 334 QTc: 402 Interpretive Statements SINUS RHYTHM VENTRICULAR PREMATURE COMPLEX(ES) LEFTWARD AXIS LOW LIMB LEAD VOLTAGE NONSPECIFIC ST-T WAVE CHANGES. ABNORMAL ECG RI6.01 Electronically Signed On 08-21-2017 16:12:21 [employer] ARCHITECT by Francois Gallardo
--- NOTE | 2017-08-21 14:29 | PHYS DOC ---
Past Medical History Past Medical History: A-Fib, Anxiety, Asthma, Bronchitis, Cancer, COPD, Depression, Hypothyroid, Pneumonia, Other Additional Past Medical Histor: chronic back, lung ca; hernia, heart dis, emphysema, Osteopor, home o2=5L Past Surgical History: Appendectomy, Cholecystectomy, , Hysterectomy, Tonsillectomy, Other Additional Past Surgical Histo: back X2, hernia x 3 Alcohol Use: None Drug Use: None Adult General Chief Complaint Chief Complaint: MECHANICAL FALL HPI HPI Patient is a 87 year old female who presents with fall from standing prior to arrival at home complaining of low back pain and right hip pain; unsure if loss of consciousness but she said she woke up on the floor. Denies diabetes or coronary artery disease. She has COPD and is on 4 L of O2 by nasal cannula at baseline. Denies any numbness tingling or weakness in the arms or legs and denies any pain to the joints of the upper or lower extremities except for questionable right hip discomfort although she is able to lift her right leg. Review of Systems Review of Systems Constitutional: Denies fever or chills [] Eyes: Denies change in visual acuity, redness, or eye pain [] HENT: Denies nasal congestion or sore throat [] Respiratory: Denies cough or shortness of breath [] Cardiovascular: No additional information not addressed in HPI [] GI: Denies abdominal pain, nausea, vomiting, bloody stools or diarrhea [] : Denies dysuria or hematuria [] Musculoskeletal: Denies back pain or joint pain [] Integument: Denies rash or skin lesions [] Neurologic: Denies headache, focal weakness or sensory changes [] Endocrine: Denies polyuria or polydipsia [] All other systems were reviewed and found to be within normal limits, except as documented in this note. Current Medications Current Medications Current Medications Medications (Trade) Dose Ordered Sig/Yaya Start Time Stop Time Status Last Admin Dose Admin Ceftriaxone Sodium 50 ml @ 100 mls/hr 1X ONCE 08/21/17 18:00 08/21/17 18:29 DC 08/21/17 18:01 100 MLS/HR Oxycodone/ Acetaminophen (Percocet 5/325) 1 tab 1X ONCE 08/21/17 14:15 08/21/17 14:18 DC 08/21/17 15:12 1 TAB Allergies Allergies Allergies Coded Allergies Type Severity Reaction Last Updated Verified morphine Allergy Intermediate PER DAUGHTER, DOES NOT AGREE WITH PT 03/13/14 Yes adhesive Adverse Reaction Intermediate blisters 01/26/15 Yes aspirin Adverse Reaction Intermediate Nausea and Vomiting, "makes me sick" Yes Physical Exam Physical Exam Constitutional: Well developed, well nourished, no acute distress, non-toxic appearance. [] HENT: Normocephalic, atraumatic, bilateral external ears normal, oropharynx moist, no oral exudates, nose normal. [] Eyes: PERRLA, EOMI, conjunctiva normal, no discharge. [] Neck: Normal range of motion, no tenderness, supple, no stridor. Nontender to palpation normal range of motion for her age [] Cardiovascular:Heart rate regular rhythm, no murmur [] Lungs & Thorax: Bilateral breath sounds clear to auscultation [] Abdomen: Bowel sounds normal, soft, no tenderness, no masses, no pulsatile masses. [] Skin: Warm, dry, no erythema, no rash. [] Back: tenderness lumbar spine area no deformities or step-offs, no CVA tenderness. [] Extremities: No tenderness, no cyanosis, no clubbing, ROM intact, no edema. No foreshortening or external rotation; able to lift the leg up does; complain of some pain to the right hip with passive range of motion.[] Neurologic: Alert and oriented X 3, normal motor function, normal sensory function, no focal deficits noted. [] Psychologic: Affect normal, judgement normal, mood normal. [] Current Patient Data Vital Signs Vital Signs Date Time Temp Pulse Resp B/P (MAP) Pulse Ox O2 Delivery O2 Flow Rate FiO2 08/21/17 17:03 86 20 96 08/21/17 14:06 99.0 153/69 (97) Nasal Cannula 4.0 99.0 Lab Values Laboratory Tests Test 08/21/17 14:30 08/21/17 15:46 08/21/17 16:20 White Blood Count 9.7 x10^3/uL (4.0-11.0) Red Blood Count 2.97 x10^6/uL (3.50-5.40) L Hemoglobin 9.0 g/dL (12.0-15.5) L Hematocrit 27.3 % (36.0-47.0) L Mean Corpuscular Volume 92 fL (79-100) Mean Corpuscular Hemoglobin 30 pg (25-35) Mean Corpuscular Hemoglobin Concent 33 g/dL (31-37) Red Cell Distribution Width 17.3 % (11.5-14.5) H Platelet Count 123 x10^3/uL (140-400) L Neutrophils (%) (Auto) 81 % (31-73) H Lymphocytes (%) (Auto) 9 % (24-48) L Monocytes (%) (Auto) 9 % (0-9) Eosinophils (%) (Auto) 1 % (0-3) Basophils (%) (Auto) 1 % (0-3) Neutrophils # (Auto) 7.9 x10^3uL (1.8-7.7) H Lymphocytes # (Auto) 0.9 x10^3/uL (1.0-4.8) L Monocytes # (Auto) 0.8 x10^3/uL (0.0-1.1) Eosinophils # (Auto) 0.1 x10^3/uL (0.0-0.7) Basophils # (Auto) 0.0 x10^3/uL (0.0-0.2) Platelet Estimate (ADEQUATE) Platelet Clumps, EDTA Present Anisocytosis Slight Troponin I Quantitative < 0.017 ng/mL (0.000-0.055) Sodium Level 139 mmol/L (136-145) Potassium Level 4.3 mmol/L (3.5-5.1) Chloride Level 97 mmol/L (98-107) L Carbon Dioxide Level 43 mmol/L (21-32) H Anion Gap -1 (6-14) L Blood Urea Nitrogen 18 mg/dL (7-20) Creatinine 1.0 mg/dL (0.6-1.0) Estimated GFR (Cockcroft-Gault) 52.7 BUN/Creatinine Ratio 18 (6-20) Glucose Level 93 mg/dL (70-99) Calcium Level 9.5 mg/dL (8.5-10.1) Total Bilirubin 0.5 mg/dL (0.2-1.0) Aspartate Amino Transferase (AST) 18 U/L (15-37) Alanine Aminotransferase (ALT) 11 U/L (14-59) L Alkaline Phosphatase 60 U/L (46-116) Total Protein 6.7 g/dL (6.4-8.2) Albumin 2.6 g/dL (3.4-5.0) L Albumin/Globulin Ratio 0.6 (1.0-1.7) L Urine Collection Type Unknown Urine Color Yellow Urine Clarity Cloudy Urine pH 7.0 Urine Specific [place] 1.020 Urine Protein 100 mg/dL (NEG-TRACE) Urine Glucose (UA) Negative mg/dL (NEG) Urine Ketones (Stick) Negative mg/dL (NEG) Urine Blood Moderate (NEG) Urine Nitrite Negative (NEG) Urine Bilirubin Negative (NEG) Urine Urobilinogen Dipstick 1.0 mg/dL (0.2 mg/dL) Urine Leukocyte Esterase Large (NEG) Urine RBC 3-5 /HPF (0-2) Urine WBC 20-40 /HPF (0-4) Urine Squamous Epithelial Cells Few /LPF Urine Bacteria Few /HPF (0-FEW) Urine Hyaline Casts Few /HPF Urine Mucus Slight /LPF Laboratory Tests 08/21/17 14:30 Laboratory Tests 08/21/17 15:46 EKG EKG EKG likely sinus rhythm rate of 86 no STEMI QTC 402 poor data quality my interpretation[] Radiology/Procedures Radiology/Procedures CT head C-spine L spine and head: Negative for acute fracture or bleed per radiology report X-ray chest pelvis right hip[] negative for fracture per radiology; atelectasis questionable infiltrates in the bases per radiology Course & Med Decision Making Course & Med Decision Making Pertinent Labs and Imaging studies reviewed. (See chart for details) [Imaging studies were negative for any acute trauma or injury. Labs were unremarkable urinalysis was consistent with a mild UTI. Reexamination at 5:40 PM patient feels improved she is requesting to go home. Patient was able to ambulate with some assistance in the emergency department she does get short of breath with exertion which is baseline.] Plan to treating her tract infection patient is comfortable going home. Clinically does not appear to have pneumonia. Dragon Disclaimer Dragon Disclaimer This electronic medical record was generated, in whole or in part, using a voice recognition dictation system. Departure Departure Impression: Primary Impression: UTI (urinary tract infection) Additional Impressions: Lumbar contusion Contusion of right hip Fall Disposition: HOME, SELF-CARE Condition: IMPROVED Referrals: PAUL MALDONADO MD (PCP) Patient Instructions: Contusion, Gpmm-[id number], Urinary Tract Infection, Easy-to -Read Additional Instructions: may take Tylenol for pain as needed. Scripts Nitrofurantoin Monohyd/M-Cryst (MACROBID 100 MG CAPSULE) 100 Mg Capsule 1 CAP PO BID, #14 CAP Prov: CRISTY MCDERMOTT MD 08/21/17 Problem Qualifiers CRISTY MCDERMOTT MD Aug 21, 2017 14:29
[2017-08-21 14:51] LABS: BASO % 1 % (0-3); EOS % 1 % (0-3); HEMATOCRIT 27.3 % (36.0-47.0); LYMPH # 0.9 x10^3/uL (1.0-4.8); LYMPH % 9 % (24-48); MEAN CORPUSCULAR HEMOGLOBIN 30 pg (25-35); MEAN CORPUSCULAR HGB CONC 33 g/dL (31-37); MEAN CORPUSCULAR VOLUME 92 fL (79-100); MONO % 9 % (0-9); NEUT % 81 % (31-73); RED BLOOD COUNT 2.97 x10^6/uL (3.50-5.40); RED CELL DISTRIBUTION WIDTH 17.3 % (11.5-14.5); WHITE BLOOD COUNT 9.7 x10^3/uL (4.0-11.0)
[2017-08-21 14:55] LABS: PLATELET COUNT 123 x10^3/uL (140-400)
--- NOTE | 2017-08-21 14:55 | RAD ---
CT head and cervical spine without contrast 08/21/2017 Clinical indication: Fall with head and neck pain. Comparison: CT head and cervical spine 03/18/2017 Technique: Multiple CT images of the head and cervical spine were obtained without contrast according to standard protocol. PQRS Compliance Statement: One or more of the following individualized dose reduction techniques were utilized for this examination: 1. Automated exposure control 2. Adjustment of the mA and/or kV according to patient size 3. Use of iterative reconstruction technique Findings: Head: There is mild prominence of the ventricles and subarachnoid spaces compatible with mild generalized cerebral atrophy. There is stable bilateral parietotemporal encephalomalacia, left greater than right. There is patchy and confluent periventricular white matter low attenuation compatible with moderate nonspecific white matter disease. No midline shift. Basal cisterns are patent. There is an old lacunar infarct of the anterior right thalamus. Cervical spine: Examination is somewhat limited due to motion artifact. Within these limitations, no evidence of acute cervical spine fracture. Atlantoaxial articulation is maintained. Moderate atlantodens arthrosis. There is multilevel cervical disc degeneration with disc space narrowing and marginal osteophyte formation greatest to a mild degree from C4-C5 through C6-C7. There is multilevel uncovertebral and facet hypertrophy with no evidence of significant spinal canal or neural foraminal narrowing. There is a 0.6 cm hypodense nodule in the right lobe of the thyroid gland. Emphysema in the visualized lung bases. Impression: Head: 1. No acute intracranial hemorrhage. 2. Stable encephalomalacia of the bilateral parietotemporal regions, likely old infarct. 3. 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 Cervical spine: 1. Somewhat limited due to motion with no CT evidence of acute cervical spine fracture or subluxation. 2. Emphysema.
--- NOTE | 2017-08-21 15:07 | RAD ---
CT lumbar spine without contrast 08/21/2017 Clinical indication: Fall with low back pain. Comparison: CT lumbar spine 07/17/2014 Technique: Multiple CT images of the lumbar spine were obtained without contrast according to standard protocol. PQRS Compliance Statement: One or more of the following individualized dose reduction techniques were utilized for this examination: 1. Automated exposure control 2. Adjustment of the mA and/or kV according to patient size 3. Use of iterative reconstruction technique Findings: There are 5 nonrib-bearing lumbar-type vertebral bodies. There is right convexity lumbar scoliosis. There is diffuse bony demineralization. There are moderate to severe lower thoracic compression deformities T8-T12 with prior spinal augmentation at T9-T11. There is a stable moderate compression deformity at L1 with prior methylmethacrylate administration. There are mild central compression deformities at L3, L4 and L5 with no significant bony retropulsion. No evidence of acute lumbar spine fracture or subluxation. There is multilevel moderate lumbar disc degeneration with disc space narrowing, endplate sclerosis, marginal osteophyte formation and vacuum disc phenomenon. There is multilevel disc bulging and posterior disc ossify complexes in combination with facet hypertrophy results in multilevel spinal canal narrowing greatest to a moderate to severe degree at L3-L4. There is multilevel neural foraminal narrowing greatest to marked severe degree on the right at L4-L5 and L5-S1 and on the left at L2-L3, L4-L5 and L5-S1. Abdominal aorta is normal in caliber with moderate calcified atheromatous disease. There is patchy consolidation and peribronchovascular opacities in the visualized lung bases. Multiple renal cysts. Moderate hiatal hernia. Impression: 1. Diffuse bony demineralization which limits evaluation for subtle fractures. 2. There are multilevel chronic mild to severe compression deformities of the lower thoracic and lumbar spine with prior spinal augmentation from T8-T11 and L1. 3. No evidence of acute lumbar spine fracture or subluxation. 4. Advanced multilevel lumbar spondylosis resulting in multifocal spinal canal narrowing, greatest to a moderate to severe degree, at L3-L4. 5. Multilevel neural foraminal stenosis, greatest to a moderate severe degree, on the left at L2-L3 and bilaterally at L4-L5 and L5-S1. 6. Patchy consolidation in the visualized lung bases concerning for aspiration or pneumonia. 7. Moderate hiatal hernia.
--- NOTE | 2017-08-21 15:17 | RAD ---
Supine chest, 08/21/2017: History: Fall, pain Comparison is made to a study from 03/18/2017. The heart appears to be mildly enlarged. There is calcific plaquing of the aorta. The pulmonary vascularity is at the upper limits of normal. There appear to be scattered parenchymal scars in the lungs. There are streaky basilar opacities compatible with mild atelectasis/infiltrate. There is no evidence of pneumothorax or pleural fluid. The bony structures are demineralized. Vertebroplasty changes are again noted at multiple levels. IMPRESSION: 1. Mild cardiomegaly and aortic atherosclerosis. 2. Mild streaky bibasilar atelectasis/infiltrate superimposed upon parenchymal scarring.
--- NOTE | 2017-08-21 15:18 | RAD ---
Pelvis with right hip, 3 views, 08/21/2017: History: Fall, pain There is severe bony demineralization. No acute fracture or dislocation is identified. The hip joints are well-maintained. Moderate degenerative change is present in the lower lumbar spine. IMPRESSION: 1. Demineralization. 2. No acute bony abnormality is detected.
[2017-08-21 16:31] LABS: ANISOCYTOSIS SLIGHT
[2017-08-21 16:32] LABS: BILIRUBIN,URINE NEGATIVE (NEG); GLUCOSE,URINE NEGATIVE (NEG); NITRITE,URINE NEGATIVE (NEG); PROTEIN,URINE 100 mg/dL (NEG-TRACE)
[2017-08-21 16:52] LABS: BACTERIA,URINE FEW /HPF (0-FEW); WBC,URINE 20-40 /HPF (0-4)
[2017-08-21 16:53] LABS: SQUAMOUS EPITHELIAL CELL,UR FEW /LPF
[2017-08-21 17:03] VITALS: BP 121/57
[2017-08-21 17:16] LABS: CALCIUM 9.5 mg/dL (8.5-10.1); GFR 52.7; POTASSIUM 4.3 mmol/L (3.5-5.1)
[2017-08-21 17:21] LABS: ALBUMIN 2.6 g/dL (3.4-5.0); ALBUMIN/GLOBULIN RATIO 0.6 (1.0-1.7); TOTAL BILIRUBIN 0.5 mg/dL (0.2-1.0); TOTAL PROTEIN 6.7 g/dL (6.4-8.2)
[2017-08-21] MEDS ORDERED: NITR100C62 PO (17:50)
== END 2017-08-21 19:16 | disposition home or self-care (01) ==
LOC: ER 13:51
DX: S30.0XXA Contusion of lower back and pelvis, initial encounter (principal); S70.01XA Contusion of right hip, initial encounter; N39.0 Urinary tract infection, site not specified; I48.91 Unspecified atrial fibrillation; J43.9 Emphysema, unspecified; G89.29 Other chronic pain; E03.9 Hypothyroidism, unspecified; Z85.118 Personal history of other malignant neoplasm of bronchus and lung; Z86.73 Personal history of transient ischemic attack (TIA), and cerebral infarction without residual deficits; Z90.49 Acquired absence of other specified parts of digestive tract; Z90.710 Acquired absence of both cervix and uterus; Z98.890 Other specified postprocedural states; Z88.5 Allergy status to narcotic agent; Z88.6 Allergy status to analgesic agent; Z88.8 Allergy status to other drugs, medicaments and biological substances; W18.39XA Other fall on same level, initial encounter; Y93.89 Activity, other specified; Y99.8 Other external cause status; Y92.89 Other specified places as the place of occurrence of the external cause
CPT/HCPCS: 36415; 70450; 71010; 72125; 72131; 73502; 80053; 81001; 84484; 85025; 87086; 93005; 96365; 99285; J0690

== ENCOUNTER 2017-09-16 12:46 | Inpatient (IN) | payer MEDICARE ==
[~2017-09-16] VITALS: Ht 144.8 cm; Wt 57.2 kg
[~2017-09-16 12:46] MED LIST changes: +NITR100C62 PO
[2017-09-16 13:15] LABS: HCO3 ABG 54 mmol/L (21-28); PH ABG 7.34 (7.35-7.45); PO2 ABG 71 mmHg (65-108); SAT O2 ABG 93 % (92-99)
[2017-09-16 13:17] LABS: PCO2 ABG 101 mmHg (35-46)
--- NOTE | 2017-09-16 13:19 | EKG ---
[facility] [address] [place] [address] Test Date: 2017-09-16 Test Time: 12:54:42 Pat Name: RICHY REDMOND Department: Room: Gender: F [employer] Center Analyst: : [id number] Requested By: LENNY HORTON Order Number: [id number] Reading MD: Jaguar Beard MD Measurements Intervals [place] Rate: 73 P: MS: QRS: -26 QRSD: 76 T: 21 QT: 344 QTc: 382 Interpretive Statements SR POSSIBLE PRIOR ANTERIOR INFARCT Electronically Signed On 09-24-2017 13:52:58 SHOP COOPER by Jaguar Beard MD
[2017-09-16 13:23] LABS: BASO % 1 % (0-3); EOS % 2 % (0-3); HEMATOCRIT 28.2 % (36.0-47.0); HEMOGLOBIN 8.6 g/dL (12.0-15.5); LYMPH # 1.1 x10^3/uL (1.0-4.8); LYMPH % 27 % (24-48); MEAN CORPUSCULAR HEMOGLOBIN 30 pg (25-35); MEAN CORPUSCULAR HGB CONC 30 g/dL (31-37); MEAN CORPUSCULAR VOLUME 97 fL (79-100); MONO % 17 % (0-9); NEUT % 54 % (31-73); PLATELET COUNT 131 x10^3/uL (140-400); RED CELL DISTRIBUTION WIDTH 15.6 % (11.5-14.5); WHITE BLOOD COUNT 4.1 x10^3/uL (4.0-11.0)
--- NOTE | 2017-09-16 13:33 | RAD ---
Portable chest, 09/16/2017: History: Shortness of breath Comparison is made to a study from 08/21/2017. The heart is mildly enlarged. There is calcific plaquing of the aorta. The pulmonary markings remain prominent in an interstitial pattern. There are focal linear opacities in both lung bases compatible with scarring and/or recurrent atelectasis. Similar findings were present on the previous study. No definite pleural fluid or pneumothorax is seen. The bony structures are severely demineralized. Kyphoplasty/vertebroplasty changes are present at multiple levels in the thoracolumbar spine. IMPRESSION: 1. Cardiomegaly and aortic atherosclerosis. 2. Prominent pulmonary markings are essentially unchanged since 08/21/2017 and are probably predominantly due to fibrosis. A component of chronic or recurrent interstitial edema cannot be excluded.
--- NOTE | 2017-09-16 13:58 | PHYS DOC ---
Past Medical History Past Medical History: A-Fib, Anxiety, Asthma, Bronchitis, Cancer, COPD, Depression, Hypothyroid, Pneumonia, Other Additional Past Medical Histor: chronic back, lung ca; hernia, heart dis, emphysema, Osteopor, home o2=5L Past Surgical History: Appendectomy, Cholecystectomy, , Hysterectomy, Tonsillectomy, Other Additional Past Surgical Histo: back X2, hernia x 3 Alcohol Use: None Drug Use: None Adult General Chief Complaint Chief Complaint: ALTERED MENTAL STATUS HPI HPI Patient is a 87 year old F who presents with increased shortness of breath and wheezing. Patient has a known history of COPD and this morning was having worsening shortness of breath and difficulty breathing. Patient O2 saturations in the low 70s for EMS. Patient was tachypneic upon arrival to emergency room. Patient denied any fevers. Patient does have operative cough. Patient denies any chest pain. Patient denies any nausea/vomiting/diarrhea. Review of Systems Review of Systems GEN: Denies fevers, chills, sweats HEENT: Denies blurred vision, sore throat CV: Denies chest pain RESP: Shortness of breath GI: Denies n/v/d NEURO: Denies confusion, dizziness MSK: Denies weakness, joint pain/swelling All other systems were reviewed and found to be within normal limits, except as documented in this note. Current Medications Current Medications Current Medications Medications (Trade) Dose Ordered Sig/Yaya Start Time Stop Time Status Last Admin Dose Admin Albuterol/ Ipratropium (Duoneb) 3 ml RTQID 09/16/17 16:00 09/17/17 15:59 UNV Fentanyl Citrate (Fentanyl 2ml Vial) 50 mcg PRN Q1HR PRN 09/16/17 14:30 09/17/17 14:29 UNV Lorazepam (Ativan) 1 mg 1X ONCE 09/16/17 13:45 09/16/17 13:46 DC 09/16/17 13:38 1 MG Ondansetron HCl (Zofran) 4 mg PRN Q8HRS PRN 09/16/17 14:30 09/17/17 14:29 UNV Allergies Allergies Allergies Coded Allergies Type Severity Reaction Last Updated Verified morphine Allergy Intermediate PER DAUGHTER, DOES NOT AGREE WITH PT 03/13/14 Yes adhesive Adverse Reaction Intermediate blisters 01/26/15 Yes aspirin Adverse Reaction Intermediate Nausea and Vomiting, "makes me sick" Yes Physical Exam Physical Exam GEN.: Moderate distress. Alert and oriented. HEENT: Head is normocephalic, atraumatic NECK: Supple. LUNGS: Tachypnea, wheezing bilaterally with decreased air movement at bases bilaterally. HEART: Irregular-irregular, 4/6 SANDRA. Peripheral pulses intact ABDOMEN: Soft, nontender. Positive bowel sounds. EXTREMITIES: Without any cyanosis. NEUROLOGIC: Normal speech, normal tone PSYCHIATRIC: Normal affect, normal mood. SKIN: No ulcerations Current Patient Data Vital Signs Vital Signs Date Time Temp Pulse Resp B/P (MAP) Pulse Ox O2 Delivery O2 Flow Rate FiO2 09/16/17 13:28 92 09/16/17 13:25 NonRebreather Mask 15.0 09/16/17 12:50 97.6 89 26 117/55 (75) 97.6 Lab Values Laboratory Tests Test 09/16/17 13:00 09/16/17 13:14 O2 Saturation 93 % (92-99) Arterial Blood pH 7.34 (7.35-7.45) L Arterial Blood pCO2 at Patient Temp 101 mmHg (35-46) *H Arterial Blood pO2 at Patient Temp 71 mmHg (65-108) Arterial Blood HCO3 54 mmol/L (21-28) H Arterial Blood Base Excess 24 mmol/L (-3-3) H FiO2 100.0 White Blood Count 4.1 x10^3/uL (4.0-11.0) Red Blood Count 2.90 x10^6/uL (3.50-5.40) L Hemoglobin 8.6 g/dL (12.0-15.5) L Hematocrit 28.2 % (36.0-47.0) L Mean Corpuscular Volume 97 fL (79-100) Mean Corpuscular Hemoglobin 30 pg (25-35) Mean Corpuscular Hemoglobin Concent 30 g/dL (31-37) L Red Cell Distribution Width 15.6 % (11.5-14.5) H Platelet Count 131 x10^3/uL (140-400) L Neutrophils (%) (Auto) 54 % (31-73) Lymphocytes (%) (Auto) 27 % (24-48) Monocytes (%) (Auto) 17 % (0-9) H Eosinophils (%) (Auto) 2 % (0-3) Basophils (%) (Auto) 1 % (0-3) Neutrophils # (Auto) 2.2 x10^3uL (1.8-7.7) Lymphocytes # (Auto) 1.1 x10^3/uL (1.0-4.8) Monocytes # (Auto) 0.7 x10^3/uL (0.0-1.1) Eosinophils # (Auto) 0.1 x10^3/uL (0.0-0.7) Basophils # (Auto) 0.0 x10^3/uL (0.0-0.2) Lactic Acid Level 0.8 mmol/L (0.4-2.0) Laboratory Tests 09/16/17 13:14 EKG EKG 1258: EKG shows A. fib rate of 73 no STEMI[] Radiology/Procedures Radiology/Procedures CXR: IMPRESSION: 1. Cardiomegaly and aortic atherosclerosis. 2. Prominent pulmonary markings are essentially unchanged since 08/21/2017 and are probably predominantly due to fibrosis. A component of chronic or recurrent interstitial edema cannot be excluded.[] Course & Med Decision Making Course & Med Decision Making Pertinent Labs and Imaging studies reviewed. (See chart for details) ED course: Patient was seen and examined upon arrival to emergency room and patient was immediately placed on BiPAP due to his severe respiratory distress, patient is septic workup ordered Patient's ABG showed PCO2 of 102 and patient was given 1 mg of Ativan to help control her anxiety while being on BiPAP Discussed results with family and plan to admit the patient for further evaluation and management 1407: Discussed CC/HP/PMH with Dr. Maldonado and recommends admit with Dr. Baca on consult MDM: After reviewing the chart, CC/HPI/PMH, physical exam, [lab results], [ radiological results], I believe the patient has an acute respiratory distress and COPD exacerbation with a PCO2 of 102 requiring BiPAP and admission for further evaluation and management. Given the patient's significant rust or distress started empiric antibiotics. Patient is resting comfortably on BiPAP. Dragon Disclaimer Dragon Disclaimer This electronic medical record was generated, in whole or in part, using a voice recognition dictation system. Departure Departure Impression: Primary Impression: Hypercapnia Additional Impressions: COPD (chronic obstructive pulmonary disease) Respiratory distress Disposition: 09 ADMITTED INPATIENT Admitting Physician: Vasu Maldonado Condition: STABLE Referrals: VASU MALDONADO MD (PCP) Problem Qualifiers LENNY HORTON DO Sep 16, 2017 13:58
[2017-09-16 14:22] LABS: ALBUMIN 2.7 g/dL (3.4-5.0); ALBUMIN/GLOBULIN RATIO 0.6 (1.0-1.7); CALCIUM 8.8 mg/dL (8.5-10.1); GFR 52.7; POTASSIUM 4.1 mmol/L (3.5-5.1); TOTAL BILIRUBIN 0.3 mg/dL (0.2-1.0); TOTAL PROTEIN 6.9 g/dL (6.4-8.2)
[2017-09-16] MEDS ORDERED: fentaNYL PF VIAL 100 MCG/2 ML VIAL IV PRN (14:30)
[2017-09-16] MEDS ORDERED: AZITHRMYCN 500MG IVPB FOR OMNI 250 ML IV ONE (14:30)
[2017-09-16] MEDS ORDERED: ONDANSETRON PF 4 MG/2 ML VIAL. IV PRN (14:30)
[2017-09-16] MEDS ORDERED: CONTRAST GIVEN MC PRN (14:45)
[2017-09-16] MEDS ORDERED: IOHEXOL 300 MG/ML 100ML VIAL. IV ONE (14:45)
[2017-09-16 15:14] LABS: HCO3 ABG 50 mmol/L (21-28); PH ABG 7.36 (7.35-7.45); PO2 ABG 64 mmHg (65-108); SAT O2 ABG 91 % (92-99)
[2017-09-16 15:15] LABS: PCO2 ABG 90 mmHg (35-46)
[2017-09-16] MEDS ORDERED: IPRATRPIUM/ALBUTEROL 0.5/2.5MG 3 ML NEBU. NEB SCH (16:00)
--- NOTE | 2017-09-16 16:46 | RAD ---
Indication: Fall, chest pain. Technique: Axial images and coronal and sagittal reformatted images are provided. Comparison is from June 08, 2016. One or more of the following individualized dose reduction techniques were utilized for this examination: 1. Automated exposure control 2. Adjustment of the mA and/or kV according to patient size 3. Use of iterative reconstruction technique Findings: There is no pneumothorax. There is minimal pleural effusion on the right. There is atelectasis in the lung bases. There is severe emphysema. There is no worrisome pulmonary nodule. Central airways are patent. There is atheromatous disease in the thoracic aorta. There are coronary artery calcifications. The heart is enlarged. Hiatal hernia is noted. Probable renal cysts are noted in the right kidney. There are degenerative changes in the spine. There are multiple thoracic vertebroplasties. There is elevation of the right hemidiaphragm. Impression: 1. No acute thoracic findings. 2. Severe emphysema. 3. Trace right pleural effusion. 4. Cardiomegaly. 5. Coronary artery calcifications 6. Hiatal hernia.
[2017-09-16 19:15] VITALS: BP 99/51
[2017-09-16] MEDS ORDERED: oxyCODONE/APAP 10/325 1 TAB TABLET PO PRN ×2 (21:15→22:00)
[2017-09-16] MEDS: traZODone 100 MG TABLET. PO SCH (21:25)
[2017-09-16] MEDS: ALPRAZolam 0.25 MG TABLET PO PRN (21:25)
[2017-09-16] MEDS ORDERED: ENOXAPARIN 40 MG/0.4 ML SYRINGE. SQ SCH (22:00)
[2017-09-16] MEDS: ONDANSETRON ODT 4 MG TAB.RAPDIS. PO SCH (22:00)
[2017-09-16] MEDS ORDERED: ALPRAZolam 0.25 MG TABLET PO PRN (22:00)
[2017-09-16] MEDS ORDERED: ALBUTEROL SULFATE 2.5 MG/3 ML NEBU. NEB PRN (22:30)
[2017-09-16] MEDS: methylPREDNISolone SOD SUCC PF 125 MG/2 ML VIAL. IV SCH (22:37)
[2017-09-16 22:55] VITALS: BP 110/62
[2017-09-17] VITALS (29 sets, daily range): BP systolic 72–129; BP diastolic 43–65
[2017-09-17 00:47] LABS: HCO3 ABG 51 mmol/L (21-28); PO2 ABG 252 mmHg (65-108); SAT O2 ABG 99 % (92-99)
[2017-09-17 00:48] LABS: PCO2 ABG 100 mmHg (35-46); PH ABG 7.32 (7.35-7.45)
[2017-09-17 00:49] LABS: FIO2 ABG 100
[2017-09-17] MEDS ORDERED: NOREPINEPHRIN PREMIX 250 ML IV PRN (01:00)
[2017-09-17] MEDS ORDERED: IV NORMAL SALINE 500ML BAG 500 ML IV ONE (01:00)
[2017-09-17] MEDS: IV NORMAL SALINE 1000ML BAG 1,000 ML IV SCH ×3 (01:50→22:00)
[2017-09-17 03:35] LABS: CALCIUM 8.3 mg/dL (8.5-10.1); CREATININE 0.9 mg/dL (0.6-1.0); GFR 59.5; POTASSIUM 4.6 mmol/L (3.5-5.1)
[2017-09-17 04:12] LABS: BASO % 0 % (0-3); EOS % 0 % (0-3); HEMATOCRIT 27.9 % (36.0-47.0); HEMOGLOBIN 8.6 g/dL (12.0-15.5); LYMPH # 0.5 x10^3/uL (1.0-4.8); LYMPH % 12 % (24-48); MEAN CORPUSCULAR HEMOGLOBIN 30 pg (25-35); MEAN CORPUSCULAR HGB CONC 31 g/dL (31-37); MEAN CORPUSCULAR VOLUME 96 fL (79-100); MONO % 4 % (0-9); NEUT % 84 % (31-73); PLATELET COUNT 60 x10^3/uL (140-400); RED CELL DISTRIBUTION WIDTH 15.7 % (11.5-14.5); WHITE BLOOD COUNT 4.6 x10^3/uL (4.0-11.0)
[2017-09-17] MEDS: methylPREDNISolone SOD SUCC PF 125 MG/2 ML VIAL. IV SCH ×3 (05:46→21:42)
[2017-09-17] MEDS: ONDANSETRON ODT 4 MG TAB.RAPDIS. PO SCH ×3 (05:55→21:41)
[2017-09-17] MEDS: LEVOTHYROXINE 88 MCG TABLET PO SCH (06:37)
[2017-09-17] MEDS: IPRATRPIUM/ALBUTEROL 0.5/2.5MG 3 ML NEBU. NEB SCH ×4 (07:38→20:01)
[2017-09-17 07:54] LABS: HCO3 ABG 38 mmol/L (21-28); PO2 ABG 71 mmHg (65-108); SAT O2 ABG 94 % (92-99)
[2017-09-17 07:57] LABS: FIO2 ABG 50; PCO2 ABG 59 mmHg (35-46); PH ABG 7.43 (7.35-7.45)
[2017-09-17] MEDS ORDERED: IPRATRPIUM/ALBUTEROL 0.5/2.5MG 3 ML NEBU. NEB SCH (08:00)
[2017-09-17] MEDS ORDERED: CRANBERRY FRUIT 4200 MG PO SCH (09:00)
[2017-09-17] MEDS: CHOLECALCIFEROL (VITAMIN D3) 1,000 UNIT TABLET PO SCH (10:07)
[2017-09-17] MEDS: SENNOSIDES 8.6 MG TABLET PO SCH (10:07)
[2017-09-17] MEDS: CYANOCOBALAMIN (VITAMIN B-12) 1,000 MCG TABLET. PO SCH (10:07)
[2017-09-17] MEDS: CITALOPRAM 20 MG TABLET. PO SCH (10:07)
[2017-09-17] MEDS: DOCUSATE SODIUM 100 MG CAPSULE. PO SCH (10:08)
[2017-09-17] MEDS: DIGOXIN 125 MCG TABLET. PO SCH (10:08)
--- NOTE | 2017-09-17 10:37 | PDOC ---
Provider Note Provider Note Pt seen in ICU.H&P dictated.#[id number] spoke with pulmonary. DNR code status changed as per pts wishes PAUL MALDONADO MD Sep 17, 2017 10:37
--- NOTE | 2017-09-17 11:05 | CONS ---
DATE OF CONSULTATION: ATTENDING PHYSICIAN: Dr. Amaya. REASON FOR CONSULTATION: Respiratory failure. HISTORY OF PRESENT ILLNESS: The patient is very well known to me. 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 She presented to the hospital with increasing shortness of breath and wheezing. The patient was also lethargic. Saturations were in the low 70s. She was tachypneic on arrival. She does not have any cough, fever, chills. No chest pain, no headaches, no nausea, vomiting or diarrhea. Last night when consultation was called to me, her initial arterial blood gases had a pH of 7.34, pCO2 of 101 and a pO2 of 71 with a bicarbonate of 54 on 100% FiO2. The patient was placed on BiPAP and last night she was still acidotic, but after all night BiPAP this morning, her pH was 7.43, pCO2 of 59 and a pO2 of 71 on 50% FiO2. She is awake, following commands. She does not remember what happened and what brought her to the hospital. I have reviewed the patient's imaging studies, which included a CT chest without contrast and it shows no evidence of any pneumonia or lung mass. There is some atelectasis in the lung bases and a chronic tiny right pleural effusion. No definite consolidation seen. Consultation requested for further evaluation and management. 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 PAST SURGICAL HISTORY: Appendectomy, cholecystectomy, , hysterectomy, tonsillectomy, back surgery and hernia surgery. ALLERGIES: ASPIRIN AND MORPHINE. MEDICATIONS: All reviewed as listed in the MRAD including Rocephin, DuoNeb and IV steroids. The patient also takes oxycodone 1 tablet t.i.d. p.r.n. at home and Xanax p.r.n. SOCIAL HISTORY: She has long history of tobacco use, but quit many years ago. FAMILY HISTORY: Noncontributory to lungs. PHYSICAL EXAMINATION: GENERAL: She is awake, following commands. She has no recollection of the events at home. VITAL SIGNS: Blood pressure 121/56, afebrile, pulse ox is 94-95% on 50% Ventimask and 2 liters cannula. HEENT: Sclerae nonicteric. NECK: Supple. LUNGS: Diminished breath sounds. No wheezing, no crackles. CARDIOVASCULAR: Regular rate and rhythm. ABDOMEN: Soft. EXTREMITIES: No pitting edema. LABORATORY DATA: Reviewed. ABGs are discussed in my history of present illness. BUN is 16, creatinine 0.9, bicarbonate is down from 52-41. White cell count 4.6, hemoglobin 8.6 and platelets are 60, which is down from 131. IMPRESSION: 1. Acute on chronic hypercapnic and hypoxic respiratory failure secondary to combination of acute exacerbation of chronic obstructive pulmonary disease, and use of narcotics. 2. Acute toxic encephalopathy secondary to use of narcotics. She is on Percocet t.i.d. p.r.n. 3. History of lung cancer with excellent response to prior treatment with no residual mass seen in the right chest. 4. Anemia. 5. Thrombocytopenia could be related to inflammatory etiology. Will need to be monitored closely. She is not on any Lovenox. 6. 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 RECOMMENDATIONS: 1. We will continue the Venturi mask during the day and BiPAP at bedtime for a few nights. 2. Continue bronchodilators. 3. Continue steroids. 4. Empiric antibiotics for now. 5. Steroid taper. 6. Minimize the use of benzodiazepine and narcotics, and the medication doses should be adjusted for home medication at discharge. 7. Discussed with RN and RT and Dr. Amaya as well. We will follow along with you. Critical care time 39 minutes. KESHIA CHAO MD DR: SHEA/patience JOB#: [id number] / [id number]
--- NOTE | 2017-09-17 11:19 | HP ---
ADMIT DATE: 09/16/2017 PATIENT LOCATION: ICU room 110. REASON FOR ADMISSION TO THE HOSPITAL: Hypercapnic acute respiratory failure. HISTORY OF PRESENT ILLNESS: The patient is an 87-year-old female, patient well known to me. She has a history of chronic COPD, on home oxygen 5 liters. She also has history of lung cancer, had radiation and chemo; multiple osteoporosis and compression fractures. She has been not feeling well for one week, came to the Emergency Room with increased shortness of breath and wheezing. Her oxygen saturation was less than 70 per EMS, was tachypneic. The patient was put on BiPAP. Her CO2 was 90, pH was 7.3. The patient was admitted to the ICU and was given Solu-Medrol, oxygen and breathing treatments. Chest x-ray, chronic infiltrates. CT chest shows emphysema and Pulmonary was consulted. PAST MEDICAL HISTORY: Has atrial fibrillation, anxiety, COPD, lung cancer, hypothyroidism, multiple compression fractures and depression. PAST SURGICAL HISTORY: Appendectomy, gallbladder surgery, , hysterectomy, tonsillectomy, had a lung biopsy, had radiation and chemo, back surgeries and hernia surgeries. PERSONAL HISTORY: Smoked for at least 50 years, quit 5 years ago. Denies alcohol or drug abuse. SOCIAL HISTORY: Lives at home with her daughter. She is on home oxygen 5 liters, ambulates with a walker. ALLERGIES: ALLERGY TO ASPIRIN, MORPHINE AND ADHESIVE TAPE. MEDICATIONS AT HOME: Xanax 0.25 three times daily, vitamin D 1000 daily, B12 at 1000 mcg daily, digoxin 125 mcg daily, Colace 100 mg daily, Lexapro 10 mg daily, DuoNeb 4 times daily, levothyroxine 88 mcg daily, Zoloft 4 mg p.r.n., oxycodone 10 mg q. 6h. p.r.n., senna daily and trazodone 100 mg daily. REVIEW OF SYMPTOMS: Complains of feeling weak, short of breath, not feeling well for one week. Denies any fever. Cough present. Rest of her systems were reviewed and negative. PHYSICAL EXAMINATION: GENERAL: On examination, elderly female, looks older, getting weaker recently. VITAL SIGNS: Temperature 97, pulse 89, respirations 26, blood pressure 117/55 and oxygen 78% on 5 liters. HEENT: Head is atraumatic. Pupils equal. Oral cavity, dentures. NECK: Supple. Thyroid not enlarged. JVD not elevated. CHEST: Symmetrical, COPD pattern. CARDIOVASCULAR: S1, S2 regular. LUNGS: Diminished breath sounds, bilateral wheezing. ABDOMEN: Soft. Scars of previous abdominal surgeries. No mass palpable. EXTERNAL GENITALIA: No Freeman. RECTAL: Deferred. EXTREMITIES: No calf tenderness, no edema. Pulses 1+. NEUROLOGICAL EXAMINATION: The patient is awake, recognized me, answers 1-2 word questions, moving extremities. She says she does not like oxygen and CPAP mask. LABORATORY DATA: Shows a white count of 4, hemoglobin 8.6 and platelets 131,000. Electrolytes show sodium 143, potassium 4.1, chloride 99, bicarbonate 52, BUN 15, creatinine 1.0 and glucose 93. Lactic acid 0.7. LFTs were normal. Troponin was negative. Chest x-ray shows a cardiomegaly, prominent lung markings. CT chest shows severe emphysema, cardiomegaly, coronary artery calcification and hiatal hernia. Laboratory data on the blood gas shows pH of 7.34, pCO2 of 101, pO2 of 71, bicarbonate 54, base excess 24, 100% oxygen and 93 saturation. FINAL IMPRESSION: 1. Hypercapnic acute respiratory failure. 2. Chronic obstructive pulmonary disease with hypoxia, on 5 liters oxygen. 3. History of lung cancer, had radiation and chemo 5 years ago. 4. Anxiety. 5. Depression. 6. Hiatal hernia. 7. Chronic pain syndrome. PLAN: At this time, the patient admitted to the hospital and was on BiPAP. Now change it to Ventimask. The patient has a living will, does not want intubated, was to be a DNR. IV Solu-Medrol, IV Rocephin and DuoNeb 4 times daily. DVT prophylaxis, GI prophylaxis, Pulmonary consult and IV fluids and see how the patient's condition improves. The patient is up-to-date on flu and pneumonia shots. She does not smoke now for the last 5 years. PROGNOSIS: Guarded. PAUL MALDONADO MD DR: EKTA/patience JOB#: [id number] / [id number]
[2017-09-17] MEDS: cefTRIAXone IV Push 1 GM VIAL. IVP SCH (19:00)
[2017-09-17] MEDS: traZODone 100 MG TABLET. PO SCH (21:00)
[2017-09-17] MEDS ORDERED: traZODone 100 MG TABLET. PO SCH (21:00)
[2017-09-17] MEDS: LACTOBACILLUS RHAMNOSUS GG 1 CAPSULE. PO SCH (21:00)
[2017-09-18] VITALS (14 sets, daily range): BP systolic 85–142; BP diastolic 41–63
[2017-09-18 04:29] LABS: CALCIUM 8.5 mg/dL (8.5-10.1); CREATININE 1.2 mg/dL (0.6-1.0); GFR 42.7; POTASSIUM 4.6 mmol/L (3.5-5.1)
[2017-09-18] MEDS: IV NORMAL SALINE 1000ML BAG 1,000 ML IV SCH ×2 (04:44→18:27)
[2017-09-18] MEDS: methylPREDNISolone SOD SUCC PF 125 MG/2 ML VIAL. IV SCH ×3 (06:21→20:58)
[2017-09-18] MEDS: LEVOTHYROXINE 88 MCG TABLET PO SCH (06:24)
[2017-09-18] MEDS: ONDANSETRON ODT 4 MG TAB.RAPDIS. PO SCH ×3 (06:26→20:57)
[2017-09-18] MEDS: IPRATRPIUM/ALBUTEROL 0.5/2.5MG 3 ML NEBU. NEB SCH ×4 (08:14→21:11)
[2017-09-18 08:26] LABS: BASO % 0 % (0-3); EOS % 0 % (0-3); HEMATOCRIT 25.9 % (36.0-47.0); HEMOGLOBIN 7.8 g/dL (12.0-15.5); LYMPH # 0.5 x10^3/uL (1.0-4.8); LYMPH % 9 % (24-48); MEAN CORPUSCULAR HEMOGLOBIN 29 pg (25-35); MEAN CORPUSCULAR HGB CONC 30 g/dL (31-37); MEAN CORPUSCULAR VOLUME 96 fL (79-100); MONO % 5 % (0-9); NEUT % 86 % (31-73); PLATELET COUNT 71 x10^3/uL (140-400); RED BLOOD COUNT 2.69 x10^6/uL (3.50-5.40); RED CELL DISTRIBUTION WIDTH 16.2 % (11.5-14.5); WHITE BLOOD COUNT 5.8 x10^3/uL (4.0-11.0)
[2017-09-18] MEDS: DOCUSATE SODIUM 100 MG CAPSULE. PO SCH (09:49)
[2017-09-18] MEDS: CHOLECALCIFEROL (VITAMIN D3) 1,000 UNIT TABLET PO SCH (09:49)
[2017-09-18] MEDS: DIGOXIN 125 MCG TABLET. PO SCH (09:49)
[2017-09-18] MEDS: LACTOBACILLUS RHAMNOSUS GG 1 CAPSULE. PO SCH ×2 (09:49→20:58)
[2017-09-18] MEDS: SENNOSIDES 8.6 MG TABLET PO SCH (09:49)
[2017-09-18] MEDS: CYANOCOBALAMIN (VITAMIN B-12) 1,000 MCG TABLET. PO SCH (09:50)
[2017-09-18] MEDS: CITALOPRAM 20 MG TABLET. PO SCH (09:50)
--- NOTE | 2017-09-18 10:10 | PDOC ---
PROGRESS NOTES Subjective Subjective off BIPAP, doing well on oxygen Objective Objective Vital Signs Date Time Temp Pulse Resp B/P (MAP) Pulse Ox O2 Delivery O2 Flow Rate FiO2 09/18/17 09:49 85 107/51 09/18/17 08:14 90 Simple Mask 6.0 09/18/17 07:00 30 09/18/17 04:00 98.6 98.6 Intake and Output 09/18/17 07:00 Intake Total 1524 ml Output Total 955 ml Balance 569 ml Intake Oral 500 ml IV Total 1024 ml Output Urine Total 955 ml # Voids 2 Physical Exam Abdomen: Normal bowel sounds, Soft Heart: Regular rate, Normal S1 Extremities: No clubbing General: Alert HEENT: Atraumatic Lungs: Clear to auscultation MUSCULOSKELETAL: No swelling Neuro: Normal speech Psych/Mental Status: Mood NL Skin: No significant lesion Diagnosis Problem List Problems Medical Problems: (1) COPD (chronic obstructive pulmonary disease) Status: Acute (2) Respiratory distress Status: Acute Assessment Assessment Problems Medical Problems: (1) COPD (chronic obstructive pulmonary disease) Status: Acute (2) Respiratory distress Status: Acute FINAL IMPRESSION: 1. Hypercapnic acute respiratory failure. 2. Chronic obstructive pulmonary disease with hypoxia, on 5 liters oxygen. 3. History of lung cancer, had radiation and chemo 5 years ago. 4. Anxiety. 5. Depression. 6. Hiatal hernia. 7. Chronic pain syndrome. PLAN: Pt is off bipap. co2 corrected. on oxygen nasal canula. transfer out of icu. continue steroids. At this time, the patient admitted to the hospital and was on BiPAP. Now change it to Ventimask. The patient has a living will, does not want intubated, was to be a DNR. IV Solu-Medrol, IV Rocephin and DuoNeb 4 times daily. DVT prophylaxis, GI prophylaxis, Pulmonary consult and IV fluids and see how the patient's condition improves. The patient is up-to-date on flu and pneumonia shots. She does not smoke now for the last 5 years. Problems: Plan Plan of Care Problems Medical Problems: (1) COPD (chronic obstructive pulmonary disease) Status: Acute (2) Respiratory distress Status: Acute Comment Review of Relevant I have reviewed the following items carly (where applicable) has been applied. Labs Laboratory Tests Test 09/18/17 02:50 09/18/17 08:05 Sodium Level 140 mmol/L (136-145) Potassium Level 4.6 mmol/L (3.5-5.1) Chloride Level 99 mmol/L (98-107) Carbon Dioxide Level 40 mmol/L (21-32) Anion Gap 1 (6-14) Blood Urea Nitrogen 24 mg/dL (7-20) Creatinine 1.2 mg/dL (0.6-1.0) Estimated GFR (Cockcroft-Gault) 42.7 Glucose Level 130 mg/dL (70-99) Calcium Level 8.5 mg/dL (8.5-10.1) White Blood Count 5.8 x10^3/uL (4.0-11.0) Red Blood Count 2.69 x10^6/uL (3.50-5.40) Hemoglobin 7.8 g/dL (12.0-15.5) Hematocrit 25.9 % (36.0-47.0) Mean Corpuscular Volume 96 fL (79-100) Mean Corpuscular Hemoglobin 29 pg (25-35) Mean Corpuscular Hemoglobin Concent 30 g/dL (31-37) Red Cell Distribution Width 16.2 % (11.5-14.5) Platelet Count 71 x10^3/uL (140-400) Neutrophils (%) (Auto) 86 % (31-73) Lymphocytes (%) (Auto) 9 % (24-48) Monocytes (%) (Auto) 5 % (0-9) Eosinophils (%) (Auto) 0 % (0-3) Basophils (%) (Auto) 0 % (0-3) Neutrophils # (Auto) 5.0 x10^3uL (1.8-7.7) Lymphocytes # (Auto) 0.5 x10^3/uL (1.0-4.8) Monocytes # (Auto) 0.3 x10^3/uL (0.0-1.1) Eosinophils # (Auto) 0.0 x10^3/uL (0.0-0.7) Basophils # (Auto) 0.0 x10^3/uL (0.0-0.2) Microbiology 09/16/17 Blood Culture - Preliminary, Resulted NO GROWTH AFTER 1 DAY Medications Current Medications Ceftriaxone Sodium 1 gm/ Dextrose 50 ml @ 100 mls/hr Q24H IV ; Start 09/17/17 at 14:00; Status UNV Ceftriaxone Sodium (Rocephin) 1 gm Q24H IVP Last administered on 09/17/17t 19: 00; Start 09/17/17 at 14:00 Lactobacillus Rhamnosus (Culturelle) 1 cap BID PO Last administered on 09:49; Start 09/17/17 at 21:00 Trazodone HCl (Desyrel) 100 mg QHS PO ; Start 09/17/17 at 21:00; Status UNV Vitals/I & O Vital Sign - Last 24 Hours 09/17/17 09/17/17 09/17/17 09/17/17 11:16 11:22 12:00 12:00 Temp 98.1 98.1 Pulse 73 86 Resp 22 29 B/P (MAP) 118/56 (76) 119/58 (78) Pulse Ox 92 93 83 O2 Delivery Venturi Mask 50% VM + 2L NC Venturi Mask Venturi Mask O2 Flow Rate 15.0 15.0 15.0 09/17/17 09/17/17 09/17/17 09/17/17 13:00 14:00 15:00 15:17 Pulse 88 86 98 Resp 22 25 34 B/P (MAP) 129/60 (83) 104/49 (67) 102/48 (66) Pulse Ox 90 98 82 90 O2 Delivery Venturi Mask Nasal Cannula Nasal Cannula Nasal Cannula O2 Flow Rate 15.0 6.0 6.0 7.0 09/17/17 09/17/17 09/17/17 09/17/17 16:00 16:00 16:00 17:00 Temp 98.0 98.0 Pulse 96 84 Resp 37 22 B/P (MAP) 97/45 (62) 106/44 (64) Pulse Ox 96 93 O2 Delivery Nasal Cannula Nasal Cannula Nasal Cannula O2 Flow Rate 6.0 6.0 6.0 09/17/17 09/17/17 09/17/17 09/17/17 18:00 19:02 20:00 20:00 Temp 98.1 98.1 Pulse 80 98 99 Resp 25 36 35 B/P (MAP) 106/50 (68) 120/55 (76) 111/56 (74) Pulse Ox 88 90 95 O2 Delivery Nasal Cannula Nasal Cannula Simple Mask O2 Flow Rate 6.0 6.0 6.0 6.0 09/17/17 09/17/17 09/17/17 09/17/17 20:00 20:03 21:00 22:00 Pulse 95 95 Resp 36 23 B/P (MAP) 114/65 (81) 92/43 (59) Pulse Ox 90 90 91 O2 Delivery Nasal Cannula Simple Mask Simple Mask Simple Mask O2 Flow Rate 6.0 6.0 6.0 6.0 09/17/17 09/17/17 09/17/17 09/17/17 23:00 23:05 23:59 23:59 Temp 98.3 98.3 Pulse 101 94 Resp 22 20 B/P (MAP) 96/46 (63) 98/46 (63) Pulse Ox 93 93 94 O2 Delivery BiPAP/CPAP BiPAP/CPAP Bi-pap BiPAP/CPAP 09/18/17 09/18/17 09/18/17 09/18/17 01:00 01:00 02:00 02:58 Pulse 77 70 Resp 29 19 B/P (MAP) 85/41 (56) 111/57 (75) Pulse Ox 91 93 94 92 O2 Delivery BiPAP/CPAP BiPAP/CPAP BiPAP/CPAP BiPAP/CPAP 09/18/17 09/18/17 09/18/17 09/18/17 03:00 04:00 04:00 04:52 Temp 98.6 98.6 Pulse 74 69 Resp 19 19 B/P (MAP) 111/52 (71) 92/48 (63) Pulse Ox 95 94 94 O2 Delivery BiPAP/CPAP BiPAP/CPAP Bi-pap BiPAP/CPAP 09/18/17 09/18/17 09/18/17 09/18/17 05:00 06:00 07:00 08:14 Pulse 65 73 65 Resp 22 24 30 B/P (MAP) 87/55 (66) 99/48 (65) 111/56 (74) Pulse Ox 94 93 96 90 O2 Delivery BiPAP/CPAP BiPAP/CPAP Simple Mask Simple Mask O2 Flow Rate 6.0 6.0 09/18/17 09:49 Pulse 85 B/P (MAP) 107/51 Intake and Output 09/17/17 09/17/17 09/18/17 15:00 23:00 07:00 Intake Total 100 ml 400 ml 1024 ml Output Total 450 ml 200 ml 305 ml Balance -350 ml 200 ml 719 ml PAUL MALDONADO MD Sep 18, 2017 10:10
--- NOTE | 2017-09-18 10:35 | PDOC ---
PULMONARY PROGRESS NOTES Subjective feels much better Vitals Vital Signs Date Time Temp Pulse Resp B/P (MAP) Pulse Ox O2 Delivery O2 Flow Rate FiO2 09/18/17 09:49 85 107/51 09/18/17 09:00 98.1 34 92 Nasal Cannula 6.0 98.1 General: Alert, No acute distress HEENT: Other Lungs: Other (decrease bs) Cardiovascular: S1, S2 Abdomen: Soft, Non-tender Neuro Exam: Alert Extremities: No Edema Skin: Warm Labs Laboratory Tests Test 09/16/17 13:00 09/16/17 13:14 09/16/17 13:50 09/16/17 15:15 O2 Saturation 93 % (92-99) 91 % (92-99) Arterial Blood pH 7.34 (7.35-7.45) 7.36 (7.35-7.45) Arterial Blood pCO2 at Patient Temp 101 mmHg (35-46) 90 mmHg (35-46) Arterial Blood pO2 at Patient Temp 71 mmHg (65-108) 64 mmHg (65-108) Arterial Blood HCO3 54 mmol/L (21-28) 50 mmol/L (21-28) Arterial Blood Base Excess 24 mmol/L (-3-3) 21 mmol/L (-3-3) FiO2 100.0 40.0 White Blood Count 4.1 x10^3/uL (4.0-11.0) Red Blood Count 2.90 x10^6/uL (3.50-5.40) Hemoglobin 8.6 g/dL (12.0-15.5) Hematocrit 28.2 % (36.0-47.0) Mean Corpuscular Volume 97 fL (79-100) Mean Corpuscular Hemoglobin 30 pg (25-35) Mean Corpuscular Hemoglobin Concent 30 g/dL (31-37) Red Cell Distribution Width 15.6 % (11.5-14.5) Platelet Count 131 x10^3/uL (140-400) Neutrophils (%) (Auto) 54 % (31-73) Lymphocytes (%) (Auto) 27 % (24-48) Monocytes (%) (Auto) 17 % (0-9) Eosinophils (%) (Auto) 2 % (0-3) Basophils (%) (Auto) 1 % (0-3) Neutrophils # (Auto) 2.2 x10^3uL (1.8-7.7) Lymphocytes # (Auto) 1.1 x10^3/uL (1.0-4.8) Monocytes # (Auto) 0.7 x10^3/uL (0.0-1.1) Eosinophils # (Auto) 0.1 x10^3/uL (0.0-0.7) Basophils # (Auto) 0.0 x10^3/uL (0.0-0.2) Lactic Acid Level 0.8 mmol/L (0.4-2.0) Sodium Level 143 mmol/L (136-145) Potassium Level 4.1 mmol/L (3.5-5.1) Chloride Level 99 mmol/L (98-107) Carbon Dioxide Level 52 mmol/L (21-32) Anion Gap -8 (6-14) Blood Urea Nitrogen 15 mg/dL (7-20) Creatinine 1.0 mg/dL (0.6-1.0) Estimated GFR (Cockcroft-Gault) 52.7 BUN/Creatinine Ratio 15 (6-20) Glucose Level 93 mg/dL (70-99) Calcium Level 8.8 mg/dL (8.5-10.1) Total Bilirubin 0.3 mg/dL (0.2-1.0) Aspartate Amino Transf (AST/SGOT) 17 U/L (15-37) Alanine Aminotransferase (ALT/SGPT) 12 U/L (14-59) Alkaline Phosphatase 83 U/L (46-116) Total Protein 6.9 g/dL (6.4-8.2) Albumin 2.7 g/dL (3.4-5.0) Albumin/Globulin Ratio 0.6 (1.0-1.7) Lipase 171 U/L (73-393) Test 09/16/17 17:30 09/16/17 20:00 09/16/17 23:30 09/17/17 02:40 Lactic Acid Level 0.7 mmol/L (0.4-2.0) Troponin I Quantitative < 0.017 ng/mL (0.000-0.055) < 0.017 ng/mL (0.000-0.055) O2 Saturation 99 % (92-99) Arterial Blood pH 7.32 (7.35-7.45) Arterial Blood pCO2 at Patient Temp 100 mmHg (35-46) Arterial Blood pO2 at Patient Temp 252 mmHg (65-108) Arterial Blood HCO3 51 mmol/L (21-28) Arterial Blood Base Excess 21 mmol/L (-3-3) FiO2 100 White Blood Count 4.6 x10^3/uL (4.0-11.0) Red Blood Count 2.90 x10^6/uL (3.50-5.40) Hemoglobin 8.6 g/dL (12.0-15.5) Hematocrit 27.9 % (36.0-47.0) Mean Corpuscular Volume 96 fL (79-100) Mean Corpuscular Hemoglobin 30 pg (25-35) Mean Corpuscular Hemoglobin Concent 31 g/dL (31-37) Red Cell Distribution Width 15.7 % (11.5-14.5) Platelet Count 60 x10^3/uL (140-400) Neutrophils (%) (Auto) 84 % (31-73) Lymphocytes (%) (Auto) 12 % (24-48) Monocytes (%) (Auto) 4 % (0-9) Eosinophils (%) (Auto) 0 % (0-3) Basophils (%) (Auto) 0 % (0-3) Neutrophils # (Auto) 3.9 x10^3uL (1.8-7.7) Lymphocytes # (Auto) 0.5 x10^3/uL (1.0-4.8) Monocytes # (Auto) 0.2 x10^3/uL (0.0-1.1) Eosinophils # (Auto) 0.0 x10^3/uL (0.0-0.7) Basophils # (Auto) 0.0 x10^3/uL (0.0-0.2) Sodium Level 142 mmol/L (136-145) Potassium Level 4.6 mmol/L (3.5-5.1) Chloride Level 99 mmol/L (98-107) Carbon Dioxide Level 41 mmol/L (21-32) Anion Gap 2 (6-14) Blood Urea Nitrogen 16 mg/dL (7-20) Creatinine 0.9 mg/dL (0.6-1.0) Estimated GFR (Cockcroft-Gault) 59.5 Glucose Level 97 mg/dL (70-99) Calcium Level 8.3 mg/dL (8.5-10.1) Test 09/17/17 07:50 09/18/17 02:50 09/18/17 08:05 O2 Saturation 94 % (92-99) Arterial Blood pH 7.43 (7.35-7.45) Arterial Blood pCO2 at Patient Temp 59 mmHg (35-46) Arterial Blood pO2 at Patient Temp 71 mmHg (65-108) Arterial Blood HCO3 38 mmol/L (21-28) Arterial Blood Base Excess 12 mmol/L (-3-3) FiO2 50 Sodium Level 140 mmol/L (136-145) Potassium Level 4.6 mmol/L (3.5-5.1) Chloride Level 99 mmol/L (98-107) Carbon Dioxide Level 40 mmol/L (21-32) Anion Gap 1 (6-14) Blood Urea Nitrogen 24 mg/dL (7-20) Creatinine 1.2 mg/dL (0.6-1.0) Estimated GFR (Cockcroft-Gault) 42.7 Glucose Level 130 mg/dL (70-99) Calcium Level 8.5 mg/dL (8.5-10.1) White Blood Count 5.8 x10^3/uL (4.0-11.0) Red Blood Count 2.69 x10^6/uL (3.50-5.40) Hemoglobin 7.8 g/dL (12.0-15.5) Hematocrit 25.9 % (36.0-47.0) Mean Corpuscular Volume 96 fL (79-100) Mean Corpuscular Hemoglobin 29 pg (25-35) Mean Corpuscular Hemoglobin Concent 30 g/dL (31-37) Red Cell Distribution Width 16.2 % (11.5-14.5) Platelet Count 71 x10^3/uL (140-400) Neutrophils (%) (Auto) 86 % (31-73) Lymphocytes (%) (Auto) 9 % (24-48) Monocytes (%) (Auto) 5 % (0-9) Eosinophils (%) (Auto) 0 % (0-3) Basophils (%) (Auto) 0 % (0-3) Neutrophils # (Auto) 5.0 x10^3uL (1.8-7.7) Lymphocytes # (Auto) 0.5 x10^3/uL (1.0-4.8) Monocytes # (Auto) 0.3 x10^3/uL (0.0-1.1) Eosinophils # (Auto) 0.0 x10^3/uL (0.0-0.7) Basophils # (Auto) 0.0 x10^3/uL (0.0-0.2) Laboratory Tests Test 09/18/17 02:50 09/18/17 08:05 Sodium Level 140 mmol/L (136-145) Potassium Level 4.6 mmol/L (3.5-5.1) Chloride Level 99 mmol/L (98-107) Carbon Dioxide Level 40 mmol/L (21-32) Anion Gap 1 (6-14) Blood Urea Nitrogen 24 mg/dL (7-20) Creatinine 1.2 mg/dL (0.6-1.0) Estimated GFR (Cockcroft-Gault) 42.7 Glucose Level 130 mg/dL (70-99) Calcium Level 8.5 mg/dL (8.5-10.1) White Blood Count 5.8 x10^3/uL (4.0-11.0) Red Blood Count 2.69 x10^6/uL (3.50-5.40) Hemoglobin 7.8 g/dL (12.0-15.5) Hematocrit 25.9 % (36.0-47.0) Mean Corpuscular Volume 96 fL (79-100) Mean Corpuscular Hemoglobin 29 pg (25-35) Mean Corpuscular Hemoglobin Concent 30 g/dL (31-37) Red Cell Distribution Width 16.2 % (11.5-14.5) Platelet Count 71 x10^3/uL (140-400) Neutrophils (%) (Auto) 86 % (31-73) Lymphocytes (%) (Auto) 9 % (24-48) Monocytes (%) (Auto) 5 % (0-9) Eosinophils (%) (Auto) 0 % (0-3) Basophils (%) (Auto) 0 % (0-3) Neutrophils # (Auto) 5.0 x10^3uL (1.8-7.7) Lymphocytes # (Auto) 0.5 x10^3/uL (1.0-4.8) Monocytes # (Auto) 0.3 x10^3/uL (0.0-1.1) Eosinophils # (Auto) 0.0 x10^3/uL (0.0-0.7) Basophils # (Auto) 0.0 x10^3/uL (0.0-0.2) Medications Active Scripts Medications Dose Route/Sig Max Daily Dose Days Date Category Macrobid 100 Mg Capsule (Nitrofurantoin Monohyd/M-Cryst) 100 Mg Capsule 1 Cap PO BID 08/21/17 Rx Doxycycline Hyclate 100 Mg Tablet 100 Mg PO BID 7 07/26/17 Rx Zofran Odt (Ondansetron) 4 Mg Tab.rapdis 1 Tab SL Q8HRS 12/09/16 Rx Duoneb 0.5-3(2.5) Mg/3 Ml (Albuterol/Ipratropium) 3 Ml Ampul.neb 3 Ml NEB QID 12/05/16 Reported Vitamin B-12 (Cyanocobalamin (Vitamin B-12)) 1,000 Mcg Tablet 1 Tab PO DAILY 10/25/16 Rx Senna (Sennosides) 8.6 Mg Tablet 8.6 Mg PO DAILY 06/20/16 Rx Docusate Sodium 100 Mg Capsule 1 Cap PO DAILY 06/20/16 Rx Trazodone Hcl 100 Mg Tablet 1 Tab PO QHS 06/07/16 Reported Vitamin D (Cholecalciferol (Vitamin D3)) 1,000 Unit Capsule 1 Cap PO DAILY 06/07/16 Reported Percocet 10-325 Mg Tablet (Oxycodone/Acetaminophen) 1 Each Tablet 1 Tab PO TID PRN 03/14/16 Rx Cranberry (Cranberry Fruit) 400 Mg Tablet 4,200 Mg PO DAILY 03/07/16 Reported Levothyroxine Sodium 88 Mcg Tablet 1 Tab PO DAILY 03/06/16 Reported Alprazolam 0.25 Mg Tablet 1 Tab PO PRN TID PRN 03/06/16 Reported Digoxin 125 Mcg Tablet 1 Tab PO DAILY 03/07/15 Reported Escitalopram Oxalate 10 Mg Tablet 20 Mg PO DAILY 03/14/14 Reported Impression . 1. Acute on chronic hypercapnic and hypoxic respiratory failure secondary to combination of acute exacerbation of chronic obstructive pulmonary disease, and use of narcotics. 2. Acute toxic encephalopathy secondary to use of narcotics. She is on Percocet t.i.d. p.r.n. 3. History of lung cancer with excellent response to prior treatment with no residual mass seen in the right chest. 4. Anemia. 5. Thrombocytopenia could be related to inflammatory etiology. Will need to be monitored closely. She is not on any Lovenox. 6. 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 Plan . 1. We will continue the nasal canula during the day and BiPAP at bedtime for a few nights. 2. Continue bronchodilators. 3. Continue steroids. 4. Empiric antibiotics for now. 5. Steroid taper. 6. Minimize the use of benzodiazepine and narcotics, and the medication doses should be adjusted for home medication at discharge. 7. Monitor platelets 8. Discussed with RN and RT and Dr. Amaya as well. transfer to floor KESHIA CHAO MD Sep 18, 2017 10:35
[2017-09-18 11:31] LABS: PLT ESTIMATE ADEQUATE (ADEQUATE)
[2017-09-18] MEDS: ALPRAZolam 0.25 MG TABLET PO PRN (13:45)
[2017-09-18] MEDS: cefTRIAXone IV Push 1 GM VIAL. IVP SCH (13:52)
[2017-09-18] MEDS: traZODone 100 MG TABLET. PO SCH (20:57)
[2017-09-19] MEDS: IV NORMAL SALINE 1000ML BAG 1,000 ML IV SCH (01:54)
[2017-09-19 03:00] VITALS: BP 120/57
[2017-09-19 04:59] LABS: BASO % 1 % (0-3); EOS % 0 % (0-3); HEMATOCRIT 25.5 % (36.0-47.0); HEMOGLOBIN 7.8 g/dL (12.0-15.5); LYMPH # 0.5 x10^3/uL (1.0-4.8); LYMPH % 8 % (24-48); MEAN CORPUSCULAR HEMOGLOBIN 30 pg (25-35); MEAN CORPUSCULAR HGB CONC 31 g/dL (31-37); MEAN CORPUSCULAR VOLUME 97 fL (79-100); MONO % 4 % (0-9); NEUT % 87 % (31-73); RED BLOOD COUNT 2.64 x10^6/uL (3.50-5.40); RED CELL DISTRIBUTION WIDTH 15.7 % (11.5-14.5); WHITE BLOOD COUNT 6.8 x10^3/uL (4.0-11.0)
[2017-09-19] MEDS: methylPREDNISolone SOD SUCC PF 125 MG/2 ML VIAL. IV SCH (05:36)
[2017-09-19] MEDS: ONDANSETRON ODT 4 MG TAB.RAPDIS. PO SCH ×3 (05:36→22:00)
[2017-09-19 07:00] VITALS: BP 136/64
[2017-09-19] MEDS: IPRATRPIUM/ALBUTEROL 0.5/2.5MG 3 ML NEBU. NEB SCH ×4 (07:28→20:09)
[2017-09-19 07:54] LABS: ANISOCYTOSIS SLIGHT; POLYCHROMASIA SLIGHT
[2017-09-19 07:55] LABS: PLATELET COUNT 119 x10^3/uL (140-400)
[2017-09-19 07:57] LABS: PLT ESTIMATE ADEQUATE (ADEQUATE)
[2017-09-19] MEDS: DIGOXIN 125 MCG TABLET. PO SCH (08:14)
[2017-09-19] MEDS: LEVOTHYROXINE 88 MCG TABLET PO SCH (08:14)
[2017-09-19] MEDS: LACTOBACILLUS RHAMNOSUS GG 1 CAPSULE. PO SCH ×2 (08:15→22:01)
[2017-09-19] MEDS: CYANOCOBALAMIN (VITAMIN B-12) 1,000 MCG TABLET. PO SCH (08:15)
[2017-09-19] MEDS: CITALOPRAM 20 MG TABLET. PO SCH (08:15)
[2017-09-19] MEDS: CHOLECALCIFEROL (VITAMIN D3) 1,000 UNIT TABLET PO SCH (08:15)
[2017-09-19] MEDS: SENNOSIDES 8.6 MG TABLET PO SCH (08:15)
[2017-09-19] MEDS: DOCUSATE SODIUM 100 MG CAPSULE. PO SCH (08:15)
--- NOTE | 2017-09-19 09:44 | PDOC ---
PULMONARY PROGRESS NOTES Subjective feels much better Vitals Vital Signs Date Time Temp Pulse Resp B/P (MAP) Pulse Ox O2 Delivery O2 Flow Rate FiO2 09/19/17 08:14 73 136/64 09/19/17 07:45 Nasal Cannula 4.5 09/19/17 07:00 97.8 18 90 97.8 General: Alert, No acute distress HEENT: Other Lungs: Other (decrease bs) Cardiovascular: S1, S2 Abdomen: Soft, Non-tender Neuro Exam: Alert Extremities: No Edema Skin: Warm Labs Laboratory Tests Test 09/18/17 02:50 09/18/17 08:05 09/19/17 04:05 Sodium Level 140 mmol/L (136-145) Potassium Level 4.6 mmol/L (3.5-5.1) Chloride Level 99 mmol/L (98-107) Carbon Dioxide Level 40 mmol/L (21-32) Anion Gap 1 (6-14) Blood Urea Nitrogen 24 mg/dL (7-20) Creatinine 1.2 mg/dL (0.6-1.0) Estimated GFR (Cockcroft-Gault) 42.7 Glucose Level 130 mg/dL (70-99) Calcium Level 8.5 mg/dL (8.5-10.1) White Blood Count 5.8 x10^3/uL (4.0-11.0) 6.8 x10^3/uL (4.0-11.0) Red Blood Count 2.69 x10^6/uL (3.50-5.40) 2.64 x10^6/uL (3.50-5.40) Hemoglobin 7.8 g/dL (12.0-15.5) 7.8 g/dL (12.0-15.5) Hematocrit 25.9 % (36.0-47.0) 25.5 % (36.0-47.0) Mean Corpuscular Volume 96 fL (79-100) 97 fL (79-100) Mean Corpuscular Hemoglobin 29 pg (25-35) 30 pg (25-35) Mean Corpuscular Hemoglobin Concent 30 g/dL (31-37) 31 g/dL (31-37) Red Cell Distribution Width 16.2 % (11.5-14.5) 15.7 % (11.5-14.5) Platelet Count 71 x10^3/uL (140-400) 119 x10^3/uL (140-400) Neutrophils (%) (Auto) 86 % (31-73) 87 % (31-73) Lymphocytes (%) (Auto) 9 % (24-48) 8 % (24-48) Monocytes (%) (Auto) 5 % (0-9) 4 % (0-9) Eosinophils (%) (Auto) 0 % (0-3) 0 % (0-3) Basophils (%) (Auto) 0 % (0-3) 1 % (0-3) Neutrophils # (Auto) 5.0 x10^3uL (1.8-7.7) 5.9 x10^3uL (1.8-7.7) Lymphocytes # (Auto) 0.5 x10^3/uL (1.0-4.8) 0.5 x10^3/uL (1.0-4.8) Monocytes # (Auto) 0.3 x10^3/uL (0.0-1.1) 0.3 x10^3/uL (0.0-1.1) Eosinophils # (Auto) 0.0 x10^3/uL (0.0-0.7) 0.0 x10^3/uL (0.0-0.7) Basophils # (Auto) 0.0 x10^3/uL (0.0-0.2) 0.0 x10^3/uL (0.0-0.2) Platelet Estimate Adequate (ADEQUATE) Adequate (ADEQUATE) Platelet Clumps, EDTA Present Present Large Platelets Present Occ Giant Platelets Present Segmented Neutrophils % 83 % (35-66) Lymphocytes % 11 % (24-48) Monocytes % 6 % (0-10) Polychromasia Slight Anisocytosis Slight Laboratory Tests Test 09/19/17 04:05 White Blood Count 6.8 x10^3/uL (4.0-11.0) Red Blood Count 2.64 x10^6/uL (3.50-5.40) Hemoglobin 7.8 g/dL (12.0-15.5) Hematocrit 25.5 % (36.0-47.0) Mean Corpuscular Volume 97 fL (79-100) Mean Corpuscular Hemoglobin 30 pg (25-35) Mean Corpuscular Hemoglobin Concent 31 g/dL (31-37) Red Cell Distribution Width 15.7 % (11.5-14.5) Platelet Count 119 x10^3/uL (140-400) Neutrophils (%) (Auto) 87 % (31-73) Lymphocytes (%) (Auto) 8 % (24-48) Monocytes (%) (Auto) 4 % (0-9) Eosinophils (%) (Auto) 0 % (0-3) Basophils (%) (Auto) 1 % (0-3) Neutrophils # (Auto) 5.9 x10^3uL (1.8-7.7) Lymphocytes # (Auto) 0.5 x10^3/uL (1.0-4.8) Monocytes # (Auto) 0.3 x10^3/uL (0.0-1.1) Eosinophils # (Auto) 0.0 x10^3/uL (0.0-0.7) Basophils # (Auto) 0.0 x10^3/uL (0.0-0.2) Segmented Neutrophils % 83 % (35-66) Lymphocytes % 11 % (24-48) Monocytes % 6 % (0-10) Platelet Estimate Adequate (ADEQUATE) Platelet Clumps, EDTA Present Large Platelets Occ Polychromasia Slight Anisocytosis Slight Medications Active Scripts Medications Dose Route/Sig Max Daily Dose Days Date Category Macrobid 100 Mg Capsule (Nitrofurantoin Monohyd/M-Cryst) 100 Mg Capsule 1 Cap PO BID 08/21/17 Rx Doxycycline Hyclate 100 Mg Tablet 100 Mg PO BID 7 07/26/17 Rx Zofran Odt (Ondansetron) 4 Mg Tab.rapdis 1 Tab SL Q8HRS 12/09/16 Rx Duoneb 0.5-3(2.5) Mg/3 Ml (Albuterol/Ipratropium) 3 Ml Ampul.neb 3 Ml NEB QID 12/05/16 Reported Vitamin B-12 (Cyanocobalamin (Vitamin B-12)) 1,000 Mcg Tablet 1 Tab PO DAILY 10/25/16 Rx Senna (Sennosides) 8.6 Mg Tablet 8.6 Mg PO DAILY 06/20/16 Rx Docusate Sodium 100 Mg Capsule 1 Cap PO DAILY 06/20/16 Rx Trazodone Hcl 100 Mg Tablet 1 Tab PO QHS 06/07/16 Reported Vitamin D (Cholecalciferol (Vitamin D3)) 1,000 Unit Capsule 1 Cap PO DAILY 06/07/16 Reported Percocet 10-325 Mg Tablet (Oxycodone/Acetaminophen) 1 Each Tablet 1 Tab PO TID PRN 03/14/16 Rx Cranberry (Cranberry Fruit) 400 Mg Tablet 4,200 Mg PO DAILY 03/07/16 Reported Levothyroxine Sodium 88 Mcg Tablet 1 Tab PO DAILY 03/06/16 Reported Alprazolam 0.25 Mg Tablet 1 Tab PO PRN TID PRN 03/06/16 Reported Digoxin 125 Mcg Tablet 1 Tab PO DAILY 03/07/15 Reported Escitalopram Oxalate 10 Mg Tablet 20 Mg PO DAILY 03/14/14 Reported Impression . 1. Acute on chronic hypercapnic and hypoxic respiratory failure secondary to combination of acute exacerbation of chronic obstructive pulmonary disease, and use of narcotics. 2. Acute toxic encephalopathy secondary to use of narcotics. She is on Percocet t.i.d. p.r.n. 3. History of lung cancer with excellent response to prior treatment with no residual mass seen in the right chest. 4. Anemia. 5. Thrombocytopenia could be related to inflammatory etiology. Will need to be monitored closely. She is not on any Lovenox. 6. 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 Plan . 1. We will continue the nasal canula . dc bipap 2. Continue bronchodilators. 3. Continue steroids with taper 4. Empiric antibiotics 5. Steroid taper. 6. would recommend to ma home narcotics. 7. Monitor platelets 8. Discussed with RANJAN centeno with ma home KESHIA CHAO MD Sep 19, 2017 09:44
--- NOTE | 2017-09-19 10:31 | PN ---
DATE: PATIENT LOCATION: 550. SUBJECTIVE: The patient is sleepy, easily awakable. OBJECTIVE: VITAL SIGNS: Afebrile, vitals stable. The patient is on oxygen nasal cannula. HEENT: Head is atraumatic. Pupils equal. NECK: Supple. CHEST: Symmetrical. CARDIOVASCULAR: S1, S2. LUNGS: No wheezing. ABDOMEN: Soft. EXTREMITIES: No edema. FINAL IMPRESSION: 1. Chronic obstructive pulmonary disease with acute exacerbation. 2. Hypercapnic respiratory failure, resolved. 3. Lung cancer 5 years ago, had radiation and chemo. 4. Chronic osteoporosis, compression fractures. PLAN: At this time, I spoke with the Pulmonology today and changed to oral medications, oral prednisone and oral antibiotic. PT, OT. Plan to discharge home tomorrow. The patient is up-to-date on flu and pneumonia shots. She does not smoke. She is on home oxygen 5 liters at home. The patient is a DNR. PROGNOSIS: Guarded. PAUL MALDONADO MD DR: EKTA/patience JOB#: [id number] / [id number]
[2017-09-19 10:46] VITALS: BP 123/58
[2017-09-19 15:00] VITALS: BP 105/38
[2017-09-19 19:00] VITALS: BP 111/53
[2017-09-19] MEDS: ALPRAZolam 0.25 MG TABLET PO PRN (22:00)
[2017-09-19] MEDS: traZODone 100 MG TABLET. PO SCH (22:00)
[2017-09-19 23:00] VITALS: BP 91/54
[2017-09-20 03:00] VITALS: BP 128/63
[2017-09-20] MEDS: ONDANSETRON ODT 4 MG TAB.RAPDIS. PO SCH (06:00)
[2017-09-20 07:00] VITALS: BP 136/55
[2017-09-20] MEDS: IPRATRPIUM/ALBUTEROL 0.5/2.5MG 3 ML NEBU. NEB SCH ×2 (07:48→12:02)
[2017-09-20] MEDS: CHOLECALCIFEROL (VITAMIN D3) 1,000 UNIT TABLET PO SCH (08:09)
[2017-09-20] MEDS: DOCUSATE SODIUM 100 MG CAPSULE. PO SCH (08:09)
[2017-09-20] MEDS: DIGOXIN 125 MCG TABLET. PO SCH (08:09)
[2017-09-20] MEDS: LACTOBACILLUS RHAMNOSUS GG 1 CAPSULE. PO SCH (08:09)
[2017-09-20] MEDS: SENNOSIDES 8.6 MG TABLET PO SCH (08:09)
[2017-09-20] MEDS: CYANOCOBALAMIN (VITAMIN B-12) 1,000 MCG TABLET. PO SCH (08:10)
[2017-09-20] MEDS: LEVOTHYROXINE 88 MCG TABLET PO SCH (08:10)
[2017-09-20] MEDS: CITALOPRAM 20 MG TABLET. PO SCH (08:10)
[2017-09-20] MEDS ORDERED: predniSONE 10 MG TABLET PO SCH (09:00)
--- NOTE | 2017-09-20 10:07 | PDOC ---
PROGRESS NOTES Subjective Subjective feels better ready to go home Objective Objective Vital Signs Date Time Temp Pulse Resp B/P (MAP) Pulse Ox O2 Delivery O2 Flow Rate FiO2 09/20/17 08:09 85 136/85 09/20/17 07:48 88 Nasal Cannula 5.0 09/20/17 07:00 97.9 18 97.9 Intake and Output 09/20/17 07:00 Intake Total 1700 ml Output Total 750 ml Balance 950 ml Intake Oral 1700 ml Output Urine Total 750 ml # Voids 3 Physical Exam Abdomen: Normal bowel sounds, Soft Heart: Regular rate, Normal S1 Extremities: No clubbing General: Alert HEENT: Atraumatic Lungs: Clear to auscultation MUSCULOSKELETAL: No swelling Neuro: Normal speech Psych/Mental Status: Mood NL Skin: No significant lesion Diagnosis Problem List Problems Medical Problems: (1) COPD (chronic obstructive pulmonary disease) Status: Acute (2) Respiratory distress Status: Acute Assessment Assessment Problems Medical Problems: (1) COPD (chronic obstructive pulmonary disease) Status: Acute (2) Respiratory distress Status: Acute FINAL IMPRESSION: 1. Hypercapnic acute respiratory failure. 2. Chronic obstructive pulmonary disease with hypoxia, on 5 liters oxygen. 3. History of lung cancer, had radiation and chemo 5 years ago. 4. Anxiety. 5. Depression. 6. Hiatal hernia. 7. Chronic pain syndrome. PLAN: d/c home today po prednisone co2 corrected. on oxygen nasal canula. she has hospice/home health aide Problems: Plan Plan of Care Problems Medical Problems: (1) COPD (chronic obstructive pulmonary disease) Status: Acute (2) Respiratory distress Status: Acute Comment Review of Relevant I have reviewed the following items carly (where applicable) has been applied. Labs Microbiology 09/16/17 Blood Culture - Preliminary, Resulted NO GROWTH AFTER 3 DAYS Medications Current Medications Prednisone (Prednisone) 5 mg DAILY PO ; Start 09/26/17 at 09:00; Stop at 09:01 Prednisone (Prednisone) 10 mg DAILY PO ; Start 09/24/17 at 09:00; Stop at 09:01 Prednisone (Prednisone) 20 mg DAILY PO ; Start 09/22/17 at 09:00; Stop at 09:01 Prednisone (Prednisone) 30 mg DAILY PO Last administered on 09/20/17t 08:10; Start 09/20/17 at 09:00; Stop 09/21/17 at 09:01 Vitals/I & O Vital Sign - Last 24 Hours 09/19/17 09/19/17 09/19/17 09/19/17 10:46 11:12 15:00 16:42 Temp 97.8 97.7 97.8 97.7 Pulse 82 85 Resp 18 18 B/P (MAP) 123/58 (79) 105/38 (60) Pulse Ox 92 93 89 80 O2 Delivery Nasal Cannula Nasal Cannula Nasal Cannula Nasal Cannula O2 Flow Rate 5.0 5.0 6.5 5.0 09/19/17 09/19/17 09/19/17 09/19/17 19:00 19:45 20:12 23:00 Temp 98.7 97.3 98.7 97.3 Pulse 131 88 Resp 32 22 B/P (MAP) 111/53 (72) 91/54 (66) Pulse Ox 95 85 90 O2 Delivery Nasal Cannula Nasal Cannula O2 Flow Rate 6.0 10.0 09/20/17 09/20/17 09/20/17 09/20/17 03:00 07:00 07:45 07:48 Temp 98.5 97.9 98.5 97.9 Pulse 85 81 Resp 20 18 B/P (MAP) 128/63 (84) 136/55 (82) Pulse Ox 91 90 88 O2 Delivery Nasal Cannula Nasal Cannula Nasal Cannula O2 Flow Rate 6.0 5.5 5.0 09/20/17 08:09 Pulse 85 B/P (MAP) 136/85 Intake and Output 09/19/17 09/19/17 09/20/17 15:00 23:00 07:00 Intake Total 600 ml 1100 ml Output Total 200 ml 550 ml Balance 400 ml 1100 ml -550 ml Nutrition Consultation Dietary Evaluation: Recommendations by RD: Increase Calorie Intake Comments: REC Mechanical soft cardiac diet Expected Outcomes/Goals: PO intake to meet > 75% est needs Malnutrition Findings: Food and Nutrition Intake (Mod: <75% est energy req 7days Weight Status: Overweight PAUL MALDONADO MD Sep 20, 2017 10:07
[2017-09-20] MEDS ORDERED: PRED-220 PO (10:09)
--- NOTE | 2017-09-20 10:14 | PDOC ---
Provider Note Provider Note Discharge summary dictated. #[id number] PAUL MALDONADO MD Sep 20, 2017 10:14
[2017-09-20 10:47] VITALS: BP 136/72
--- NOTE | 2017-09-20 10:54 | PDOC ---
PULMONARY PROGRESS NOTES Subjective feels much better Vitals Vital Signs Date Time Temp Pulse Resp B/P (MAP) Pulse Ox O2 Delivery O2 Flow Rate FiO2 09/20/17 10:47 97.9 79 18 136/72 (93) 92 Nasal Cannula 6.0 97.9 General: Alert, No acute distress HEENT: Other Lungs: Other (decrease bs) Cardiovascular: S1, S2 Abdomen: Soft, Non-tender Neuro Exam: Alert Extremities: No Edema Skin: Warm Labs Laboratory Tests Test 09/19/17 04:05 White Blood Count 6.8 x10^3/uL (4.0-11.0) Red Blood Count 2.64 x10^6/uL (3.50-5.40) Hemoglobin 7.8 g/dL (12.0-15.5) Hematocrit 25.5 % (36.0-47.0) Mean Corpuscular Volume 97 fL (79-100) Mean Corpuscular Hemoglobin 30 pg (25-35) Mean Corpuscular Hemoglobin Concent 31 g/dL (31-37) Red Cell Distribution Width 15.7 % (11.5-14.5) Platelet Count 119 x10^3/uL (140-400) Neutrophils (%) (Auto) 87 % (31-73) Lymphocytes (%) (Auto) 8 % (24-48) Monocytes (%) (Auto) 4 % (0-9) Eosinophils (%) (Auto) 0 % (0-3) Basophils (%) (Auto) 1 % (0-3) Neutrophils # (Auto) 5.9 x10^3uL (1.8-7.7) Lymphocytes # (Auto) 0.5 x10^3/uL (1.0-4.8) Monocytes # (Auto) 0.3 x10^3/uL (0.0-1.1) Eosinophils # (Auto) 0.0 x10^3/uL (0.0-0.7) Basophils # (Auto) 0.0 x10^3/uL (0.0-0.2) Segmented Neutrophils % 83 % (35-66) Lymphocytes % 11 % (24-48) Monocytes % 6 % (0-10) Platelet Estimate Adequate (ADEQUATE) Platelet Clumps, EDTA Present Large Platelets Occ Polychromasia Slight Anisocytosis Slight Medications Active Scripts Medications Dose Route/Sig Max Daily Dose Days Date Category Macrobid 100 Mg Capsule (Nitrofurantoin Monohyd/M-Cryst) 100 Mg Capsule 1 Cap PO BID 08/21/17 Rx Doxycycline Hyclate 100 Mg Tablet 100 Mg PO BID 7 07/26/17 Rx Zofran Odt (Ondansetron) 4 Mg Tab.rapdis 1 Tab SL Q8HRS 12/09/16 Rx Duoneb 0.5-3(2.5) Mg/3 Ml (Albuterol/Ipratropium) 3 Ml Ampul.neb 3 Ml NEB QID 12/05/16 Reported Vitamin B-12 (Cyanocobalamin (Vitamin B-12)) 1,000 Mcg Tablet 1 Tab PO DAILY 10/25/16 Rx Senna (Sennosides) 8.6 Mg Tablet 8.6 Mg PO DAILY 06/20/16 Rx Docusate Sodium 100 Mg Capsule 1 Cap PO DAILY 06/20/16 Rx Trazodone Hcl 100 Mg Tablet 1 Tab PO QHS 06/07/16 Reported Vitamin D (Cholecalciferol (Vitamin D3)) 1,000 Unit Capsule 1 Cap PO DAILY 06/07/16 Reported Percocet 10-325 Mg Tablet (Oxycodone/Acetaminophen) 1 Each Tablet 1 Tab PO TID PRN 03/14/16 Rx Cranberry (Cranberry Fruit) 400 Mg Tablet 4,200 Mg PO DAILY 03/07/16 Reported Levothyroxine Sodium 88 Mcg Tablet 1 Tab PO DAILY 03/06/16 Reported Alprazolam 0.25 Mg Tablet 1 Tab PO PRN TID PRN 03/06/16 Reported Digoxin 125 Mcg Tablet 1 Tab PO DAILY 03/07/15 Reported Escitalopram Oxalate 10 Mg Tablet 20 Mg PO DAILY 03/14/14 Reported Impression . 1. Acute on chronic hypercapnic and hypoxic respiratory failure secondary to combination of acute exacerbation of chronic obstructive pulmonary disease, and use of narcotics. 2. Acute toxic encephalopathy secondary to use of narcotics. She is on Percocet t.i.d. p.r.n. 3. History of lung cancer with excellent response to prior treatment with no residual mass seen in the right chest. 4. Anemia. 5. Thrombocytopenia could be related to inflammatory etiology. Will need to be monitored closely. She is not on any Lovenox. 6. 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 Plan . 1. We will continue the nasal canula . off bipap 2. Continue bronchodilators. 3. Continue steroids with taper 4. Empiric antibiotics 5. Steroid taper. 6. would recommend to dc home narcotics. 7. Monitor platelets, improved 8. Discussed with RANJAN centeno with dc home KESHIA CHAO MD Sep 20, 2017 10:54
--- NOTE | 2017-09-20 13:41 | DS ---
DATE OF DISCHARGE: 09/20/2017 REASON FOR ADMISSION TO THE HOSPITAL: Acute respiratory failure, hypercapnic respiratory failure. CONSULTATIONS: Dr. Baca. PROCEDURES DONE: CT chest. HOSPITAL COURSE: The patient is an 87-year-old female with history of lung cancer, COPD, chronic oxygen at 5 liters. She came with respiratory distress, short of breath. She has had a CO2 of 100, pH 7.3. The patient was put on BiPAP, admitted to the ICU, was seen by Dr. Baca, Pulmonology. The patient was given IV Solu-Medrol, oxygen, breathing treatment. Condition improved over next couple of days and she was transitioned to her home oxygen level 5 liters and she is feeling better. Her pH 7.34, pCO2 101, pO2 71, bicarbonate 54 at the time of admission, pCO2 came down to 60. The patient had a CT scan chest showed severe emphysema, cardiomegaly, hiatal hernia. The patient was seen by Physical Therapy. She has a caregiver at home. The patient is a DNR. The patient is discharged back to home, had a flu shot and pneumonia shot. She does not smoke, quit smoking 5 years ago. FINAL DIAGNOSES: 1. Acute respiratory failure. 2. Hypercapnic respiratory failure, 3. Requiring BiPAP. 4. Chronic obstructive pulmonary disease with emphysema. 5. Chronic hypoxemia, on oxygen 5 liters. 6. History of lung cancer, had radiation and chemo 5 years ago. 7. Ex-smoker. 8. Hypothyroidism. 9. Chronic atrial fibrillation, rate controlled. 10. Osteoporosis with compression fracture of the spine. DISPOSITION: Home. PROGNOSIS: Poor. She has a home caregiver, DNR. PAUL MALDONADO MD DR: EKTA/patience JOB#: [id number] / [id number] JENN
[2017-09-22] MEDS ORDERED: predniSONE 20 MG TABLET PO SCH (09:00)
[2017-09-24] MEDS ORDERED: predniSONE 10 MG TABLET PO SCH (09:00)
[2017-09-26] MEDS ORDERED: predniSONE 5 MG TABLET PO SCH (09:00)
== END 2017-09-20 14:35 | disposition home or self-care (01) | DRG 189 ==
LOC: ER 12:46 → 2 SOUTH 14:11 → 1 WEST ICU 09-17 00:06 → 5 SOUTH 09-18 19:30
PROVIDERS: ADMIT Internal Medicine; ATTEND Internal Medicine
PROC: 5A09357 Assistance with Respiratory Ventilation, Less than 24 Consecutive Hours, Continuous Positive Airway Pressure (ICD-10-PCS; principal; 2017-09-16)
PROC: 5A09357 Assistance with Respiratory Ventilation, Less than 24 Consecutive Hours, Continuous Positive Airway Pressure (ICD-10-PCS; 2017-09-17)
DX: J96.21 Acute and chronic respiratory failure with hypoxia (principal); G92 Toxic encephalopathy; E87.2 Acidosis; D69.6 Thrombocytopenia, unspecified; I48.2 Chronic atrial fibrillation; J44.1 Chronic obstructive pulmonary disease with (acute) exacerbation; J98.11 Atelectasis; M48.50XA Collapsed vertebra, not elsewhere classified, site unspecified, initial encounter for fracture; D64.9 Anemia, unspecified; E03.9 Hypothyroidism, unspecified; F32.9 Major depressive disorder, single episode, unspecified; F41.9 Anxiety disorder, unspecified; G89.4 Chronic pain syndrome; I51.7 Cardiomegaly; I70.0 Atherosclerosis of aorta; J96.22 Acute and chronic respiratory failure with hypercapnia; K44.9 Diaphragmatic hernia without obstruction or gangrene; Z66 Do not resuscitate; Z85.118 Personal history of other malignant neoplasm of bronchus and lung; Z87.891 Personal history of nicotine dependence; Z90.49 Acquired absence of other specified parts of digestive tract; Z90.710 Acquired absence of both cervix and uterus; Z92.21 Personal history of antineoplastic chemotherapy; Z99.81 Dependence on supplemental oxygen; Z87.01 Personal history of pneumonia (recurrent); Z88.8 Allergy status to other drugs, medicaments and biological substances
CPT/HCPCS: 36415; 36600; 71010; 71260; 80048; 80053; 82805; 83605; 83690; 84484; 85007; 85025; 87040; 93005; 94640; 94660; 96365; 96366; 96368; 96375; J0456; J0690; J0696; J1650; J2060; J2405; J2930; J7030; J7040; J7512; J7620; Q0162; Q9967; 97530; 99285-25

== ENCOUNTER 2017-11-13 06:15 | Inpatient (IN) | payer MEDICARE ==
[2017-11-13 08:43] LABS: ADD MAN DIFF? NO
[2017-11-13 08:46] LABS: BASO # 0.1 x10^3/uL (0.0-0.2); BASO % 1 % (0-3); EOS # 0.1 x10^3/uL (0.0-0.7); EOS % 1 % (0-3); HEMATOCRIT 26.8 % (36.0-47.0); HEMOGLOBIN 8.3 g/dL (12.0-15.5); LYMPH # 1.5 x10^3/uL (1.0-4.8); LYMPH % 20 % (24-48); MEAN CORPUSCULAR HEMOGLOBIN 29 pg (25-35); MEAN CORPUSCULAR HGB CONC 31 g/dL (31-37); MEAN CORPUSCULAR VOLUME 93 fL (79-100); MONO # 1.1 x10^3/uL (0.0-1.1); MONO % 14 % (0-9); NEUT # 5.1 x10^3uL (1.8-7.7); NEUT % 65 % (31-73); PLATELET COUNT 117 x10^3/uL (140-400); RED BLOOD COUNT 2.88 x10^6/uL (3.50-5.40); RED CELL DISTRIBUTION WIDTH 15.3 % (11.5-14.5); WHITE BLOOD COUNT 7.9 x10^3/uL (4.0-11.0)
[2017-11-13 09:07] LABS: ANION GAP 1 (6-14); BLOOD UREA NITROGEN 24 mg/dL (7-20); CALCIUM 9.1 mg/dL (8.5-10.1); CARBON DIOXIDE 44 mmol/L (21-32); CHLORIDE 101 mmol/L (98-107); CREATININE 0.9 mg/dL (0.6-1.0); GFR 59.5; GLUCOSE 93 mg/dL (70-99); POTASSIUM 4.4 mmol/L (3.5-5.1); SODIUM 146 mmol/L (136-145)
[2017-11-13 09:13] LABS: TROPONINI 0.079 ng/mL (0.000-0.055)
[2017-11-13 09:14] LABS: ALBUMIN 2.7 g/dL (3.4-5.0); ALK PHOS 72 U/L (46-116); ALT (SGPT) 31 U/L (14-59); AST (SGOT) 33 U/L (15-37); DIRECT BILIRUBIN < 0.1 mg/dL (0.0-0.2); MAGNESIUM 1.9 mg/dL (1.8-2.4); TOTAL BILIRUBIN 0.4 mg/dL (0.2-1.0); TOTAL PROTEIN 6.4 g/dL (6.4-8.2)
[2017-11-13 09:15] LABS: THYROID STIM HORMONE (TSH) 0.281 uIU/mL (0.358-3.74)
[2017-11-13 09:16] LABS: CKMB MASS 1.5 ng/mL (0.0-3.6); CREATINE KINASE 60 U/L (26-192)
[2017-11-13 09:16] LABS: NT-PRO BNP 7450 pg/mL (0-449)
[2017-11-13] MEDS: AZITHRMYCN 500MG IVPB FOR OMNI 250 ML IV (10:00)
[2017-11-13] MEDS: IPRATRPIUM/ALBUTEROL 0.5/2.5MG 3 ML NEBU. NEB ×2 (10:00→20:33)
[2017-11-13] MEDS: predniSONE 10 MG TABLET PO (10:17)
[2017-11-13] MEDS: FUROSEMIDE 40 MG/4 ML VIAL. IVP (10:19)
[2017-11-13 10:42] LABS: BILIRUBIN,URINE NEGATIVE (NEG); CLARITY,URINE CLOUDY; COLOR,URINE YELLOW; GLUCOSE,URINE NEGATIVE (NEG); NITRITE,URINE NEGATIVE (NEG); PH,URINE 6.5; PROTEIN,URINE 30 mg/dL (NEG-TRACE); UROBILINOGEN,URINE 0.2 mg/dL (0.2 mg/dL)
[2017-11-13] MEDS ORDERED: ONDANSETRON PF 4 MG/2 ML VIAL. IV (10:45)
[2017-11-13 10:56] LABS: BACTERIA,URINE FEW /HPF (0-FEW); SQUAMOUS EPITHELIAL CELL,UR OCC /LPF; WBC,URINE >40 /HPF (0-4)
[2017-11-13 16:38] LABS: TROPONINI 0.085 ng/mL (0.000-0.055)
[2017-11-13] MEDS ORDERED: ONDANSETRON ODT 4 MG TAB.RAPDIS. PO (17:15)
[2017-11-13] MEDS ORDERED: ALBUTEROL SULFATE 2.5 MG/3 ML NEBU. NEB (17:30)
[2017-11-13] MEDS: ENOXAPARIN 40 MG/0.4 ML SYRINGE. SQ (19:37)
[2017-11-13] MEDS: cefTRIAXone IV Push 1 GM VIAL. IVP (19:37)
[2017-11-13] MEDS ORDERED: IPRATRPIUM/ALBUTEROL 0.5/2.5MG 3 ML NEBU. NEB (20:00)
[2017-11-13] MEDS: traZODone 100 MG TABLET. PO (22:22)
[2017-11-13 22:43] LABS: TROPONINI 0.078 ng/mL (0.000-0.055)
[2017-11-14 04:36] LABS: ADD MAN DIFF? NO
[2017-11-14 04:45] LABS: BASO % 1 % (0-3); EOS % 0 % (0-3); HEMATOCRIT 25.5 % (36.0-47.0); HEMOGLOBIN 7.9 g/dL (12.0-15.5); LYMPH # 1.7 x10^3/uL (1.0-4.8); LYMPH % 25 % (24-48); MEAN CORPUSCULAR HEMOGLOBIN 29 pg (25-35); MEAN CORPUSCULAR HGB CONC 31 g/dL (31-37); MEAN CORPUSCULAR VOLUME 92 fL (79-100); MONO % 14 % (0-9); NEUT # 4.3 x10^3uL (1.8-7.7); NEUT % 61 % (31-73); RED BLOOD COUNT 2.78 x10^6/uL (3.50-5.40); RED CELL DISTRIBUTION WIDTH 15.1 % (11.5-14.5); WHITE BLOOD COUNT 7.1 x10^3/uL (4.0-11.0)
[2017-11-14 05:07] LABS: BLOOD UREA NITROGEN 23 mg/dL (7-20); CALCIUM 9.1 mg/dL (8.5-10.1); CHLORIDE 97 mmol/L (98-107); CREATININE 0.9 mg/dL (0.6-1.0); GFR 59.5; GLUCOSE 80 mg/dL (70-99); POTASSIUM 3.7 mmol/L (3.5-5.1); SODIUM 143 mmol/L (136-145)
[2017-11-14 05:14] LABS: CARBON DIOXIDE > 45 mmol/L (21-32)
[2017-11-14] MEDS: LEVOTHYROXINE 88 MCG TABLET PO (06:02)
[2017-11-14] MEDS: IPRATRPIUM/ALBUTEROL 0.5/2.5MG 3 ML NEBU. NEB ×5 (07:16→20:07)
[2017-11-14] MEDS: CHOLECALCIFEROL (VITAMIN D3) 1,000 UNIT TABLET PO (08:37)
[2017-11-14] MEDS: CYANOCOBALAMIN (VITAMIN B-12) 1,000 MCG TABLET. PO (08:37)
[2017-11-14] MEDS: predniSONE 10 MG TABLET PO (08:38)
[2017-11-14] MEDS: SENNOSIDES 8.6 MG TABLET PO (08:38)
[2017-11-14] MEDS: DIGOXIN 125 MCG TABLET. PO (08:38)
[2017-11-14] MEDS: CITALOPRAM 20 MG TABLET. PO (08:38)
[2017-11-14] MEDS: DOCUSATE SODIUM 100 MG CAPSULE. PO (08:38)
[2017-11-14 08:39] LABS: PLATELET COUNT 154 x10^3/uL (140-400)
[2017-11-14] MEDS ORDERED: CRANBERRY FRUIT 4200 MG PO (09:00)
[2017-11-14] MEDS: CEFPODOXIME PROXETIL 100 MG TABLET. PO ×2 (13:18→20:19)
[2017-11-14] MEDS: FUROSEMIDE 20 MG TABLET PO (13:18)
[2017-11-14] MEDS: ENOXAPARIN 40 MG/0.4 ML SYRINGE. SQ (18:00)
[2017-11-14] MEDS: traZODone 100 MG TABLET. PO (20:19)
[2017-11-14] MEDS: LACTOBACILLUS RHAMNOSUS GG 1 CAPSULE. PO (20:20)
[2017-11-15] MEDS: LEVOTHYROXINE 88 MCG TABLET PO (06:08)
[2017-11-15] MEDS: IPRATRPIUM/ALBUTEROL 0.5/2.5MG 3 ML NEBU. NEB ×4 (07:17→20:00)
[2017-11-15] MEDS: DIGOXIN 125 MCG TABLET. PO ×2 (09:00→10:26)
[2017-11-15] MEDS: FUROSEMIDE 20 MG TABLET PO (10:25)
[2017-11-15] MEDS: SENNOSIDES 8.6 MG TABLET PO (10:25)
[2017-11-15] MEDS: CHOLECALCIFEROL (VITAMIN D3) 1,000 UNIT TABLET PO (10:25)
[2017-11-15] MEDS: LACTOBACILLUS RHAMNOSUS GG 1 CAPSULE. PO ×2 (10:25→19:48)
[2017-11-15] MEDS: predniSONE 10 MG TABLET PO (10:25)
[2017-11-15] MEDS: DOCUSATE SODIUM 100 MG CAPSULE. PO (10:25)
[2017-11-15] MEDS: CITALOPRAM 20 MG TABLET. PO (10:25)
[2017-11-15] MEDS: CEFPODOXIME PROXETIL 100 MG TABLET. PO ×2 (10:26→21:00)
[2017-11-15] MEDS: CYANOCOBALAMIN (VITAMIN B-12) 1,000 MCG TABLET. PO (10:26)
[2017-11-15] MEDS: ENOXAPARIN 40 MG/0.4 ML SYRINGE. SQ (18:00)
[2017-11-15] MEDS: traZODone 100 MG TABLET. PO (21:00)
[2017-11-16] MEDS: LEVOTHYROXINE 88 MCG TABLET PO (05:52)
[2017-11-16] MEDS: IPRATRPIUM/ALBUTEROL 0.5/2.5MG 3 ML NEBU. NEB ×2 (07:12→11:55)
[2017-11-16] MEDS: CITALOPRAM 20 MG TABLET. PO (08:08)
[2017-11-16] MEDS: FUROSEMIDE 20 MG TABLET PO (08:08)
[2017-11-16] MEDS: SENNOSIDES 8.6 MG TABLET PO (08:08)
[2017-11-16] MEDS: DOCUSATE SODIUM 100 MG CAPSULE. PO (08:08)
[2017-11-16] MEDS: CYANOCOBALAMIN (VITAMIN B-12) 1,000 MCG TABLET. PO (08:09)
[2017-11-16] MEDS: LACTOBACILLUS RHAMNOSUS GG 1 CAPSULE. PO (08:09)
[2017-11-16] MEDS: CHOLECALCIFEROL (VITAMIN D3) 1,000 UNIT TABLET PO (08:09)
[2017-11-16] MEDS: CEFPODOXIME PROXETIL 100 MG TABLET. PO (08:09)
[2017-11-16] MEDS: predniSONE 10 MG TABLET PO (08:10)
[2017-11-16] MEDS: DIGOXIN 125 MCG TABLET. PO (08:13)
[2017-11-16] MEDS: ACETAMINOPHEN 325 MG TABLET. PO (13:47)
== END 2017-11-16 14:24 | DRG 542 ==
LOC: ER 06:15 → 6 SOUTH 09:45
DX: M48.50XA Collapsed vertebra, not elsewhere classified, site unspecified, initial encounter for fracture (principal); E43 Unspecified severe protein-calorie malnutrition; I50.33 Acute on chronic diastolic (congestive) heart failure; J84.9 Interstitial pulmonary disease, unspecified; J44.1 Chronic obstructive pulmonary disease with (acute) exacerbation; I48.2 Chronic atrial fibrillation; Z99.81 Dependence on supplemental oxygen; I11.0 Hypertensive heart disease with heart failure; E03.9 Hypothyroidism, unspecified; F32.9 Major depressive disorder, single episode, unspecified; F41.9 Anxiety disorder, unspecified; M81.0 Age-related osteoporosis without current pathological fracture; Z66 Do not resuscitate; Z68.23 Body mass index [BMI] 23.0-23.9, adult; Z82.3 Family history of stroke; Z82.49 Family history of ischemic heart disease and other diseases of the circulatory system; Z83.3 Family history of diabetes mellitus; Z85.118 Personal history of other malignant neoplasm of bronchus and lung; Z90.710 Acquired absence of both cervix and uterus; Z92.3 Personal history of irradiation; Z90.49 Acquired absence of other specified parts of digestive tract; Z88.5 Allergy status to narcotic agent; Z88.8 Allergy status to other drugs, medicaments and biological substances; Z87.891 Personal history of nicotine dependence; M19.90 Unspecified osteoarthritis, unspecified site; M54.5 Low back pain
CPT/HCPCS: 36415; 71045; 73030; 80048; 80076; 81001; 82553; 83735; 83880; 84443; 84484; 85025; 87086; 93005; 93306; 94640; 94760; 96365; 96375; 97116-GP; 97162-GP; 97166-GO; 97530-GO; 97535-GO; 99285; 99285-25; J0456; J0696; J1650; J1940; J7512; J7620